=== PATIENT | male | born 1930 | race Hispanic/Latino ===

== ENCOUNTER 2016-06-15 12:45 | Inpatient (IN) | payer MEDICARE ==
[~2016-06-15 12:45] MED LIST: DILAUDID IV PRN; MILK OF MAGNESIA PO PRN; SODIUM CHLORIDE FLUSH SYRINGE 10 ML IV PRN; ZOFRAN IV PRN
[2016-06-15] MEDS ORDERED: DULCOLAX PR PRN (13:00)
[2016-06-15 14:35] LABS: Hematocrit 29.9 % (35.5-45.6); Mean Corpuscular HGB Conc 34 % (32-34); Mean Corpuscular Hemoglobin 31 pg (28-32); Mean Corpuscular Volume 92 fl (84-94); Platelet Count 311 K/mm3 (140-440); Red Blood Count 3.26 M/mm3 (3.65-5.03); Red Cell Distribution Width 13.4 % (13.2-15.2); White Blood Count 15.6 K/mm3 (4.5-11.0)
[2016-06-15 14:45] LABS: INR 1.18 (0.87-1.13)
[2016-06-15 14:54] LABS: BUN/Creatinine Ratio 17.69; Chloride 97.2 mmol/L (98-107); Potassium 4.5 mmol/L (3.6-5.0)
[2016-06-15 15:45] LABS: Basophils % (Manual) 0 % (0.0-1.8); Blastocytes % (Manual) 0 %; RBC Morphology Normal
[2016-06-15 15:52] LABS: Diff Status Complete
[2016-06-15] MEDS: NORCO 5/325 PO PRN (18:13)
[2016-06-15] MEDS: NACL 0.9% 1000 ML 1,000 ML IV SCH (23:11)
[2016-06-16] MEDS: NORCO 5/325 PO PRN ×3 (07:46→19:58)
--- NOTE | 2016-06-16 13:23 | History and Physical Report ---
History of Present Illness Date of examination: 06/16/16 Date of admission: 06/15/16 12:45 Chief complaint: Carotid pseudoaneurysm- right History of present illness: Pleasant 86 y/o male with history of HTN and carotid stenosis presents with post op swelling. Pulsatile mass on right. CTA shows pseudoaneurysm change. No c/o neurolgical deficits. c/o headache. Scheduled for surgery Saturday. Past History Past Medical History: CAD, hypertension, hyperlipidemia Past Surgical History: Other (carotid endarterectomy right and left) Medications and Allergies Allergies Allergy/AdvReac Type Severity Reaction Status Date / Time No Known Allergies Allergy Verified 12/30/14 10:26 Home Medications Medication Instructions Recorded Confirmed Last Taken Type Metoprolol Tartrate 50 mg PO BID 12/22/14 06/14/16 08/22/15 05:30 History Nitroglycerin [Nitrostat] 0.4 mg SL PRN PRN 12/22/14 06/14/16 2 Weeks Ago History Aspirin EC [Aspirin Enteric Coated 81 mg PO QDAY 12/30/14 06/14/16 08/22/15 05: 30 History TAB] Clopidogrel Bisulfate [Clopidogrel] 75 mg PO BID 12/30/14 06/14/16 08/22/15 05: 30 History AtorvaSTATin [Lipitor] 40 mg PO QHS 06/06/16 06/14/16 Unknown History amLODIPine [Norvasc] 10 mg PO DAILY 06/06/16 06/14/16 Unknown History ISOSORBIDE MONOnitrate [Imdur ER] 120 mg PO QDAY 06/14/16 06/14/16 Unknown History Active Meds: Active Medications Acetaminophen (Tylenol) 650 mg PO Q4H PRN PRN Reason: Pain MILD(1-3)/Fever >100.5/LIN Acetaminophen/Hydrocodone Bitart ([place] 5/325) 2 each PO Q6H PRN PRN Reason: Pain, Moderate (4-6) Last Admin: 06/16/16 07:46 Dose: 2 each Bisacodyl (Dulcolax) 10 mg [place] QDAY PRN PRN Reason: Constipation unrelieved by MOM Hydromorphone HCl (Dilaudid) 0.25 mg IV Q3H PRN PRN Reason: Pain, Moderate (4-6) Hydromorphone HCl (Dilaudid) 0.5 mg IV Q3H PRN PRN Reason: Pain , Severe (7-10) Cefazolin Sodium (Ancef/Sterile Water 2 Gm/20 Ml) 20 mls @ 80 mls/hr IV PREOP NR PRN Reason: Protocol Stop: 06/18/16 23:59 Sodium Chloride (Nacl 0.9% 1000 Ml) 1,000 mls @ 42 mls/hr IV DIRECT DOMINGUEZ Last Admin: 06/15/16 23:11 Dose: 42 mls/hr Magnesium Hydroxide (Milk Of Magnesia) 30 ml PO Q4H PRN PRN Reason: Constipation Ondansetron HCl (Zofran) 4 mg IV Q8H PRN PRN Reason: N/V unrelieved by Reglan Sodium Chloride (Sodium Chloride Flush Syringe 10 Ml) 10 ml IV PRN PRN PRN Reason: LINE FLUSH Review of Systems Constitutional: anorexia, no weight loss, no weight gain Eyes: right: photophobia Cardiovascular: no chest pain, no palpitations, no syncope, no leg edema Respiratory: no cough Gastrointestinal: no abdominal pain, no vomiting Musculoskeletal: no muscle weakness, no frequent falls Integumentary: no wounds Neurological: headaches, migraines, no change in mentation Exam - Constitutional Vitals: Temp Pulse Resp BP Pulse Ox 98.5 F 68 16 84/53 98 06/16/16 08:00 06/16/16 08:00 06/16/16 08:00 06/16/16 08:00 06/15/16 16:30 General appearance: Present: no acute distress - EENT Eyes: Present: PERRL, EOM intact ENT: hearing intact, clear oral mucosa - Neck Neck: Present: supple, normal ROM - Respiratory Respiratory: bilateral: CTA - Cardiovascular Rhythm: regular Heart Sounds: Present: S1 & S2 - Extremities Extremities: no ischemia, pulses intact Peripheral Pulses: within normal limits - Abdominal General gastrointestinal: Present: soft, non-tender, non-distended - Integumentary Integumentary: Present: clear, warm, dry - Musculoskeletal Musculoskeletal: strength equal bilaterally - Psychiatric Psychiatric: appropriate mood/affect, intact judgment & insight, cooperative Results - Labs CBC & Chem 7: 06/15/16 14:05 06/15/16 14:05 Labs: Abnormal lab results 06/15/16 06/15/16 06/15/16 Range/Units 14:05 14:05 14:05 WBC 15.6 H (4.5-11.0) K/mm3 RBC 3.26 L (3.65-5.03) M/mm3 Hgb 10.0 L (11.8-15.2) gm/dl Hct 29.9 L (35.5-45.6) % Seg Neutrophils # Man 10.6 H (1.8-7.7) K/mm3 INR 1.18 H (0.87-1.13) Chloride 97.2 L (98-107) mmol/L BUN 23 H (9-20) mg/dL Glucose 120 H (75-100) mg/dL Assessment and Plan - Patient Problems (1) Carotid stenosis Current Visit: No Status: Chronic Qualifiers: Laterality: right Qualified Code(s): I65.21 - Occlusion and stenosis of right carotid artery Plan to address problem: Re-do endarterectomy - Right. Scheduled for Saturday. (2) Headache Current Visit: Yes Status: Acute Qualifiers: Headache chronicity pattern: episodic headache Intractability: intractable Plan to address problem: Medical therapy.
[2016-06-16] MEDS ORDERED: NACL 0.9% 500 ML 500 ML IV ONE (15:15)
[2016-06-16] MEDS ORDERED: NACL 0.9% 1000 ML 1,000 ML ONE (15:29)
--- NOTE | 2016-06-16 17:25 | Cat Scan Report ---
FINAL REPORT EXAM: CT HEAD/BRAIN WO CON HISTORY: HEADACHE ? CVA/MASS COMPARISON: None available. TECHNIQUE: Axial images obtained skull base through vertex. FINDINGS: Faint linear focus of high attenuation along the sulcal margin of the right superior frontal lobe posteriorly (series 2, image 50). This may be artifactual, but tiny focus of subarachnoid hemorrhage cannot be excluded. No definite acute intraparenchymal hemorrhage. Benign calcification basal ganglia.. Age related volume loss with compensatory dilatation of the ventricular system and chronic small vessel ischemic disease. Otherwise, qureshi-white differentiation preserved. Calvarium grossly intact. Mild mucosal thickening the paranasal sinuses. Mastoid air cells are clear. Prior cataract surgery. IMPRESSION: Possible subtle subarachnoid hemorrhage along the posterior superior margin right frontal lobe. Short-term followup exam suggested to ensure stability. No mass effect. No evidence of underlying vascular malformation or other area of hemorrhage. Mild age related volume loss and chronic small vessel ischemic disease.
--- NOTE | 2016-06-16 23:52 | Admit Criteria Form ---
[id number] HEADACHES Clinical Indications for Admission to Inpatient Care (Place 'X' for any and all applicable criteria): Admission is indicated for ANY ONE of the following(1)(2)(3)(4): [ X]I. Inpatient admission required rather than observational care (Also use Headaches: Observation Care as appropriate) because of ANY ONE of the following: [X ]a) Severe pain requiring acute inpatient management [ ]b) Altered mental status that is severe or persistent [ ]c) Vomiting or dehydration that is severe or persistent [ ]d) New-onset focal neurologic deficit that is severe or persistent [ ]e) Hypertension requiring inpatient treatment [ ]f) Severe (new) neurologic findings requiring inpatient care as indicated by ANY ONE of following(9)(10): [ ]1) Papilledema [ ]2) Cerebral edema [ ]3) Mass effect on CT scan [ ]4) Cerebral bleeding, ischemia, or vasospasm(16) [ ]5) Hydrocephalus(17) [ ]6) Uncontrolled seizures [ ]g) IV infusion of anticoagulation, platelet inhibitors vasoactive, or antiarrhythmic medication. [ ]h) Cerebral bleeding, hydrocephalus, or vasospasm monitoring (16) [ ]i) Increased intracranial pressure or cerebral edema monitoring (17) [ ]j) Other condition, treatment or monitoring requiring inpatient admission [ ]II. Unruptured but threatening aneurysm or vascular malformation [ ]III. Venous sinus thrombosis [ ]IV. Increased intracranial pressure [ ]V. Cerebral spinal fluid leak with decreased intracranial pressure [ ]. Medication-overuse headache that has failed all outpatient management options [ ]VII. Vasculitis (eg, giant cell (temporal) arteritis, central nervous system vasculitis) requiring IV corticosteroids, IV antithrombotic therapy, or inpatient monitoring (eg, visual symptoms or findings, other ischemic manifestations)[A](10)(11) Extended stay beyond goal length of stay may be needed for (27): [ ]a) Intractable migraine [ ]b) Subarachnoid or intracranial hemorrhage [ ]c) Malignant hypertension [ ]d) Detoxification from drug withdrawal in medication-overuse headache (29) The original [facility] content created by [facility] has been revised. The portions of the content which have been revised are identified through the use of italic text or in bold, and [employer] has neither reviewed nor approved the modified material.All other unmodified content is copyright [facility]. Please see references footnoted in the original [facility] edition 2016 Admission Criteria Met: Yes <LAMINE LESTER - Last Filed: 06/17/16 11:28> Admission Criteria Documentation: J is the reason for admission. 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 Patient set up for surgery on saturday. Admission Criteria Met: Yes
[2016-06-17] MEDS: NACL 0.9% 1000 ML 1,000 ML IV SCH (03:05)
[2016-06-17] MEDS: NORCO 5/325 PO PRN ×3 (03:22→17:15)
--- NOTE | 2016-06-17 11:15 | Progress Note ---
Assessment and Plan - Patient Problems (1) Carotid stenosis Current Visit: No Status: Chronic Qualifiers: Laterality: right Qualified Code(s): I65.21 - Occlusion and stenosis of right carotid artery Plan to address problem: Re-do endarterectomy - Right. Scheduled for Saturday. (2) Headache Current Visit: Yes Status: Acute Qualifiers: Headache chronicity pattern: episodic headache Intractability: intractable Plan to address problem: Medical therapy. CT reviewed, follow up MRI ordered. Subjective Date of service: 06/17/16 Interval history: Headaches slow to resolve. CT scan findings reviewed with patient and family. Scheduling MRI to further evaluate significance of findings. Objective - Constitutional Vitals: Vital Signs - 12hr 06/17/16 06/17/16 06/17/16 00:00 03:22 04:00 Temperature 98.4 F 98.2 F Pulse Rate [ 72 63 From Monitor] Respiratory 18 20 18 Rate Blood Pressure 97/63 97/56 [Right Arm] O2 Sat by Pulse 97 97 Oximetry 06/17/16 06/17/16 04:22 07:00 Temperature 98.3 F Pulse Rate [ 63 From Monitor] Respiratory 18 20 Rate Blood Pressure 95/60 [Right Arm] O2 Sat by Pulse 96 Oximetry General appearance: Present: no acute distress - EENT ENT: hearing intact, clear oral mucosa - Neck Neck: supple, normal ROM - Respiratory Respiratory effort: normal Respiratory: bilateral: CTA - Cardiovascular Rhythm: regular Heart Sounds: Present: S1 & S2 Extremities: no ischemia, pulses intact, pulses symmetrical - Gastrointestinal General gastrointestinal: Present: soft, non-tender, non-distended - Integumentary Integumentary: clear, warm, dry - Musculoskeletal Musculoskeletal: strength equal bilaterally - Psychiatric Psychiatric: appropriate mood/affect, cooperative - Labs CBC & Chem 7: 06/15/16 14:05 06/15/16 14:05 - Imaging and cardiology CT Scan - head: report reviewed, image reviewed (SAH versus artifact, significance unclear)
--- NOTE | 2016-06-17 14:46 | Magnetic Resonance Report ---
FINAL REPORT EXAM: MR BRAIN WO/W CON HISTORY: Eval SAH TECHNIQUE: Multiplanar, multisequence MRI of the brain was performed with and without intravenous contrast. PRIORS: CT of the head 06/16/2016. FINDINGS: Motion artifact degrades image quality on several sequences. There is a small amount of subarachnoid hemorrhage within the right superior frontal lobe as seen on the prior head CT. There also a small amount of sulcal subarachnoid hemorrhage in the superior right parietal lobe. No mass effect or midline shift. These foci of hemorrhage demonstrate restricted diffusion, likely indicating they are acute hemorrhages. There is a small amount of postcontrast enhancement of the right superior frontal subarachnoid hemorrhage which can be seen in the subacute phase. There is a focal, rounded area of restricted diffusion measuring 6 millimeters within the right superior frontal lobe subcortical white matter consistent with an acute ischemic infarct. There is heterogeneous signal within the right intracranial internal carotid artery. The ventricles are normal in size, shape and position. The basilar cisterns are patent. Scattered areas of T2 hyperintensity are seen in the periventricular and subcortical white matter. Mild mucosal thickening of the ethmoid sinuses is likely congestive or inflammatory. The orbits are intact. The extracranial soft tissues are normal. IMPRESSION: 1. Small focal recent ischemic infarct in the right superior frontal subcortical white matter. 2. Several foci of sulcal subarachnoid hemorrhage in the right superior frontal and parietal lobes. 3. Heterogeneous signal within the right intracranial internal carotid artery flow void may indicate thrombosis. Recommend further evaluation with MRA or CTA of the brain. 4. Mild findings of chronic microvascular ischemic disease. Findings were discussed with the nurse taking care of patient Josefina Winston at 11:35 a.m. [facility] [[email or web address]] on 06/17/2016.
[2016-06-17] MEDS: DILAUDID IV PRN (15:15)
[2016-06-17] MEDS: LOPRESSOR PO SCH (17:00)
[2016-06-17] MEDS ORDERED: NACL ONE (17:06)
[2016-06-17] MEDS: NORVASC PO SCH (17:40)
[2016-06-17] MEDS ORDERED: NITROSTAT SL PRN (18:50)
--- NOTE | 2016-06-17 18:58 | Cat Scan Report ---
FINAL REPORT EXAM: CT ANGIO HEAD HISTORY: Eval for carotid arterty thrombosis COMPARISON: MRI the brain from today. CT of the head from yesterday. TECHNIQUE: Contiguous axial images were obtained. Additional sagittal and coronal reformatted images were obtained. Administration of IV contrast given per institution protocol. Images submitted for interpretation. Max intensity projection images. FINDINGS: Focal thrombus of the distal right carotid terminus (series 3, image 109 and 100 and 10). Area of thrombus measures approximately 5 millimeters in length. There is cross-filling into the right middle cerebral artery via the left anterior circulation through the anterior communicating artery. There is subsequent contrast opacification of the right middle cerebral artery. Branching and opacification of the right middle cerebral arteries fairly symmetric compared to the left but would explain areas of watershed distribution infarcts seen on earlier MRI due to probable hyperperfusion right middle cerebral artery due to the thrombus. Moderate severe calcified plaque along the cavernous is supraclinoid portions of the internal carotid arteries bilaterally. No high-grade stenosis or occlusion on the left. Symmetric branching of the anterior and posterior cerebral arteries. Bilateral posterior communicating arteries are present. Due to dominance of the anterior circulation there is subsequent decrease caliber the vertebral basilar system. Basilar artery is patent. Mild calcified plaque along the right vertebral artery. Area faint subarachnoid hemorrhage or thrombus within a superficial vein or artery along the right posterior frontal lobes unchanged. Major dural venous sinuses are well opacified. IMPRESSION: Thrombus and occlusion of the right carotid terminus. There is cross-filling of the right middle cerebral artery from the left anterior circulation via the anterior communicating artery. There is subsequent flow within the right middle cerebral artery with gross symmetric branching and opacification compared to the left. This would explain watershed distribution infarcts of the right cerebral hemisphere seen on earlier MRI related to probable transient hyper fusion to the right middle cerebral artery. Moderate severe calcified plaque along the cavernous is supraclinoid portions of the internal carotid arteries. No high-grade stenosis or occlusion on the left or supraclinoid portion of the right internal carotid artery. Dominance of the anterior circulation with origins of the bilateral posterior cerebral arteries. Tiny focus of subarachnoid hemorrhage along the posterior right frontal lobe remains. Thrombus within at small venous arterial branch could have a similar appearance. Findings are similar to earlier MRI.
[2016-06-17] MEDS ORDERED: NACL 0.9% 1000 ML 1,000 ML IV SCH (19:00)
[2016-06-17] MEDS ORDERED: PEPCID PO NR (19:00)
--- NOTE | 2016-06-17 19:05 | Cat Scan Report ---
FINAL REPORT EXAM: CT ANGIO NECK HISTORY: Eval for carotid arterty thrombosis COMPARISON: None available. TECHNIQUE: Contiguous axial images were obtained. Additional sagittal and coronal reformatted images were obtained. Administration of IV contrast given per institution protocol. Images submitted for interpretation. FINDINGS: Severe calcification of the aortic arch. Moderate severe calcified plaque along the innominate artery. High-grade stenosis at the origin the subclavian artery (series 2, image 23). Prominent focal calcified noncalcified plaque at its origin measuring 10 millimeters in length. (Series 3, image 23 moderate calcified plaque along the extracranial portion of the right common carotid artery. Greatest degree of stenosis approximately 40 percent (series 3, image 46) due to noncalcified plaque. Probable prior endarterectomy on the right. Bulbous appearance of the right carotid bifurcation and dilatation of the right carotid bifurcation measuring 3.7 centimeters in diameter. Prominent mural thrombus in that region. No high-grade stenosis of the right internal carotid artery along its extracranial aspect. There is a focal mild to moderate calcified plaque just proximal to the petrous segment of the right internal carotid artery causing less than 30 percent stenosis. Mild focal calcified plaque along the left internal carotid artery without associated stenosis. Otherwise, extracranial portion left internal carotid artery is widely patent. Mild to moderate calcified plaque along the left common carotid artery without high-grade stenosis. Mild to moderate calcified plaque at the origin and proximal aspect of the subclavian artery on the left without significant associated stenosis. Partial visualization of spiculated nodule medial margin right upper lobe measuring 1.8 x 1.3 centimeters. More posteriorly along the right upper lobe there is a rounded mass measuring 3.3 x 3.1 centimeters. Findings are concerning for neoplasm. Scarring at the lung apices. Visualized esophagus is partially fluid-filled which may relate to reflux. IMPRESSION: Probable carotid endarterectomy on the right. Prominent mural thrombus and dilatation of the carotid bifurcation without significant associated stenosis by NASCET criteria. Mild to moderate calcified plaque along the extracranial portion right internal carotid artery with estimated stenosis approximately 30 percent mild calcified plaque along the left internal carotid artery without associated stenosis. 40 percent stenosis in the mid right common carotid artery due to noncalcified plaque. High-grade focal stenosis of the right subclavian artery. Estimated stenosis at least 80 percent at its origin. Partial visualization of spiculated nodule right upper lobe measuring 1.8 centimeters and rounded consolidation the posterior margin right upper lobe measuring 3 centimeters. These findings are concerning for neoplasm.
[2016-06-17] MEDS ORDERED: APRESOLINE IV PRN (21:06)
[2016-06-17] MEDS: PLAVIX PO SCH (21:29)
[2016-06-17] MEDS: HALFPRIN EC PO SCH (21:29)
[2016-06-17] MEDS: IMDUR PO SCH (21:30)
--- NOTE | 2016-06-17 22:05 | Anesthesia Consultation ---
Anesthesia Consult and Med Hx Date of service: 06/18/16 - Airway Anesthetic Teeth Evaluation: Edentulous ROM Head & Neck: Inadequate Mental/Hyoid Distance: Adequate Mallampati Class: Class II Intubation Access Assessment: Probably Good - Pulmonary Exam CTA: Yes - Cardiac Exam Cardiac Exam: RRR - Pre-Operative Health Status ASA Pre-Surgery Classification: ASA4 Proposed Anesthetic Plan: General - Pre-Anesthesia Comment Pre-Anesthesia Comments: Right carotid pseudoaneurysm - Pulmonary Hx Smoking: Yes (Former heavy smoker) SOB: Yes COPD: Yes (No inhaler use; FEV1/FVC 76% Pred value 01/17/15) - Cardiovascular System Hx Hypertension: Yes Hx Coronary Artery Disease: Yes Hx Heart Attack/AMI: Yes Hx Angina: Yes Hx Percutaneous Transluminal Coronary Angioplasty (PTCA): Yes (12/2014, stents x 2) Hx Cardia Arrhythmia: No Hx Pacemaker: No Hx Peripheral Vascular Disease: Yes (s/p left CEA 01/2015) - Central Nervous System Hx Neuromuscular Disorder: No - Gastrointestinal Hx Gastroesophageal Reflux Disease: No - Endocrine Hx Renal Disease: Yes (CKD Stage III) Hx Non-Insulin Dependent Diabetes: No Hx Thyroid Disease: No - Hematic Hx Anemia: Yes (s/p transfusion 12/2014) - Other Systems Hx Alcohol Use: Yes (1 12 OZ BEER DAILY) Hx Substance Use: No
[2016-06-18 05:48] LABS: Hematocrit 25.6 % (35.5-45.6); Hemoglobin 8.7 gm/dl (11.8-15.2); Mean Corpuscular HGB Conc 34 % (32-34); Mean Corpuscular Hemoglobin 31 pg (28-32); Mean Corpuscular Volume 91 fl (84-94); Platelet Count 253 K/mm3 (140-440); Red Blood Count 2.81 M/mm3 (3.65-5.03); Red Cell Distribution Width 13.3 % (13.2-15.2); White Blood Count 12.3 K/mm3 (4.5-11.0)
[2016-06-18 05:57] LABS: INR 1.16 (0.87-1.13)
[2016-06-18] MEDS ORDERED: ANCEF/STERILE WATER 2 GM/20 ML 20 ML IV NR (06:00)
[2016-06-18 06:07] LABS: Anion Gap 17 mmol/L; Blood Urea Nitrogen 13 mg/dL (9-20); Calcium 8.1 mg/dL (8.4-10.2); Carbon Dioxide 22 mmol/L (22-30); Glucose 110 mg/dL (75-100); Potassium 4.2 mmol/L (3.6-5.0); Sodium 135 mmol/L (137-145)
[2016-06-18] MEDS ORDERED: DILAUDID ONE (06:57)
[2016-06-18] MEDS ORDERED: DECADRON ONE (06:58)
[2016-06-18] MEDS ORDERED: XYLOCAINE MPF 2% ONE (06:58)
[2016-06-18] MEDS ORDERED: ZEMURON IV ONE ×2 (06:58→10:05)
[2016-06-18] MEDS ORDERED: DIPRIVAN 10 MG/ML IV ONE (06:58)
[2016-06-18] MEDS ORDERED: ZOFRAN ONE (06:58)
[2016-06-18] MEDS: NACL 0.9% 1000 ML 1,000 ML IV SCH (07:00)
[2016-06-18] MEDS ORDERED: NACL 0.9% 500 ML 500 ML IV ONE (07:06)
[2016-06-18] MEDS: LOPRESSOR PO SCH ×3 (07:10→22:13)
[2016-06-18] MEDS: VERSED IV PRN ×2 (07:24→07:48)
[2016-06-18] MEDS ORDERED: NACL 0.9% 500 ML ONE (08:00)
--- NOTE | 2016-06-18 08:08 | Event Note ---
Date: 06/18/16 The patient was admitted with headaches and underwent an extensive workup that included a CT scan of his head as well as MRI and a CTA of his head. 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 I discussed these findings with the family and that typically anticoagulation is held for a minimum of 6 weeks with this finding however the risk of waiting would likely lead to additional embolic phenomenon and possibly a symptomatic stroke and further bleeding. Plan is to harvest the saphenous vein to replace the patch and to use a minimal amount of heparin to minimize further bleeding. I discussed this plan with the family as well as the patient and expressed understanding and agreement with the plan to proceed.
[2016-06-18] MEDS ORDERED: ePHEDrine SULFATE ONE (08:13)
[2016-06-18 08:23] LABS: Basophils % (Manual) 0 % (0.0-1.8); Blastocytes % (Manual) 0 %
[2016-06-18 08:24] LABS: Ovalocytes Few
[2016-06-18 08:25] LABS: Anisocytosis Few; Diff Status Complete; Platelet Estimate Consistent w Auto
[2016-06-18] MEDS ORDERED: HEPARIN 10,000 UNITS/10 ML ONE (08:34)
[2016-06-18] MEDS ORDERED: HEPARIN 10,000 UNITS/10 ML 2,000 UNIT in NACL 0.9% 500 ML 500 ML IR ONE (08:43)
[2016-06-18] MEDS ORDERED: THROMBIN (BOVINE) TP ONE (08:43)
[2016-06-18] MEDS ORDERED: NACL 0.9% 1000 ML IR ONE (08:43)
[2016-06-18] MEDS ORDERED: GELFOAM TP ONE (08:43)
[2016-06-18] MEDS ORDERED: NACL 0.9% 1000 ML 1,000 ML ONE ×2 (09:12→11:13)
[2016-06-18] MEDS ORDERED: DILAUDID IV PRN (09:14)
--- NOTE | 2016-06-18 09:14 | Anesthesia Day of Surgery ---
Anesthesia Day of Surgery - Day of Surgery Patient Examined: Yes Patient H&P Reviewed: Yes Patient is NPO: Yes
[2016-06-18] MEDS ORDERED: NEO SYNEPHRINE ONE (09:45)
--- NOTE | 2016-06-18 10:29 | Query-Anemia ---
Dear Date:06/18/16 Egg Tester/CDS:Andrews Wick Phone#: Exercise your independent professional judgment when responding to this query. Questions asked do not imply a particular answer is desired or expected. We greatly appreciate your clarification on this issue. Clinical Documentation States: 86 y/o m admitted on 06/15/16 for carotid stenosis. Patient underwent carotid endarectomy. Patient admitted with HGB of 10.0 and dropped to 8.7/ Clinical Findings Show: [x] Hb10-8.7 Etiology: [ ] Anemia due to acute blood loss [ ] Anemia due to chronic blood loss [ ] Anemia secondary to ESRD [ ] Anemia secondary to neoplastic disease [ ] Iron deficiency anemia due to malabsorption [ ] GI Bleed from: [ ] Anemia of chronic disease ,Other: [ ] Precipitous Drop in Hemoglobin [ ] Precipitous Drop in Hematocrit [ ] Other: [ ] Unable to determine [ ] Comment/Explanation: Present on Admission: [ ] Yes (Y) [ ] Clinically undeterminable (W) [ ] No (N) Please also document response in your Progress Notes and/or Discharge Summary and indicate if the condition was present on admission. VERNA
[2016-06-18] MEDS ORDERED: MARCAINE 0.5% INFILTRATI ONE ×2 (10:47)
[2016-06-18] MEDS ORDERED: MORPHINE IV PRN ×2 (11:15)
[2016-06-18] MEDS ORDERED: NARCAN 0.4 MG/1 ML IV PRN (11:15)
--- NOTE | 2016-06-18 11:47 | Operative Report ---
Operative Report Operative Report: Date of Procedure: 06/18/2016 Pre-operative Diagnosis: Right Carotid Artery Pseudoaneurysm Post-operative Diagnosis: Same Procedure(s): 1. Repair of Right Carotid Artery Pseudoaneurysm with Left Greater Saphenous Vein Patch Surgeon: Dayron Norris M.D. Surveillance Sensor Operator: Laz Cooper M.D. Anesthesia: Gen. endotracheal anesthesia EBL: 100 mL Counts: Correct Complications: None Condition: Stable Findings: Large carotid artery pseudoaneurysm with complete disruption of the medial aspect of the patch anastomosis. No obvious evidence of infection. Specimen: Right carotid artery pseudoaneurysm and Dacron patch and for culture. Indication: The patient is an 86-year-old male with a history of carotid artery endarterectomy with patch angioplasty of the right. He presented to the office with complaints of an enlarging mass in his neck and his CTA revealed a large pseudoaneurysm with a patent distal carotid artery. He was subsequently scheduled for carotid pseudoaneurysm repair however presented to the office with vague complaints of headache as well as general body pain and was admitted to the hospital. His workup within the hospital demonstrated that he had been having microemboli from the pseudoaneurysm to the brain with small areas of ischemia and surrounding areas of hemorrhage. Despite having these areas of hemorrhage was felt that it was more beneficial to proceed with repair of the pseudoaneurysm to prevent further embolic episodes. I discussed this with the share his family. They expressed understanding and agreed to proceed with the operation. Description of Procedure: The patient was brought to the operating room and laid in supine position. After general endotracheal anesthesia was achieved his left leg and right neck and chest were prepped and draped in normal sterile fashion. Ultrasound was used to identify the left greater saphenous vein and a longitudinal incision was created in the mid thigh; the vein. Sharp dissection was used to dissect out the vein and all branches were suture-ligated and divided. Once an adequate length of the vein had been exposed both ends were suture ligated and the vein was divided. The vein was then spliced open to use as a vein patch for repair. I then made a longitudinal incision in the patient's neck to his previous incision and carried this down to the proximal common carotid artery using sharp dissection. I dissected circumferentially been controlled as possible. I dissected along the medial aspect of the pseudoaneurysm until I was able to identify the superior thyroid artery which was controlled with a 2- 0 silk. I then dissected further distally was able to identify the external carotid artery was dissected circumferentially been controlled the vessel. Of note on the lateral aspect of the pseudoaneurysm the internal jugular vein was fairly adherent to the wall. I was able to free the vein from the wall dissect distally until I was able to identify the internal carotid artery and dissected circumferentially and a portion that was free from the pseudoaneurysm. Then controlled this with a vessel loop. At this point I systemically heparinized the patient with 3000 units of heparin IV which is less than the normal dose for this was used to decrease the chances of bleeding from his areas of subarachnoid hemorrhage. After this a circular for 3 minutes I then clamped the vessels using an 11 blade to create an arteriotomy in the proximal common carotid artery and extended this to the pseudoaneurysm distally until I was in normal portion of internal carotid artery. I used curved males to resect the pseudoaneurysm including the patch and used to remove laminar thrombus within the artery. I then used a 6-0 Prolene in running fashion to close the arteriotomy using the left greater saphenous vein patch on the distal portion of the patch. On the proximal portion is a 5-0 Prolene in a running fashion. Prior to complete the patch closure I back bled all arteries were reclamped them and flushed the artery with heparinized saline. I then completed the closure and flashed the internal carotid artery to remove any debris. There were multiple class and the external carotid and the common carotid artery and it was able to remove the clamp from the internal carotid artery. Hemostasis on the patch was achieved with 6-0 Prolene in interrupted fashion. I then used a quick clot to achieve further hemostasis within normal. Hemostasis was achieved we did perform an intraoperative completion duplex because of the tortuosity of the distal portion of the artery it was difficult to obtain adequate velocities however the artery did appear to be free of debris. I then anesthetized both holes with Marcaine and then closed both in 2 layers using a 3 -0 Vicryl running fashion and the deep dermal layer and a 4-0 Monocryl running fashion subcuticularly and then dressed with Dermabond. The patient tolerated the procedure well. All sponge, needle, and instrument counts were correct. The patient was taken to the recovery area in stable condition.
[2016-06-18] MEDS ORDERED: NACL 0.9% 1000 ML 1,000 ML IV SCH (12:00)
[2016-06-18] MEDS ORDERED: INTROPIN DRIP 800 MG/D5W 250 ML 250 ML IV SCH (12:00)
[2016-06-18] MEDS ORDERED: LEVAQUIN PO SCH (12:00)
[2016-06-18] MEDS ORDERED: NIPRIDE 50 MG in D5W 248 ML IV SCH (12:00)
--- NOTE | 2016-06-18 12:11 | Post Anesthesia Evaluation ---
- Post Anesthesia Evaluation Patient Participated: Yes Airway Patent: Yes Stable Respiratory Function: Yes Nausea/Vomiting: No Temp > 96.8F: Yes Pain Manageable: Yes Adequeate Hydration: Yes Anesthesia Complications: No
[2016-06-18] MEDS ORDERED: ZOFRAN IV ONE (12:37)
[2016-06-18] MEDS: DILAUDID IV PRN (19:09)
[2016-06-18] MEDS: ANCEF/NS 1 GM/50 ML 50 ML IV SCH ×2 (20:00→20:26)
[2016-06-18] MEDS: PLAVIX PO SCH (20:26)
[2016-06-18] MEDS: IMDUR PO SCH (20:27)
[2016-06-18] MEDS: NORVASC PO SCH (20:27)
[2016-06-18] MEDS: HALFPRIN EC PO SCH (20:27)
[2016-06-18] MEDS: COLACE PO SCH (22:12)
[2016-06-19] MEDS: NORCO 5/325 PO PRN (05:22)
[2016-06-19] MEDS: NACL 0.9% 1000 ML 1,000 ML IV SCH (05:22)
--- NOTE | 2016-06-19 08:30 | Event Note ---
Date: 06/19/16 A some point overnight the patient became confused and pulled on his A-line. Per the nursing notes the patient has not been oriented to place, person. Upon evaluation this morning the patient is not oriented to person, time, or place. The patient is a hallucinating stating that he sees "tigers on the ceiling". Given his recent operation in the history of subarachnoid hemorrhage will order stat CT scan of his head to rule out an acute process. The patient does deny having a headache. If there is no acute CVA or enlargement of his subarachnoid hemorrhage the patient may require CIWA protocol as he states that he does drink a 16 oz beer daily.
[2016-06-19] MEDS ORDERED: NACL ONE (09:33)
--- NOTE | 2016-06-19 09:42 | Vascular Lab Report ---
INTRAOPERATIVE CAROTID ARTERY DUPLEX Reason for exam: Completion of carotid endarterectomy Comments on the right: The common and internal carotid arteries are patent without evidence of intraluminal irregularities. Flow velocities appear to be appropriate. No obvious technical defects at the endarterectomy site appreciated. Impression: No obvious technical imperfections at the endarterectomy site.
--- NOTE | 2016-06-19 10:13 | Consultation ---
History of Present Illness - Reason for Consult Consult date: 06/19/16 pseudoaneurysm infection - History of Present Illness This is a 86 year old man with CAD s/p CABG, bilateral endarterectomy in 2014 1nd 2016. Patient present to vascular surgery complaining of a right neck mass. It was found to be a pulsatile mass, CTA revealed pseudoaneurysm. On admission MRI of the neck revealed small focal ischemic infarct in the right superior frontal subcortical white matter, several foci of sulcal subarachnoid hemorrhage on the right superior frontal and parietal lobes. CTA on 06/17/16 with thrombus and occlusion of the right carotid terminus. Patient was taken to the OR on 06/18/16 and underwent right carotid artery pseudoaneurysm repair with left greater sphenous vein patch. Patient became confused and hallucinating over night. Infectious disease was called to rule out infection of the pseudoaneurysm Past History Past Medical History: CAD, hypertension, hyperlipidemia Past Surgical History: Other (carotid endarterectomy right and left) Medications and Allergies Allergies Allergy/AdvReac Type Severity Reaction Status Date / Time No Known Allergies Allergy Verified 12/30/14 10:26 Home Medications Medication Instructions Recorded Confirmed Last Taken Type Metoprolol Tartrate 50 mg PO BID 12/22/14 06/14/16 08/22/15 05:30 History Nitroglycerin [Nitrostat] 0.4 mg SL PRN PRN 12/22/14 06/14/16 2 Weeks Ago History Aspirin EC [Aspirin Enteric Coated 81 mg PO QDAY 12/30/14 06/14/16 08/22/15 05: 30 History TAB] Clopidogrel Bisulfate [Clopidogrel] 75 mg PO BID 12/30/14 06/14/16 08/22/15 05: 30 History AtorvaSTATin [Lipitor] 40 mg PO QHS 06/06/16 06/14/16 Unknown History amLODIPine [Norvasc] 10 mg PO DAILY 06/06/16 06/14/16 Unknown History ISOSORBIDE MONOnitrate [Imdur ER] 120 mg PO QDAY 06/14/16 06/14/16 Unknown History Active Meds: Active Medications Acetaminophen (Tylenol) 650 mg PO Q4H PRN PRN Reason: Pain MILD(1-3)/Fever >100.5/LIN Acetaminophen/Hydrocodone Bitart ([place] 5/325) 2 each PO Q6H PRN PRN Reason: Pain, Moderate (4-6) Last Admin: 06/19/16 05:22 Dose: 2 each Amlodipine Besylate (Norvasc) 10 mg PO QDAY [facility] Last Admin: 06/18/16 20:27 Dose: Not Given Aspirin (Halfprin Ec) 81 mg PO QDAY [facility] Last Admin: 06/18/16 20:27 Dose: Not Given Atorvastatin Calcium (Lipitor) 40 mg PO QHS [facility] Last Admin: 06/18/16 22:12 Dose: 40 mg Bisacodyl (Dulcolax) 10 mg SD QDAY PRN PRN Reason: Constipation unrelieved by MOM Clopidogrel Bisulfate (Plavix) 75 mg PO QDAY [facility] Last Admin: 06/18/16 20:26 Dose: Not Given Docusate Sodium (Colace) 100 mg PO BID [facility] Last Admin: 06/18/16 22:12 Dose: 100 mg Hydralazine HCl (Apresoline) 10 mg IV Q6H PRN PRN Reason: Hypertension SYS >160 Hydromorphone HCl (Dilaudid) 0.25 mg IV Q3H PRN PRN Reason: Pain, Moderate (4-6) Hydromorphone HCl (Dilaudid) 0.5 mg IV Q3H PRN PRN Reason: Pain , Severe (7-10) Last Admin: 06/18/16 19:09 Dose: 0.5 mg Hydromorphone HCl (Dilaudid) 0.5 mg IV Q10MIN PRN PRN Reason: Pain , Severe (7-10) Stop: 06/21/16 09:15 Sodium Chloride (Nacl 0.9% 1000 Ml) 1,000 mls @ 75 mls/hr IV DIRECT [facility] Last Admin: 06/19/16 05:22 Dose: 75 mls/hr Sodium Chloride (Nacl 0.9% 1000 Ml) 1,000 mls @ 75 mls/hr IV DIRECT [facility] Dopamine HCl/Dextrose (Intropin Drip 800 Mg/D5w 250 Ml) 250 mls @ 7.014 mls/hr IV TITR [facility]; 5 MCG/KG/MIN PRN Reason: Protocol Sodium Nitroprusside 50 mg/ (Dextrose) 250 mls @ 5.61 mls/hr IV TITR [facility]; 0.25 MCG/KG/MIN PRN Reason: Protocol Isosorbide Mononitrate (Imdur) 120 mg PO QDAY [facility] Last Admin: 06/18/16 20:27 Dose: Not Given Levofloxacin (Levaquin) 500 mg PO Q24H [facility] Last Admin: 06/18/16 20:26 Dose: Not Given Magnesium Hydroxide (Milk Of Magnesia) 30 ml PO Q4H PRN PRN Reason: Constipation Metoprolol Tartrate (Lopressor) 50 mg PO BID [facility] Last Admin: 06/18/16 22:13 Dose: 50 mg Morphine Sulfate (Morphine) 2 mg IV Q4H PRN PRN Reason: Pain, Moderate (4-6) Morphine Sulfate (Morphine) 4 mg IV Q4H PRN PRN Reason: Pain , Severe (7-10) Naloxone HCl (Narcan 0.4 Mg/1 Ml) 0.1 mg IV Q2MIN PRN PRN Reason: Res Rate </= 8 or 02 SAT < 92% Nitroglycerin (Nitrostat) 0.4 mg SL .Q5MIN PRN PRN Reason: Chest Pain Ondansetron HCl (Zofran) 4 mg IV Q8H PRN PRN Reason: N/V unrelieved by Reglan Sodium Chloride (Sodium Chloride Flush Syringe 10 Ml) 10 ml IV PRN PRN PRN Reason: LINE FLUSH Review of Systems Constitutional: no weight loss, no weight gain, no fever, no chills, no sweats, no fatigue, no weakness Ears, nose, mouth and throat: no ear pain, no ear discharge, no tinnitis, no decreased hearing, no nose pain, no dental pain, no mouth pain, no hoarseness Cardiovascular: no orthopnea, no palpitations, no shortness of breath, no dyspnea on exertion Respiratory: no cough with sputum, no hemoptysis, no wheezing, no pleurisy, no pain Gastrointestinal: no vomiting, no diarrhea, no hematochezia, no loss of appetite Genitourinary Male: no hematuria, no flank pain, no genital pain Musculoskeletal: neck pain, no shooting arm pain, no arm numbness/tingling, no low back pain, no shooting leg pain, no leg numbness/tingling Integumentary: no rash, no pruritis, no sores, no wounds, no jaundice Neurological: no paralysis, no weakness, no parathesias, no tingling, no convulsions Psychiatric: no memory loss, no sleep disturbances, no insomnia, no hallucinations, no paranoia, no depression Endocrine: no heat intolerance, no polyphagia, no weight change Physical Examination - Constitutional Vitals: Selected Entries 06/18/16 06/19/16 06/19/16 17:00 04:40 06:00 Temperature 97.6 F Pulse Rate [ 90 From Monitor] Respiratory 20 Rate O2 Sat by Pulse Oximetry Blood Pressure 131/55 [Right Arm] 06/19/16 08:00 Temperature 97.7 F Pulse Rate [ From Monitor] Respiratory Rate O2 Sat by Pulse 97 Oximetry Blood Pressure [Right Arm] General appearance: Present: no acute distress, well-nourished - EENT Eyes: Present: PERRL, EOM intact. Absent: scleral icterus, conjunctival injection ENT: hearing intact, clear oral mucosa, no oropharyngeal erythema, no thrush - Neck Neck: Present: supple, normal ROM, other (right side neck with swelling and erythema at the surgical site). Absent: enlarged thyroid, masses or JVD - Respiratory Respiratory effort: normal Respiratory: bilateral: CTA - Cardiovascular Rhythm: regular Heart Sounds: Present: S1 & S2 - Extremities Extremities: no ischemia, pulses intact, No edema - Abdominal General gastrointestinal: Present: deferred, soft, normal bowel sounds Male genitourinary: Present: deferred - Rectal Rectal Exam: deferred - Integumentary Integumentary: Present: clear, warm, dry. Absent: jaundice, rash - Musculoskeletal Musculoskeletal: strength equal bilaterally - Psychiatric Psychiatric: cooperative, agitated, other (confused) Results - Labs CBC & Chem 7: 06/18/16 05:27 06/18/16 05:27 Labs: Microbiology 06/18/16 Unknown Other (Please Specify:) - Other Surgical Biopsy Culture - Preliminary Laboratory Tests 06/15/16 06/15/16 06/18/16 14:05 14:05 05:27 WBC 15.6 H 12.3 H Plt Count 253 INR 1.18 H BUN Creatinine 06/18/16 06/18/16 05:27 05:27 WBC Plt Count INR 1.16 H BUN 13 Creatinine 1.0 Assessment and Plan Antibiotics: 1) Levaquin 500mg po Q24H (06/17 This is an 86 year old man with CAD, CABG, s/p blilateral endarterectomy in 2015 and 2016 now presented with right neck pulsatile neck mass that was found to be pseudoaneurysm complicated by micro-emboli to the brain. Patient became confused overnight. Infectious disease consult was called to assess due to intraoperative suspicion of infection. 1) Suspected infected pseudoaneurysm in a patient who had a patch angioplasty of the right. Will need to discuss with the vascular regarding findings. Patient was clinically stable prior to admission without fevers or chills. If this is related to an infectious process, a fastidious organism is possible or slow growing organism. Howeve the pathology and culture guide whether this is a true infection. 2) Right pseudoaneurysm complicated by micro emboli to the brain leading to confusion. 3) leukocytosis, might be related to recent surgery. 4) confusion, possible beginning of alcohol withdrawal versus worsening brain lesions from emboli Plan: 1) obtain blood cultures x 2 2) discussed with lab regarding adding on further studies on the tissue received from the OR 3) follow up tissue pathology and culture 4) add on AFB smear and culture 5) add on fungal culture 6) obtain RPR 7) discontinue levaquin 8) start unasyn 1.5gm iv Q6H
[2016-06-19] MEDS: COLACE PO SCH ×2 (11:29→22:13)
[2016-06-19] MEDS: IMDUR PO SCH ×2 (11:30→11:33)
[2016-06-19] MEDS: HALFPRIN EC PO SCH (11:30)
[2016-06-19] MEDS: LOPRESSOR PO SCH ×2 (11:33→22:00)
[2016-06-19] MEDS: NORVASC PO SCH (11:34)
[2016-06-19] MEDS: PLAVIX PO SCH (11:35)
[2016-06-19] MEDS ORDERED: HALDOL IM PRN (11:44)
--- NOTE | 2016-06-19 11:45 | Cat Scan Report ---
CT ANGIO HEAD: HISTORY: Change in mental status after carotid endarterectomy. TECHNIQUE: Helical CTA following IV contrast. Sagittal and coronal reformatted images. Three-dimensional volume rendering technique. FINDINGS: Compared to the CTA head dated 06/17/16. On the most inferior images, a small fluid collection is partially imaged adjacent to the right common carotid artery which probably represents normal postsurgical changes. There are moderate atherosclerotic plaques throughout both carotid systems. Occlusion of the supraclinoid portion of the distal right ICA is again noted and unchanged since 06/17/16. There appears to be filling of the right MCA through a posterior communicating artery. The anterior cerebral arteries and left middle cerebral artery are patent with less than 20% stenosis. The vertebrobasilar system remains patent although it is small in caliber secondary to bilateral posterior communicating arteries. The ill-defined area of hyperdensity high in the right posterior frontal lobe is no longer appreciated when comparing to the CT head on 06/16/16. IMPRESSION: No significant change since 06/17/16 exam. 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 There is collateral flow around the [place], as outlined above. No new areas of stenosis or occlusion.
--- NOTE | 2016-06-19 12:41 | Consultation ---
History of Present Illness - Reason for Consult Consult date: 06/19/16 ICU monitoring Requesting physician: JONAH CARDONA - History of Present Illness 86 y/o male with pseudoaneurysm of the carotid status post repair admitted to the ICU for further monitoring. Last night , per report, patient became agitated and confused. Also having hallucinations which he continues to have. He was given dilaudid once last night and vicodin this am. Also he drinks 1 beer per day, per the daughter and his last drink was about 10-11 days ago. Remainder is negative. Past History Past Medical History: CAD, hypertension, hyperlipidemia Past Surgical History: Other (carotid endarterectomy right and left) Medications and Allergies Allergies Allergy/AdvReac Type Severity Reaction Status Date / Time No Known Allergies Allergy Verified 12/30/14 10:26 Home Medications Medication Instructions Recorded Confirmed Last Taken Type Metoprolol Tartrate 50 mg PO BID 12/22/14 06/14/16 08/22/15 05:30 History Nitroglycerin [Nitrostat] 0.4 mg SL PRN PRN 12/22/14 06/14/16 2 Weeks Ago History Aspirin EC [Aspirin Enteric Coated 81 mg PO QDAY 12/30/14 06/14/16 08/22/15 05: 30 History TAB] Clopidogrel Bisulfate [Clopidogrel] 75 mg PO BID 12/30/14 06/14/16 08/22/15 05: 30 History AtorvaSTATin [Lipitor] 40 mg PO QHS 06/06/16 06/14/16 Unknown History amLODIPine [Norvasc] 10 mg PO DAILY 06/06/16 06/14/16 Unknown History ISOSORBIDE MONOnitrate [Imdur ER] 120 mg PO QDAY 06/14/16 06/14/16 Unknown History Active Meds: Active Medications Acetaminophen (Tylenol) 650 mg PO Q4H PRN PRN Reason: Pain MILD(1-3)/Fever >100.5/LIN Acetaminophen/Hydrocodone Bitart ([place] 5/325) 2 each PO Q6H PRN PRN Reason: Pain, Moderate (4-6) Last Admin: 06/19/16 05:22 Dose: 2 each Amlodipine Besylate (Norvasc) 10 mg PO QDAY [facility] Last Admin: 06/19/16 11:34 Dose: 10 mg Aspirin (Halfprin Ec) 81 mg PO QDAY [facility] Last Admin: 06/19/16 11:30 Dose: 81 mg Atorvastatin Calcium (Lipitor) 40 mg PO QHS [facility] Last Admin: 06/18/16 22:12 Dose: 40 mg Bisacodyl (Dulcolax) 10 mg ND QDAY PRN PRN Reason: Constipation unrelieved by MOM Clopidogrel Bisulfate (Plavix) 75 mg PO QDAY [facility] Last Admin: 06/19/16 11:35 Dose: 75 mg Docusate Sodium (Colace) 100 mg PO BID [facility] Last Admin: 06/19/16 11:29 Dose: 100 mg Haloperidol Lactate (Haldol) 5 mg IM Q6H PRN PRN Reason: Agitation Hydralazine HCl (Apresoline) 10 mg IV Q6H PRN PRN Reason: Hypertension SYS >160 Hydromorphone HCl (Dilaudid) 0.25 mg IV Q3H PRN PRN Reason: Pain, Moderate (4-6) Hydromorphone HCl (Dilaudid) 0.5 mg IV Q3H PRN PRN Reason: Pain , Severe (7-10) Last Admin: 06/18/16 19:09 Dose: 0.5 mg Hydromorphone HCl (Dilaudid) 0.5 mg IV Q10MIN PRN PRN Reason: Pain , Severe (7-10) Stop: 06/21/16 09:15 Sodium Chloride (Nacl 0.9% 1000 Ml) 1,000 mls @ 75 mls/hr IV DIRECT [facility] Last Admin: 06/19/16 05:22 Dose: 75 mls/hr Sodium Chloride (Nacl 0.9% 1000 Ml) 1,000 mls @ 75 mls/hr IV DIRECT [facility] Dopamine HCl/Dextrose (Intropin Drip 800 Mg/D5w 250 Ml) 250 mls @ 7.014 mls/hr IV TITR [facility]; 5 MCG/KG/MIN PRN Reason: Protocol Sodium Nitroprusside 50 mg/ (Dextrose) 250 mls @ 5.61 mls/hr IV TITR [facility]; 0.25 MCG/KG/MIN PRN Reason: Protocol Ampicillin Sodium/Sulbactam Sodium (Unasyn/Ns 1.5 Gm/50 Ml) 50 mls @ 100 mls/ hr IV Q6HR [facility] PRN Reason: Protocol Isosorbide Mononitrate (Imdur) 120 mg PO QDAY [facility] Last Admin: 06/19/16 11:33 Dose: 60 mg Magnesium Hydroxide (Milk Of Magnesia) 30 ml PO Q4H PRN PRN Reason: Constipation Metoprolol Tartrate (Lopressor) 50 mg PO BID [facility] Last Admin: 06/19/16 11:33 Dose: 50 mg Morphine Sulfate (Morphine) 2 mg IV Q4H PRN PRN Reason: Pain, Moderate (4-6) Morphine Sulfate (Morphine) 4 mg IV Q4H PRN PRN Reason: Pain , Severe (7-10) Naloxone HCl (Narcan 0.4 Mg/1 Ml) 0.1 mg IV Q2MIN PRN PRN Reason: Res Rate </= 8 or 02 SAT < 92% Nitroglycerin (Nitrostat) 0.4 mg SL .Q5MIN PRN PRN Reason: Chest Pain Ondansetron HCl (Zofran) 4 mg IV Q8H PRN PRN Reason: N/V unrelieved by Reglan Sodium Chloride (Sodium Chloride Flush Syringe 10 Ml) 10 ml IV PRN PRN PRN Reason: LINE FLUSH Review of Systems All systems: negative Exam - Constitutional Vitals: Temp Pulse Resp BP Pulse Ox 97.7 F 87 20 173/84 97 06/19/16 08:00 06/19/16 11:34 06/19/16 06:00 06/19/16 11:34 06/19/16 08:00 General appearance: Present: no acute distress - EENT Eyes: Present: PERRL, EOM intact ENT: hearing intact, clear oral mucosa, dentition normal - Neck Neck: Present: other (post surgical changes on right neck) - Respiratory Respiratory effort: normal Respiratory: bilateral: CTA - Cardiovascular Rhythm: regular Heart Sounds: Present: S1 & S2 - Extremities Extremities: no ischemia, pulses intact - Abdominal General gastrointestinal: Present: soft, non-tender, normal bowel sounds Male genitourinary: Present: deferred - Rectal Rectal Exam: deferred - Musculoskeletal Musculoskeletal: strength equal bilaterally - Psychiatric Psychiatric: appropriate mood/affect, other (did have a hallucination while in the room) Results - Labs CBC & Chem 7: 06/18/16 05:27 06/18/16 05:27 Assessment and Plan 86 y/o male status post right neck pseudoaneurysm now with hallucinations and concern for infected pseudoaneurysm. 1. QTc is 489, will order PRN haldol for now. Hold on scheduled seroquel 2. Will discontinue all narcotic pain medications. Did get dilaudid last night and vicodin this am. 3. Follow up any additional ID recs 4. Will continue to monitor with you.
[2016-06-19] MEDS: NS IV SCH ×2 (13:10→18:11)
[2016-06-19] MEDS: UNASYN IV SCH ×2 (13:10→18:11)
--- NOTE | 2016-06-19 18:11 | Progress Note ---
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 Postoperatively the patient apparently developed altered mental status with hallucinations. He was pulling out IVs and removing SCDs. He required restraints. Given his recent subarachnoid hemorrhage and redo surgery, we repeated his CT angiogram of the head. This was reviewed with the radiologist. There is no significant postoperative changes. Altered mental status could be a postoperative delirium, or alcohol withdrawal, versus alternate etiology. I discussed this with the patient's daughter who stated he briefly had previous episodes of confusion following his initial surgery. We will keep the patient in the intensive care unit for now. I discussed the situation with the unit leader. We'll stop all medications which could exacerbate altered mental status. PRN antipsychotic medications were ordered. - Patient Problems (1) Pseudoaneurysm of carotid artery Current Visit: Yes Status: Acute (2) Carotid stenosis Current Visit: No Status: Chronic Qualifiers: Laterality: right Qualified Code(s): I65.21 - Occlusion and stenosis of right carotid artery (3) Altered mental status Current Visit: Yes Status: Acute (4) Subarachnoid hemorrhage Current Visit: Yes Status: Acute Subjective Date of service: 06/19/16 Interval history: Patient was evaluated/reevaluated multiple times throughout the day. Patient denies complaints of discomfort. His headache is much improved. Objective - Constitutional Vitals: Vital Signs - 12hr 06/19/16 06/19/16 06/19/16 08:00 11:30 11:33 Temperature 97.7 F Pulse Rate 87 87 Blood Pressure 173/84 173/84 O2 Sat by Pulse 97 Oximetry 06/19/16 06/19/16 06/19/16 11:34 12:00 16:30 Temperature 97.6 F 97.4 F L Pulse Rate 87 Blood Pressure 173/84 O2 Sat by Pulse Oximetry General appearance: Present: no acute distress - EENT Eyes: EOM intact ENT: hearing intact - Neck Neck: supple (minimal swelling of his right neck) - Respiratory Respiratory effort: normal Extremities: no ischemia - Neurologic Neurologic: no focal deficits - Psychiatric Psychiatric: no appropriate mood/affect (agitated and confused), no intact judgment & insight, cooperative - Labs CBC & Chem 7: 06/18/16 05:27 06/18/16 05:27
--- NOTE | 2016-06-20 08:18 | Progress Note ---
Assessment and Plan Antibiotics: 1) Levaquin 500mg po Q24H (06/17 This is an 86 year old man with CAD, CABG, s/p blilateral endarterectomy in 2014 and 2015 now presented with right neck pulsatile neck mass that was found to be pseudoaneurysm complicated by micro-emboli to the brain. Patient became confused overnight. Infectious disease consult was called to assess due to intraoperative suspicion of infection. Pathology report with moderate mixed inflammation and organized thrombus. Problems: 1) Suspected infected pseudoaneurysm in a patient who had a patch angioplasty of the right carotid artery. Will need to discuss with the vascular regarding findings. Patient was clinically stable prior to admission without fevers or chills. If this is related to an infectious process, a fastidious organism is possible or slow growing organism. Pathology reports reads mixed inflammation and organized thrombus. -spoke with the microbiology lab to add on AFB, fungal --will discuss with pathology to see if any organism was seen 2) Right pseudoaneurysm complicated by micro emboli to the brain leading to confusion. 3) leukocytosis, might be related to recent surgery. 4) confusion, possible beginning of alcohol withdrawal Plan: 1) follow up blood cultures 2) discussed with lab regarding adding on further studies on the tissue received from the OR 3) will discuss tissue pathology report with pathology 4) follow up AFB smear and culture 5) follow up fungal culture 6) follow up RPR 7) continue unasyn 1.5gm iv Q6H Subjective Date of service: 06/20/16 Interval history: Patient remains confused, he thinks he is at home in his bed. Objective - Constitutional Vitals: Selected Entries 06/20/16 06/20/16 04:00 06:00 Temperature 98.7 F Pulse Rate 108 H Respiratory 14 Rate O2 Sat by Pulse 96 Oximetry Blood Pressure 153/62 Blood Pressure 92 Mean General appearance: Present: no acute distress, well-nourished - EENT Eyes: EOM intact, no scleral icterus, no conjunctival injection ENT: hearing intact, clear oral mucosa - Neck Neck: supple, normal ROM, other (right neck surgical scar clean, swelling, mild erythema) - Respiratory Respiratory: bilateral: CTA - Breasts Breasts: deferred - Cardiovascular Rhythm: regular Heart Sounds: Present: S1 & S2 Extremities: no ischemia, pulses intact, No edema, normal temperature - Gastrointestinal General gastrointestinal: Present: non-tender, normal bowel sounds Rectal Exam: deferred - Genitourinary Male genitourinary: deferred - Integumentary Integumentary: clear, warm, dry, no jaundice, no rash - Neurologic Neurologic: moves all extremities - Psychiatric Psychiatric: cooperative, other (confused) - Labs CBC & Chem 7: 06/18/16 05:27 06/18/16 05:27 Labs: Laboratory Tests 06/18/16 06/18/16 06/18/16 05:27 05:27 05:27 WBC 12.3 H Plt Count 253 Seg Neuts % (Manual) 74.0 H PT 14.7 INR 1.16 H BUN 13 Creatinine 1.0
[2016-06-20] MEDS: IMDUR PO SCH (10:05)
[2016-06-20] MEDS: NORVASC PO SCH (10:05)
[2016-06-20] MEDS: HALFPRIN EC PO SCH (10:41)
[2016-06-20] MEDS: PLAVIX PO SCH (10:41)
[2016-06-20] MEDS: COLACE PO SCH ×2 (10:42→22:06)
[2016-06-20] MEDS: LOPRESSOR PO SCH ×2 (10:46→22:06)
[2016-06-20] MEDS: UNASYN IV SCH ×3 (11:15→18:57)
[2016-06-20] MEDS: NS IV SCH ×3 (11:15→18:57)
[2016-06-20] MEDS ORDERED: HALDOL IV PRN (12:09)
--- NOTE | 2016-06-20 12:10 | Progress Note ---
Assessment and Plan 86 y/o male status post right neck pseudoaneurysm now with hallucinations and concern for infected pseudoaneurysm. 1. Repeat EKG is stable. Will schedule Seroquel and continue PRN haldol 2. Per son, still complains of headache so vascular repeating CT scan 3. Follow up any additional ID recs 4. Await vascular evaluation post CT. Clinically, the patient is a floor candidate. Subjective Date of service: 06/20/16 Interval history: Last night still agitated. Only received one dose of Haldol on yesterday. Objective - Constitutional Vitals: Vital Signs - 12hr 06/20/16 06/20/16 06/20/16 01:00 02:00 02:46 Temperature Pulse Rate 93 H 97 H Pulse Rate [ Apical] Pulse Rate [ From Monitor] Respiratory 13 11 L Rate Blood Pressure 143/59 135/53 O2 Sat by Pulse 98 Oximetry 06/20/16 06/20/16 06/20/16 03:00 04:00 04:36 Temperature 98.7 F Pulse Rate 97 H 103 H 99 H Pulse Rate [ Apical] Pulse Rate [ From Monitor] Respiratory 23 12 21 Rate Blood Pressure 163/61 137/57 138/88 O2 Sat by Pulse 96 Oximetry 06/20/16 06/20/16 06/20/16 05:00 06:00 06:02 Temperature Pulse Rate 106 H 108 H 96 H Pulse Rate [ Apical] Pulse Rate [ From Monitor] Respiratory 15 14 16 Rate Blood Pressure 138/88 153/62 155/58 O2 Sat by Pulse 94 96 94 Oximetry 06/20/16 06/20/16 06/20/16 07:00 07:15 08:00 Temperature 98 F Pulse Rate 119 H 119 H Pulse Rate [ 114 H Apical] Pulse Rate [ 114 H From Monitor] Respiratory 23 24 22 Rate Blood Pressure 155/58 121/59 O2 Sat by Pulse 91 96 93 Oximetry 06/20/16 06/20/16 08:21 10:46 Temperature Pulse Rate 100 H Pulse Rate [ Apical] Pulse Rate [ From Monitor] Respiratory Rate Blood Pressure 118/64 O2 Sat by Pulse 94 Oximetry General appearance: Present: no acute distress, other (asleep after seroquel) - EENT ENT: other (post surgical changes on right neck, stable) - Labs CBC & Chem 7: 06/18/16 05:27 06/18/16 05:27
--- NOTE | 2016-06-20 13:30 | Cat Scan Report ---
CT HEAD WITHOUT CONTRAST INDICATION: Worsening headache, altered mental status. COMPARISON: Multiple recent neuroimaging dating back to 06/17/2016. FINDINGS: Noncontrast head CT again demonstrates symmetric, age-appropriate ventricles and sulci. Approximately 2 mm left coronary radiata hyperdensity, axial series 2, image 45 again noted. Approximately 3-4 mm right frontal hypodense probable old ischemia, axial image 51 with subtle hyperdensity further distal along right frontal lobe cortex as on axial image 55, series 2 amongst others also again seen. Mild, benign bilateral basal ganglia calcifications as well. Mild periventricular hypodense small vessel end artery ischemic disease. No definite acute infarct, hemorrhage, mass effect or midline shift. No abnormal extra axial fluid collections. Normal posterior fossa with preserved basilar cisterns. Prior cataract surgery. Slight leftward nasal septal deviation. Mild bilateral sphenoid sinusitis and slight right maxillary sinus mucosal thickening inferiorly. Clear remainder imaged paranasal sinuses and mastoid air cells. Extensive atherosclerotic internal carotid artery calcifications bilaterally. Bilateral vertebral artery calcifications as well. Normal calvarium and scalp. Edentulous jaw. CONCLUSION: 1. Subtle hyperdensity along the high right frontal lobe cortex again noted. Though may again represent subarachnoid hemorrhage in an appropriate clinical setting, other possibilities as chronic changes/mineralization may also be considered in the differential. Direct comparison with more remote head CT's would be very helpful, if available. 2. Various other incidental findings, including age-appropriate atrophy, mild microvascular changes, mild sinusitis and extensive atherosclerotic vascular calcifications in this patient with known right distal/supraclinoid ICA occlusion. Thank you for the opportunity to participate in this patient's care.
--- NOTE | 2016-06-20 16:02 | Progress Note ---
Assessment and Plan 86-year-old male with right carotid pseudoaneurysm status post repair with preoperative right CVA with trace subarachnoid blood and significant headaches. Since surgery, headaches have slightly worsened and patient has altered mental status. CT scan was repeated today demonstrating no cerebral edema. CT scan overall is unchanged. Will transfer to telemetry. Blood pressure and heart rate stable except for mild elevation this a.m. which may be related to agitation at the time. Further discuss with family about alcohol consumption which it has been minimal this last week. Usually drinks 1-2 beers a day. We'll transfer patient out of ICU to the floor on telemetry near nurse station. Continue to monitor patient. Appreciate consultants assistance in managing the patient. Subjective Date of service: 06/20/16 Principal diagnosis: pseudoaneurysm Interval history: Still altered. No focal neurologic deficits. Cranial nerves grossly intact. Tongue midline. Sleepy, but can be aroused. Oriented to person alone. Headache worse than yesterday. Objective - Constitutional Vitals: Vital Signs - 12hr 06/20/16 06/20/16 06/20/16 04:00 04:36 05:00 Temperature 98.7 F Pulse Rate 103 H 99 H 106 H Pulse Rate [ Apical] Pulse Rate [ From Monitor] Respiratory 12 21 15 Rate Blood Pressure 137/57 138/88 138/88 O2 Sat by Pulse 96 94 Oximetry 06/20/16 06/20/16 06/20/16 06:00 06:02 07:00 Temperature Pulse Rate 108 H 96 H 119 H Pulse Rate [ Apical] Pulse Rate [ From Monitor] Respiratory 14 16 23 Rate Blood Pressure 153/62 155/58 155/58 O2 Sat by Pulse 96 94 91 Oximetry 06/20/16 06/20/16 06/20/16 07:15 08:00 08:21 Temperature 98 F Pulse Rate 119 H Pulse Rate [ 114 H Apical] Pulse Rate [ 114 H From Monitor] Respiratory 24 22 Rate Blood Pressure 121/59 O2 Sat by Pulse 96 93 94 Oximetry 06/20/16 06/20/16 06/20/16 08:30 09:00 10:00 Temperature Pulse Rate 111 H 103 H 104 H Pulse Rate [ Apical] Pulse Rate [ From Monitor] Respiratory 24 19 20 Rate Blood Pressure 118/60 118/60 129/71 O2 Sat by Pulse 93 95 94 Oximetry 06/20/16 06/20/16 06/20/16 10:05 10:46 11:00 Temperature Pulse Rate 83 100 H 94 H Pulse Rate [ Apical] Pulse Rate [ From Monitor] Respiratory 20 Rate Blood Pressure 118/64 118/64 118/64 O2 Sat by Pulse Oximetry 06/20/16 06/20/16 06/20/16 12:00 13:00 14:00 Temperature 98.8 F Pulse Rate 76 78 75 Pulse Rate [ Apical] Pulse Rate [ From Monitor] Respiratory 24 23 20 Rate Blood Pressure 126/56 117/57 122/54 O2 Sat by Pulse Oximetry 06/20/16 15:00 Temperature Pulse Rate 74 Pulse Rate [ Apical] Pulse Rate [ From Monitor] Respiratory 23 Rate Blood Pressure 143/55 O2 Sat by Pulse Oximetry General appearance: Present: no acute distress - EENT Eyes: EOM intact ENT: hearing intact - Respiratory Respiratory effort: normal Extremities: normal temperature, normal color - Musculoskeletal Musculoskeletal: strength equal bilaterally - Neurologic Neurologic: CNII-XII intact, no focal deficits, moves all extremities - Psychiatric Psychiatric: no intact judgment & insight, no memory intact, cooperative - Labs CBC & Chem 7: 06/18/16 05:27 06/18/16 05:27
[2016-06-20] MEDS ORDERED: UNASYN IV SCH (18:00)
[2016-06-20] MEDS ORDERED: NS IV SCH (18:00)
[2016-06-21] MEDS: UNASYN IV SCH ×4 (05:25→18:23)
[2016-06-21] MEDS: NS IV SCH ×4 (05:25→18:23)
--- NOTE | 2016-06-21 08:26 | Progress Note ---
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 Patient became confused overnight. Infectious disease consult was called to assess due to intraoperative suspicion of infection. repair of right carotid artery pseudoaneurysm wit left greater saphenous vein patch Pathology report with moderate mixed inflammation and organized thrombus. Problems: 1) Suspected infected pseudoaneurysm in a patient who had a patch angioplasty of the right carotid artery. Will need to discuss with the vascular regarding findings. Patient was clinically stable prior to admission without fevers or chills. If this is related to an infectious process, a fastidious organism is possible or slow growing organism. Pathology reports reads mixed inflammation and organized thrombus. -spoke with the microbiology lab to add on AFB, fungal --AFB smear negative of pseudoaneurysm tissue --Will continue unasyn, if no microbiology guidance will treat empirically for infected pseudoaneurysm --RPR negative 2) Right pseudoaneurysm complicated by micro emboli to the brain leading to confusion. 3) leukocytosis, might be related to recent surgery. Plan: 1) follow up blood cultures, remains negativd 2) discussed with lab regarding adding on further studies on the tissue received from the OR 3) will discuss tissue pathology report with pathology 4) follow up fungal culture 5) continue unasyn 1.5gm iv Q6H 6) if all cultures negative which I expect will be the case, will give empiric antibiotic coverage for presumed pseudoaneurysm infection. The antibiotic coverage will target Staph and strep Subjective Date of service: 06/21/16 Principal diagnosis: pseudoaneurysm Interval history: Patient is alert but confused, he does not complain of pain Objective - Constitutional Vitals: Microbiology 06/18/16 Unknown Other (Please Specify:) - Other Surgical Biopsy Culture - Preliminary Selected Entries 06/21/16 06/21/16 06/21/16 05:01 06:01 07:48 Temperature 98.2 F Pulse Rate 108 H O2 Sat by Pulse Oximetry Blood Pressure 158/60 Blood Pressure 92 Mean 06/21/16 08:01 Temperature Pulse Rate O2 Sat by Pulse 96 Oximetry Blood Pressure Blood Pressure Mean General appearance: Present: no acute distress, well-nourished - EENT Eyes: PERRL, EOM intact, no scleral icterus, no conjunctival injection ENT: hearing intact Ears: bilateral: normal - Neck Neck: supple, other (right side of neck surgical site with mild swelling and erythema), no enlarged thyroid, no masses or JVD - Respiratory Respiratory: bilateral: CTA - Breasts Breasts: deferred - Cardiovascular Rhythm: regular Heart Sounds: Present: S1 & S2 Extremities: no ischemia, abnormal (medial left thigh surgical vein harvest site clean, bruised, mild swelling) - Gastrointestinal General gastrointestinal: Present: soft, non-tender, normal bowel sounds - Genitourinary Male genitourinary: deferred - Integumentary Integumentary: clear, warm, dry - Musculoskeletal Musculoskeletal: strength equal bilaterally - Neurologic Neurologic: moves all extremities - Psychiatric Psychiatric: cooperative, other (confused) - Labs CBC & Chem 7: 06/18/16 05:27 06/18/16 05:27 Labs: Microbiology 06/19/16 Unknown Neck AFB Smear Concentration - Final 06/19/16 14:01 Peripheral/Venous Blood Culture - Preliminary NO GROWTH AFTER 24 HOURS 06/19/16 13:43 Peripheral/Venous Blood Culture - Preliminary NO GROWTH AFTER 24 HOURS Laboratory Tests 06/18/16 06/18/16 06/18/16 05:27 05:27 05:27 WBC 12.3 H Plt Count 253 INR 1.16 H BUN 13 Creatinine 1.0 Glucose 110 H RPR 06/19/16 13:43 WBC Plt Count INR BUN Creatinine Glucose RPR Nonreactive
[2016-06-21] MEDS: PLAVIX PO SCH (10:35)
[2016-06-21] MEDS: HALFPRIN EC PO SCH (10:35)
[2016-06-21] MEDS: LOPRESSOR PO SCH ×2 (10:35→22:30)
[2016-06-21] MEDS: COLACE PO SCH ×2 (10:36→22:30)
[2016-06-21] MEDS: IMDUR PO SCH (10:36)
[2016-06-21] MEDS: NORVASC PO SCH (10:37)
--- NOTE | 2016-06-21 17:45 | Progress Note ---
Subjective Date of service: 06/21/16 Principal diagnosis: pseudoaneurysm Interval history: Patient seen at the bedside. He is comfortable, oriented 2. No agitation. Right incision site clean dry and intact. Patient is neurologically intact colon 5/5 motor all extremities. He ambulates daily. Assessment and plan: Patient is status post right carotid to the aneurysm repair. Follow-up infectious disease for antibiotic management plan. Follow-up social science manager for placement. Objective - Constitutional Vitals: Vital Signs - 12hr 06/21/16 06/21/16 06/21/16 06:01 07:00 07:01 Temperature Pulse Rate 83 Respiratory 25 H Rate Blood Pressure 158/60 165/66 O2 Sat by Pulse 99 Oximetry 06/21/16 06/21/16 06/21/16 07:48 08:01 09:01 Temperature 98.2 F Pulse Rate 86 83 Respiratory 22 24 Rate Blood Pressure 168/66 157/68 O2 Sat by Pulse 96 Oximetry 06/21/16 06/21/16 06/21/16 09:27 10:01 10:25 Temperature Pulse Rate 81 84 80 Respiratory 21 17 20 Rate Blood Pressure 168/66 168/66 174/66 O2 Sat by Pulse Oximetry 06/21/16 06/21/16 06/21/16 10:35 10:36 10:37 Temperature Pulse Rate 79 80 80 Respiratory Rate Blood Pressure 174/66 174/66 174/66 O2 Sat by Pulse Oximetry 06/21/16 06/21/16 06/21/16 11:01 12:00 13:01 Temperature 97.8 F Pulse Rate 82 81 71 Respiratory 24 24 21 Rate Blood Pressure 174/66 174/66 134/55 O2 Sat by Pulse Oximetry 06/21/16 06/21/16 06/21/16 14:01 14:49 15:01 Temperature Pulse Rate 76 75 75 Respiratory 13 22 19 Rate Blood Pressure 132/55 132/55 129/86 O2 Sat by Pulse Oximetry 06/21/16 06/21/16 06/21/16 15:02 15:34 15:49 Temperature 98.9 F Pulse Rate 77 77 Respiratory 21 25 H Rate Blood Pressure 132/55 129/86 O2 Sat by Pulse Oximetry 06/21/16 06/21/16 16:01 16:05 Temperature Pulse Rate 77 79 Respiratory 25 H 25 H Rate Blood Pressure 131/59 131/59 O2 Sat by Pulse Oximetry - Labs CBC & Chem 7: 06/18/16 05:27 06/18/16 05:27
[2016-06-22] MEDS: UNASYN IV SCH ×5 (00:15→23:23)
[2016-06-22] MEDS: NS IV SCH ×5 (00:15→23:23)
[2016-06-22] MEDS: NORVASC PO SCH (09:39)
[2016-06-22] MEDS: IMDUR PO SCH (09:39)
[2016-06-22] MEDS: COLACE PO SCH ×2 (09:40→21:54)
[2016-06-22] MEDS: LOPRESSOR PO SCH ×2 (09:40→21:54)
[2016-06-22] MEDS: PLAVIX PO SCH (09:40)
[2016-06-22] MEDS: HALFPRIN EC PO SCH (09:40)
--- NOTE | 2016-06-22 12:39 | Progress Note ---
Assessment and Plan Patient's altered mental status appears to have improved. He's been out of bed ambulating without assistance. It was appears to be doing well from a postoperative standpoint. Likely will discharge later today if no objections from the infectious disease service. Outpatient antibiotics further recommendation. Patient will follow up in office in 2 weeks. He will follow up with ID as directed. He will need to follow up with neurology as an outpatient given his recent stroke/subarachnoid hemorrhage. - Patient Problems (1) Pseudoaneurysm of carotid artery Current Visit: Yes Status: Acute (2) Carotid stenosis Current Visit: No Status: Chronic Qualifiers: Laterality: right Qualified Code(s): I65.21 - Occlusion and stenosis of right carotid artery (3) Altered mental status Current Visit: Yes Status: Acute (4) Subarachnoid hemorrhage Current Visit: Yes Status: Acute Subjective Date of service: 06/22/16 Principal diagnosis: pseudoaneurysm Interval history: Patient is awake and appears alert. Confusion appears to have resolved. He denies headache or any other complaints at present. Objective - Constitutional Vitals: Vital Signs - 12hr 06/22/16 06/22/16 06/22/16 01:31 05:20 08:49 Temperature 98.7 F 99 F 97.9 F Pulse Rate Pulse Rate [ 71 From Monitor] Pulse Rate [ 81 Left] Respiratory 20 24 Rate Blood Pressure Blood Pressure 139/64 133/63 [Left Radial Artery] O2 Sat by Pulse 97 95 Oximetry 06/22/16 06/22/16 06/22/16 09:39 09:40 09:43 Temperature Pulse Rate 81 81 Pulse Rate [ From Monitor] Pulse Rate [ Left] Respiratory 24 Rate Blood Pressure 133/63 133/63 Blood Pressure [Left Radial Artery] O2 Sat by Pulse 95 Oximetry General appearance: Present: no acute distress - EENT Eyes: EOM intact ENT: hearing intact - Neck Neck: other (right neck is soft incision is intact there is no appreciable erythema or drainage noted) Extremities: abnormal (left medial thigh incision is intact without erythema or drainage) - Neurologic Neurologic: no focal deficits - Psychiatric Psychiatric: appropriate mood/affect, intact judgment & insight, cooperative - Labs CBC & Chem 7: 06/18/16 05:27 06/18/16 05:27 Labs: Abnormal lab results 06/18/16 06/22/16 Range/Units 07:15 00:05 POC Glucose 118 H (70-105) Crossmatch See Detail
--- NOTE | 2016-06-22 12:58 | Progress Note ---
Assessment and Plan Current antibiotics: Unasyn 1.5 grams IV q6h 06/19 --> Previous Antibiotics: Levaquin 500mg po q24h 06/17-06/19 ASSESSMENT: Shyam Stephen is an 86 year old man with CAD, CABG, s/p blilateral endarterectomy in 2014 and 2015 who was admitted to [facility] on 06/16/16 with a right neck pulsatile mass that was found to be pseudoaneurysm complicated by micro-emboli to the brain. Patient became confused overnight. Infectious disease consult was called to assess due to intraoperative suspicion of infection. Problems list: 1. 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 -AFB smear negative of pseudoaneurysm tissue 2. 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 -Status post repair of right carotid artery pseudoaneurysm with left greater saphenous vein patch 06/18/16 -Pathology showed moderate mixed inflammation and organized thrombus. 3. Leukocytosis -Likley multifactorial -Improving 4. CAD -Status post CABG 5. 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 Discussed with vascular and will give course of therapy (4 weeks) for possible endovascular infection with vancomycin 2. PICC line to be placed 3. Will ask case management to set up home therapy with vancomycin 1 gram IV q24h X 4 weeks 4. CBC, CMP, CRP and Vanco trough every Saturday with results faxed to our office when available ([phone]) 5. To see us in follow-up in ~ 10 days Discussed with patient's family Dav Herrera MD [facility] Office: [phone] Subjective Date of service: 06/22/16 Principal diagnosis: pseudoaneurysm Interval history: Feels "fine" and wants to go home. No complaints except doesn't like the food. ROS: No subjective fever or chills. No nausea, vomiting or diarrhea. No shortness of breath, cough or pleuritic chest pain Objective - Exam Narrative Exam: GENERAL: Well-developed, well-nourished appearing male who is alert and in no acute distress. HEAD: Normocephalic. No lesions seen. EYES: Pupils are equal reactive to light and accommodation. There is no scleral icterus. Optic fundi are not examined. EARS: Normal external male. THROAT: Oropharynx is normal with no evidence of oral candidiasis or pharyngitis. NECK: Supple. No enlargement of the thyroid gland. No significant cervical lymphadenopathy. No jugular venous distention at 30. Right neck surgical wound healing with no signs of infection LUNGS: Clear with no adventitious sounds. HEART: Regular rate. S1 and S2 are normal. There are no murmurs, gallops, clicks or rubs heard. ABDOMEN: Soft and nontender. Liver and spleen are not palpably enlarged or tender. No palpable masses. Bowel sounds are normoactive. EXTREMITIES: No rash, peripheral lymphadenopathy, clubbing or edema. Groin wound healing with no signs of infection : Not examined NEUROLOGIC: No focal findings. - Constitutional Vitals: Vital Signs Temp Pulse Resp BP Pulse Ox 97.9 F 81 24 133/63 95 06/22/16 08:49 06/22/16 09:40 06/22/16 09:43 06/22/16 09:40 06/22/16 09:43 Temperature -Last 24 Hours Temperature 97.9 F Temperature 99 F Temperature 98.7 F Temperature 98.4 F Temperature 98.9 F - Labs CBC & Chem 7: 06/18/16 05:27 06/18/16 05:27 Labs: Abnormal lab results Microbiology 06/18/16 Unknown Other (Please Specify:) - Other Surgical Biopsy Culture - Preliminary Rare growth Coag Negative Staphylococcus. Gram stain with no PMNs and NOS 06/19/16 13:43 Peripheral/Venous Blood Culture - Preliminary NO GROWTH AFTER 48 HOURS 06/19/16 14:01 Peripheral/Venous Blood Culture - Preliminary NO GROWTH AFTER 48 HOURS 06/19/16 Unknown Neck AFB Smear Concentration - no AFB seen
[2016-06-22] MEDS ORDERED: VANCOMYCIN VIAL IV SCH (14:00)
--- NOTE | 2016-06-22 14:08 | Discharge Summary ---
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 Repair of Right Carotid Artery Pseudoaneurysm with Left Greater Saphenous Vein Patch Surgeon: Dayron Cardona M.D. Games Manager: Laz Cooper M.D. Anesthesia: Gen. endotracheal anesthesia EBL: 100 mL Counts: Correct Complications: None Condition: Stable Findings: Large carotid artery pseudoaneurysm with complete disruption of the medial aspect of the patch anastomosis. No obvious evidence of infection. Specimen: Right carotid artery pseudoaneurysm and Dacron patch and for culture. Indication: The patient is an 86-year-old male with a history of carotid artery endarterectomy with patch angioplasty of the right. He presented to the office with complaints of an enlarging mass in his neck and his CTA revealed a large pseudoaneurysm with a patent distal carotid artery. He was subsequently scheduled for carotid pseudoaneurysm repair however presented to the office with vague complaints of headache as well as general body pain and was admitted to the hospital. His workup within the hospital demonstrated that he had been having microemboli from the pseudoaneurysm to the brain with small areas of ischemia and surrounding areas of hemorrhage. Despite having these areas of hemorrhage was felt that it was more beneficial to proceed with repair of the pseudoaneurysm to prevent further embolic episodes. I discussed this with the share his family. They expressed understanding and agreed to proceed with the operation. Hospital course: Patient presented to our office for a preoperative surgical evaluation. He complained of unrelenting headache with nausea. The patient was directly admitted a CT scan of the head was ordered. This revealed an infarction with a subarachnoid hemorrhage. The patient was taken to the operating room with the above stated procedure was performed without complication. Postoperatively the patient was transferred from the recovery room to the intensive care unit. An infectious disease consult was placed with concerns of a possible infected pseudoaneurysm. The patient developed altered mental status. He was followed for the next several days. Discussing the situation with his family, revealed the patient had had previous postoperative delirious state. This too improved. By 06/22/2016 the patient's confusion had resolved and he otherwise appeared stable for discharge. Postoperative antibiotics will be managed by the infectious disease service. A PICC line will be placed, and home health will be ordered for antibiotics. He'll follow-up in our office in 2 weeks. He'll follow with the infectious disease service as directed. We recommend the patient follow-up with neurology upon discharge. Disposition: DC/[place] HOME UNDER HOME HEALTH - Discharge Diagnoses (1) Pseudoaneurysm of carotid artery Status: Acute (2) Carotid stenosis Status: Chronic Qualifiers: Laterality: right Qualified Code(s): I65.21 - Occlusion and stenosis of right carotid artery (3) Altered mental status Status: Acute (4) Subarachnoid hemorrhage Status: Acute Core Measure Documentation - Palliative Care Palliative Care/ Comfort Measures: Not Applicable - Core Measures Any of the following diagnoses?: stroke - Stroke Discharge Requirements Statin for LDL = or >70 mg/dl on DC: Yes Anticoag for atrial fib/atrial flutter: Not Applicable Antithrombotic for ischemic stroke: Yes Exam - Constitutional Vitals: Temp Pulse Resp BP Pulse Ox 98.0 F 65 22 89/55 97 06/22/16 13:41 06/22/16 13:41 06/22/16 13:41 06/22/16 13:41 06/22/16 13:41 General appearance: Present: no acute distress - EENT Eyes: Present: EOM intact ENT: hearing intact - Neck Neck: Present: supple (neck soft, incision intact without erythema or drainage appreciated) - Respiratory Respiratory effort: normal (unlabored at rest on room air) - Extremities Extremities: no ischemia - Psychiatric Psychiatric: appropriate mood/affect, intact judgment & insight, cooperative - Neurologic Neurologic: no focal deficits Plan Activity: advance as tolerated Weight Bearing Status: Weight Bear as Tolerated Diet: regular Wound: keep clean and dry Additional Instructions: Patient will need follow-up with neurology as an outpatient. He can call our office to help with scheduling this appointment. Follow up with: MARK AG MD [Staff Physician] - 7 Days DAYRON CARDONA MD [Staff Physician] - 14 Days
[2016-06-22] MEDS: VANCOMYCIN VIAL 1,250 MG in NACL 0.9% 250ML 250 ML IV SCH (16:45)
--- NOTE | 2016-06-22 17:17 | XRay Report ---
FINAL REPORT PROCEDURE: XR CHEST 1V AP TECHNIQUE: Chest radiograph anteroposterior view. CPT 43421 HISTORY: Left arm PICC placement. COMPARISON: No prior studies are available for comparison. FINDINGS: Heart: Mild cardiomegaly Mediastinum/Vessels: Moderate aortic calcification and tortuosity. Lungs/Pleural space: Moderate hyperinflation. Bibasilar opacities. Left costophrenic angle not included on this examination. 3 millimeter left upper lobe opacity. Vague ovoid 5.7 x 4.0 opacity in the right apex. Bony thorax: Post sternotomy changes. Degenerative changes of the spine. Life support devices: PICC line tip in the SVC. Clips in the soft tissues of the right neck. IMPRESSION: Mild cardiomegaly. Aortic calcification and tortuosity. Vague opacity in the right apex, could represent overlying soft tissues. However, cannot exclude mass lesion this region, including possible pleural base mass. 3 millimeter left upper lobe opacity, may represent a vessel or bronchus on and but cannot completely exclude small pulmonary nodule. Bibasilar opacities, consider atelectasis or pneumonitis. Consider beginning further evaluation with comparison with prior radiographs if available, PA and lateral chest radiograph, or even chest CT depending on clinical concern. Left arm PICC line tip in the SVC.
[2016-06-23] MEDS: NS IV SCH ×3 (06:07→17:30)
[2016-06-23] MEDS: UNASYN IV SCH ×3 (06:07→17:30)
[2016-06-23] MEDS: IMDUR PO SCH (10:19)
[2016-06-23] MEDS: NORVASC PO SCH (10:19)
[2016-06-23] MEDS: HALFPRIN EC PO SCH (10:19)
[2016-06-23] MEDS: PLAVIX PO SCH (10:19)
[2016-06-23] MEDS: COLACE PO SCH ×2 (10:19→22:34)
[2016-06-23] MEDS: LOPRESSOR PO SCH ×2 (10:20→22:35)
--- NOTE | 2016-06-23 13:13 | Progress Note ---
Assessment and Plan Current antibiotics: Vancomycin IV 06/22 - > Previous Antibiotics: Unasyn 1.5 g IV every 6 hour 06/19 - 06/22 Levaquin 500mg po q24h 06/17-06/19 ASSESSMENT: Shyam Stephen is an 86 year old man with CAD, CABG, s/p blilateral endarterectomy in 2014 and 2015 who was admitted to [facility] on 06/16/16 with a right neck pulsatile mass that was found to be pseudoaneurysm complicated by micro-emboli to the brain. Patient became confused overnight. Infectious disease consult was called to assess due to intraoperative suspicion of infection. Problems list: 1. 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 -AFB smear negative of pseudoaneurysm tissue 2. 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 -Status post repair of right carotid artery pseudoaneurysm with left greater saphenous vein patch 06/18/16 -Pathology showed moderate mixed inflammation and organized thrombus. 3. Leukocytosis -Likley multifactorial -Improving 4. CAD -Status post CABG 5. 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 Continue vancomycin for 4 week course. 2. Awaits discharge planning. 3. CBC, CMP, CRP and Vanco trough every Saturday with results faxed to our office when available ([phone]) 4. To see us in follow-up in ~ 10 days Subjective Date of service: 06/23/16 Principal diagnosis: pseudoaneurysm Interval history: Patient feels well and wants to go home. Await arrangements to allow for outpatient IV antibiotics. Objective - Exam Narrative Exam: Well-developed well-nourished appearing. No distress. HEENT: Pupils are equal reactive to light and accommodation. Conjunctiva clear. Oropharynx is normal with no evidence of oral candidiasis or pharyngitis. NECK: Supple. No enlargement of the thyroid gland. No significant cervical lymphadenopathy. No jugular venous distention at 30. LUNGS: Clear with no adventitious sounds. HEART: Regular rate. S1 and S2 are normal. There are no murmurs, gallops, clicks or rubs heard. ABDOMEN: Soft and nontender. Liver and spleen are not palpably enlarged or tender. No palpable masses. Bowel sounds are normoactive. EXTREMITIES: No rash, peripheral lymphadenopathy, clubbing or edema. SKIN: No other rash, ulcers or wounds. NEUROLOGIC: No focal findings. - Constitutional Vitals: Vital Signs Temp Pulse Resp BP Pulse Ox 100.1 F H 70 24 91/50 96 06/23/16 07:56 06/23/16 07:56 06/23/16 07:56 06/23/16 07:56 06/23/16 10:00 Temperature -Last 24 Hours Temperature 100.1 F Temperature 98.2 F Temperature 98.9 F Temperature 98.9 F Temperature 98.1 F Temperature 98.0 F - Labs CBC & Chem 7: 06/18/16 05:27 06/18/16 05:27
--- NOTE | 2016-06-23 14:55 | Progress Note ---
Assessment and Plan Patient's altered mental status appears to have resolved. He is doing well from a postoperative standpoint. Discharge was held due to lack of insurance preauthorization for home antibiotics. Still awaiting authorization. arts manager suspect this will not be authorized until Saturday. Patient will follow up in office in 2 weeks. He will follow up with ID as directed. He will need to follow up with neurology as an outpatient given his recent stroke/subarachnoid hemorrhage. Discussed with the patient the importance of his right upper lobe lung mass and the need to follow-up with pulmonology. 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 He will do this upon discharge. Subjective Date of service: 06/23/16 Principal diagnosis: pseudoaneurysm Interval history: Alert and oriented 3. No focal neurologic deficits. Cranial nerves grossly intact. Tongue midline. Awaiting approval with insurance for home antibiotics. Objective - Constitutional Vitals: Vital Signs - 12hr 06/23/16 06/23/16 06/23/16 04:10 05:37 07:56 Temperature 98.2 F 100.1 F H Pulse Rate 74 Pulse Rate [ 69 Left] Pulse Rate [ 70 Right] Respiratory 20 24 Rate Blood Pressure 117/59 [Left Radial Artery] Blood Pressure 91/50 [Right Arm] O2 Sat by Pulse 95 96 Oximetry 06/23/16 06/23/16 10:00 14:06 Temperature 99.1 F Pulse Rate Pulse Rate [ Left] Pulse Rate [ 102 H Right] Respiratory 22 Rate Blood Pressure [Left Radial Artery] Blood Pressure 116/55 [Right Arm] O2 Sat by Pulse 96 96 Oximetry General appearance: Present: no acute distress - EENT Eyes: EOM intact ENT: hearing intact - Neck Neck: other (incision c/d/i) - Respiratory Respiratory effort: normal Extremities: normal temperature, normal color Extremity abnormal: other (incision left thigh c/d/i) - Gastrointestinal General gastrointestinal: Present: soft - Psychiatric Psychiatric: appropriate mood/affect, cooperative - Labs CBC & Chem 7: 06/18/16 05:27 06/18/16 05:27
[2016-06-23] MEDS: VANCOMYCIN VIAL 1,250 MG in NACL 0.9% 250ML 250 ML IV SCH (14:59)
[2016-06-24] MEDS: NS IV SCH ×3 (00:30→12:04)
[2016-06-24] MEDS: UNASYN IV SCH ×3 (00:30→12:04)
[2016-06-24] MEDS: TYLENOL PO PRN ×2 (05:29→16:15)
[2016-06-24] MEDS ORDERED: NACL 0.9% 1000 ML 1,000 ML IV ONE (08:23)
--- NOTE | 2016-06-24 09:08 | XRay Report ---
Single view chest: Compared to 06/22/16. History: Cough. Findings: Borderline cardiomegaly. Trachea is midline. Mild pulmonary venous congestion. Circumscribed density right apex without interval change. Stable left PIC line. Impression: No significant interval change.
[2016-06-24] MEDS: NACL 0.9% 1000 ML 1,000 ML IV SCH (09:45)
[2016-06-24] MEDS: IMDUR PO SCH (10:36)
[2016-06-24] MEDS: NORVASC PO SCH (10:36)
[2016-06-24] MEDS: LOPRESSOR PO SCH ×2 (10:36→21:05)
[2016-06-24] MEDS: PLAVIX PO SCH (10:37)
[2016-06-24] MEDS: HALFPRIN EC PO SCH (10:37)
[2016-06-24] MEDS: COLACE PO SCH ×2 (10:37→21:05)
--- NOTE | 2016-06-24 10:53 | Consultation ---
History of Present Illness - Reason for Consult Consult date: 06/24/16 Medical management Requesting physician: LAMINE LESTER - History of Present Illness Fever and hypotension 86-year-old male patient with significant past medical history of coronary artery disease status post CABG status post bilateral endarterectomies 2014 and 2015 admitted with right neck pulsatile mass found to be pseudoaneurysm with microemboli to the brain. Patient underwent patch angioplasty of the right carotid artery surgical biopsy cultures were positive for staph epidermidis, being followed by ID on appropriate antibiotics Patient was scheduled to be discharged pending insurance approval for IV antibiotics, he developed fever with MAXIMUM TEMPERATURE of 101.3 last night Patient also is hypotensive with blood pressures ranging between 81-99 systolic and 50-52 diastolic significantly improved after fluid bolus When I evaluated the patient daughter is at the bedside Patient complains of mild headache and thinks it is his migraines, complains of generalized weakness, no dizziness or blurring of vision Denies chest pain shortness of breath temperature this morning is 99 On IV antibiotics Vanco and Unasyn Past History Past Medical History: CAD, hypertension, hyperlipidemia, other Past Surgical History: CABG, Other (carotid endarterectomy right and left) Social history: lives with family. denies: smoking, alcohol abuse, prescription drug abuse Family history: hypertension Medications and Allergies Allergies Allergy/AdvReac Type Severity Reaction Status Date / Time No Known Allergies Allergy Verified 12/30/14 10:26 Home Medications Medication Instructions Recorded Confirmed Last Taken Type Metoprolol Tartrate 50 mg PO BID 12/22/14 06/14/16 08/22/15 05:30 History Nitroglycerin [Nitrostat] 0.4 mg SL PRN PRN 12/22/14 06/14/16 2 Weeks Ago History Aspirin EC [Aspirin Enteric Coated 81 mg PO QDAY 12/30/14 06/14/16 08/22/15 05: 30 History TAB] Clopidogrel Bisulfate [Clopidogrel] 75 mg PO BID 12/30/14 06/14/16 08/22/15 05: 30 History AtorvaSTATin [Lipitor] 40 mg PO QHS 06/06/16 06/14/16 Unknown History amLODIPine [Norvasc] 10 mg PO DAILY 06/06/16 06/14/16 Unknown History ISOSORBIDE MONOnitrate [Imdur ER] 120 mg PO QDAY 01/12/17 01/12/17 Unknown History Active Meds: Active Medications Acetaminophen (Tylenol) 650 mg PO Q4H PRN PRN Reason: Pain MILD(1-3)/Fever >100.5/LIN Last Admin: 06/24/16 05:29 Dose: 650 mg Amlodipine Besylate (Norvasc) 10 mg PO QDAY [facility] Last Admin: 06/24/16 10:36 Dose: Not Given Aspirin (Halfprin Ec) 81 mg PO QDAY [facility] Last Admin: 06/24/16 10:37 Dose: 81 mg Atorvastatin Calcium (Lipitor) 40 mg PO QHS [facility] Last Admin: 06/23/16 22:35 Dose: 40 mg Bisacodyl (Dulcolax) 10 mg HI QDAY PRN PRN Reason: Constipation unrelieved by MOM Clopidogrel Bisulfate (Plavix) 75 mg PO QDAY [facility] Last Admin: 06/24/16 10:37 Dose: 75 mg Docusate Sodium (Colace) 100 mg PO BID [facility] Last Admin: 06/24/16 10:37 Dose: 100 mg Haloperidol Lactate (Haldol) 5 mg IV Q6H PRN PRN Reason: Agitation Hydralazine HCl (Apresoline) 10 mg IV Q6H PRN PRN Reason: Hypertension SYS >160 Dopamine HCl/Dextrose (Intropin Drip 800 Mg/D5w 250 Ml) 250 mls @ 7.014 mls/hr IV TITR DOMINGUEZ; 5 MCG/KG/MIN PRN Reason: Protocol Sodium Nitroprusside 50 mg/ (Dextrose) 250 mls @ 5.61 mls/hr IV TITR DOMINGUEZ; 0.25 MCG/KG/MIN PRN Reason: Protocol Ampicillin Sodium/Sulbactam Sodium (Unasyn/Ns 1.5 Gm/50 Ml) 50 mls @ 100 mls/ hr IV Q6HR [facility] Last Admin: 06/24/16 05:32 Dose: 100 mls/hr Vancomycin HCl 1,250 mg/ (Sodium Chloride) 250 mls @ 166.667 mls/hr IV 1550 [facility] Last Admin: 06/23/16 14:59 Dose: 166.667 mls/hr Sodium Chloride (Nacl 0.9% 1000 Ml) 1,000 mls @ 100 mls/hr IV DIRECT [facility] Isosorbide Mononitrate (Imdur) 120 mg PO QDAY [facility] Last Admin: 06/24/16 10:36 Dose: Not Given Magnesium Hydroxide (Milk Of Magnesia) 30 ml PO Q4H PRN PRN Reason: Constipation Metoprolol Tartrate (Lopressor) 50 mg PO BID [facility] Last Admin: 06/24/16 10:36 Dose: Not Given Naloxone HCl (Narcan 0.4 Mg/1 Ml) 0.1 mg IV Q2MIN PRN PRN Reason: Res Rate </= 8 or 02 SAT < 92% Nitroglycerin (Nitrostat) 0.4 mg SL .Q5MIN PRN PRN Reason: Chest Pain Ondansetron HCl (Zofran) 4 mg IV Q8H PRN PRN Reason: N/V unrelieved by Reglan Quetiapine Fumarate (Seroquel) 25 mg PO BID [facility] Last Admin: 06/24/16 10:37 Dose: 25 mg Sodium Chloride (Sodium Chloride Flush Syringe 10 Ml) 10 ml IV PRN PRN PRN Reason: LINE FLUSH Review of Systems Constitutional: weakness, no weight loss, no weight gain, no fever, no chills Ears, nose, mouth and throat: no nasal congestion, no nasal discharge Cardiovascular: no chest pain, no orthopnea, no palpitations Respiratory: no cough with sputum, no shortness of breath Gastrointestinal: no abdominal pain, no nausea, no vomiting Genitourinary Male: no dysuria, no hematuria Integumentary: no rash, no lesions Neurological: headaches, migraines Psychiatric: no anxiety, no depression Endocrine: no cold intolerance, no heat intolerance Hematologic/Lymphatic: no easy bruising, no easy bleeding Allergic/Immunologic: no urticaria, no allergic rhinitis Exam - Constitutional Vitals: Temp Pulse Resp BP Pulse Ox 98.5 F 61 22 105/55 94 06/24/16 09:14 06/24/16 09:30 06/24/16 09:14 06/24/16 09:30 06/24/16 09:14 General appearance: Present: no acute distress, well-nourished - EENT Eyes: Present: PERRL, EOM intact ENT: other (surgical scar clean) - Neck Neck: Present: supple, normal ROM - Respiratory Respiratory effort: normal Respiratory: bilateral: diminished, negative: rales, rhonchi, wheezing - Cardiovascular Rhythm: regular Heart Sounds: Present: S1 & S2 - Abdominal General gastrointestinal: Present: soft, non-tender, non-distended, normal bowel sounds - Integumentary Integumentary: Present: clear, warm - Musculoskeletal Musculoskeletal: strength equal bilaterally, generalized weakness - Psychiatric Psychiatric: appropriate mood/affect, cooperative - Neurologic Neurologic: moves all extremities Results - Labs CBC & Chem 7: 06/24/16 13:00 06/18/16 05:27 Labs: Abnormal lab results 06/24/16 Range/Units 08:21 POC Glucose 115 H (70-105) Assessment and Plan --Hypotension: Probably hypovolemic, received fluid bolus with significant improvement Closely monitor blood pressures, hold antihypertensives --Fever, multifactorial Patient is already on IV antibiotics, obtain blood urine and wound cultures Chest x-ray to rule out pneumonia Antipyretics --Carotid artery pseudoaneurysm status post repair. Management per vascular --Sepsis/positive wound cultures Continue current antibiotics IV vancomycin and Unasyn ID following --History of coronary artery disease status post CABG Continue current management DVT prophylaxis; primary team Thank you for this consultation we will follow the patient along with you
--- NOTE | 2016-06-24 12:01 | Progress Note ---
Assessment and Plan Current antibiotics: Vancomycin IV 06/22 - > Previous Antibiotics: Unasyn 1.5 g IV every 6 hour 06/19 - 06/24 Levaquin 500mg po q24h 06/17-06/19 ASSESSMENT: Shyam Stephen is an 86 year old man with CAD, CABG, s/p blilateral endarterectomy in 2014 and 2015 who was admitted to [facility] on 06/16/16 with a right neck pulsatile mass that was found to be pseudoaneurysm complicated by micro-emboli to the brain. Patient became confused overnight. Infectious disease consult was called to assess due to intraoperative suspicion of infection. Problems list: 1. 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 -AFB smear negative of pseudoaneurysm tissue 2. 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 -Status post repair of right carotid artery pseudoaneurysm with left greater saphenous vein patch 06/18/16 -Pathology showed moderate mixed inflammation and organized thrombus. 3. LGF - unclear etiology -R/O nosocomial infection 4. Leukocytosis -Likley multifactorial -Improving 5. CAD -Status post CABG 6. 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 Continue vancomycin for 4 week course. 2. Repeat cultures now. CBC/WBC ordered. CxR without acute change. 3. Awaits discharge planning. 4. CBC, CMP, CRP and Vanco trough every Saturday with results faxed to our office when available ([phone]) 5. We can see in the office following discharge. Subjective Date of service: 06/24/16 Principal diagnosis: pseudoaneurysm Interval history: Patient with fever to 101.3. Slight cough but no other focal symptoms of infection. Objective - Exam Narrative Exam: Well-developed well-nourished appearing. No distress. HEENT: Pupils are equal reactive to light and accommodation. Conjunctiva clear. Oropharynx is normal with no evidence of oral candidiasis or pharyngitis. NECK: Supple. No enlargement of the thyroid gland. No significant cervical lymphadenopathy. No jugular venous distention at 30. Right neck wound site clean. LUNGS: Clear with no adventitious sounds. HEART: Regular rate. S1 and S2 are normal. There are no murmurs, gallops, clicks or rubs heard. ABDOMEN: Soft and nontender. Liver and spleen are not palpably enlarged or tender. No palpable masses. Bowel sounds are normoactive. EXTREMITIES: No rash, peripheral lymphadenopathy, clubbing or edema. SKIN: No other rash, ulcers or wounds. NEUROLOGIC: No focal findings. - Constitutional Vitals: Vital Signs Temp Pulse Resp BP Pulse Ox 98.5 F 61 22 105/55 94 06/24/16 09:14 06/24/16 09:30 06/24/16 09:14 06/24/16 09:30 06/24/16 09:14 Temperature -Last 24 Hours Temperature 98.5 F Temperature 99 F Temperature 100.1 F Temperature 101.3 F Temperature 98.6 F Temperature 99.1 F - Labs CBC & Chem 7: 06/18/16 05:27 06/18/16 05:27 Labs: Abnormal lab results 06/24/16 Range/Units 08:21 POC Glucose 115 H (70-105)
[2016-06-24 13:34] LABS: Hematocrit 21.4 % (35.5-45.6); Hemoglobin 7.1 gm/dl (11.8-15.2); Mean Corpuscular HGB Conc 33 % (32-34); Mean Corpuscular Hemoglobin 31 pg (28-32); Mean Corpuscular Volume 93 fl (84-94); Platelet Count 261 K/mm3 (140-440); Red Blood Count 2.29 M/mm3 (3.65-5.03); Red Cell Distribution Width 14.2 % (13.2-15.2); White Blood Count 14.2 K/mm3 (4.5-11.0)
[2016-06-24] MEDS ORDERED: NACL 0.9% 500 ML 500 ML IV ONE (14:09)
[2016-06-24 14:53] LABS: Anisocytosis 1+; Basophils % (Manual) 0 % (0.0-1.8); Blastocytes % (Manual) 0 %; Diff Status Complete; Platelet Estimate Consistent w Auto
--- NOTE | 2016-06-24 15:23 | Progress Note ---
Assessment and Plan Discharge was held due to lack of insurance preauthorization for home antibiotics. Still awaiting authorization. manager r d suspect this will not be authorized until Saturday. Since then, patient had overnight episode of fever. I was not notified. This morning had hypotension and bradycardia which responded to IV bolus. Chest x- ray was obtained which demonstrates no change. Patient is complaining of cough. Incentive spirometry provided. Hospitalist consulted. Blood cultures and urine cultures were obtained. EKG obtained. Consulted cardiology because the patient was bradycardic and hypotensive. 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 Cesar. Patient will follow up in office in 2 weeks. He will follow up with ID as directed. He will need to follow up with neurology as an outpatient given his recent stroke/subarachnoid hemorrhage. Discussed with the patient the importance of his right upper lobe lung mass and the need to follow-up with pulmonology. He saw prior lung physician, but I explained to him that things have increased in size since then and he needs to follow-up with a new instructional materials director. He will do this upon discharge. Subjective Date of service: 06/24/16 Principal diagnosis: pseudoaneurysm Interval history: Feels tired and "run down". Reports having a cough. Had a fever this morning, was not notified. Was hypotensive and bradycardic this morning. 1 L bolus provided. Hospitalist consulted. Chest x-ray, blood culture, urine analysis and urine culture obtained. Alert and oriented 3. No focal neurologic deficits. Cranial nerves grossly intact. Tongue midline. Objective - Constitutional Vitals: Vital Signs - 12hr 06/24/16 06/24/16 06/24/16 05:27 08:00 08:32 Temperature 99 F Pulse Rate [ 57 L 57 L Apical] Pulse Rate [ 64 Right] Respiratory 18 Rate Blood Pressure 89/52 [Left Radial Artery] Blood Pressure 64/40 [Right Arm] O2 Sat by Pulse 92 Oximetry 06/24/16 06/24/16 06/24/16 09:14 09:30 13:29 Temperature 98.5 F 98.4 F Pulse Rate [ 61 Apical] Pulse Rate [ 103 H 70 Right] Respiratory 22 22 Rate Blood Pressure [Left Radial Artery] Blood Pressure 63/33 105/55 105/58 [Right Arm] O2 Sat by Pulse 94 95 Oximetry General appearance: Present: no acute distress, other (feels overall fatigued) - EENT Eyes: EOM intact ENT: hearing intact - Neck Neck: other (no purulence, erythema, or dehiscence from the right carotid incision) - Respiratory Respiratory effort: normal Extremities: normal temperature, normal color - Labs CBC & Chem 7: 06/24/16 13:00 06/18/16 05:27 Labs: Abnormal lab results 06/24/16 06/24/16 Range/Units 08:21 13:00 WBC 14.2 H (4.5-11.0) K/mm3 RBC 2.29 L (3.65-5.03) M/mm3 Hgb 7.1 L (11.8-15.2) gm/dl Hct 21.4 L (35.5-45.6) % Lymphocytes % (Manual) 42.0 H (13.4-35.0) % Lymphocytes # (Manual) 6.0 H (1.2-5.4) K/mm3 POC Glucose 115 H (70-105)
[2016-06-24] MEDS: VANCOMYCIN VIAL 1,250 MG in NACL 0.9% 250ML 250 ML IV SCH (16:19)
[2016-06-24 20:50] LABS: Bilirubin,Urine NEG (Negative); Blood,Urine SM (Negative); Ketones,Urine NEG (Negative); Leukocyte Esterase,Urine NEG (Negative); Mucus,Urine FEW /HPF; Nitrite,Urine NEG (Negative); Protein,Urine <15 mg/dL mg/dL (Negative); Uric Acid Crystals,Urine 1+; Urobilinogen,Urine < 2.0 mg/dL (<2.0)
--- NOTE | 2016-06-24 20:55 | Event Note ---
Date: 06/24/16 Patient has right sided severe subclavian artery stenosis. All BP measurements must be taken from LUE. Discussed with nurse.
[2016-06-25] MEDS: NACL 0.9% 1000 ML 1,000 ML IV SCH (00:19)
[2016-06-25] MEDS: TYLENOL PO PRN ×3 (04:41→22:17)
--- NOTE | 2016-06-25 11:16 | Consultation ---
History of Present Illness Consult date: 06/25/16 Requesting physician: LAMINE LESTER Consult reason: hypotension History of present illness: The patient is an 86 year old male with a history of with CAD s/p CABG, bilateral carotid endarterectomy who underwent right carotid artery pseudoaneurysm repair with left greater saphenous vein patch. His hospitalization was complicated by micro emboli to the brain leading to confusion. Infectious disease is following. Cardiology has been consulted for blood pressure management. Currently, the patient complains of fatigue but denies any chest pain, palpitations or shortness of breath. Past History Past Medical History: CAD, hypertension, hyperlipidemia, other Past Surgical History: CABG, Other (carotid endarterectomy right and left) Social history: lives with family. denies: smoking, alcohol abuse, prescription drug abuse Family history: hypertension Medications and Allergies Allergies Allergy/AdvReac Type Severity Reaction Status Date / Time No Known Allergies Allergy Verified 12/30/14 10:26 Home Medications Medication Instructions Recorded Confirmed Last Taken Type Metoprolol Tartrate 50 mg PO BID 12/22/14 06/14/16 08/22/15 05:30 History Nitroglycerin [Nitrostat] 0.4 mg SL PRN PRN 12/22/14 06/14/16 2 Weeks Ago History Aspirin EC [Aspirin Enteric Coated 81 mg PO QDAY 12/30/14 06/14/16 08/22/15 05: 30 History TAB] Clopidogrel Bisulfate [Clopidogrel] 75 mg PO BID 12/30/14 06/14/16 08/22/15 05: 30 History AtorvaSTATin [Lipitor] 40 mg PO QHS 06/06/16 06/14/16 Unknown History amLODIPine [Norvasc] 10 mg PO DAILY 06/06/16 06/14/16 Unknown History ISOSORBIDE MONOnitrate [Imdur ER] 120 mg PO QDAY 06/14/16 06/14/16 Unknown History Active Meds: Active Medications Acetaminophen (Tylenol) 650 mg PO Q4H PRN PRN Reason: Pain MILD(1-3)/Fever >100.5/LIN Last Admin: 06/25/16 04:41 Dose: 650 mg Amlodipine Besylate (Norvasc) 5 mg PO QDAY [facility]ING[facility]Z Aspirin (Halfprin Ec) 81 mg PO QDAY [facility] Last Admin: 06/24/16 10:37 Dose: 81 mg Atorvastatin Calcium (Lipitor) 40 mg PO QHS [facility] Last Admin: 06/24/16 21:05 Dose: 40 mg Bisacodyl (Dulcolax) 10 mg MD QDAY PRN PRN Reason: Constipation unrelieved by MOM Clopidogrel Bisulfate (Plavix) 75 mg PO QDAY [facility] Last Admin: 06/24/16 10:37 Dose: 75 mg Docusate Sodium (Colace) 100 mg PO BID [facility] Last Admin: 06/24/16 21:05 Dose: 100 mg Haloperidol Lactate (Haldol) 5 mg IV Q6H PRN PRN Reason: Agitation Hydralazine HCl (Apresoline) 10 mg IV Q6H PRN PRN Reason: Hypertension SYS >160 Last Admin: 06/25/16 02:40 Dose: 10 mg Dopamine HCl/Dextrose (Intropin Drip 800 Mg/D5w 250 Ml) 250 mls @ 7.014 mls/hr IV TITR DOMINGUEZ; 5 MCG/KG/MIN PRN Reason: Protocol Sodium Nitroprusside 50 mg/ (Dextrose) 250 mls @ 5.61 mls/hr IV TITR DOMINGUEZ; 0.25 MCG/KG/MIN PRN Reason: Protocol Vancomycin HCl 1,250 mg/ (Sodium Chloride) 250 mls @ 166.667 mls/hr IV 1550 [facility] Last Admin: 06/24/16 16:19 Dose: 166.667 mls/hr Sodium Chloride (Nacl 0.9% 1000 Ml) 1,000 mls @ 100 mls/hr IV DIRECT [facility] Last Admin: 06/25/16 00:19 Dose: 100 mls/hr Isosorbide Mononitrate (Imdur) 120 mg PO QDAY [facility] Last Admin: 06/24/16 10:36 Dose: Not Given Magnesium Hydroxide (Milk Of Magnesia) 30 ml PO Q4H PRN PRN Reason: Constipation Metoprolol Tartrate (Lopressor) 50 mg PO BID [facility] Last Admin: 06/24/16 21:05 Dose: 50 mg Naloxone HCl (Narcan 0.4 Mg/1 Ml) 0.1 mg IV Q2MIN PRN PRN Reason: Res Rate </= 8 or 02 SAT < 92% Nitroglycerin (Nitrostat) 0.4 mg SL .Q5MIN PRN PRN Reason: Chest Pain Ondansetron HCl (Zofran) 4 mg IV Q8H PRN PRN Reason: N/V unrelieved by Reglan Quetiapine Fumarate (Seroquel) 25 mg PO BID [facility] Last Admin: 06/24/16 21:05 Dose: 25 mg Sodium Chloride (Sodium Chloride Flush Syringe 10 Ml) 10 ml IV PRN PRN PRN Reason: LINE FLUSH Review of Systems Constitutional: fatigue, weakness, no fever, no chills Ears, nose, mouth and throat: no nasal congestion, no nasal discharge, no sinus pressure Cardiovascular: no chest pain Respiratory: no cough, no congestion, no wheezing Gastrointestinal: no abdominal pain, no nausea, no vomiting, no diarrhea Genitourinary Male: no dysuria, no hematuria Musculoskeletal: no neck stiffness, no neck pain Integumentary: no rash, no pruritis Neurological: no parathesias, no numbness, no tingling, no headaches Endocrine: no cold intolerance, no heat intolerance Hematologic/Lymphatic: no easy bruising, no easy bleeding Allergic/Immunologic: no urticaria, no wheezing Physical Examination Vital Signs Temp Pulse Resp BP Pulse Ox 97.7 F 74 16 95/65 100 06/15/16 13:48 06/15/16 13:48 06/15/16 13:48 06/15/16 13:48 06/15/16 13:48 General appearance: no acute distress HEENT: Positive: Normocephaly, Mucus Membranes Moist Neck: Positive: neck supple, trachea midline Cardiac: Positive: Reg Rate and Rhythm, S1/S2, Systolic Murmur Lungs: Positive: clear to auscultation Neuro: Positive: Grossly Intact Abdomen: Positive: Soft, Active Bowel Sounds. Negative: Tender Skin: Negative: Rash Extremities: Present: normal. Absent: edema Results 06/25/16 Unknown 06/18/16 05:27 CBC 06/24/16 Range/Units 13:00 WBC 14.2 H (4.5-11.0) K/mm3 RBC 2.29 L (3.65-5.03) M/mm3 Hgb 7.1 L (11.8-15.2) gm/dl Hct 21.4 L (35.5-45.6) % Plt Count 261 (140-440) K/mm3 Lymph # Him Clerk - Imaging and Cardiology Echo: report reviewed EKG: image reviewed EKG interpretations - Telemetry EKG Rhythm: Sinus Rhythm - EKG Sinus rhythms and dysrhythmias: sinus rhythm Repolarization changes or abnormalities: nonspecific abnormality, ST segment, and/or T wave Assessment and Plan Hx. of hypertension-->BP labile reduce norvasc to 5mg daily continue imdur 120, metoprolol 50 BID Suspected infected pseudoaneurysm s/p patch angioplasty of the right carotid artery per vascular, infectious disease Coronary artery disease, stable s/p CABG/PCI continue ASA, Plavix, statin CKD COPD Hyperlipidemia Will reduce norvasc to 5mg daily and continue close monitoring of blood pressure . The patient has been seen in conjunction with Dr. Christy who agrees with the assessment and plan of care. Thank you Dr. Lester for allowing us to participate in the care of this patient.
[2016-06-25] MEDS: HALFPRIN EC PO SCH (11:44)
[2016-06-25] MEDS: NORVASC PO SCH (11:44)
[2016-06-25] MEDS: COLACE PO SCH ×2 (11:44→22:17)
[2016-06-25] MEDS: IMDUR PO SCH (11:44)
[2016-06-25] MEDS: PLAVIX PO SCH (11:44)
[2016-06-25] MEDS: LOPRESSOR PO SCH ×2 (11:44→22:17)
[2016-06-25 12:23] LABS: Hematocrit 23.1 % (35.5-45.6); Hemoglobin 7.5 gm/dl (11.8-15.2); Mean Corpuscular HGB Conc 33 % (32-34); Mean Corpuscular Hemoglobin 31 pg (28-32); Mean Corpuscular Volume 95 fl (84-94); Platelet Count 213 K/mm3 (140-440); Red Blood Count 2.44 M/mm3 (3.65-5.03); Red Cell Distribution Width 14.3 % (13.2-15.2); White Blood Count 16.9 K/mm3 (4.5-11.0)
--- NOTE | 2016-06-25 12:53 | Progress Note ---
Assessment and Plan The patient was discharged last week, but this had to be held due to difficulty arranging for home health nursing care. Apparently his insurance has a preference to use a specific home health service , that does not cover the surface area of the patient's residence. I encouraged case management to notify his insurance company of the difficulties in attempting to arrange home health for this patient, seeking alternatives. To continue to delay the patient's discharge certainly poses an increased risk of nosocomial infection, and further deconditioning. All bureaucratic delays should be addressed as soon as possible. Cardiology has adjusted BP meds. Discussed with Nursing about removing patterson this am, and encourage early micturition. Will transfuse additional units of PRBC, and recheck CBC in am. If pt is doing well , and all d/c arrangements complete the will d/c pt in am. - Patient Problems (1) Pseudoaneurysm of carotid artery Current Visit: Yes Status: Acute (2) Carotid stenosis Current Visit: No Status: Chronic Qualifiers: Laterality: right Qualified Code(s): I65.21 - Occlusion and stenosis of right carotid artery (3) Altered mental status Current Visit: Yes Status: Acute (4) Subarachnoid hemorrhage Current Visit: Yes Status: Acute Subjective Date of service: 06/25/16 Principal diagnosis: pseudoaneurysm Interval history: Patient is awake and alert. He complains of decreased endurance, and dizziness when he ambulates. Objective - Constitutional Vitals: Vital Signs - 12hr 06/25/16 06/25/16 06/25/16 01:04 06:08 09:22 Temperature 100.1 F H 98.9 F 97.8 F Pulse Rate [ 65 Left] Respiratory 20 18 Rate Blood Pressure 181/77 154/69 [Left Radial Artery] O2 Sat by Pulse 95 94 Oximetry 06/25/16 09:41 Temperature Pulse Rate [ Left] Respiratory Rate Blood Pressure [Left Radial Artery] O2 Sat by Pulse 93 Oximetry General appearance: Present: no acute distress - EENT Eyes: EOM intact ENT: hearing intact - Neck Neck: supple (soft , incision intact, no erythema or drainage appreciated.) - Respiratory Respiratory effort: normal Extremities: no ischemia - Neurologic Neurologic: no focal deficits - Psychiatric Psychiatric: appropriate mood/affect, intact judgment & insight, cooperative - Labs CBC & Chem 7: 06/25/16 Unknown 06/18/16 05:27 Labs: Abnormal lab results 06/24/16 06/24/16 06/25/16 Range/Units 13:00 14:29 Unknown WBC 14.2 H 16.9 H (4.5-11.0) K/mm3 RBC 2.29 L 2.44 L (3.65-5.03) M/mm3 Hgb 7.1 L 7.5 L (11.8-15.2) gm/dl Hct 21.4 L 23.1 L (35.5-45.6) % MCV 95 H (84-94) fl Lymphocytes % (Manual) 42.0 H (13.4-35.0) % Lymphocytes # (Manual) 6.0 H (1.2-5.4) K/mm3 Crossmatch See Detail
[2016-06-25 13:09] LABS: Basophils % (Manual) 0 % (0.0-1.8); Blastocytes % (Manual) 0 %
[2016-06-25 13:10] LABS: Anisocytosis 1+; Diff Status Complete; Smudge Cells 1+
--- NOTE | 2016-06-25 13:20 | Progress Note ---
Assessment and Plan Current antibiotics: Vancomycin (pulse dosed) IV 06/22 --> Previous Antibiotics: Unasyn 1.5 grams IV q6h 06/19-06/22 Levaquin 500mg po q24h 06/17-06/19 ASSESSMENT: Shyam Stephen is an 86 year old man with CAD, CABG, s/p blilateral endarterectomy in 2014 and 2015 who was admitted to [facility] on 06/16/16 with a right neck pulsatile mass that was found to be pseudoaneurysm complicated by micro-emboli to the brain. Patient became confused overnight. Infectious disease consult was called to assess due to intraoperative suspicion of infection. Problems list: 1. 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 -AFB smear negative of pseudoaneurysm tissue 2. 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 -Status post repair of right carotid artery pseudoaneurysm with left greater saphenous vein patch 06/18/16 -Pathology showed moderate mixed inflammation and organized thrombus. 3. Leukocytosis -Likley multifactorial -Back up today -Patient clinically is continuing to improve however 4. CAD -Status post CABG 5. 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 Course of IV vancomycin X 4 weeks as per previous notes 2. To be discharged once home therapy is arranged 3. CBC, CMP, CRP and Vanco trough every Saturday with results faxed to our office when available ([phone]) 4. To see us in follow-up in ~ 10 days 5. Will follow up WBC as an ouit patient Discussed with patient's family Dav Herrera MD [facility] Office: [phone] Subjective Date of service: 06/25/16 Principal diagnosis: pseudoaneurysm Interval history: No complaints except "anxious." Awaiting discharge. ROS: No subjective fever or chills. No nausea, vomiting or diarrhea. No shortness of breath, cough or pleuritic chest pain Objective - Exam Narrative Exam: GENERAL: Well-developed, well-nourished appearing male who is alert and in no acute distress. HEAD: Normocephalic. No lesions seen. EYES: Pupils are equal reactive to light and accommodation. There is no scleral icterus. Optic fundi are not examined. EARS: Normal external male. THROAT: Oropharynx is normal with no evidence of oral candidiasis or pharyngitis. NECK: Supple. No enlargement of the thyroid gland. No significant cervical lymphadenopathy. No jugular venous distention at 30. Right neck surgical wound healing with no signs of infection LUNGS: Clear with no adventitious sounds. HEART: Regular rate. S1 and S2 are normal. There are no murmurs, gallops, clicks or rubs heard. ABDOMEN: Soft and nontender. Liver and spleen are not palpably enlarged or tender. No palpable masses. Bowel sounds are normoactive. EXTREMITIES: No rash, peripheral lymphadenopathy, clubbing or edema. Groin wound healing with no signs of infection : Not examined NEUROLOGIC: No focal findings. - Constitutional Vitals: Vital Signs Temp Pulse Resp BP Pulse Ox 97.8 F 65 18 154/69 93 06/25/16 09:22 06/25/16 09:22 06/25/16 09:22 06/25/16 09:22 06/25/16 09:41 Temperature -Last 24 Hours Temperature 97.8 F Temperature 98.9 F Temperature 100.1 F Temperature 97.8 F Temperature 99.1 F Temperature 99.2 F Temperature 99.8 F Temperature 98.2 F Temperature 100.6 F Temperature 98.4 F - Labs CBC & Chem 7: 06/25/16 Unknown 06/18/16 05:27 Labs: Abnormal lab results Microbiology 06/24/16 Unknown Peripheral/Venous Blood Culture - Preliminary NO GROWTH AFTER 24 HOURS 06/24/16 14:29 Peripheral/Venous Blood Culture - Preliminary Culture in Progress 06/19/16 13:43 Peripheral/Venous Blood Culture - Final NO GROWTH AFTER 5 DAYS 06/19/16 14:01 Peripheral/Venous Blood Culture - Final NO GROWTH AFTER 5 DAYS 06/18/16 Unknown Other (Please Specify:) - Other Surgical Biopsy Culture - Final Staphylococcus Epidermidis 06/19/16 Unknown Neck AFB Smear Concentration - Negative
[2016-06-25] MEDS: VANCOMYCIN VIAL 1,250 MG in NACL 0.9% 250ML 250 ML IV SCH (14:59)
[2016-06-25] MEDS ORDERED: NACL 0.9% 500 ML 500 ML IV NR (15:00)
--- NOTE | 2016-06-25 15:38 | Progress Note ---
Assessment and Plan Assessment and plan: --Accelerated hypertension Continue current antihypertensives at hydralazine 25 mg 3 times a day When necessary IV hydralazine for blood pressure is more than 160/90 --Fever, low-grade Patient is already on IV antibiotics, repeat cultures negative to date Chest x-ray no evidence of pneumonia, [place] following --Anemia; status post transfusion, closely monitor H&H additional PRBC transfusion if needed --Carotid artery pseudoaneurysm status post repair. Management per vascular --Metabolic encephalopathy secondary to microemboli to the brain Continue supportive care, [place] neurology evaluation if needed --Sepsis/positive wound cultures Continue current antibiotics IV vancomycin and Unasyn ID following --History of coronary artery disease status post CABG Continue current management --Dyslipidemia continue lipid-lowering medications DVT prophylaxis; SCDs Plan of care discussed with the patient and the family members at the bedside Consults and recommendations noted History Interval history: Patient seen and evaluated medical records reviewed Complains of generalized weakness, denies chest pain shortness of breath Received 1 unit PRBC transfusion, I'll improvement Hospitalist Physical - Constitutional Vitals: Temp Pulse Resp BP Pulse Ox 97.2 F L 93 H 18 173/74 93 06/25/16 13:23 06/25/16 13:23 06/25/16 13:23 06/25/16 13:23 06/25/16 13:23 General appearance: Present: no acute distress, well-nourished - EENT Eyes: Present: PERRL, EOM intact - Neck Neck: Present: supple, normal ROM - Respiratory Respiratory effort: normal Respiratory: bilateral: diminished, negative: rales, rhonchi, wheezing - Cardiovascular Rhythm: regular Heart Sounds: Present: S1 & S2 - Extremities Extremities: no ischemia, pulses intact, pulses symmetrical Peripheral Pulses: within normal limits - Abdominal General gastrointestinal: soft, non-tender, non-distended, normal bowel sounds - Integumentary Integumentary: Present: clear, warm - Psychiatric Psychiatric: appropriate mood/affect, cooperative - Neurologic Neurologic: CNII-XII intact, moves all extremities Results - Labs CBC & Chem 7: 06/25/16 Unknown 06/18/16 05:27 Labs: Laboratory Last Values WBC 16.9 K/mm3 (4.5-11.0) H 06/25/16 Unknown RBC 2.44 M/mm3 (3.65-5.03) L 06/25/16 Unknown Hgb 7.5 gm/dl (11.8-15.2) L 06/25/16 Unknown Hct 23.1 % (35.5-45.6) L 06/25/16 Unknown MCV 95 fl (84-94) H 06/25/16 Unknown MCH 31 pg (28-32) 06/25/16 Unknown MCHC 33 % (32-34) 06/25/16 Unknown RDW 14.3 % (13.2-15.2) 06/25/16 Unknown Plt Count 213 K/mm3 (140-440) 06/25/16 Unknown Lymph # Trade Show Specialist 06/25/16 Unknown Add Manual Diff Complete 06/25/16 Unknown Total Counted 100 06/25/16 Unknown Seg Neuts % (Manual) 50 % (40.0-70.0) 06/25/16 Unknown Band Neutrophils % 1.0 % 06/25/16 Unknown Lymphocytes % (Manual) 41 % (13.4-35.0) H 06/25/16 Unknown Reactive Lymphs % (Man) 0 % 06/25/16 Unknown Monocytes % (Manual) 7.0 % (0.0-7.3) 06/25/16 Unknown Eosinophils % (Manual) 1.0 % (0.0-4.3) 06/25/16 Unknown Basophils % (Manual) 0 % (0.0-1.8) 06/25/16 Unknown Metamyelocytes % 0 % 06/25/16 Unknown Myelocytes % 0 % 06/25/16 Unknown Promyelocytes % 0 % 06/25/16 Unknown Blast Cells % 0 % 06/25/16 Unknown Nucleated RBC % Not Reportable 06/25/16 Unknown Seg Neutrophils # Man 10.1 K/mm3 (1.8-7.7) H 06/25/16 Unknown Band Neutrophils # 0.2 K/mm3 06/25/16 Unknown Lymphocytes # (Manual) 5.2 K/mm3 (1.2-5.4) 06/25/16 Unknown Abs React Lymphs (Man) 0.0 K/mm3 06/25/16 Unknown Monocytes # (Manual) 1.2 K/mm3 (0.0-0.8) H 06/25/16 Unknown Eosinophils # (Manual) 0.2 K/mm3 (0.0-0.4) 06/25/16 Unknown Basophils # (Manual) 0.0 K/mm3 (0.0-0.1) 06/25/16 Unknown Metamyelocytes # 0.0 K/mm3 06/25/16 Unknown Myelocytes # 0.0 K/mm3 06/25/16 Unknown Promyelocytes # 0.0 K/mm3 06/25/16 Unknown Blast Cells # 0.0 K/mm3 06/25/16 Unknown WBC Morphology Not Reportable 06/25/16 Unknown Hypersegmented Neuts Not Reportable 06/25/16 Unknown Hyposegmented Neuts Not Reportable 06/25/16 Unknown Hypogranular Neuts Not Reportable 06/25/16 Unknown Smudge Cells 1+ 06/25/16 Unknown Toxic Granulation Not Reportable 06/25/16 Unknown Toxic Vacuolation Not Reportable 06/25/16 Unknown Dohle Bodies Not Reportable 06/25/16 Unknown Pelger-Huet Anomaly Not Reportable 06/25/16 Unknown Zaki Rods Not Reportable 06/25/16 Unknown Platelet Estimate Not Reportable 06/25/16 Unknown Clumped Platelets Not Reportable 06/25/16 Unknown Plt Clumps, EDTA Not Reportable 06/25/16 Unknown Large Platelets Not Reportable 06/25/16 Unknown Giant Platelets Not Reportable 06/25/16 Unknown Platelet Satelliting Not Reportable 06/25/16 Unknown Plt Morphology Comment Not Reportable 06/25/16 Unknown RBC Morphology Not Reportable 06/25/16 Unknown Dimorphic RBCs Not Reportable 06/25/16 Unknown Polychromasia Not Reportable 06/25/16 Unknown Hypochromasia Not Reportable 06/25/16 Unknown Poikilocytosis Not Reportable 06/25/16 Unknown Anisocytosis 1+ 06/25/16 Unknown Microcytosis Not Reportable 06/25/16 Unknown Macrocytosis Not Reportable 06/25/16 Unknown Spherocytes Not Reportable 06/25/16 Unknown Pappenheimer Bodies Not Reportable 06/25/16 Unknown Sickle Cells Not Reportable 06/25/16 Unknown Target Cells Not Reportable 06/25/16 Unknown Tear Drop Cells Not Reportable 06/25/16 Unknown Ovalocytes Not Reportable 06/25/16 Unknown Helmet Cells Not Reportable 06/25/16 Unknown [place] Bodies Not Reportable 06/25/16 Unknown Keavy Rings Not Reportable 06/25/16 Unknown Tamika Cells Not Reportable 06/25/16 Unknown Bite Cells Not Reportable 06/25/16 Unknown Crenated Cell Not Reportable 06/25/16 Unknown Elliptocytes Not Reportable 06/25/16 Unknown Acanthocytes (Spur) Not Reportable 06/25/16 Unknown Rouleaux Not Reportable 06/25/16 Unknown Hemoglobin C Crystals Not Reportable 06/25/16 Unknown Schistocytes Not Reportable 06/25/16 Unknown Malaria parasites Not Reportable 06/25/16 Unknown Sharif Bodies Not Reportable 06/25/16 Unknown Hem Pathologist Commnt No 06/25/16 Unknown PT 14.7 Sec. (12.2-14.9) 06/18/16 05:27 INR 1.16 (0.87-1.13) H 06/18/16 05:27 APTT 29.0 Sec. (24.2-36.6) 06/15/16 14:05 Sodium 135 mmol/L (137-145) L 06/18/16 05:27 Potassium 4.2 mmol/L (3.6-5.0) 06/18/16 05:27 Chloride 100.0 mmol/L (98-107) 06/18/16 05:27 Carbon Dioxide 22 mmol/L (22-30) 06/18/16 05:27 Anion Gap 17 mmol/L 06/18/16 05:27 BUN 13 mg/dL (9-20) 06/18/16 05:27 Creatinine 1.0 mg/dL (0.8-1.5) 06/18/16 05:27 Estimated GFR > 60 ml/min 06/18/16 05:27 BUN/Creatinine Ratio 13.00 % 06/18/16 05:27 Glucose 110 mg/dL (75-100) H 06/18/16 05:27 POC Glucose 115 (70-105) H 06/24/16 08:21 Calcium 8.1 mg/dL (8.4-10.2) L 06/18/16 05:27 Urine Color Yellow (Yellow) 06/24/16 17:14 Urine Turbidity Clear (Clear) 06/24/16 17:14 Urine pH 5.0 (5.0-7.0) 01/22/17 17:14 Ur Specific [place] 1.021 (1.003-1.030) 06/24/16 17:14 Urine Protein <15 mg/dl mg/dL (Negative) 06/24/16 17:14 Urine Glucose (UA) Neg mg/dL (Negative) 06/24/16 17:14 Urine Ketones Neg mg/dL (Negative) 06/24/16 17:14 Urine Blood Sm (Negative) 06/24/16 17:14 Urine Nitrite Neg (Negative) 06/24/16 17:14 Urine Bilirubin Neg (Negative) 06/24/16 17:14 Urine Urobilinogen < 2.0 mg/dL (<2.0) 06/24/16 17:14 Ur Leukocyte Esterase Neg (Negative) 06/24/16 17:14 Urine WBC (Auto) 0.0 /HPF (0.0-6.0) 06/24/16 17:14 Urine RBC (Auto) 1.0 /HPF (0.0-6.0) 06/24/16 17:14 U Epithel Cells (Auto) < 1.0 /HPF (0-13.0) 06/24/16 17:14 Uric Acid Crystals 1+ 06/24/16 17:14 Urine Mucus Few /HPF 06/24/16 17:14 RPR Nonreactive (Nonreactive) 06/19/16 13:43 Blood Type O POSITIVE 06/24/16 14:29 Antibody Screen Negative 06/24/16 14:29 Crossmatch See Detail 06/24/16 14:29
--- NOTE | 2016-06-25 17:28 | Event Note ---
Date: 06/25/16 Patient was unresponsive while receiving blood transfusion. Rapid response was called , vital signs stable,no rash or allergic reaction Patient slowly became responsive to very simple questions. new left sided weakness noted. Blood transfusion held, Requested CT head without contrast. primary team [Vascular] informed of this event. CT head without contrast; no acute intracranial abnormality noted CT angiogram of the head; negative I discussed these findings with the vascular covering physician [ phone ]
--- NOTE | 2016-06-25 17:58 | Cat Scan Report ---
FINAL REPORT EXAM: CT HEAD/BRAIN WO CON HISTORY: suspected left sided weakness TECHNIQUE: CT head without contrast PRIORS: None. FINDINGS: No acute intra-axial or extra-axial hemorrhage is identified. There is no evidence of midline shift or mass effect. The ventricles and sulci are within normal limits. Mulligan-white matter differentiation is intact. No acute parenchymal abnormalities seen. There are patchy and confluent hypodensities within the supratentorial white matter. Bony calvarium is grossly intact. Visualized portions of the mastoids and paranasal sinuses are unremarkable. IMPRESSION: Chronic small vessel white matter ischemic change No acute abnormality is identified
[2016-06-25] MEDS ORDERED: TYLENOL PO ONE (18:34)
--- NOTE | 2016-06-25 18:37 | Cat Scan Report ---
FINAL REPORT EXAM: CT ANGIO HEAD HISTORY: left hemiparesis, new, s/p right carotid pseudo re TECHNIQUE: CT Head CT angiogram with intravenous contrast PRIORS: Correlated with today's earlier noncontrast CT head FINDINGS: There is mild plaque formation within the cavernous ICAs bilaterally significant stenosis identified. The MCA and ELMA distributions are unremarkable. No evidence for major vascular occlusion Distal vertebral arteries and basilar artery appear within normal limits. INTERLOCKING PAVEMENT INSTALLER distribution is unremarkable No large aneurysms are identified. IMPRESSION: Normal CTA head.
--- NOTE | 2016-06-25 19:00 | Cat Scan Report ---
FINAL REPORT EXAM: CT ANGIO NECK HISTORY: left hemiparesis, new, s/p right carotid pseudo re TECHNIQUE: CT angiogram with intravenous contrast and multiplanar reconstructions neck PRIORS: Comparison made with prior exam of June 17, 2016 FINDINGS: Again noted is marked atherosclerotic plaque the right innominate artery and proximal right ICA and subclavian artery with significant stenosis which appears similar to the prior exam. Postoperative changes are seen the course of the right distal common carotid and carotid bifurcation new since the prior exam likely reflecting interval repair for pseudoaneurysm. Internal lumen no longer appears bulbous. There is adjacent soft tissue density likely reflecting postoperative change and small residual postoperative hematoma. There narrowing at the origin of the right ECA There is tortuosity with narrowing the mid proximal right ICA estimated at approximately 50 percent. Distal right ICA is patent There is some plaque at the origin of the left common carotid estimated degree stenosis approximately 40 percent. Left common carotid is patent no evidence for significant stenosis. Left ICA demonstrates no evidence for hemodynamically significant stenosis Again noted are bilateral pulmonary masses as previously described highly concerning for malignancy IMPRESSION: Postoperative changes right carotid bifurcation for repair of pseudo aneurysm. Internal lumen is patent . Adjacent soft tissue density likely reflects postoperative change and probable small residual hematoma. 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
[2016-06-25 21:41] LABS: Hematocrit 26.7 % (35.5-45.6); Hemoglobin 8.9 gm/dl (11.8-15.2)
--- NOTE | 2016-06-25 21:45 | Progress Note ---
Subjective Date of service: 06/25/16 Principal diagnosis: pseudoaneurysm Interval history: Patient seen at the bedside. Currently no neurological defficits, motor 5/5 al 4 extremities. He is AAOx 3. Speech intact He had an episode of lethargy, was unresponsive around 5pm. EXPORT ADMINISTRATOR was called. At that time patient had blood transfusion going. CT head was unchanged. CTA of head and neck showed a new finding of small clot in the right CEA site. No new stroke. Now VSS. His SBP has been around 150s Plan to start heparin drip without bolus at the low titration rate. Although patient had anemia that required blood transfusion, it is posing less risk than not anticoagulating in the presence of carotid thrombus. It will decrease cerebral perfusion with increase clot burden in the right carotid wall. We will check for GI source. Titrate down BP meds to maintain BP > 150 Neurology consult. Objective - Constitutional Vitals: Vital Signs - 12hr 06/25/16 06/25/16 06/25/16 09:41 13:23 16:10 Temperature 97.2 F L 100.5 F H Pulse Rate 72 Pulse Rate [ 93 H From Monitor] Pulse Rate [ Right] Respiratory 18 Rate Blood Pressure 157/67 Blood Pressure 173/74 [Left Radial Artery] O2 Sat by Pulse 93 93 Oximetry 06/25/16 06/25/16 06/25/16 16:25 19:34 21:19 Temperature 99.9 F H 98.1 F Pulse Rate 70 Pulse Rate [ From Monitor] Pulse Rate [ 70 Right] Respiratory 20 20 Rate Blood Pressure 148/65 Blood Pressure 179/76 [Left Radial Artery] O2 Sat by Pulse 93 95 Oximetry - Labs CBC & Chem 7: 06/25/16 Unknown 06/18/16 05:27 Labs: Abnormal lab results 06/24/16 06/25/16 06/25/16 Range/Units 14:29 17:12 Unknown WBC 16.9 H (4.5-11.0) K/mm3 RBC 2.44 L (3.65-5.03) M/mm3 Hgb 7.5 L (11.8-15.2) gm/dl Hct 23.1 L (35.5-45.6) % MCV 95 H (84-94) fl Lymphocytes % (Manual) 41 H (13.4-35.0) % Seg Neutrophils # Man 10.1 H (1.8-7.7) K/mm3 Monocytes # (Manual) 1.2 H (0.0-0.8) K/mm3 POC Glucose 145 H (70-105) Crossmatch See Detail
[2016-06-25 21:53] LABS: INR 1.28 (0.87-1.13)
[2016-06-25 21:54] LABS: Partial Thromboplastin Time 33.5 Sec. (24.2-36.6)
[2016-06-25] MEDS: HEPARIN/ 0.45% NACL-25,000 UNIT/500 ML 500 ML IV SCH (21:55)
[2016-06-25] MEDS: APRESOLINE PO SCH (22:17)
[2016-06-26] MEDS: NACL 0.9% 1000 ML 1,000 ML IV SCH ×2 (04:44→15:53)
[2016-06-26] MEDS: APRESOLINE PO SCH ×3 (05:07→22:08)
[2016-06-26 05:40] LABS: Hematocrit 26.9 % (35.5-45.6); Mean Corpuscular HGB Conc 34 % (32-34); Mean Corpuscular Hemoglobin 32 pg (28-32); Mean Corpuscular Volume 95 fl (84-94); Platelet Count 203 K/mm3 (140-440); Red Blood Count 2.85 M/mm3 (3.65-5.03); Red Cell Distribution Width 14.8 % (13.2-15.2); White Blood Count 16.1 K/mm3 (4.5-11.0)
[2016-06-26 05:57] LABS: Blood Urea Nitrogen 14 mg/dL (9-20); Calcium 7.4 mg/dL (8.4-10.2); Carbon Dioxide 23 mmol/L (22-30); Chloride 99.2 mmol/L (98-107); Glucose 110 mg/dL (75-100); Magnesium 1.7 mg/dL (1.7-2.3); Sodium 134 mmol/L (137-145)
[2016-06-26 06:10] LABS: Anion Gap 15 mmol/L
[2016-06-26 06:14] LABS: Potassium 2.9 mmol/L (3.6-5.0)
[2016-06-26 07:05] LABS: Anisocytosis 1+; Basophils % (Manual) 0 % (0.0-1.8); Blastocytes % (Manual) 0 %
[2016-06-26 07:06] LABS: Diff Status Complete; Hypochromasia 1+; Smudge Cells 1+
[2016-06-26] MEDS ORDERED: LOPRESSOR PO SCH (08:36)
[2016-06-26] MEDS: PLAVIX PO SCH (11:11)
[2016-06-26] MEDS: HALFPRIN EC PO SCH (11:12)
[2016-06-26] MEDS: NORVASC PO SCH (11:12)
[2016-06-26] MEDS: IMDUR PO SCH (11:12)
[2016-06-26] MEDS: LOPRESSOR PO SCH ×2 (11:12→22:09)
[2016-06-26] MEDS: COLACE PO SCH ×2 (11:12→22:58)
[2016-06-26] MEDS: K-DUR PO SCH ×2 (11:13→15:52)
--- NOTE | 2016-06-26 12:18 | Progress Note ---
Assessment and Plan Hx. of hypertension-->BP labile reduce antihypertensives to keep SBP ~150 Suspected infected pseudoaneurysm s/p patch angioplasty of the right carotid artery per vascular, infectious disease Coronary artery disease, stable s/p CABG/PCI continue ASA, Plavix, statin CKD COPD Hyperlipidemia Anemia Will reduce antihypertensives and continue close monitoring of blood pressure. The patient has been seen in conjunction with Dr. Christy who agrees with the assessment and plan of care. Subjective Date of service: 06/26/16 Principal diagnosis: pseudoaneurysm Interval history: The patient is resting in bed. No complaints. Pt.'s son at bedside reports that the patient is intermittently confused. Sinus rhythm on the monitor. Objective Last Vital Signs Temp 98.1 F 06/26/16 11:59 Pulse 79 06/26/16 11:59 Resp 20 06/26/16 11:59 BP 144/75 06/26/16 11:59 Pulse Ox 94 06/26/16 11:59 - Physical Examination General: No Apparent Distress HEENT: Positive: Normocephaly, Mucus Membranes Moist Neck: Positive: neck supple, trachea midline Cardiac: Positive: Reg Rate and Rhythm, S1/S2 Lungs: Positive: clear to auscultation Neuro: Positive: Grossly Intact Abdomen: Positive: Soft, Active Bowel Sounds. Negative: Tender Skin: Negative: Rash Extremities: Present: normal. Absent: edema - Labs and Meds Coagulation 06/25/16 Range/Units 21:19 PT 15.9 H (12.2-14.9) Sec. INR 1.28 H (0.87-1.13) APTT 33.5 (24.2-36.6) Sec. CBC 06/25/16 06/25/16 06/26/16 Range/Units 21:19 Unknown 05:27 WBC 16.9 H 16.1 H (4.5-11.0) K/mm3 RBC 2.44 L 2.85 L (3.65-5.03) M/mm3 Hgb 8.9 L 7.5 L 9.0 L (11.8-15.2) gm/dl Hct 26.7 L 23.1 L 26.9 L (35.5-45.6) % Plt Count 277 213 203 (140-440) K/mm3 Lymph # Mfg Assoc M[employer] Assoc Comprehensive Metabolic Panel 01/24/17 Range/Units 05:27 Sodium 134 L (137-145) mmol/L Potassium 2.9 L* (3.6-5.0) mmol/L Chloride 99.2 (98-107) mmol/L Carbon Dioxide 23 (22-30) mmol/L BUN 14 (9-20) mg/dL Creatinine 1.0 (0.8-1.5) mg/dL Glucose 110 H (75-100) mg/dL Calcium 7.4 L (8.4-10.2) mg/dL - Imaging and Cardiology EKG: image reviewed Echo: report reviewed - Telemetry EKG Rhythm: Sinus Rhythm - EKG Sinus rhythms and dysrhythmias: sinus rhythm Repolarization changes or abnormalities: nonspecific abnormality, ST segment, and/or T wave
--- NOTE | 2016-06-26 12:50 | Progress Note ---
Assessment and Plan The patient is doing well today. A neurology consult is pending. He has tolerated anticoagulation and if he continues to tolerate this over the next 24 hours we will convert him to oral anticoagulation for 3-6 months. His antihypertensive medications have been held to maintain a systolic blood pressure greater than 150. This is being managed by cardiology. Once all of his medications have been appropriately sorted out, he remains neurologically intact, and he tolerates oral anticoagulation, he will be discharged to home. This plan was discussed with the patient as well as his son and they have expressed understanding and agreement with the plan. Subjective Date of service: 06/26/16 Principal diagnosis: pseudoaneurysm Interval history: The patient had an episode overnight with reports of unresponsiveness and left- sided weakness. He had an extensive workup that included a CT of his head as well as a CT of his head and neck. The CT of his head demonstrated no acute process. CT of his neck did show some thrombus within the area of repair however the remainder of the anatomy was unchanged. His reported weakness quickly resolved and may have been secondary to hypotension and not an embolic event. This morning the patient has no evidence of neurologic deficit and is alert and oriented. He was started on a heparin drip overnight, for the thrombus within the carotid artery, and has had no obvious complications. Additionally the patient was transfused 2 units of packed red blood cells overnight and his hemoglobin has responded appropriately. He has had no evidence of bleeding. Objective - Constitutional Vitals: Vital Signs - 12hr 06/26/16 06/26/16 06/26/16 00:57 01:31 01:50 Temperature 98.6 F 99.3 F Pulse Rate 67 69 Pulse Rate [ Left] Pulse Rate [ 101 H Right] Respiratory 20 20 Rate Blood Pressure 167/72 Blood Pressure [Left Arm] Blood Pressure 157/76 [Left Radial Artery] O2 Sat by Pulse Oximetry 06/26/16 06/26/16 06/26/16 05:44 07:54 09:17 Temperature 98.2 F 98.9 F Pulse Rate Pulse Rate [ 77 Left] Pulse Rate [ 61 Right] Respiratory 20 20 Rate Blood Pressure Blood Pressure [Left Arm] Blood Pressure 194/74 176/75 [Left Radial Artery] O2 Sat by Pulse 94 93 93 Oximetry 06/26/16 11:59 Temperature 98.1 F Pulse Rate Pulse Rate [ 79 Left] Pulse Rate [ Right] Respiratory 20 Rate Blood Pressure Blood Pressure 144/75 [Left Arm] Blood Pressure [Left Radial Artery] O2 Sat by Pulse 94 Oximetry General appearance: Present: no acute distress - Neck Neck: supple, other (incision is clean dry and intact without evidence of hematoma) - Respiratory Respiratory effort: normal - Cardiovascular Rhythm: regular Extremities: no ischemia, No edema, normal temperature - Gastrointestinal General gastrointestinal: Present: soft, non-tender, non-distended - Musculoskeletal Musculoskeletal: strength equal bilaterally - Neurologic Neurologic: no focal deficits - Labs CBC & Chem 7: 06/26/16 05:27 06/26/16 05:27 Labs: Abnormal lab results 06/24/16 06/25/16 06/25/16 Range/Units 14:29 17:12 21:19 WBC (4.5-11.0) K/mm3 RBC (3.65-5.03) M/mm3 Hgb 8.9 L (11.8-15.2) gm/dl Hct 26.7 L (35.5-45.6) % MCV (84-94) fl Lymphocytes % (Manual) (13.4-35.0) % Seg Neutrophils # Man (1.8-7.7) K/mm3 Monocytes # (Manual) (0.0-0.8) K/mm3 Eosinophils # (Manual) (0.0-0.4) K/mm3 PT (12.2-14.9) Sec. INR (0.87-1.13) Heparin Anti-Xa Level (0.3-0.7) U.I./ml Sodium (137-145) mmol/L Potassium (3.6-5.0) mmol/L Glucose (75-100) mg/dL POC Glucose 145 H (70-105) Calcium (8.4-10.2) mg/dL Crossmatch See Detail 06/25/16 06/25/16 06/26/16 Range/Units 21:19 Unknown 05:27 WBC 16.1 H (4.5-11.0) K/mm3 RBC 2.85 L (3.65-5.03) M/mm3 Hgb 9.0 L (11.8-15.2) gm/dl Hct 26.9 L (35.5-45.6) % MCV 95 H (84-94) fl Lymphocytes % (Manual) 41 H (13.4-35.0) % Seg Neutrophils # Man 10.1 H 11.3 H (1.8-7.7) K/mm3 Monocytes # (Manual) 1.2 H (0.0-0.8) K/mm3 Eosinophils # (Manual) 0.5 H (0.0-0.4) K/mm3 PT 15.9 H (12.2-14.9) Sec. INR 1.28 H (0.87-1.13) Heparin Anti-Xa Level (0.3-0.7) U.I./ml Sodium (137-145) mmol/L Potassium (3.6-5.0) mmol/L Glucose (75-100) mg/dL POC Glucose (70-105) Calcium (8.4-10.2) mg/dL Crossmatch 06/26/16 06/26/16 Range/Units 05:27 05:27 WBC (4.5-11.0) K/mm3 RBC (3.65-5.03) M/mm3 Hgb (11.8-15.2) gm/dl Hct (35.5-45.6) % MCV (84-94) fl Lymphocytes % (Manual) (13.4-35.0) % Seg Neutrophils # Man (1.8-7.7) K/mm3 Monocytes # (Manual) (0.0-0.8) K/mm3 Eosinophils # (Manual) (0.0-0.4) K/mm3 PT (12.2-14.9) Sec. INR (0.87-1.13) Heparin Anti-Xa Level 0.18 L (0.3-0.7) U.I./ml Sodium 134 L (137-145) mmol/L Potassium 2.9 L* (3.6-5.0) mmol/L Glucose 110 H (75-100) mg/dL POC Glucose (70-105) Calcium 7.4 L (8.4-10.2) mg/dL Crossmatch
--- NOTE | 2016-06-26 13:14 | Progress Note ---
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 Patient became confused overnight. Infectious disease consult was called to assess due to intraoperative suspicion of infection. Problems list: 1. 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 -AFB smear negative of pseudoaneurysm tissue 2. 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 -Status post repair of right carotid artery pseudoaneurysm with left greater saphenous vein patch 06/18/16 -Pathology showed moderate mixed inflammation and organized thrombus. 3. Leukocytosis -Likley multifactorial -Back up today -Patient clinically is continuing to improve however 4. CAD -Status post CABG 5. 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 Transient loss of consciousness and left sided weakness -Rule out seizure -Rule out another embolic event although CT negative 7. Pulmonary masses -Suggested on both neck CTA -Rule out neoplastic process PLAN: 1. Course of IV vancomycin X 4 weeks as per previous notes 2. With all that is going on would consider LTAC palcement to complete IV antibiotics 3. Consider reconsulting pulmonary (Dr. Lewis has seen) re the lung masses Dav Herrera MD [facility] Office: [phone] Subjective Date of service: 06/26/16 Principal diagnosis: pseudoaneurysm Interval history: Overnight events noted. He had an episode overnight of unresponsiveness and left -sided weakness. According to his family he has had intermittent confusion & hallucinations. ROS: No subjective fever or chills. No nausea, vomiting or diarrhea. No shortness of breath, cough or pleuritic chest pain Objective - Exam Narrative Exam: GENERAL: Well-developed, well-nourished appearing male who is alert and in no acute distress. Somewhat confused HEAD: Normocephalic. No lesions seen. EYES: Pupils are equal reactive to light and accommodation. There is no scleral icterus. Optic fundi are not examined. EARS: Normal external male. THROAT: Oropharynx is normal with no evidence of oral candidiasis or pharyngitis. NECK: Supple. No enlargement of the thyroid gland. No significant cervical lymphadenopathy. No jugular venous distention at 30. Right neck surgical wound healing with no signs of infection LUNGS: Clear with no adventitious sounds. HEART: Regular rate. S1 and S2 are normal. There are no murmurs, gallops, clicks or rubs heard. ABDOMEN: Soft and nontender. Liver and spleen are not palpably enlarged or tender. No palpable masses. Bowel sounds are normoactive. EXTREMITIES: No rash, peripheral lymphadenopathy, clubbing or edema. Groin wound healing with no signs of infection : Not examined NEUROLOGIC: No focal findings at present. - Constitutional Vitals: Vital Signs Temp Pulse Resp BP Pulse Ox 98.1 F 79 20 144/75 94 06/26/16 11:59 06/26/16 11:59 06/26/16 11:59 06/26/16 11:59 06/26/16 11:59 Temperature -Last 24 Hours Temperature 98.1 F Temperature 98.9 F Temperature 98.2 F Temperature 99.3 F Temperature 98.6 F Temperature 96.6 F Temperature 99.8 F Temperature 98.6 F Temperature 98.6 F Temperature 98.1 F Temperature 99.9 F Temperature 100.5 F Temperature 97.2 F - Labs CBC & Chem 7: 06/26/16 05:27 06/26/16 05:27 Labs: Abnormal lab results Microbiology 06/24/16 Unknown Peripheral/Venous Blood Culture - Preliminary NO GROWTH AFTER 24 HOURS 06/24/16 14:29 Peripheral/Venous Blood Culture - Preliminary Culture in Progress 06/19/16 13:43 Peripheral/Venous Blood Culture - Final NO GROWTH AFTER 5 DAYS 06/19/16 14:01 Peripheral/Venous Blood Culture - Final NO GROWTH AFTER 5 DAYS 06/18/16 Unknown Other (Please Specify:) - Other Surgical Biopsy Culture - Final Staphylococcus Epidermidis 06/19/16 Unknown Neck AFB Smear Concentration - Negative Imaging: Head CT and CTA with no acute findings. Neck CTA with no acute findings. Bilateral pulmonary masses suspicious for neoplasm are noted
--- NOTE | 2016-06-26 14:15 | Consultation ---
History of Present Illness - Reason for Consult Consult date: 06/26/16 neuro evaluation - History of Present Illness Thanks for consult doing well at present plan to follow in the office post discharge for neuro spoke to family at length is doing excellent at present and not showing any right parietal lobe syndrome findings will review all imaging studies Past History Past Medical History: CAD, hypertension, hyperlipidemia, other Past Surgical History: CABG, Other (carotid endarterectomy right and left) Social history: lives with family. denies: smoking, alcohol abuse, prescription drug abuse Family history: hypertension Medications and Allergies Allergies Allergy/AdvReac Type Severity Reaction Status Date / Time No Known Allergies Allergy Verified 12/30/14 10:26 Home Medications Medication Instructions Recorded Confirmed Last Taken Type Metoprolol Tartrate 50 mg PO BID 12/22/14 06/14/16 08/22/15 05:30 History Nitroglycerin [Nitrostat] 0.4 mg SL PRN PRN 12/22/14 06/14/16 2 Weeks Ago History Aspirin EC [Aspirin Enteric Coated 81 mg PO QDAY 12/30/14 06/14/16 08/22/15 05: 30 History TAB] Clopidogrel Bisulfate [Clopidogrel] 75 mg PO BID 12/30/14 06/14/16 08/22/15 05: 30 History AtorvaSTATin [Lipitor] 40 mg PO QHS 06/06/16 06/14/16 Unknown History amLODIPine [Norvasc] 10 mg PO DAILY 06/06/16 06/14/16 Unknown History ISOSORBIDE MONOnitrate [Imdur ER] 120 mg PO QDAY 06/14/16 06/14/16 Unknown History Active Meds: Active Medications Acetaminophen (Tylenol) 650 mg PO Q4H PRN PRN Reason: Pain MILD(1-3)/Fever >100.5/LIN Last Admin: 06/25/16 22:17 Dose: 650 mg Amlodipine Besylate (Norvasc) 5 mg PO QDAY [facility] Last Admin: 06/26/16 11:12 Dose: 5 mg Aspirin (Halfprin Ec) 81 mg PO QDAY [facility] Last Admin: 06/26/16 11:12 Dose: 81 mg Atorvastatin Calcium (Lipitor) 40 mg PO QHS [facility] Last Admin: 06/25/16 22:18 Dose: 40 mg Bisacodyl (Dulcolax) 10 mg AR QDAY PRN PRN Reason: Constipation unrelieved by MOM Clopidogrel Bisulfate (Plavix) 75 mg PO QDAY [facility] Last Admin: 06/26/16 11:11 Dose: 75 mg Docusate Sodium (Colace) 100 mg PO BID [facility] Last Admin: 06/26/16 11:12 Dose: 100 mg Haloperidol Lactate (Haldol) 5 mg IV Q6H PRN PRN Reason: Agitation Hydralazine HCl (Apresoline) 25 mg PO Q8HR [facility] Last Admin: 06/26/16 05:07 Dose: 25 mg Dopamine HCl/Dextrose (Intropin Drip 800 Mg/D5w 250 Ml) 250 mls @ 7.014 mls/hr IV TITR [facility]; 5 MCG/KG/MIN PRN Reason: Protocol Sodium Nitroprusside 50 mg/ (Dextrose) 250 mls @ 5.61 mls/hr IV TITR [place]; 0.25 MCG/KG/MIN PRN Reason: Protocol Vancomycin HCl 1,250 mg/ (Sodium Chloride) 250 mls @ 166.667 mls/hr IV 1550 [facility] Last Admin: 06/25/16 14:59 Dose: 166.667 mls/hr Sodium Chloride (Nacl 0.9% 1000 Ml) 1,000 mls @ 100 mls/hr IV DIRECT [facility] Last Admin: 06/26/16 04:44 Dose: 100 mls/hr Heparin Sodium/Sodium Chloride (Heparin/ 0.45% Nacl-25,000 Unit/500 Ml) 500 mls @ 23 mls/hr IV TITR DOMINGUEZ; 1,150 UNITS/HR PRN Reason: Protocol Last Titration: 06/26/16 13:13 Dose: 1,150 units/hr Isosorbide Mononitrate (Imdur) 60 mg PO QDAY [facility] Last Admin: 06/26/16 11:12 Dose: 60 mg Magnesium Hydroxide (Milk Of Magnesia) 30 ml PO Q4H PRN PRN Reason: Constipation Metoprolol Tartrate (Lopressor) 25 mg PO BID [facility] Last Admin: 06/26/16 11:12 Dose: 25 mg Naloxone HCl (Narcan 0.4 Mg/1 Ml) 0.1 mg IV Q2MIN PRN PRN Reason: Res Rate </= 8 or 02 SAT < 92% Nitroglycerin (Nitrostat) 0.4 mg SL .Q5MIN PRN PRN Reason: Chest Pain Ondansetron HCl (Zofran) 4 mg IV Q8H PRN PRN Reason: N/V unrelieved by Regharvey Quetiapine Fumarate (Seroquel) 25 mg PO BID [facility] Last Admin: 06/26/16 11:12 Dose: 25 mg Sodium Chloride (Sodium Chloride Flush Syringe 10 Ml) 10 ml IV PRN PRN PRN Reason: LINE FLUSH Exam - Constitutional Vitals: Temp Pulse Resp BP Pulse Ox 98.1 F 79 20 144/75 94 06/26/16 11:59 06/26/16 11:59 06/26/16 11:59 06/26/16 11:59 06/26/16 11:59 Results - Labs CBC & Chem 7: 06/26/16 05:27 06/26/16 05:27 Labs: Abnormal lab results 06/24/16 06/25/16 06/25/16 Range/Units 14:29 17:12 21:19 WBC (4.5-11.0) K/mm3 RBC (3.65-5.03) M/mm3 Hgb 8.9 L (11.8-15.2) gm/dl Hct 26.7 L (35.5-45.6) % MCV (84-94) fl Seg Neutrophils # Man (1.8-7.7) K/mm3 Eosinophils # (Manual) (0.0-0.4) K/mm3 PT (12.2-14.9) Sec. INR (0.87-1.13) Heparin Anti-Xa Level (0.3-0.7) U.I./ml Sodium (137-145) mmol/L Potassium (3.6-5.0) mmol/L Glucose (75-100) mg/dL POC Glucose 145 H (70-105) Calcium (8.4-10.2) mg/dL Crossmatch See Detail 06/25/16 06/26/16 06/26/16 Range/Units 21:19 05:27 05:27 WBC 16.1 H (4.5-11.0) K/mm3 RBC 2.85 L (3.65-5.03) M/mm3 Hgb 9.0 L (11.8-15.2) gm/dl Hct 26.9 L (35.5-45.6) % MCV 95 H (84-94) fl Seg Neutrophils # Man 11.3 H (1.8-7.7) K/mm3 Eosinophils # (Manual) 0.5 H (0.0-0.4) K/mm3 PT 15.9 H (12.2-14.9) Sec. INR 1.28 H (0.87-1.13) Heparin Anti-Xa Level (0.3-0.7) U.I./ml Sodium 134 L (137-145) mmol/L Potassium 2.9 L* (3.6-5.0) mmol/L Glucose 110 H (75-100) mg/dL POC Glucose (70-105) Calcium 7.4 L (8.4-10.2) mg/dL Crossmatch 06/26/16 Range/Units 05:27 WBC (4.5-11.0) K/mm3 RBC (3.65-5.03) M/mm3 Hgb (11.8-15.2) gm/dl Hct (35.5-45.6) % MCV (84-94) fl Seg Neutrophils # Man (1.8-7.7) K/mm3 Eosinophils # (Manual) (0.0-0.4) K/mm3 PT (12.2-14.9) Sec. INR (0.87-1.13) Heparin Anti-Xa Level 0.18 L (0.3-0.7) U.I./ml Sodium (137-145) mmol/L Potassium (3.6-5.0) mmol/L Glucose (75-100) mg/dL POC Glucose (70-105) Calcium (8.4-10.2) mg/dL Crossmatch
--- NOTE | 2016-06-26 15:37 | Progress Note ---
Assessment and Plan Assessment and plan: --Metabolic encephalopathy secondary to microemboli to the brain Continue supportive care, neurology evaluation noted --Accelerated hypertension Continue current antihypertensives at hydralazine 25 mg 3 times a day When necessary IV hydralazine for blood pressure is more than 160/90 --Fever, low-grade Patient is already on IV antibiotics, repeat cultures negative to date Chest x-ray no evidence of pneumonia, Roxana following --Anemia; status post transfusion, closely monitor H&H additional PRBC transfusion if needed --Carotid artery pseudoaneurysm status post repair. Management per vascular --Sepsis/positive wound cultures Continue current antibiotics IV vancomycin and Unasyn ID following --History of coronary artery disease status post CABG Continue current management --Dyslipidemia continue lipid-lowering medications DVT prophylaxis; SCDs Possible family members at the bedside plan of care discussed with them History Interval history: Patient seen and evaluated medical records reviewed Multiple family members at the bedside Patient had episodes of confusion last night Now he is alert and awake responding to simple questions confused at times Hospitalist Physical - Constitutional Vitals: Temp Pulse Resp BP Pulse Ox 98.1 F 79 20 144/75 94 06/26/16 11:59 06/26/16 11:59 06/26/16 11:59 06/26/16 11:59 06/26/16 11:59 General appearance: Present: no acute distress, well-nourished, other (confused at times) - EENT Eyes: Present: PERRL, EOM intact - Neck Neck: Present: supple, normal ROM - Respiratory Respiratory effort: normal Respiratory: bilateral: diminished, negative: rales, rhonchi, wheezing - Cardiovascular Rhythm: regular Heart Sounds: Present: S1 & S2 - Extremities Extremities: no ischemia, pulses intact, pulses symmetrical Peripheral Pulses: within normal limits - Abdominal General gastrointestinal: soft, non-tender, non-distended, normal bowel sounds - Integumentary Integumentary: Present: clear, warm - Psychiatric Psychiatric: appropriate mood/affect, other (confused) - Neurologic Neurologic: moves all extremities Results - Labs CBC & Chem 7: 06/26/16 05:27 06/26/16 14:41 Labs: Laboratory Last Values WBC 16.1 K/mm3 (4.5-11.0) H 06/26/16 05:27 RBC 2.85 M/mm3 (3.65-5.03) L 06/26/16 05:27 Hgb 9.0 gm/dl (11.8-15.2) L 06/26/16 05:27 Hct 26.9 % (35.5-45.6) L 06/26/16 05:27 MCV 95 fl (84-94) H 06/26/16 05:27 MCH 32 pg (28-32) 06/26/16 05:27 MCHC 34 % (32-34) 06/26/16 05:27 RDW 14.8 % (13.2-15.2) 06/26/16 05:27 Plt Count 203 K/mm3 (140-440) 06/26/16 05:27 Lymph # Instructor Private 06/26/16 05:27 Add Manual Diff Complete 06/26/16 05:27 Total Counted 100 06/26/16 05:27 Seg Neuts % (Manual) 70.0 % (40.0-70.0) 06/26/16 05:27 Band Neutrophils % 1.0 % 06/26/16 05:27 Lymphocytes % (Manual) 21.0 % (13.4-35.0) 06/26/16 05:27 Reactive Lymphs % (Man) 0 % 06/26/16 05:27 Monocytes % (Manual) 5.0 % (0.0-7.3) 06/26/16 05:27 Eosinophils % (Manual) 3.0 % (0.0-4.3) 06/26/16 05:27 Basophils % (Manual) 0 % (0.0-1.8) 06/26/16 05:27 Metamyelocytes % 0 % 06/26/16 05:27 Myelocytes % 0 % 06/26/16 05:27 Promyelocytes % 0 % 06/26/16 05:27 Blast Cells % 0 % 06/26/16 05:27 Nucleated RBC % Not Reportable 06/26/16 05:27 Seg Neutrophils # Man 11.3 K/mm3 (1.8-7.7) H 06/26/16 05:27 Band Neutrophils # 0.2 K/mm3 06/26/16 05:27 Lymphocytes # (Manual) 3.4 K/mm3 (1.2-5.4) 06/26/16 05:27 Abs React Lymphs (Man) 0.0 K/mm3 06/26/16 05:27 Monocytes # (Manual) 0.8 K/mm3 (0.0-0.8) 06/26/16 05:27 Eosinophils # (Manual) 0.5 K/mm3 (0.0-0.4) H 06/26/16 05:27 Basophils # (Manual) 0.0 K/mm3 (0.0-0.1) 06/26/16 05:27 Metamyelocytes # 0.0 K/mm3 06/26/16 05:27 Myelocytes # 0.0 K/mm3 06/26/16 05:27 Promyelocytes # 0.0 K/mm3 06/26/16 05:27 Blast Cells # 0.0 K/mm3 06/26/16 05:27 WBC Morphology Not Reportable 06/26/16 05:27 Hypersegmented Neuts Not Reportable 06/26/16 05:27 Hyposegmented Neuts Not Reportable 06/26/16 05:27 Hypogranular Neuts Not Reportable 06/26/16 05:27 Smudge Cells 1+ 06/26/16 05:27 Toxic Granulation Not Reportable 06/26/16 05:27 Toxic Vacuolation Not Reportable 06/26/16 05:27 Dohle Bodies Not Reportable 06/26/16 05:27 Pelger-Huet Anomaly Not Reportable 06/26/16 05:27 Zaki Rods Not Reportable 06/26/16 05:27 Platelet Estimate Appears normal 06/26/16 05:27 Clumped Platelets Not Reportable 06/26/16 05:27 Plt Clumps, EDTA Not Reportable 06/26/16 05:27 Large Platelets Not Reportable 06/26/16 05:27 Giant Platelets Not Reportable 06/26/16 05:27 Platelet Satelliting Not Reportable 06/26/16 05:27 Plt Morphology Comment Not Reportable 06/26/16 05:27 RBC Morphology Not Reportable 06/26/16 05:27 Dimorphic RBCs Not Reportable 06/26/16 05:27 Polychromasia Not Reportable 06/26/16 05:27 Hypochromasia 1+ 06/26/16 05:27 Poikilocytosis Not Reportable 06/26/16 05:27 Anisocytosis 1+ 06/26/16 05:27 Microcytosis Not Reportable 06/26/16 05:27 Macrocytosis Not Reportable 06/26/16 05:27 Spherocytes Not Reportable 06/26/16 05:27 Pappenheimer Bodies Not Reportable 06/26/16 05:27 Sickle Cells Not Reportable 06/26/16 05:27 Target Cells Not Reportable 06/26/16 05:27 Tear Drop Cells Not Reportable 06/26/16 05:27 Ovalocytes Not Reportable 06/26/16 05:27 Helmet Cells Not Reportable 06/26/16 05:27 [place] Bodies Not Reportable 06/26/16 05:27 [place] Rings Not Reportable 06/26/16 05:27 [place] Cells Not Reportable 06/26/16 05:27 Bite Cells Not Reportable 06/26/16 05:27 Crenated Cell Not Reportable 06/26/16 05:27 Elliptocytes Not Reportable 06/26/16 05:27 Acanthocytes (Spur) Not Reportable 06/26/16 05:27 Rouleaux Not Reportable 06/26/16 05:27 Hemoglobin C Crystals Not Reportable 06/26/16 05:27 Schistocytes Not Reportable 06/26/16 05:27 Malaria parasites Not Reportable 06/26/16 05:27 Sharif Bodies Not Reportable 06/26/16 05:27 Hem Pathologist Commnt No 06/26/16 05:27 PT 15.9 Sec. (12.2-14.9) H 06/25/16 21:19 INR 1.28 (0.87-1.13) H 06/25/16 21:19 APTT 33.5 Sec. (24.2-36.6) 06/25/16 21:19 Heparin Anti-Xa Level 0.32 U.I./ml (0.3-0.7) 06/26/16 12:02 Sodium 134 mmol/L (137-145) L 06/26/16 05:27 Potassium 3.1 mmol/L (3.6-5.0) L 06/26/16 14:41 Chloride 99.2 mmol/L (98-107) 06/26/16 05:27 Carbon Dioxide 23 mmol/L (22-30) 06/26/16 05:27 Anion Gap 15 mmol/L 06/26/16 05:27 BUN 14 mg/dL (9-20) 06/26/16 05:27 Creatinine 1.0 mg/dL (0.8-1.5) 06/26/16 05:27 Estimated GFR > 60 ml/min 06/26/16 05:27 BUN/Creatinine Ratio 14.00 % 06/26/16 05:27 Glucose 110 mg/dL (75-100) H 06/26/16 05:27 POC Glucose 145 (70-105) H 06/25/16 17:12 Calcium 7.4 mg/dL (8.4-10.2) L 06/26/16 05:27 Magnesium 1.7 mg/dL (1.7-2.3) 06/26/16 05:27 Urine Color Yellow (Yellow) 06/24/16 17:14 Urine Turbidity Clear (Clear) 06/24/16 17:14 Urine pH 5.0 (5.0-7.0) 06/24/16 17:14 Ur Specific [place] 1.021 (1.003-1.030) 06/24/16 17:14 Urine Protein <15 mg/dl mg/dL (Negative) 06/24/16 17:14 Urine Glucose (UA) Neg mg/dL (Negative) 06/24/16 17:14 Urine Ketones Neg mg/dL (Negative) 06/24/16 17:14 Urine Blood Sm (Negative) 06/24/16 17:14 Urine Nitrite Neg (Negative) 06/24/16 17:14 Urine Bilirubin Neg (Negative) 06/24/16 17:14 Urine Urobilinogen < 2.0 mg/dL (<2.0) 06/24/16 17:14 Ur Leukocyte Esterase Neg (Negative) 06/24/16 17:14 Urine WBC (Auto) 0.0 /HPF (0.0-6.0) 06/24/16 17:14 Urine RBC (Auto) 1.0 /HPF (0.0-6.0) 06/24/16 17:14 U Epithel Cells (Auto) < 1.0 /HPF (0-13.0) 06/24/16 17:14 Uric Acid Crystals 1+ 06/24/16 17:14 Urine Mucus Few /HPF 06/24/16 17:14 RPR Nonreactive (Nonreactive) 06/19/16 13:43 Blood Type O POSITIVE 06/24/16 14:29 Antibody Screen Negative 06/24/16 14:29 Crossmatch See Detail 06/24/16 14:29
[2016-06-26] MEDS: VANCOMYCIN VIAL 1,250 MG in NACL 0.9% 250ML 250 ML IV SCH (15:52)
[2016-06-26] MEDS ORDERED: K-DUR PO ONE (16:00)
[2016-06-26] MEDS: HEPARIN/ 0.45% NACL-25,000 UNIT/500 ML 500 ML IV SCH (20:00)
[2016-06-26] MEDS ORDERED: ALUM-MAG HYDROX-SIMETH 200-200-20MG/5ML PO PRN (20:46)
[2016-06-26 22:17] LABS: Creatine Kinase MB 1.6 ng/mL (0.0-4.0)
[2016-06-27] MEDS: NACL 0.9% 1000 ML 1,000 ML IV SCH (04:27)
[2016-06-27 05:51] LABS: Hematocrit 25.5 % (35.5-45.6); Hemoglobin 8.6 gm/dl (11.8-15.2)
[2016-06-27 05:57] LABS: Anion Gap 16 mmol/L; Blood Urea Nitrogen 16 mg/dL (9-20); Calcium 7.2 mg/dL (8.4-10.2); Carbon Dioxide 24 mmol/L (22-30); Chloride 100.3 mmol/L (98-107); Glucose 118 mg/dL (75-100); Potassium 3.1 mmol/L (3.6-5.0); Sodium 137 mmol/L (137-145)
[2016-06-27 05:58] LABS: Creatine Kinase MB 1.2 ng/mL (0.0-4.0)
[2016-06-27] MEDS: APRESOLINE PO SCH (06:04)
--- NOTE | 2016-06-27 09:46 | Progress Note ---
Assessment and Plan Assessment and plan: --Hypokalemia: Replenish per protocol and monitor levels --Metabolic encephalopathy secondary to microemboli to the brain Continue supportive care, neurology evaluation noted --Accelerated hypertension Continue current antihypertensives at hydralazine 25 mg 3 times a day When necessary IV hydralazine for blood pressure is more than 160/90 --Fever, low-grade Patient is already on IV antibiotics, repeat cultures negative to date Chest x-ray no evidence of pneumonia, Roxana following --Anemia; status post transfusion, closely monitor H&H additional PRBC transfusion if needed --Carotid artery pseudoaneurysm status post repair. Management per vascular --Sepsis/positive wound cultures Continue current antibiotics IV vancomycin and Unasyn ID following --History of coronary artery disease status post CABG Continue current management --Dyslipidemia continue lipid-lowering medications DVT prophylaxis; SCDs Possible family members at the bedside plan of care discussed with them History Interval history: Patient seen and evaluated in his room medical records reviewed Patient's family members at the bedside Had mild chest pain last night with the very minimal elevation of troponin Chest pain now resolved, cardiology following Patient is sleeping wakes up easily not in acute distress Vital signs reviewed Hospitalist Physical - Constitutional Vitals: Temp Pulse Resp BP Pulse Ox 98.1 F 70 20 139/65 97 06/27/16 08:26 06/27/16 08:26 06/27/16 08:26 06/27/16 08:26 06/27/16 08:26 General appearance: Present: no acute distress, well-nourished, other (confused at times) - EENT Eyes: Present: PERRL, EOM intact - Neck Neck: Present: supple, normal ROM - Respiratory Respiratory effort: normal Respiratory: bilateral: diminished, rales, negative: rhonchi, wheezing - Cardiovascular Rhythm: regular Heart Sounds: Present: S1 & S2 - Extremities Extremities: no ischemia, pulses intact, pulses symmetrical Peripheral Pulses: within normal limits - Abdominal General gastrointestinal: soft, non-tender, non-distended, normal bowel sounds - Integumentary Integumentary: Present: clear, warm - Psychiatric Psychiatric: appropriate mood/affect, cooperative - Neurologic Neurologic: CNII-XII intact, moves all extremities Results - Labs CBC & Chem 7: 06/27/16 05:13 06/27/16 05:13 Labs: Laboratory Last Values WBC 16.1 K/mm3 (4.5-11.0) H 06/26/16 05:27 RBC 2.85 M/mm3 (3.65-5.03) L 06/26/16 05:27 Hgb 8.6 gm/dl (11.8-15.2) L 06/27/16 05:13 Hct 25.5 % (35.5-45.6) L 06/27/16 05:13 MCV 95 fl (84-94) H 06/26/16 05:27 MCH 32 pg (28-32) 06/26/16 05:27 MCHC 34 % (32-34) 06/26/16 05:27 RDW 14.8 % (13.2-15.2) 06/26/16 05:27 Plt Count 227 K/mm3 (140-440) 06/27/16 05:13 Lymph # Marshmallow Maker 06/26/16 05:27 Add Manual Diff Complete 06/26/16 05:27 Total Counted 100 06/26/16 05:27 Seg Neuts % (Manual) 70.0 % (40.0-70.0) 06/26/16 05:27 Band Neutrophils % 1.0 % 06/26/16 05:27 Lymphocytes % (Manual) 21.0 % (13.4-35.0) 06/26/16 05:27 Reactive Lymphs % (Man) 0 % 06/26/16 05:27 Monocytes % (Manual) 5.0 % (0.0-7.3) 06/26/16 05:27 Eosinophils % (Manual) 3.0 % (0.0-4.3) 06/26/16 05:27 Basophils % (Manual) 0 % (0.0-1.8) 06/26/16 05:27 Metamyelocytes % 0 % 06/26/16 05:27 Myelocytes % 0 % 06/26/16 05:27 Promyelocytes % 0 % 06/26/16 05:27 Blast Cells % 0 % 06/26/16 05:27 Nucleated RBC % Not Reportable 06/26/16 05:27 Seg Neutrophils # Man 11.3 K/mm3 (1.8-7.7) H 06/26/16 05:27 Band Neutrophils # 0.2 K/mm3 06/26/16 05:27 Lymphocytes # (Manual) 3.4 K/mm3 (1.2-5.4) 06/26/16 05:27 Abs React Lymphs (Man) 0.0 K/mm3 06/26/16 05:27 Monocytes # (Manual) 0.8 K/mm3 (0.0-0.8) 06/26/16 05:27 Eosinophils # (Manual) 0.5 K/mm3 (0.0-0.4) H 06/26/16 05:27 Basophils # (Manual) 0.0 K/mm3 (0.0-0.1) 06/26/16 05:27 Metamyelocytes # 0.0 K/mm3 06/26/16 05:27 Myelocytes # 0.0 K/mm3 06/26/16 05:27 Promyelocytes # 0.0 K/mm3 06/26/16 05:27 Blast Cells # 0.0 K/mm3 06/26/16 05:27 WBC Morphology Not Reportable 06/26/16 05:27 Hypersegmented Neuts Not Reportable 06/26/16 05:27 Hyposegmented Neuts Not Reportable 06/26/16 05:27 Hypogranular Neuts Not Reportable 06/26/16 05:27 Smudge Cells 1+ 06/26/16 05:27 Toxic Granulation Not Reportable 06/26/16 05:27 Toxic Vacuolation Not Reportable 06/26/16 05:27 Dohle Bodies Not Reportable 06/26/16 05:27 Pelger-Huet Anomaly Not Reportable 06/26/16 05:27 Zaki Rods Not Reportable 06/26/16 05:27 Platelet Estimate Appears normal 06/26/16 05:27 Clumped Platelets Not Reportable 06/26/16 05:27 Plt Clumps, EDTA Not Reportable 06/26/16 05:27 Large Platelets Not Reportable 06/26/16 05:27 Giant Platelets Not Reportable 06/26/16 05:27 Platelet Satelliting Not Reportable 06/26/16 05:27 Plt Morphology Comment Not Reportable 06/26/16 05:27 RBC Morphology Not Reportable 06/26/16 05:27 Dimorphic RBCs Not Reportable 06/26/16 05:27 Polychromasia Not Reportable 06/26/16 05:27 Hypochromasia 1+ 06/26/16 05:27 Poikilocytosis Not Reportable 06/26/16 05:27 Anisocytosis 1+ 06/26/16 05:27 Microcytosis Not Reportable 06/26/16 05:27 Macrocytosis Not Reportable 06/26/16 05:27 Spherocytes Not Reportable 06/26/16 05:27 Pappenheimer Bodies Not Reportable 06/26/16 05:27 Sickle Cells Not Reportable 06/26/16 05:27 Target Cells Not Reportable 06/26/16 05:27 Tear Drop Cells Not Reportable 06/26/16 05:27 Ovalocytes Not Reportable 06/26/16 05:27 Helmet Cells Not Reportable 06/26/16 05:27 [place] Bodies Not Reportable 06/26/16 05:27 [place] Rings Not Reportable 06/26/16 05:27 Tamika Cells Not Reportable 06/26/16 05:27 Bite Cells Not Reportable 06/26/16 05:27 Crenated Cell Not Reportable 06/26/16 05:27 Elliptocytes Not Reportable 06/26/16 05:27 Acanthocytes (Spur) Not Reportable 06/26/16 05:27 Rouleaux Not Reportable 06/26/16 05:27 Hemoglobin C Crystals Not Reportable 06/26/16 05:27 Schistocytes Not Reportable 06/26/16 05:27 Malaria parasites Not Reportable 06/26/16 05:27 Sharif Bodies Not Reportable 06/26/16 05:27 Hem Pathologist Commnt No 06/26/16 05:27 PT 15.9 Sec. (12.2-14.9) H 06/25/16 21:19 INR 1.28 (0.87-1.13) H 06/25/16 21:19 APTT 33.5 Sec. (24.2-36.6) 06/25/16 21:19 Heparin Anti-Xa Level 0.32 U.I./ml (0.3-0.7) 06/26/16 12:02 Sodium 137 mmol/L (137-145) 06/27/16 05:13 Potassium 3.1 mmol/L (3.6-5.0) L 06/27/16 05:13 Chloride 100.3 mmol/L (98-107) 06/27/16 05:13 Carbon Dioxide 24 mmol/L (22-30) 06/27/16 05:13 Anion Gap 16 mmol/L 06/27/16 05:13 BUN 16 mg/dL (9-20) 06/27/16 05:13 Creatinine 0.8 mg/dL (0.8-1.5) 06/27/16 05:13 Estimated GFR > 60 ml/min 06/27/16 05:13 BUN/Creatinine Ratio 20.00 % 06/27/16 05:13 Glucose 118 mg/dL (75-100) H 06/27/16 05:13 POC Glucose 145 (70-105) H 06/25/16 17:12 Calcium 7.2 mg/dL (8.4-10.2) L 06/27/16 05:13 Magnesium 1.7 mg/dL (1.7-2.3) 06/26/16 05:27 Total Creatine Kinase 54 units/L (55-170) L 06/27/16 05:13 CK-MB (CK-2) 1.2 ng/mL (0.0-4.0) 06/27/16 05:13 CK-MB (CK-2) Rel Index 2.2 (0-4) 06/27/16 05:13 Troponin T 0.174 ng/mL (0.00-0.029) H* 06/26/16 21:19 Triglycerides 94 mg/dL (2-149) 06/26/16 21:19 Cholesterol 112 mg/dL (50-199) 06/26/16 21:19 LDL Cholesterol Direct 61 mg/dL (50-130) 06/26/16 21:19 HDL Cholesterol 33 mg/dL (40-59) L 06/26/16 21:19 Cholesterol/HDL Ratio 3.39 % 06/26/16 21:19 Urine Color Yellow (Yellow) 06/24/16 17:14 Urine Turbidity Clear (Clear) 06/24/16 17:14 Urine pH 5.0 (5.0-7.0) 06/24/16 17:14 Ur Specific [place] 1.021 (1.003-1.030) 06/24/16 17:14 Urine Protein <15 mg/dl mg/dL (Negative) 06/24/16 17:14 Urine Glucose (UA) Neg mg/dL (Negative) 06/24/16 17:14 Urine Ketones Neg mg/dL (Negative) 06/24/16 17:14 Urine Blood Sm (Negative) 06/24/16 17:14 Urine Nitrite Neg (Negative) 06/24/16 17:14 Urine Bilirubin Neg (Negative) 06/24/16 17:14 Urine Urobilinogen < 2.0 mg/dL (<2.0) 06/24/16 17:14 Ur Leukocyte Esterase Neg (Negative) 06/24/16 17:14 Urine WBC (Auto) 0.0 /HPF (0.0-6.0) 06/24/16 17:14 Urine RBC (Auto) 1.0 /HPF (0.0-6.0) 06/24/16 17:14 U Epithel Cells (Auto) < 1.0 /HPF (0-13.0) 06/24/16 17:14 Uric Acid Crystals 1+ 06/24/16 17:14 Urine Mucus Few /HPF 06/24/16 17:14 RPR Nonreactive (Nonreactive) 06/19/16 13:43 Blood Type O POSITIVE 06/24/16 14:29 Antibody Screen Negative 06/24/16 14:29 Crossmatch See Detail 06/24/16 14:29
[2016-06-27] MEDS ORDERED: K-DUR PO ONE (11:00)
--- NOTE | 2016-06-27 11:12 | Progress Note ---
Assessment and Plan Hx. of hypertension-->BP labile reduce antihypertensives to keep SBP ~150 Suspected infected pseudoaneurysm s/p patch angioplasty of the right carotid artery per vascular, infectious disease Coronary artery disease, stable s/p CABG/PCI continue ASA, Plavix, statin CKD COPD Hyperlipidemia Anemia Will current management and close monitoring of blood pressure. The patient has been seen in conjunction with Dr. Christy who agrees with the assessment and plan of care. Subjective Date of service: 06/27/16 Principal diagnosis: pseudoaneurysm Interval history: The patient is resting in bed. No new complaints. Sinus rhythm with PACs on the monitor. Objective Last Vital Signs Temp 98.1 F 06/27/16 08:26 Pulse 70 06/27/16 08:26 Resp 20 06/27/16 08:26 BP 139/65 06/27/16 08:26 Pulse Ox 97 06/27/16 08:26 - Physical Examination General: No Apparent Distress HEENT: Positive: Normocephaly, Mucus Membranes Moist Neck: Positive: neck supple, trachea midline Cardiac: Positive: Reg Rate and Rhythm, S1/S2 Lungs: Positive: clear to auscultation Neuro: Positive: Grossly Intact Abdomen: Positive: Soft, Active Bowel Sounds. Negative: Tender Skin: Negative: Rash Extremities: Present: normal. Absent: edema - Labs and Meds Cardiac Enzymes 06/26/16 06/27/16 Range/Units 21:19 05:13 CK-MB (CK-2) 1.6 1.2 (0.0-4.0) ng/mL Lipids 06/26/16 Range/Units 21:19 Triglycerides 94 (2-149) mg/dL Cholesterol 112 (50-199) mg/dL HDL Cholesterol 33 L (40-59) mg/dL Cholesterol/HDL Ratio 3.39 % CBC 06/27/16 Range/Units 05:13 Hgb 8.6 L (11.8-15.2) gm/dl Hct 25.5 L (35.5-45.6) % Plt Count 227 (140-440) K/mm3 Comprehensive Metabolic Panel 06/26/16 06/27/16 Range/Units 14:41 05:13 Sodium 137 (137-145) mmol/L Potassium 3.1 L 3.1 L (3.6-5.0) mmol/L Chloride 100.3 (98-107) mmol/L Carbon Dioxide 24 (22-30) mmol/L BUN 16 (9-20) mg/dL Creatinine 0.8 (0.8-1.5) mg/dL Glucose 118 H (75-100) mg/dL Calcium 7.2 L (8.4-10.2) mg/dL - Imaging and Cardiology EKG: image reviewed Echo: report reviewed - Telemetry EKG Rhythm: Sinus Rhythm - EKG Sinus rhythms and dysrhythmias: sinus rhythm Repolarization changes or abnormalities: nonspecific abnormality, ST segment, and/or T wave
[2016-06-27] MEDS: K-DUR PO SCH (11:36)
[2016-06-27] MEDS: PLAVIX PO SCH (11:36)
[2016-06-27] MEDS: COLACE PO SCH ×3 (11:37→21:55)
[2016-06-27] MEDS: NORVASC PO SCH (11:37)
[2016-06-27] MEDS: HALFPRIN EC PO SCH (11:37)
[2016-06-27] MEDS: LOPRESSOR PO SCH ×2 (11:38→21:55)
[2016-06-27] MEDS: IMDUR PO SCH (11:38)
--- NOTE | 2016-06-27 11:41 | Progress Note ---
Assessment and Plan Current antibiotics: Vancomycin (pulse dosed) IV 06/22 --> Previous Antibiotics: Unasyn 1.5 grams IV q6h 06/19-06/22 Levaquin 500mg po q24h 06/17-06/19 ASSESSMENT: Shyam Stephen is an 86 year old man with CAD, CABG, s/p blilateral endarterectomy in 2014 and 2015 who [facility] with a right neck pulsatile mass that was found to be pseudoaneurysm complicated by micro-emboli to the brain. Patient became confused overnight. Infectious disease consult was called to assess due to intraoperative suspicion of infection. Problems list: 1. 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 -Surgical cultures growing scant [employer] (significance unclear although it certainly could be a pathogen. -AFB smear negative of pseudoaneurysm tissue 2. 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 -Status post repair of right carotid artery pseudoaneurysm with left greater saphenous vein patch 06/18/16 -Pathology showed moderate mixed inflammation and organized thrombus. 3. Leukocytosis -Likley multifactorial -Back up today -Patient clinically is continuing to improve however 4. CAD -Status post CABG 5. 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 Transient loss of consciousness and left sided weakness -Rule out seizure -Rule out another embolic event although CT negative 7. Pulmonary masses -Suggested on both neck CTA -Rule out neoplastic process PLAN: 1. Course of IV vancomycin X 4 weeks as per previous notes 2. With all that is going on would consider LTAC palcement to complete IV antibiotics 3. Consider reconsulting pulmonary (Dr. Lewis has seen) re the lung masses Dav Herrera MD [facility] Office: [phone] Subjective Date of service: 06/27/16 Principal diagnosis: Infected pseudoaneurysm Interval history: No discernible complaints at present. Still somewhat confused. No family in the room at present. ROS: No subjective fever or chills. No nausea, vomiting or diarrhea. No shortness of breath, cough or pleuritic chest pain Objective - Exam Narrative Exam: GENERAL: Well-developed, well-nourished appearing male who is alert and in no acute distress. Somewhat confused HEAD: Normocephalic. No lesions seen. EYES: Pupils are equal reactive to light and accommodation. There is no scleral icterus. Optic fundi are not examined. EARS: Normal external male. THROAT: Oropharynx is normal with no evidence of oral candidiasis or pharyngitis. NECK: Supple. No enlargement of the thyroid gland. No significant cervical lymphadenopathy. No jugular venous distention at 30. Right neck surgical wound healing with no signs of infection LUNGS: Clear with no adventitious sounds. HEART: Regular rate. S1 and S2 are normal. There are no murmurs, gallops, clicks or rubs heard. ABDOMEN: Soft and nontender. Liver and spleen are not palpably enlarged or tender. No palpable masses. Bowel sounds are normoactive. EXTREMITIES: No rash, peripheral lymphadenopathy, clubbing or edema. Groin wound healing with no signs of infection : Not examined NEUROLOGIC: No focal findings at present. - Constitutional Vitals: Vital Signs Temp Pulse Resp BP Pulse Ox 98.1 F 70 20 139/65 97 06/27/16 08:26 06/27/16 08:26 06/27/16 08:26 06/27/16 08:26 06/27/16 08:26 Temperature -Last 24 Hours Temperature 98.1 F Temperature 98.3 F Temperature 99.5 F Temperature 97.9 F Temperature 98.7 F Temperature 98.1 F - Labs CBC & Chem 7: 06/27/16 05:13 06/27/16 05:13 Labs: Abnormal lab results Microbiology 06/24/16 Unknown Peripheral/Venous Blood Culture - Preliminary NO GROWTH AFTER 24 HOURS 06/24/16 14:29 Peripheral/Venous Blood Culture - Preliminary Culture in Progress 06/19/16 13:43 Peripheral/Venous Blood Culture - Final NO GROWTH AFTER 5 DAYS 06/19/16 14:01 Peripheral/Venous Blood Culture - Final NO GROWTH AFTER 5 DAYS 06/18/16 Unknown Other (Please Specify:) - Other Surgical Biopsy Culture - Final Staphylococcus Epidermidis 06/19/16 Unknown Neck AFB Smear Concentration - Negative
--- NOTE | 2016-06-27 13:12 | Progress Note ---
Assessment and Plan Patient reported chest pain last night. He had mildly elevated troponins. He was apparently unable to void, and Bowles catheter placed. Chest pain subsequently resolved. Patient's family wanted to take the patient home as quickly as possible. The patient's while hospitalized, they "do not want that for their father". He is supportive care for now. Continue to observe for now. - Patient Problems (1) Pseudoaneurysm of carotid artery Current Visit: Yes Status: Acute (2) Carotid stenosis Current Visit: No Status: Chronic Qualifiers: Laterality: right Qualified Code(s): I65.21 - Occlusion and stenosis of right carotid artery (3) Altered mental status Current Visit: Yes Status: Acute (4) Subarachnoid hemorrhage Current Visit: Yes Status: Acute Subjective Date of service: 06/27/16 Principal diagnosis: Infected pseudoaneurysm Interval history: Patient was sleeping, but awoke easily to verbal stimulus. He denies pain. He was fatigued but otherwise without complaint. Objective - Constitutional Vitals: Vital Signs - 12hr 06/27/16 06/27/16 06/27/16 01:20 05:18 06:04 Temperature 99.5 F 98.3 F Pulse Rate 67 Pulse Rate [ Left Radial] Pulse Rate [ 73 67 Right Dorsalis Pedis] Respiratory 20 20 Rate Blood Pressure 131/61 Blood Pressure [Left Arm] Blood Pressure 143/66 131/61 [Left Radial Artery] O2 Sat by Pulse 98 98 Oximetry 06/27/16 06/27/16 06/27/16 08:26 11:37 11:38 Temperature 98.1 F Pulse Rate 70 70 Pulse Rate [ 70 Left Radial] Pulse Rate [ Right Dorsalis Pedis] Respiratory 20 Rate Blood Pressure 139/65 139/65 Blood Pressure 139/65 [Left Arm] Blood Pressure [Left Radial Artery] O2 Sat by Pulse 97 Oximetry 06/27/16 12:21 Temperature 98.2 F Pulse Rate Pulse Rate [ 72 Left Radial] Pulse Rate [ Right Dorsalis Pedis] Respiratory 20 Rate Blood Pressure Blood Pressure [Left Arm] Blood Pressure 143/71 [Left Radial Artery] O2 Sat by Pulse 98 Oximetry General appearance: Present: no acute distress - EENT Eyes: EOM intact ENT: hearing intact - Neck Neck: supple (incision is intact without erythema or drainage) - Respiratory Respiratory effort: normal Extremities: no ischemia - Neurologic Neurologic: no focal deficits - Psychiatric Psychiatric: appropriate mood/affect, intact judgment & insight (he is aware of person place time and situation. He is not presently hallucinating) - Labs CBC & Chem 7: 06/27/16 05:13 06/27/16 05:13 Labs: Abnormal lab results 06/26/16 06/26/16 06/27/16 Range/Units 14:41 21:19 05:13 Hgb (11.8-15.2) gm/dl Hct (35.5-45.6) % Potassium 3.1 L (3.6-5.0) mmol/L Glucose (75-100) mg/dL Calcium (8.4-10.2) mg/dL Total Creatine Kinase 54 L (55-170) units/L Troponin T 0.174 H* (0.00-0.029) ng/mL HDL Cholesterol 33 L (40-59) mg/dL 06/27/16 06/27/16 Range/Units 05:13 05:13 Hgb 8.6 L (11.8-15.2) gm/dl Hct 25.5 L (35.5-45.6) % Potassium 3.1 L (3.6-5.0) mmol/L Glucose 118 H (75-100) mg/dL Calcium 7.2 L (8.4-10.2) mg/dL Total Creatine Kinase (55-170) units/L Troponin T (0.00-0.029) ng/mL HDL Cholesterol (40-59) mg/dL
[2016-06-27] MEDS ORDERED: VANCOMYCIN VIAL 1,250 MG in NACL 0.9% 250ML 250 ML IV SCH (15:00)
[2016-06-27] MEDS: HEPARIN/ 0.45% NACL-25,000 UNIT/500 ML 500 ML IV SCH (16:02)
[2016-06-27] MEDS: VANCOMYCIN VIAL 1,250 MG in NACL 0.9% 250ML 250 ML IV SCH (16:03)
[2016-06-27] MEDS: TYLENOL PO PRN (21:53)
[2016-06-28 07:01] LABS: Hematocrit 22.8 % (35.5-45.6); Hemoglobin 7.4 gm/dl (11.8-15.2); Mean Corpuscular HGB Conc 32 % (32-34); Mean Corpuscular Hemoglobin 31 pg (28-32); Mean Corpuscular Volume 95 fl (84-94); Platelet Count 205 K/mm3 (140-440); Red Cell Distribution Width 15.6 % (13.2-15.2); White Blood Count 14.7 K/mm3 (4.5-11.0)
[2016-06-28 07:16] LABS: BUN/Creatinine Ratio 26.25; Blood Urea Nitrogen 21 mg/dL (9-20); Calcium 7.1 mg/dL (8.4-10.2); Carbon Dioxide 22 mmol/L (22-30); Chloride 102.1 mmol/L (98-107); Glucose 114 mg/dL (75-100); Magnesium 2.2 mg/dL (1.7-2.3); Potassium 4.1 mmol/L (3.6-5.0); Sodium 135 mmol/L (137-145)
[2016-06-28 07:19] LABS: Anion Gap 15 mmol/L
[2016-06-28] MEDS: HALFPRIN EC PO SCH (10:20)
[2016-06-28] MEDS: PLAVIX PO SCH (10:20)
[2016-06-28] MEDS: COLACE PO SCH ×2 (10:20→22:17)
[2016-06-28] MEDS: IMDUR PO SCH (10:20)
[2016-06-28] MEDS: NORVASC PO SCH (10:20)
[2016-06-28] MEDS: LOPRESSOR PO SCH ×2 (10:20→22:17)
[2016-06-28 10:25] LABS: Anisocytosis 1+; Basophils % (Manual) 0 % (0.0-1.8); Blastocytes % (Manual) 0 %; Diff Status Complete; Eosinophils % (Manual) 0 % (0.0-4.3); Hypochromasia 1+
[2016-06-28] MEDS: K-DUR PO SCH (10:25)
[2016-06-28] MEDS ORDERED: TYLENOL PO SCH (11:00)
[2016-06-28] MEDS ORDERED: NACL 0.9% 500 ML 500 ML IV NR (11:00)
--- NOTE | 2016-06-28 11:04 | Progress Note ---
Assessment and Plan Assessment and plan: --Anemia; Significant drop in H&H , transfuse 2 units of PRBC as recommended patient is on chronic anticoagulation, as the monitor for any evidence of bleeding GI evaluation to rule out GI causes of anemia --Hypokalemia: Corrected --Metabolic encephalopathy secondary to microemboli to the brain Continue supportive care, neurology evaluation noted --Accelerated hypertension Controlled, continue current antihypertensives and when necessary medications --Fever, low-grade Patient is already on IV antibiotics, repeat cultures negative to date Chest x-ray no evidence of pneumonia, Roxana following --Carotid artery pseudoaneurysm status post repair. Management per vascular --Sepsis/positive wound cultures Continue current antibiotics IV vancomycin and Unasyn ID following --History of coronary artery disease status post CABG Continue current management --Dyslipidemia continue lipid-lowering medications DVT prophylaxis; SCDs Possible family members at the bedside plan of care discussed with them History Interval history: Patient seen and evaluated medical records reviewed Patient is sleeping easily awakens, confused at times Mild drop in H&H, patient is on anticoagulation Family member at the bedside No history suggestive of chest pain or shortness of breath Vital signs reviewed Hospitalist Physical - Constitutional Vitals: Temp Pulse Resp BP Pulse Ox 98.6 F 69 28 H 147/68 99 06/28/16 08:39 06/28/16 08:39 06/28/16 08:39 06/28/16 08:39 06/28/16 08:39 General appearance: Present: no acute distress, well-nourished, other (confused at times) - EENT Eyes: Present: PERRL, EOM intact - Neck Neck: Present: supple, normal ROM - Respiratory Respiratory effort: normal Respiratory: bilateral: diminished, rales, negative: rhonchi, wheezing - Cardiovascular Rhythm: regular Heart Sounds: Present: S1 & S2 - Extremities Extremities: no ischemia, pulses intact, pulses symmetrical Extremity abnormal: edema, cyanosis Peripheral Pulses: within normal limits - Abdominal General gastrointestinal: soft, non-tender, non-distended, normal bowel sounds - Integumentary Integumentary: Present: clear, warm - Psychiatric Psychiatric: appropriate mood/affect, cooperative - Neurologic Neurologic: moves all extremities, other (confused) Results - Labs CBC & Chem 7: 06/28/16 06:46 06/28/16 06:46 Labs: Laboratory Last Values WBC 14.7 K/mm3 (4.5-11.0) H 06/28/16 06:46 RBC 2.40 M/mm3 (3.65-5.03) L 06/28/16 06:46 Hgb 7.4 gm/dl (11.8-15.2) L 06/28/16 06:46 Hct 22.8 % (35.5-45.6) L 06/28/16 06:46 MCV 95 fl (84-94) H 06/28/16 06:46 MCH 31 pg (28-32) 06/28/16 06:46 MCHC 32 % (32-34) 06/28/16 06:46 RDW 15.6 % (13.2-15.2) H 06/28/16 06:46 Plt Count 205 K/mm3 (140-440) 06/28/16 06:46 Lymph # Wharf Operator 06/28/16 06:46 Add Manual Diff Complete 06/28/16 06:46 Total Counted 100 06/28/16 06:46 Seg Neuts % (Manual) 42.0 % (40.0-70.0) 06/28/16 06:46 Band Neutrophils % 0 % 06/28/16 06:46 Lymphocytes % (Manual) 54.0 % (13.4-35.0) H 06/28/16 06:46 Reactive Lymphs % (Man) 0 % 06/28/16 06:46 Monocytes % (Manual) 4.0 % (0.0-7.3) 06/28/16 06:46 Eosinophils % (Manual) 0 % (0.0-4.3) 06/28/16 06:46 Basophils % (Manual) 0 % (0.0-1.8) 06/28/16 06:46 Metamyelocytes % 0 % 06/28/16 06:46 Myelocytes % 0 % 06/28/16 06:46 Promyelocytes % 0 % 06/28/16 06:46 Blast Cells % 0 % 06/28/16 06:46 Nucleated RBC % 1.0 % (0.0-0.9) H 06/28/16 06:46 Seg Neutrophils # Man 6.2 K/mm3 (1.8-7.7) 06/28/16 06:46 Band Neutrophils # 0.0 K/mm3 06/28/16 06:46 Lymphocytes # (Manual) 7.9 K/mm3 (1.2-5.4) H 06/28/16 06:46 Abs React Lymphs (Man) 0.0 K/mm3 06/28/16 06:46 Monocytes # (Manual) 0.6 K/mm3 (0.0-0.8) 06/28/16 06:46 Eosinophils # (Manual) 0.0 K/mm3 (0.0-0.4) 06/28/16 06:46 Basophils # (Manual) 0.0 K/mm3 (0.0-0.1) 06/28/16 06:46 Metamyelocytes # 0.0 K/mm3 06/28/16 06:46 Myelocytes # 0.0 K/mm3 06/28/16 06:46 Promyelocytes # 0.0 K/mm3 06/28/16 06:46 Blast Cells # 0.0 K/mm3 06/28/16 06:46 WBC Morphology Not Reportable 06/28/16 06:46 Hypersegmented Neuts Not Reportable 06/28/16 06:46 Hyposegmented Neuts Not Reportable 06/28/16 06:46 Hypogranular Neuts Not Reportable 06/28/16 06:46 Smudge Cells Not Reportable 06/28/16 06:46 Toxic Granulation Not Reportable 06/28/16 06:46 Toxic Vacuolation Not Reportable 06/28/16 06:46 Dohle Bodies Not Reportable 06/28/16 06:46 Pelger-Huet Anomaly Not Reportable 06/28/16 06:46 Zaki Rods Not Reportable 06/28/16 06:46 Platelet Estimate Not Reportable 06/28/16 06:46 Clumped Platelets Not Reportable 06/28/16 06:46 Plt Clumps, EDTA Not Reportable 06/28/16 06:46 Large Platelets Not Reportable 06/28/16 06:46 Giant Platelets Not Reportable 06/28/16 06:46 Platelet Satelliting Not Reportable 06/28/16 06:46 Plt Morphology Comment Not Reportable 06/28/16 06:46 RBC Morphology Not Reportable 06/28/16 06:46 Dimorphic RBCs Not Reportable 06/28/16 06:46 Polychromasia Not Reportable 06/28/16 06:46 Hypochromasia 1+ 01/26/17 06:46 Poikilocytosis Not Reportable 06/28/16 06:46 Anisocytosis 1+ 06/28/16 06:46 Microcytosis Not Reportable 06/28/16 06:46 Macrocytosis Not Reportable 06/28/16 06:46 Spherocytes Not Reportable 06/28/16 06:46 Pappenheimer Bodies Not Reportable 06/28/16 06:46 Sickle Cells Not Reportable 06/28/16 06:46 Target Cells Not Reportable 06/28/16 06:46 Tear Drop Cells Not Reportable 06/28/16 06:46 Ovalocytes Not Reportable 06/28/16 06:46 Helmet Cells Not Reportable 06/28/16 06:46 [place] Bodies Not Reportable 06/28/16 06:46 [place] Rings Not Reportable 06/28/16 06:46 Tamika Cells Not Reportable 06/28/16 06:46 Bite Cells Not Reportable 06/28/16 06:46 Crenated Cell Not Reportable 06/28/16 06:46 Elliptocytes Not Reportable 06/28/16 06:46 Acanthocytes (Spur) Not Reportable 06/28/16 06:46 Rouleaux Not Reportable 06/28/16 06:46 Hemoglobin C Crystals Not Reportable 06/28/16 06:46 Schistocytes Not Reportable 06/28/16 06:46 Malaria parasites Not Reportable 06/28/16 06:46 Sharif Bodies Not Reportable 06/28/16 06:46 Hem Pathologist Commnt No 06/28/16 06:46 PT 15.9 Sec. (12.2-14.9) H 06/25/16 21:19 INR 1.28 (0.87-1.13) H 06/25/16 21:19 APTT 33.5 Sec. (24.2-36.6) 06/25/16 21:19 Heparin Anti-Xa Level 0.15 U.I./ml (0.3-0.7) L 06/27/16 23:00 Sodium 135 mmol/L (137-145) L 06/28/16 06:46 Potassium 4.1 mmol/L (3.6-5.0) D 06/28/16 06:46 Chloride 102.1 mmol/L (98-107) 06/28/16 06:46 Carbon Dioxide 22 mmol/L (22-30) 06/28/16 06:46 Anion Gap 15 mmol/L 06/28/16 06:46 BUN 21 mg/dL (9-20) H 06/28/16 06:46 Creatinine 0.8 mg/dL (0.8-1.5) 06/28/16 06:46 Estimated GFR > 60 ml/min 06/28/16 06:46 BUN/Creatinine Ratio 26.25 % 06/28/16 06:46 Glucose 114 mg/dL (75-100) H 06/28/16 06:46 POC Glucose 145 (70-105) H 06/25/16 17:12 Calcium 7.1 mg/dL (8.4-10.2) L 06/28/16 06:46 Magnesium 2.2 mg/dL (1.7-2.3) 06/28/16 06:46 Total Creatine Kinase 54 units/L (55-170) L 06/27/16 05:13 CK-MB (CK-2) 1.2 ng/mL (0.0-4.0) 06/27/16 05:13 CK-MB (CK-2) Rel Index 2.2 (0-4) 06/27/16 05:13 Troponin T 0.174 ng/mL (0.00-0.029) H* 06/26/16 21:19 Triglycerides 94 mg/dL (2-149) 06/26/16 21:19 Cholesterol 112 mg/dL (50-199) 06/26/16 21:19 LDL Cholesterol Direct 61 mg/dL (50-130) 06/26/16 21:19 HDL Cholesterol 33 mg/dL (40-59) L 06/26/16 21:19 Cholesterol/HDL Ratio 3.39 % 06/26/16 21:19 Urine Color Yellow (Yellow) 06/24/16 17:14 Urine Turbidity Clear (Clear) 06/24/16 17:14 Urine pH 5.0 (5.0-7.0) 06/24/16 17:14 Ur Specific [place] 1.021 (1.003-1.030) 06/24/16 17:14 Urine Protein <15 mg/dl mg/dL (Negative) 01/22/17 17:14 Urine Glucose (UA) Neg mg/dL (Negative) 06/24/16 17:14 Urine Ketones Neg mg/dL (Negative) 06/24/16 17:14 Urine Blood Sm (Negative) 06/24/16 17:14 Urine Nitrite Neg (Negative) 06/24/16 17:14 Urine Bilirubin Neg (Negative) 06/24/16 17:14 Urine Urobilinogen < 2.0 mg/dL (<2.0) 06/24/16 17:14 Ur Leukocyte Esterase Neg (Negative) 06/24/16 17:14 Urine WBC (Auto) 0.0 /HPF (0.0-6.0) 06/24/16 17:14 Urine RBC (Auto) 1.0 /HPF (0.0-6.0) 06/24/16 17:14 U Epithel Cells (Auto) < 1.0 /HPF (0-13.0) 06/24/16 17:14 Uric Acid Crystals 1+ 06/24/16 17:14 Urine Mucus Few /HPF 06/24/16 17:14 Vancomycin Trough 7.5 ug/mL (5.0-20.0) 06/27/16 14:00 RPR Nonreactive (Nonreactive) 06/19/16 13:43 Blood Type O POSITIVE 06/24/16 14:29 Antibody Screen Negative 06/24/16 14:29 Crossmatch See Detail 06/24/16 14:29
--- NOTE | 2016-06-28 11:26 | Progress Note ---
Assessment and Plan Current antibiotics: Vancomycin (pulse dosed) IV 06/22 --> Previous Antibiotics: Unasyn 1.5 grams IV q6h 06/19-06/22 Levaquin 500mg po q24h 06/17-06/19 ASSESSMENT: Shyam Stephen is an 86 year old man with CAD, CABG, s/p blilateral endarterectomy in 2014 and 2015 who was admitted to [facility] on 06/16/16 with a right neck pulsatile mass that was found to be pseudoaneurysm complicated by micro-emboli to the brain. Patient became confused overnight. Infectious disease consult was called to assess due to intraoperative suspicion of infection. Problems list: 1. 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 -Surgical cultures growing scant CUTTING TABLE OPERATOR (significance unclear although it certainly could be a pathogen. -AFB smear negative of pseudoaneurysm tissue 2. Low grade fever -Tmax 100.9 -Significance unclear 3. 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 -Status post repair of right carotid artery pseudoaneurysm with left greater saphenous vein patch 06/18/16 -Pathology showed moderate mixed inflammation and organized thrombus. 4. Leukocytosis -Likley multifactorial -? Trending downward again 4. CAD -Status post CABG 5. 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 Transient loss of consciousness and left sided weakness -Rule out seizure -Rule out another embolic event although CT negative 7. Pulmonary masses -Suggested on both neck CTA -Rule out neoplastic process PLAN: 1. Course of IV vancomycin X 4 weeks as per previous notes 2. With all that is going on would consider LTAC placement to complete IV antibiotics. Do not feel that he is a good candidate for home IV antibiotics 3. Consider reconsulting pulmonary (Dr. Lewis has seen) re the lung masses Dav Herrera MD [facility] Office: [phone] Subjective Date of service: 06/28/16 Principal diagnosis: Infected pseudoaneurysm Interval history: No discernible complaints at present. Still somewhat confused. No family in the room at present. ROS: No subjective fever or chills. No nausea, vomiting or diarrhea. No shortness of breath, cough or pleuritic chest pain Objective - Exam Narrative Exam: GENERAL: Well-developed, well-nourished appearing male who is alert and in no acute distress. Somewhat confused HEAD: Normocephalic. No lesions seen. EYES: Pupils are equal reactive to light and accommodation. There is no scleral icterus. Optic fundi are not examined. EARS: Normal external male. THROAT: Oropharynx is normal with no evidence of oral candidiasis or pharyngitis. NECK: Supple. No enlargement of the thyroid gland. No significant cervical lymphadenopathy. No jugular venous distention at 30. Right neck surgical wound healing with no signs of infection LUNGS: Clear with no adventitious sounds. HEART: Regular rate. S1 and S2 are normal. There are no murmurs, gallops, clicks or rubs heard. ABDOMEN: Soft and nontender. Liver and spleen are not palpably enlarged or tender. No palpable masses. Bowel sounds are normoactive. EXTREMITIES: No rash, peripheral lymphadenopathy, clubbing or edema. Groin wound healing with no signs of infection : Not examined NEUROLOGIC: No focal findings at present. - Constitutional Vitals: Vital Signs Temp Pulse Resp BP Pulse Ox 98.6 F 69 28 H 147/68 99 06/28/16 08:39 06/28/16 08:39 06/28/16 08:39 06/28/16 08:39 06/28/16 08:39 Temperature -Last 24 Hours Temperature 98.6 F Temperature 98.2 F Temperature 98.2 F Temperature 100.9 F Temperature 98.5 F Temperature 98.2 F - Labs CBC & Chem 7: 06/28/16 06:46 06/28/16 06:46 Labs: Abnormal lab results Microbiology 06/24/16 Unknown Peripheral/Venous Blood Culture - Preliminary NO GROWTH AFTER 24 HOURS 06/24/16 14:29 Peripheral/Venous Blood Culture - Preliminary Culture in Progress 06/19/16 13:43 Peripheral/Venous Blood Culture - Final NO GROWTH AFTER 5 DAYS 06/19/16 14:01 Peripheral/Venous Blood Culture - Final NO GROWTH AFTER 5 DAYS 06/18/16 Unknown Other (Please Specify:) - Other Surgical Biopsy Culture - Final Staphylococcus Epidermidis 06/19/16 Unknown Neck AFB Smear Concentration - Negative
[2016-06-28] MEDS: PROTONIX IV SCH ×2 (12:21→22:16)
--- NOTE | 2016-06-28 12:33 | Progress Note ---
Assessment and Plan Hypertension-->stable continue norvasc 5mg daily, metoprolol 25mg BID Suspected infected pseudoaneurysm s/p patch angioplasty of the right carotid artery per vascular, infectious disease Coronary artery disease, stable s/p CABG/PCI continue ASA, Plavix, statin CKD COPD Hyperlipidemia Anemia Continue current management and close monitoring of blood pressure. The patient has been seen in conjunction with Dr. Christy who agrees with the assessment and plan of care. Subjective Date of service: 06/28/16 Principal diagnosis: Infected pseudoaneurysm Interval history: The patient is resting in bed. No new complaints. Sinus rhythm on the monitor. Objective Last Vital Signs Temp 98.6 F 06/28/16 08:39 Pulse 69 06/28/16 10:20 Resp 28 H 06/28/16 08:39 BP 147/66 06/28/16 10:20 Pulse Ox 99 06/28/16 08:39 - Physical Examination General: No Apparent Distress HEENT: Positive: Normocephaly, Mucus Membranes Moist Neck: Positive: neck supple, trachea midline Cardiac: Positive: Reg Rate and Rhythm, S1/S2 Lungs: Positive: clear to auscultation Neuro: Positive: Grossly Intact Abdomen: Positive: Soft, Active Bowel Sounds. Negative: Tender Skin: Negative: Rash Extremities: Present: normal. Absent: edema - Labs and Meds CBC 06/28/16 Range/Units 06:46 WBC 14.7 H (4.5-11.0) K/mm3 RBC 2.40 L (3.65-5.03) M/mm3 Hgb 7.4 L (11.8-15.2) gm/dl Hct 22.8 L (35.5-45.6) % Plt Count 205 (140-440) K/mm3 Lymph # Director Of Instrumental Music Comprehensive Metabolic Panel 06/28/16 Range/Units 06:46 Sodium 135 L (137-145) mmol/L Potassium 4.1 D (3.6-5.0) mmol/L Chloride 102.1 (98-107) mmol/L Carbon Dioxide 22 (22-30) mmol/L BUN 21 H (9-20) mg/dL Creatinine 0.8 (0.8-1.5) mg/dL Glucose 114 H (75-100) mg/dL Calcium 7.1 L (8.4-10.2) mg/dL - Imaging and Cardiology EKG: image reviewed Echo: report reviewed - Telemetry EKG Rhythm: Sinus Rhythm - EKG Sinus rhythms and dysrhythmias: sinus rhythm Repolarization changes or abnormalities: nonspecific abnormality, ST segment, and/or T wave
--- NOTE | 2016-06-28 15:09 | Progress Note ---
Assessment and Plan Patient's hemoglobin has dropped from 8.6-7.4. Concerns for GI bleed given anticoagulation. Await results from guaiac testing. GI consult placed. Patient is presently on anticoagulation due to concerns of possible carotid artery thrombosis and another stroke. Await GI evaluation and attempts to ascertain etiology of anemia. Transfuse as needed until source can be identified and treated. He was evaluated by physical therapy earlier today. Left upper ext weakness was noticed. There was also concerns with the patient's balance. I had a long discussion with the patient as well as his son earlier this morning. The patient has multiple significant issues presently. He's status post multiple recent surgeries, and noted to have a stroke with a subarachnoid hemorrhage upon admission. He has had a metabolic encephalopathy during this admission, which has resulted in episodic altered mental status and hallucinations. The family also expresses concerns with symptoms suggestive of possible early dementia as an outpatient. 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 The patient is aware. He was evaluated by transfusion nurse as an outpatient, but has elected not to follow up. Tissue dx has not been obtained. He's had an approximately 30 pound weight loss over the last few months. The patient has stated (to his family), he has no interest in treatment if this is in fact cancer. The patient is presently anemic with concerns of a possible GI bleed. A GI consultation has been placed. The pt's son stated he was anemic with a previous coronary artery bypass surgery. He followed up with the order entry administrator as an outpt. Endoscopy was recommended. He apparently refused at that time. I discussed the treatment plan with the patient and his family. We will transfuse him today, and reevaluate tomorrow. Given the patient's hesitancy to consent to invasive testing and workup of active issues, I discussed palliative care as a potential option. The Patient as well as his family have previously expressed a desire for the patient to be discharged as soon as feasible. His while hospitalized; It is their hope that he does not. - Patient Problems (1) Pseudoaneurysm of carotid artery Current Visit: Yes Status: Acute (2) Carotid stenosis Current Visit: No Status: Chronic Qualifiers: Laterality: right Qualified Code(s): I65.21 - Occlusion and stenosis of right carotid artery (3) Altered mental status Current Visit: Yes Status: Acute (4) Subarachnoid hemorrhage Current Visit: Yes Status: Acute Subjective Date of service: 06/28/16 Principal diagnosis: Infected pseudoaneurysm Interval history: Patient is sleeping but awoke easily to verbal stimulus. He complains of fatigue that denies complaints of pain at present. He denies any new problems. Objective - Constitutional Vitals: Vital Signs - 12hr 06/28/16 06/28/16 06/28/16 05:11 08:39 10:20 Temperature 98.2 F 98.6 F Pulse Rate 69 Pulse Rate [ 69 From Monitor] Pulse Rate [ 60 Right Dorsalis Pedis] Respiratory 18 28 H Rate Blood Pressure 147/66 Blood Pressure 145/66 147/68 [Left Calf] O2 Sat by Pulse 94 99 Oximetry 06/28/16 13:53 Temperature 99.1 F Pulse Rate Pulse Rate [ 84 From Monitor] Pulse Rate [ Right Dorsalis Pedis] Respiratory 28 H Rate Blood Pressure Blood Pressure 152/84 [Left Calf] O2 Sat by Pulse 90 Oximetry General appearance: Present: no acute distress - EENT Eyes: EOM intact ENT: hearing intact - Respiratory Respiratory effort: normal (unlabored at rest) Extremities: normal temperature - Musculoskeletal Musculoskeletal: other (difficulty keeping his left arm elevated, noticeable difference compared to the right. Strength of lower extremities appears to be equal) - Psychiatric Psychiatric: no appropriate mood/affect (somnolent, but arousable and answers questions appropriately), intact judgment & insight, cooperative - Labs CBC & Chem 7: 06/28/16 06:46 06/28/16 06:46 Labs: Abnormal lab results 06/27/16 06/28/16 06/28/16 Range/Units 23:00 06:46 06:46 WBC 14.7 H (4.5-11.0) K/mm3 RBC 2.40 L (3.65-5.03) M/mm3 Hgb 7.4 L (11.8-15.2) gm/dl Hct 22.8 L (35.5-45.6) % MCV 95 H (84-94) fl RDW 15.6 H (13.2-15.2) % Lymphocytes % (Manual) 54.0 H (13.4-35.0) % Nucleated RBC % 1.0 H (0.0-0.9) % Lymphocytes # (Manual) 7.9 H (1.2-5.4) K/mm3 Heparin Anti-Xa Level 0.15 L (0.3-0.7) U.I./ml Sodium 135 L (137-145) mmol/L BUN 21 H (9-20) mg/dL Glucose 114 H (75-100) mg/dL Calcium 7.1 L (8.4-10.2) mg/dL Crossmatch 06/28/16 Range/Units 11:50 WBC (4.5-11.0) K/mm3 RBC (3.65-5.03) M/mm3 Hgb (11.8-15.2) gm/dl Hct (35.5-45.6) % MCV (84-94) fl RDW (13.2-15.2) % Lymphocytes % (Manual) (13.4-35.0) % Nucleated RBC % (0.0-0.9) % Lymphocytes # (Manual) (1.2-5.4) K/mm3 Heparin Anti-Xa Level (0.3-0.7) U.I./ml Sodium (137-145) mmol/L BUN (9-20) mg/dL Glucose (75-100) mg/dL Calcium (8.4-10.2) mg/dL Crossmatch See Detail
[2016-06-28] MEDS: TYLENOL PO PRN ×2 (17:16→23:45)
[2016-06-28] MEDS: VANCOMYCIN VIAL 1,250 MG in NACL 0.9% 250ML 250 ML IV SCH (19:15)
[2016-06-28] MEDS: DUONEB 0.5 MG-3 MG/3 ML SOLN IH SCH (21:34)
--- NOTE | 2016-06-28 22:38 | Gastroenterology Consultation ---
History of Present Illness - Reason for Consult Consult date: 06/28/16 anemia - History of Present Illness Mr Stephen is a 86 yo male with h/o CAD s/p CABG, bilateral cea, presenting with right sided pseudoaneurysm s/p repair and microeombili to nereida. Pt currently receiving anticoagulation as part of management per vascular surgery. Pt has had chronic anemia which has fluctuated in levels during hospitalizations, including administration of multiple blood transfusions. Pt denies any significant GI complaints at this including abd pain, change in bowel habits, dysphagia or any other significant GI sx's. He denies any signs of overt GI bleeding, unclear if he has had recent colonoscopy. Past History Past Medical History: CAD, hypertension, hyperlipidemia, other Past Surgical History: CABG, Other (carotid endarterectomy right and left) Social history: lives with family. denies: smoking, alcohol abuse, prescription drug abuse Family history: hypertension Medications and Allergies Allergies Allergy/AdvReac Type Severity Reaction Status Date / Time No Known Allergies Allergy Verified 12/30/14 10:26 Home Medications Medication Instructions Recorded Confirmed Last Taken Type Metoprolol Tartrate 50 mg PO BID 12/22/14 06/14/16 08/22/15 05:30 History Nitroglycerin [Nitrostat] 0.4 mg SL PRN PRN 12/22/14 06/14/16 2 Weeks Ago History Aspirin EC [Aspirin Enteric Coated 81 mg PO QDAY 12/30/14 06/14/16 08/22/15 05: 30 History TAB] Clopidogrel Bisulfate [Clopidogrel] 75 mg PO BID 12/30/14 06/14/16 08/22/15 05: 30 History AtorvaSTATin [Lipitor] 40 mg PO QHS 06/06/16 06/14/16 Unknown History amLODIPine [Norvasc] 10 mg PO DAILY 06/06/16 06/14/16 Unknown History ISOSORBIDE MONOnitrate [Imdur ER] 120 mg PO QDAY 06/14/16 06/14/16 Unknown History Active Meds: Active Medications Acetaminophen (Tylenol) 650 mg PO Q4H PRN PRN Reason: Pain MILD(1-3)/Fever >100.5/LIN Last Admin: 06/28/16 17:16 Dose: 650 mg Al Hydrox/Mg Hydrox/Simethicone (Alum-Mag Hydrox-Simeth [phone]/5ml) 30 ml PO Q4H PRN PRN Reason: Indigestion Last Admin: 06/26/16 20:56 Dose: 30 ml Albuterol/Ipratropium (Duoneb 0.5 Mg-3 Mg/3 Ml Soln) 1 ampul IH Q6HRT [facility] Last Admin: 06/28/16 21:34 Dose: 1 ampul Amlodipine Besylate (Norvasc) 5 mg PO QDAY [facility] Last Admin: 06/28/16 10:20 Dose: 5 mg Aspirin (Halfprin Ec) 81 mg PO QDAY [facility] Last Admin: 06/28/16 10:20 Dose: 81 mg Atorvastatin Calcium (Lipitor) 40 mg PO QHS [facility] Last Admin: 06/28/16 22:17 Dose: 40 mg Bisacodyl (Dulcolax) 10 mg RI QDAY PRN PRN Reason: Constipation unrelieved by MOM Clopidogrel Bisulfate (Plavix) 75 mg PO QDAY [facility] Last Admin: 06/28/16 10:20 Dose: 75 mg Docusate Sodium (Colace) 100 mg PO BID [facility] Last Admin: 06/28/16 22:17 Dose: 100 mg Haloperidol Lactate (Haldol) 5 mg IV Q6H PRN PRN Reason: Agitation Sodium Chloride (Nacl 0.9% 1000 Ml) 1,000 mls @ 100 mls/hr IV DIRECT [facility] Last Admin: 06/27/16 04:27 Dose: 100 mls/hr Heparin Sodium/Sodium Chloride (Heparin/ 0.45% Nacl-25,000 Unit/500 Ml) 500 mls @ 23 mls/hr IV TITR DOMINGUEZ; 1,150 UNITS/HR PRN Reason: Protocol Last Titration: 06/28/16 00:36 Dose: 1,050 units/hr Vancomycin HCl 1,250 mg/ (Sodium Chloride) 250 mls @ 166.667 mls/hr IV Q24H [facility] Last Admin: 06/28/16 19:15 Dose: 166.667 mls/hr Isosorbide Mononitrate (Imdur) 60 mg PO QDAY [facility] Last Admin: 06/28/16 10:20 Dose: 60 mg Magnesium Hydroxide (Milk Of Magnesia) 30 ml PO Q4H PRN PRN Reason: Constipation Last Admin: 06/26/16 22:58 Dose: 30 ml Metoprolol Tartrate (Lopressor) 25 mg PO BID [facility] Last Admin: 06/28/16 22:17 Dose: 25 mg Naloxone HCl (Narcan 0.4 Mg/1 Ml) 0.1 mg IV Q2MIN PRN PRN Reason: Res Rate </= 8 or 02 SAT < 92% Nitroglycerin (Nitrostat) 0.4 mg SL .Q5MIN PRN PRN Reason: Chest Pain Last Admin: 06/26/16 20:18 Dose: 0.4 mg Ondansetron HCl (Zofran) 4 mg IV Q8H PRN PRN Reason: N/V unrelieved by Reglan Pantoprazole Sodium (Protonix) 40 mg IV BID [facility] Last Admin: 06/28/16 22:16 Dose: 40 mg Potassium Chloride (K-Dur) 20 meq PO QDAY [facility] Last Admin: 06/28/16 10:25 Dose: 20 meq Quetiapine Fumarate (Seroquel) 25 mg PO BID [facility] Last Admin: 06/28/16 22:23 Dose: Not Given Sodium Chloride (Sodium Chloride Flush Syringe 10 Ml) 10 ml IV PRN PRN PRN Reason: LINE FLUSH Review of Systems - Review of Systems All systems: negative Constitutional: fatigue, weakness, poor appetite Cardiovascular: shortness of breath Exam - Constitutional Vital Signs: Temp Pulse Resp BP Pulse Ox 99.2 F 90 20 114/67 90 06/28/16 20:40 06/28/16 22:17 06/28/16 21:34 06/28/16 22:17 06/28/16 20:40 General appearance: no acute distress - EENT Eyes: PERRL, EOM intact ENT: hearing intact, edentulous - Neck Neck: supple - Respiratory Respiratory: bilateral: CTA - Cardiovascular Rhythm: regular Heart Sounds: Present: S1 & S2 Extremities: no ischemia, No edema - Gastrointestinal General gastrointestinal: Present: soft, non-tender, non-distended - Integumentary Integumentary: Present: clear, warm - Neurologic Neurological: alert and oriented x3 - Psychiatric Psychiatric: appropriate mood/affect - Labs CBC & Chem 7: 06/28/16 06:46 06/28/16 06:46 Lab Results: Laboratory Results - last 24 hr 06/27/16 06/28/16 06/28/16 23:00 06:46 06:46 WBC 14.7 H RBC 2.40 L Hgb 7.4 L Hct 22.8 L MCV 95 H MCH 31 MCHC 32 RDW 15.6 H Plt Count 205 Lymph # Gastroenterologist Add Manual Diff Complete Total Counted 100 Seg Neuts % (Manual) 42.0 Band Neutrophils % 0 Lymphocytes % (Manual) 54.0 H Reactive Lymphs % (Man) 0 Monocytes % (Manual) 4.0 Eosinophils % (Manual) 0 Basophils % (Manual) 0 Metamyelocytes % 0 Myelocytes % 0 Promyelocytes % 0 Blast Cells % 0 Nucleated RBC % 1.0 H Seg Neutrophils # Man 6.2 Band Neutrophils # 0.0 Lymphocytes # (Manual) 7.9 H Abs React Lymphs (Man) 0.0 Monocytes # (Manual) 0.6 Eosinophils # (Manual) 0.0 Basophils # (Manual) 0.0 Metamyelocytes # 0.0 Myelocytes # 0.0 Promyelocytes # 0.0 Blast Cells # 0.0 WBC Morphology Not Reportable Hypersegmented Neuts Not Reportable Hyposegmented Neuts Not Reportable Hypogranular Neuts Not Reportable Smudge Cells Not Reportable Toxic Granulation Not Reportable Toxic Vacuolation Not Reportable Dohle Bodies Not Reportable Pelger-Huet Anomaly Not Reportable Zaki Rods Not Reportable Platelet Estimate Not Reportable Clumped Platelets Not Reportable Plt Clumps, EDTA Not Reportable Large Platelets Not Reportable Giant Platelets Not Reportable Platelet Satelliting Not Reportable Plt Morphology Comment Not Reportable RBC Morphology Not Reportable Dimorphic RBCs Not Reportable Polychromasia Not Reportable Hypochromasia 1+ Poikilocytosis Not Reportable Anisocytosis 1+ Microcytosis Not Reportable Macrocytosis Not Reportable Spherocytes Not Reportable Pappenheimer Bodies Not Reportable Sickle Cells Not Reportable Target Cells Not Reportable Tear Drop Cells Not Reportable Ovalocytes Not Reportable Helmet Cells Not Reportable Seymour-Warrington Bodies Not Reportable Sumner Rings Not Reportable Burnside Cells Not Reportable Bite Cells Not Reportable Crenated Cell Not Reportable Elliptocytes Not Reportable Acanthocytes (Spur) Not Reportable Rouleaux Not Reportable Hemoglobin C Crystals Not Reportable Schistocytes Not Reportable Malaria parasites Not Reportable Shairf Bodies Not Reportable Hem Pathologist Commnt No Heparin Anti-Xa Level 0.15 L Sodium 135 L Potassium 4.1 D Chloride 102.1 Carbon Dioxide 22 Anion Gap 15 BUN 21 H Creatinine 0.8 Estimated GFR > 60 BUN/Creatinine Ratio 26.25 Glucose 114 H Calcium 7.1 L Magnesium 2.2 Blood Type Antibody Screen Crossmatch 06/28/16 11:50 WBC RBC Hgb Hct MCV MCH MCHC RDW Plt Count Lymph # Add Manual Diff Total Counted Seg Neuts % (Manual) Band Neutrophils % Lymphocytes % (Manual) Reactive Lymphs % (Man) Monocytes % (Manual) Eosinophils % (Manual) Basophils % (Manual) Metamyelocytes % Myelocytes % Promyelocytes % Blast Cells % Nucleated RBC % Seg Neutrophils # Man Band Neutrophils # Lymphocytes # (Manual) Abs React Lymphs (Man) Monocytes # (Manual) Eosinophils # (Manual) Basophils # (Manual) Metamyelocytes # Myelocytes # Promyelocytes # Blast Cells # WBC Morphology Hypersegmented Neuts Hyposegmented Neuts Hypogranular Neuts Smudge Cells Toxic Granulation Toxic Vacuolation Dohle Bodies Pelger-Huet Anomaly Zaki Rods Platelet Estimate Clumped Platelets Plt Clumps, EDTA Large Platelets Giant Platelets Platelet Satelliting Plt Morphology Comment RBC Morphology Dimorphic RBCs Polychromasia Hypochromasia Poikilocytosis Anisocytosis Microcytosis Macrocytosis Spherocytes Pappenheimer Bodies Sickle Cells Target Cells Tear Drop Cells Ovalocytes Helmet Cells Seymour-Warrington Bodies Sumner Rings Burnside Cells Bite Cells Crenated Cell Elliptocytes Acanthocytes (Spur) Rouleaux Hemoglobin C Crystals Schistocytes Malaria parasites Sharif Bodies Hem Pathologist Commnt Heparin Anti-Xa Level Sodium Potassium Chloride Carbon Dioxide Anion Gap BUN Creatinine Estimated GFR BUN/Creatinine Ratio Glucose Calcium Magnesium Blood Type O POSITIVE Antibody Screen Negative Crossmatch See Detail - Imaging CT Scan: report reviewed Assessment and Plan Pt being seen by GI for persiset anemia in setting of anticoagulation to evaluate for possible GI source of blood loss, Pt denies any recent overt GI bleeding episodes. Denies GI symptoms at this time. Will obtain iron studies. PPI BID dosing for ppx. Will f/u labs, hold off on endoscopic work-up unless pt develops overt signs of bleeding and if family/patient desires.
[2016-06-28] MEDS ORDERED: NACL 0.9% 250ML 250 ML ONE (23:29)
[2016-06-29 02:12] LABS: Iron 13 ug/dL (49-181); Total Iron Binding Capacity 152 mcg/dL (250-450)
[2016-06-29] MEDS: DUONEB 0.5 MG-3 MG/3 ML SOLN IH SCH ×4 (02:15→20:54)
[2016-06-29] MEDS: NACL 0.9% 1000 ML 1,000 ML IV SCH (04:59)
[2016-06-29 06:10] LABS: Hematocrit 26.1 % (35.5-45.6); Hemoglobin 8.8 gm/dl (11.8-15.2)
[2016-06-29] MEDS ORDERED: PROVENTIL IH PRN (09:06)
[2016-06-29] MEDS: HALFPRIN EC PO SCH (10:28)
[2016-06-29] MEDS: PROTONIX IV SCH (10:28)
[2016-06-29] MEDS: PLAVIX PO SCH (10:28)
[2016-06-29] MEDS: K-DUR PO SCH (10:28)
[2016-06-29] MEDS: COLACE PO SCH ×2 (10:28→21:53)
[2016-06-29] MEDS: IMDUR PO SCH ×2 (10:29→21:52)
[2016-06-29] MEDS: LOPRESSOR PO SCH ×2 (10:29→21:53)
[2016-06-29] MEDS: NORVASC PO SCH ×2 (10:29→21:52)
--- NOTE | 2016-06-29 11:23 | Progress Note ---
Assessment and Plan Hypertension-->stable continue norvasc 5mg daily, metoprolol 25mg BID Suspected infected pseudoaneurysm s/p patch angioplasty of the right carotid artery per vascular, infectious disease Coronary artery disease, stable s/p CABG/PCI continue ASA, Plavix, statin Anemia requiring transfusions GI following CKD COPD Hyperlipidemia Stable cardiac status. Continue current management and close monitoring of blood pressure. The patient has been seen in conjunction with Dr. Christy who agrees with the assessment and plan of care. Subjective Date of service: 06/29/16 Principal diagnosis: Infected pseudoaneurysm Interval history: The patient is resting in bed. No chest pain or shortness of breath. Sinus rhythm on the monitor. Pt.'s son and daughter at bedside. Objective Last Vital Signs Temp 98.4 F 06/29/16 08:56 Pulse 72 06/29/16 09:07 Resp 18 06/29/16 09:07 BP 149/76 06/29/16 08:56 Pulse Ox 96 06/29/16 09:02 - Physical Examination General: No Apparent Distress HEENT: Positive: Normocephaly, Mucus Membranes Moist Neck: Positive: neck supple, trachea midline Cardiac: Positive: Reg Rate and Rhythm, S1/S2 Lungs: Positive: clear to auscultation Neuro: Positive: Grossly Intact Abdomen: Positive: Soft, Active Bowel Sounds. Negative: Tender Skin: Negative: Rash Extremities: Present: normal. Absent: edema - Labs and Meds CBC 06/29/16 Range/Units 05:06 Hgb 8.8 L (11.8-15.2) gm/dl Hct 26.1 L (35.5-45.6) % Plt Count 186 (140-440) K/mm3 - Imaging and Cardiology EKG: image reviewed Echo: report reviewed - Telemetry EKG Rhythm: Sinus Rhythm - EKG Sinus rhythms and dysrhythmias: sinus rhythm Repolarization changes or abnormalities: nonspecific abnormality, ST segment, and/or T wave
--- NOTE | 2016-06-29 13:14 | Consultation ---
History of Present Illness Consult date: 06/29/16 Reason for consult: other (mass) History of present illness: Called to reevaluate the case of an 86-year-old male admitted previously 2 weeks ago for evaluation and surgery of a right carotid pseudoaneurysm. The patient was seen by my colleague Dr. Lewis of the ICU and has been on follow- up at the medical surgical [facility]. He has history of COPD and has been coughing with some chest congestion in recent days. He underwent further evaluation with CT scan which showed "pulmonary masses". Where asked to evaluate. Family at the bedside. Current to the patient and family, this is not a new finding. He was told to have some "spots on his lungs", about a year and a half ago during surgical evaluation. He underwent his surgery and then schedule for outpatient follow- up with none done. The patient is a chronic smoker but quit in 1998. No prior history of additional chest x-ray problems. Got chronic cough with some expectoration but the past year or 2, consistent with chronic bronchitis and no hemoptysis reported. Past History Past Medical History: CAD, hypertension, hyperlipidemia, other Past Surgical History: CABG, Other (carotid endarterectomy right and left) Social history: lives with family. denies: smoking, alcohol abuse, prescription drug abuse Family history: hypertension Medications and Allergies Allergies Allergy/AdvReac Type Severity Reaction Status Date / Time No Known Allergies Allergy Verified 12/30/14 10:26 Home Medications Medication Instructions Recorded Confirmed Last Taken Type Metoprolol Tartrate 50 mg PO BID 12/22/14 06/14/16 08/22/15 05:30 History Nitroglycerin [Nitrostat] 0.4 mg SL PRN PRN 12/22/14 06/14/16 2 Weeks Ago History Aspirin EC [Aspirin Enteric Coated 81 mg PO QDAY 12/30/14 06/14/16 08/22/15 05: 30 History TAB] Clopidogrel Bisulfate [Clopidogrel] 75 mg PO BID 12/30/14 06/14/16 08/22/15 05: 30 History AtorvaSTATin [Lipitor] 40 mg PO QHS 06/06/16 06/14/16 Unknown History amLODIPine [Norvasc] 10 mg PO DAILY 06/06/16 06/14/16 Unknown History ISOSORBIDE MONOnitrate [Imdur ER] 120 mg PO QDAY 06/14/16 06/14/16 Unknown History Active Meds: Active Medications Acetaminophen (Tylenol) 650 mg PO Q4H PRN PRN Reason: Pain MILD(1-3)/Fever >100.5/LIN Last Admin: 06/28/16 23:45 Dose: 650 mg Al Hydrox/Mg Hydrox/Simethicone (Alum-Mag Hydrox-Simeth [phone]/5ml) 30 ml PO Q4H PRN PRN Reason: Indigestion Last Admin: 06/26/16 20:56 Dose: 30 ml Albuterol (Proventil) 2.5 mg IH Q4HRT PRN PRN Reason: Shortness Of Breath Albuterol/Ipratropium (Duoneb 0.5 Mg-3 Mg/3 Ml Soln) 1 ampul IH TIDRT [facility] Amlodipine Besylate (Norvasc) 5 mg PO QDAY [facility] Last Admin: 06/29/16 10:29 Dose: Not Given Aspirin (Halfprin Ec) 81 mg PO QDAY [facility] Last Admin: 06/29/16 10:28 Dose: 81 mg Atorvastatin Calcium (Lipitor) 40 mg PO QHS [facility] Last Admin: 06/28/16 22:17 Dose: 40 mg Bisacodyl (Dulcolax) 10 mg ID QDAY PRN PRN Reason: Constipation unrelieved by MOM Clopidogrel Bisulfate (Plavix) 75 mg PO QDAY [facility] Last Admin: 06/29/16 10:28 Dose: 75 mg Docusate Sodium (Colace) 100 mg PO BID [facility] Last Admin: 06/29/16 10:28 Dose: 100 mg Haloperidol Lactate (Haldol) 5 mg IV Q6H PRN PRN Reason: Agitation Sodium Chloride (Nacl 0.9% 1000 Ml) 1,000 mls @ 100 mls/hr IV DIRECT [facility] Last Admin: 06/29/16 04:59 Dose: 100 mls/hr Heparin Sodium/Sodium Chloride (Heparin/ 0.45% Nacl-25,000 Unit/500 Ml) 500 mls @ 23 mls/hr IV TITR DOMINGUEZ; 1,150 UNITS/HR PRN Reason: Protocol Last Titration: 06/28/16 00:36 Dose: 1,050 units/hr Vancomycin HCl 1,250 mg/ (Sodium Chloride) 250 mls @ 166.667 mls/hr IV Q24H [facility] Last Admin: 06/28/16 19:15 Dose: 166.667 mls/hr Isosorbide Mononitrate (Imdur) 60 mg PO QDAY [facility] Last Admin: 06/29/16 10:29 Dose: Not Given Magnesium Hydroxide (Milk Of Magnesia) 30 ml PO Q4H PRN PRN Reason: Constipation Last Admin: 06/26/16 22:58 Dose: 30 ml Metoprolol Tartrate (Lopressor) 25 mg PO BID [facility] Last Admin: 06/29/16 10:29 Dose: Not Given Naloxone HCl (Narcan 0.4 Mg/1 Ml) 0.1 mg IV Q2MIN PRN PRN Reason: Res Rate </= 8 or 02 SAT < 92% Nitroglycerin (Nitrostat) 0.4 mg SL .Q5MIN PRN PRN Reason: Chest Pain Last Admin: 06/26/16 20:18 Dose: 0.4 mg Ondansetron HCl (Zofran) 4 mg IV Q8H PRN PRN Reason: N/V unrelieved by Reglan Pantoprazole Sodium (Protonix) 40 mg PO BID [facility] Potassium Chloride (K-Dur) 20 meq PO QDAY [facility] Last Admin: 06/29/16 10:28 Dose: 20 meq Quetiapine Fumarate (Seroquel) 25 mg PO BID [facility] Last Admin: 06/29/16 10:29 Dose: Not Given Sodium Chloride (Sodium Chloride Flush Syringe 10 Ml) 10 ml IV PRN PRN PRN Reason: LINE FLUSH Sodium Chloride (Nacl 0.9% 250ml) 250 ml IV ONCE ONE Stop: 06/29/16 23:56 Review of Systems Constitutional: weight gain Ears, nose, mouth and throat: no nasal congestion, no nasal discharge Cardiovascular: edema, shortness of breath, dyspnea on exertion, no chest pain, no orthopnea, no palpitations, no rapid/irregular heart beat, no syncope Respiratory: cough, shortness of breath, dyspnea on exertion, congestion Gastrointestinal: no abdominal pain, no nausea, no vomiting, no diarrhea Neurological: no paralysis, no weakness, no parathesias, no numbness Physical Examination Vital signs: Vital Signs Temp Pulse Resp BP Pulse Ox 97.7 F 74 16 95/65 100 06/15/16 13:48 06/15/16 13:48 06/15/16 13:48 06/15/16 13:48 06/15/16 13:48 General appearance: no acute distress, alert, other (morbidly obese) ENT: oropharynx moist, other (Mallampati 4) Neck: supple, other (right endarterectomy scar) Effort: normal Ascultation: Bilateral: wheezes, rhonchi Extremities: no cyanosis, no edema Gait: normal gait normal mental status, non-focal exam, CN II-XII normal Results - Laboratory Findings CBC and BMP: 06/29/16 05:06 06/28/16 06:46 PT/INR, D-dimer PT 15.9 Sec. (12.2-14.9) H 06/25/16 21:19 INR 1.28 (0.87-1.13) H 06/25/16 21:19 Abnormal lab findings: Abnormal Labs 06/15/16 06/15/16 06/15/16 14:05 14:05 14:05 WBC 15.6 H RBC 3.26 L Hgb 10.0 L Hct 29.9 L MCV RDW Seg Neuts % (Manual) Lymphocytes % (Manual) Nucleated RBC % Seg Neutrophils # Man 10.6 H Lymphocytes # (Manual) Monocytes # (Manual) Eosinophils # (Manual) PT INR 1.18 H Heparin Anti-Xa Level Sodium Potassium Chloride 97.2 L BUN 23 H Glucose 120 H POC Glucose Calcium Iron TIBC Total Creatine Kinase Troponin T HDL Cholesterol Crossmatch 06/18/16 06/18/16 06/18/16 05:27 05:27 05:27 WBC 12.3 H RBC 2.81 L Hgb 8.7 L Hct 25.6 L MCV RDW Seg Neuts % (Manual) 74.0 H Lymphocytes % (Manual) Nucleated RBC % Seg Neutrophils # Man 9.1 H Lymphocytes # (Manual) Monocytes # (Manual) Eosinophils # (Manual) PT INR 1.16 H Heparin Anti-Xa Level Sodium 135 L Potassium Chloride BUN Glucose 110 H POC Glucose Calcium 8.1 L Iron TIBC Total Creatine Kinase Troponin T HDL Cholesterol Crossmatch 06/18/16 06/22/16 06/24/16 07:15 00:05 08:21 WBC RBC Hgb Hct MCV RDW Seg Neuts % (Manual) Lymphocytes % (Manual) Nucleated RBC % Seg Neutrophils # Man Lymphocytes # (Manual) Monocytes # (Manual) Eosinophils # (Manual) PT INR Heparin Anti-Xa Level Sodium Potassium Chloride BUN Glucose POC Glucose 118 H 115 H Calcium Iron TIBC Total Creatine Kinase Troponin T HDL Cholesterol Crossmatch See Detail 06/24/16 06/24/16 06/25/16 13:00 14:29 17:12 WBC 14.2 H RBC 2.29 L Hgb 7.1 L Hct 21.4 L MCV RDW Seg Neuts % (Manual) Lymphocytes % (Manual) 42.0 H Nucleated RBC % Seg Neutrophils # Man Lymphocytes # (Manual) 6.0 H Monocytes # (Manual) Eosinophils # (Manual) PT INR Heparin Anti-Xa Level Sodium Potassium Chloride BUN Glucose POC Glucose 145 H Calcium Iron TIBC Total Creatine Kinase Troponin T HDL Cholesterol Crossmatch See Detail 06/25/16 06/25/16 06/25/16 21:19 21:19 Unknown WBC 16.9 H RBC 2.44 L Hgb 8.9 L 7.5 L Hct 26.7 L 23.1 L MCV 95 H RDW Seg Neuts % (Manual) Lymphocytes % (Manual) 41 H Nucleated RBC % Seg Neutrophils # Man 10.1 H Lymphocytes # (Manual) Monocytes # (Manual) 1.2 H Eosinophils # (Manual) PT 15.9 H INR 1.28 H Heparin Anti-Xa Level Sodium Potassium Chloride BUN Glucose POC Glucose Calcium Iron TIBC Total Creatine Kinase Troponin T HDL Cholesterol Crossmatch 06/26/16 06/26/16 06/26/16 05:27 05:27 05:27 WBC 16.1 H RBC 2.85 L Hgb 9.0 L Hct 26.9 L MCV 95 H RDW Seg Neuts % (Manual) Lymphocytes % (Manual) Nucleated RBC % Seg Neutrophils # Man 11.3 H Lymphocytes # (Manual) Monocytes # (Manual) Eosinophils # (Manual) 0.5 H PT INR Heparin Anti-Xa Level 0.18 L Sodium 134 L Potassium 2.9 L* Chloride BUN Glucose 110 H POC Glucose Calcium 7.4 L Iron TIBC Total Creatine Kinase Troponin T HDL Cholesterol Crossmatch 06/26/16 06/26/16 06/27/16 14:41 21:19 05:13 WBC RBC Hgb Hct MCV RDW Seg Neuts % (Manual) Lymphocytes % (Manual) Nucleated RBC % Seg Neutrophils # Man Lymphocytes # (Manual) Monocytes # (Manual) Eosinophils # (Manual) PT INR Heparin Anti-Xa Level Sodium Potassium 3.1 L Chloride BUN Glucose POC Glucose Calcium Iron TIBC Total Creatine Kinase 54 L Troponin T 0.174 H* HDL Cholesterol 33 L Crossmatch 06/27/16 06/27/16 06/27/16 05:13 05:13 23:00 WBC RBC Hgb 8.6 L Hct 25.5 L MCV RDW Seg Neuts % (Manual) Lymphocytes % (Manual) Nucleated RBC % Seg Neutrophils # Man Lymphocytes # (Manual) Monocytes # (Manual) Eosinophils # (Manual) PT INR Heparin Anti-Xa Level 0.15 L Sodium Potassium 3.1 L Chloride BUN Glucose 118 H POC Glucose Calcium 7.2 L Iron TIBC Total Creatine Kinase Troponin T HDL Cholesterol Crossmatch 06/28/16 06/28/16 06/28/16 06:46 06:46 11:50 WBC 14.7 H RBC 2.40 L Hgb 7.4 L Hct 22.8 L MCV 95 H RDW 15.6 H Seg Neuts % (Manual) Lymphocytes % (Manual) 54.0 H Nucleated RBC % 1.0 H Seg Neutrophils # Man Lymphocytes # (Manual) 7.9 H Monocytes # (Manual) Eosinophils # (Manual) PT INR Heparin Anti-Xa Level Sodium 135 L Potassium Chloride BUN 21 H Glucose 114 H POC Glucose Calcium 7.1 L Iron TIBC Total Creatine Kinase Troponin T HDL Cholesterol Crossmatch See Detail 06/28/16 06/28/16 06/29/16 Unknown Unknown 05:06 WBC RBC Hgb 8.8 L Hct 26.1 L MCV RDW Seg Neuts % (Manual) Lymphocytes % (Manual) Nucleated RBC % Seg Neutrophils # Man Lymphocytes # (Manual) Monocytes # (Manual) Eosinophils # (Manual) PT INR Heparin Anti-Xa Level < 0.10 L Sodium Potassium Chloride BUN Glucose POC Glucose Calcium Iron 13 L TIBC 152 L Total Creatine Kinase Troponin T HDL Cholesterol Crossmatch Assessment and Plan Pulmonary masses. I was unable to see the chest x-ray for this patient on the viewer. He will need a CT scan for further evaluation Status post carotid pseudoaneurysm repair Anemia Morbid obesity COPD. Active Rec Albuterol 2.5 mg nebulizations every 4-[address] scan without contrast
[2016-06-29] MEDS ORDERED: NACL ONE (15:54)
--- NOTE | 2016-06-29 16:10 | Progress Note ---
Assessment and Plan Patient appeared to be more obtunded today. Questionable new left sided facial droop. Left upper extremity is swollen (suspicious for DVT) given upper arm PICC line. PICC line is functional. Do not recommend PICC line removal at this point. Unfortunately the Heparin drip was stopped yesterday due to concerns of GI bleeding. Patient's respiratory status appears to have progressively deteriorated. Pulmonology was re-consulted. In light of the patient's mental status deterioration while off of heparin, we' ll repeat the CT scan of the head with a subsequent CT angiogram of the head and neck. - Patient Problems (1) Pseudoaneurysm of carotid artery Current Visit: Yes Status: Acute (2) Carotid stenosis Current Visit: No Status: Chronic Qualifiers: Laterality: right Qualified Code(s): I65.21 - Occlusion and stenosis of right carotid artery (3) Altered mental status Current Visit: Yes Status: Acute (4) Subarachnoid hemorrhage Current Visit: Yes Status: Acute Subjective Date of service: 06/29/16 Principal diagnosis: Infected pseudoaneurysm Interval history: The patient was evaluated early this morning. He required constant mechanical stimulus the patient's chest for several minutes to wake the patient. He remained drowsy, but denied complaint at that point. Objective - Constitutional Vitals: Vital Signs - 12hr 06/29/16 06/29/16 06/29/16 04:53 08:55 08:56 Temperature 98.4 F 98.4 F Pulse Rate Pulse Rate [ 74 Anterior Bilateral Throughout] Pulse Rate [ From Monitor] Pulse Rate [ 75 Left Radial] Pulse Rate [ 74 Left] Respiratory 20 28 H Rate Respiratory 20 Rate [Anterior Bilateral Throughout] Blood Pressure 138/65 149/76 [Left Calf] O2 Sat by Pulse 95 92 92 Oximetry 06/29/16 06/29/16 06/29/16 09:02 09:07 10:00 Temperature Pulse Rate Pulse Rate [ 72 Anterior Bilateral Throughout] Pulse Rate [ 75 From Monitor] Pulse Rate [ Left Radial] Pulse Rate [ Left] Respiratory 28 H Rate Respiratory 18 Rate [Anterior Bilateral Throughout] Blood Pressure [Left Calf] O2 Sat by Pulse 96 92 Oximetry 06/29/16 15:15 Temperature Pulse Rate 79 Pulse Rate [ Anterior Bilateral Throughout] Pulse Rate [ From Monitor] Pulse Rate [ Left Radial] Pulse Rate [ Left] Respiratory Rate Respiratory Rate [Anterior Bilateral Throughout] Blood Pressure [Left Calf] O2 Sat by Pulse Oximetry General appearance: Present: no acute distress - EENT ENT: hearing intact - Neck Neck: supple - Respiratory Respiratory effort: normal Extremities: normal temperature Extremity abnormal: edema (left upper extremity swelling with PICC line in place ) - Neurologic Neurologic: other (appears to have a left-sided facial droop, continued left upper extremity weakness) - Psychiatric Psychiatric: no appropriate mood/affect (drowsy), no intact judgment & insight, no cooperative - Labs CBC & Chem 7: 06/29/16 05:06 06/28/16 06:46 Labs: Abnormal lab results 06/28/16 06/28/16 06/28/16 Range/Units 11:50 Unknown Unknown Hgb (11.8-15.2) gm/dl Hct (35.5-45.6) % Heparin Anti-Xa Level < 0.10 L (0.3-0.7) U.I./ml Iron 13 L (49-181) ug/dL TIBC 152 L (250-450) mcg/dL Crossmatch See Detail 06/29/16 Range/Units 05:06 Hgb 8.8 L (11.8-15.2) gm/dl Hct 26.1 L (35.5-45.6) % Heparin Anti-Xa Level (0.3-0.7) U.I./ml Iron (49-181) ug/dL TIBC (250-450) mcg/dL Crossmatch
--- NOTE | 2016-06-29 16:13 | Cat Scan Report ---
CT scan of chest without contrast: History: Pulmonary mass. Findings: Atherosclerotic calcification of thoracic aorta. No evidence of aneurysm. No endobronchial lesion. No mediastinal mass. Bilateral pleural effusion. No pericardial effusion. Compressive atelectasis of the lung parenchyma adjacent to the pleural effusion bilaterally. There is 2.2 cm pleural based mass noted in the right apex. Impression: Pleural based well-defined circumscribed mass right apex. Bilateral pleural effusion being more pronounced on the right side with compressive atelectasis of the adjacent lung parenchyma. Additional findings as detailed above.
--- NOTE | 2016-06-29 16:33 | Cat Scan Report ---
CT scan of head without contrast: Compare to 06/25/16. History: Change in mental status. Findings: Ventricles and midline in location and normal in size. Ill-defined focal area of low attenuation right basal ganglia measuring 1 cm in diameter. Normal brainstem and cerebellum. Volume loss. No extra-axial fluid collection. Impression: Suspicion of acute ischemia right basal ganglia. No evidence of hemorrhage.
[2016-06-29] MEDS: VANCOMYCIN VIAL 1,250 MG in NACL 0.9% 250ML 250 ML IV SCH (16:47)
--- NOTE | 2016-06-29 17:27 | Cat Scan Report ---
FINAL REPORT EXAM: CT ANGIO HEAD HISTORY: Change in mental status, post-op TECHNIQUE: CT angiogram head with intravenous contrast. Multiplanar and maximum intensity projection reconstructions identified PRIORS: Comparison made to prior CT and June 25, [address] angiogram June 25, 2016 FINDINGS: Again identified is [id number] plaque formation within the cavernous ICAs bilaterally. No major vascular occlusion identified. ELMA and MCA distributions appear within normal limits. basilar and distal vertebral arteries are unremarkable. Posterior circulation demonstrates no acute change. IMPRESSION: Calcified plaque again noted within the cavernous portion of the ICAs estimated degree of stenosis less 40 percent Stable appearance from prior exam. No acute change identified
--- NOTE | 2016-06-29 18:03 | Cat Scan Report ---
FINAL REPORT EXAM: CT ANGIO NECK HISTORY: Change in mental status, post-op TECHNIQUE: CT angiogram neck with multiplanar maximum intensity projection reconstructions. PRIORS: Comparison is dated June 25, 2016 and June 17 2016 FINDINGS: At the lung apices there is a left pleural effusion which appears increasing from prior exam. Right upper lobe rounded mass as well as spiculated mass again identified there is increase of right effusion since the prior exam Extensive atherosclerotic plaque noted at the aortic arch There is extensive plaque with probable mural thrombus within innominate artery along with calcified plaque which appears stable since prior exams. Again identified is high-grade stenosis at the origin right common carotid artery. Likely reflecting repair pseudoaneurysm right common carotid again noted with some increased soft tissue density along the course of the common carotid areas of fluid density surrounding the common carotid appeared decreasing since the most recent prior study. Or origin of the right internal carotid artery is tortuous no high-grade stenosis observed. Again noted is some plaque within cavernous right ICA stenosis estimated at approximately 40 percent the left ICA demonstrates mild luminal narrowing at the origin without evidence for significant stenosis. Origin of the left ICA is tortuous. No evidence for significant stenosis within the mid to proximal left ICA. Mild plaque is noted within the cavernous left ICA. Both vertebral arteries are patent. 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 Stenosis at the origin of the right No evidence for high-grade stenosis within the ICAs. There is some calcified plaque formation of the cavernous ICAs bilaterally with approximately 40 percent narrowing on the right Increasing bilateral pleural effusions Again noted are pulmonary nodules on the right concerning for neoplasm.
--- NOTE | 2016-06-29 18:47 | Progress Note ---
Assessment and Plan Assessment and plan: --Metabolic encephalopathy secondary to microemboli to the brain Continue supportive care, neurology evaluation noted --Anemia; Significant drop in H&H , transfuse 2 units of PRBC as recommended patient is on chronic anticoagulation, as the monitor for any evidence of bleeding GI evaluation to rule out GI causes of anemia --Hypokalemia: Corrected --Accelerated hypertension Controlled, continue current antihypertensives and when necessary medications --Fever, low-grade Patient is already on IV antibiotics, repeat cultures negative to date Chest x-ray no evidence of pneumonia, [place] following --Carotid artery pseudoaneurysm status post repair. Management per vascular --Sepsis/positive wound cultures Continue current antibiotics IV vancomycin and Unasyn ID following --History of coronary artery disease status post CABG Continue current management --Dyslipidemia continue lipid-lowering medications DVT prophylaxis; SCDs Possible family members at the bedside plan of care discussed with them History Interval history: Patient seen and evaluated medical records reviewed Sleeping easily awakens upon calling his name confused at times Family member at the bedside, no new complaints Hospitalist Physical - Constitutional Vitals: Temp Pulse Resp BP Pulse Ox 98.2 F 67 28 H 134/75 97 06/29/16 18:02 06/29/16 18:02 06/29/16 18:02 06/29/16 18:02 06/29/16 18:02 General appearance: Present: no acute distress, well-nourished - EENT Eyes: Present: PERRL, EOM intact - Neck Neck: Present: supple, normal ROM - Respiratory Respiratory effort: normal Respiratory: negative: rales, rhonchi, wheezing - Cardiovascular Rhythm: regular Heart Sounds: Present: S1 & S2 - Extremities Extremities: no ischemia, pulses intact, pulses symmetrical - Abdominal General gastrointestinal: soft, non-tender, non-distended, normal bowel sounds - Integumentary Integumentary: Present: clear, warm - Neurologic Neurologic: moves all extremities, other Results - Labs CBC & Chem 7: 06/29/16 05:06 06/28/16 06:46 Labs: Laboratory Last Values WBC 14.7 K/mm3 (4.5-11.0) H 06/28/16 06:46 RBC 2.40 M/mm3 (3.65-5.03) L 06/28/16 06:46 Hgb 8.8 gm/dl (11.8-15.2) L 06/29/16 05:06 Hct 26.1 % (35.5-45.6) L 06/29/16 05:06 MCV 95 fl (84-94) H 06/28/16 06:46 MCH 31 pg (28-32) 06/28/16 06:46 MCHC 32 % (32-34) 06/28/16 06:46 RDW 15.6 % (13.2-15.2) H 06/28/16 06:46 Plt Count 186 K/mm3 (140-440) 06/29/16 05:06 Lymph # Geothermal Electrical Engineer 06/28/16 06:46 Add Manual Diff Complete 06/28/16 06:46 Total Counted 100 06/28/16 06:46 Seg Neuts % (Manual) 42.0 % (40.0-70.0) 06/28/16 06:46 Band Neutrophils % 0 % 06/28/16 06:46 Lymphocytes % (Manual) 54.0 % (13.4-35.0) H 06/28/16 06:46 Reactive Lymphs % (Man) 0 % 06/28/16 06:46 Monocytes % (Manual) 4.0 % (0.0-7.3) 06/28/16 06:46 Eosinophils % (Manual) 0 % (0.0-4.3) 06/28/16 06:46 Basophils % (Manual) 0 % (0.0-1.8) 06/28/16 06:46 Metamyelocytes % 0 % 06/28/16 06:46 Myelocytes % 0 % 06/28/16 06:46 Promyelocytes % 0 % 06/28/16 06:46 Blast Cells % 0 % 06/28/16 06:46 Nucleated RBC % 1.0 % (0.0-0.9) H 06/28/16 06:46 Seg Neutrophils # Man 6.2 K/mm3 (1.8-7.7) 06/28/16 06:46 Band Neutrophils # 0.0 K/mm3 06/28/16 06:46 Lymphocytes # (Manual) 7.9 K/mm3 (1.2-5.4) H 06/28/16 06:46 Abs React Lymphs (Man) 0.0 K/mm3 06/28/16 06:46 Monocytes # (Manual) 0.6 K/mm3 (0.0-0.8) 06/28/16 06:46 Eosinophils # (Manual) 0.0 K/mm3 (0.0-0.4) 06/28/16 06:46 Basophils # (Manual) 0.0 K/mm3 (0.0-0.1) 06/28/16 06:46 Metamyelocytes # 0.0 K/mm3 06/28/16 06:46 Myelocytes # 0.0 K/mm3 06/28/16 06:46 Promyelocytes # 0.0 K/mm3 06/28/16 06:46 Blast Cells # 0.0 K/mm3 06/28/16 06:46 WBC Morphology Not Reportable 06/28/16 06:46 Hypersegmented Neuts Not Reportable 06/28/16 06:46 Hyposegmented Neuts Not Reportable 06/28/16 06:46 Hypogranular Neuts Not Reportable 06/28/16 06:46 Smudge Cells Not Reportable 06/28/16 06:46 Toxic Granulation Not Reportable 06/28/16 06:46 Toxic Vacuolation Not Reportable 06/28/16 06:46 Dohle Bodies Not Reportable 06/28/16 06:46 Pelger-Huet Anomaly Not Reportable 06/28/16 06:46 Zaki Rods Not Reportable 06/28/16 06:46 Platelet Estimate Not Reportable 06/28/16 06:46 Clumped Platelets Not Reportable 06/28/16 06:46 Plt Clumps, EDTA Not Reportable 06/28/16 06:46 Large Platelets Not Reportable 06/28/16 06:46 Giant Platelets Not Reportable 06/28/16 06:46 Platelet Satelliting Not Reportable 06/28/16 06:46 Plt Morphology Comment Not Reportable 06/28/16 06:46 RBC Morphology Not Reportable 06/28/16 06:46 Dimorphic RBCs Not Reportable 06/28/16 06:46 Polychromasia Not Reportable 06/28/16 06:46 Hypochromasia 1+ 06/28/16 06:46 Poikilocytosis Not Reportable 06/28/16 06:46 Anisocytosis 1+ 06/28/16 06:46 Microcytosis Not Reportable 06/28/16 06:46 Macrocytosis Not Reportable 06/28/16 06:46 Spherocytes Not Reportable 06/28/16 06:46 Pappenheimer Bodies Not Reportable 06/28/16 06:46 Sickle Cells Not Reportable 06/28/16 06:46 Target Cells Not Reportable 06/28/16 06:46 Tear Drop Cells Not Reportable 06/28/16 06:46 Ovalocytes Not Reportable 06/28/16 06:46 Helmet Cells Not Reportable 06/28/16 06:46 [place] Bodies Not Reportable 06/28/16 06:46 [place] Rings Not Reportable 06/28/16 06:46 Tamika Cells Not Reportable 06/28/16 06:46 Bite Cells Not Reportable 06/28/16 06:46 Crenated Cell Not Reportable 06/28/16 06:46 Elliptocytes Not Reportable 06/28/16 06:46 Acanthocytes (Spur) Not Reportable 06/28/16 06:46 Rouleaux Not Reportable 06/28/16 06:46 Hemoglobin C Crystals Not Reportable 06/28/16 06:46 Schistocytes Not Reportable 06/28/16 06:46 Malaria parasites Not Reportable 06/28/16 06:46 Sharif Bodies Not Reportable 06/28/16 06:46 Hem Pathologist Commnt No 06/28/16 06:46 PT 15.9 Sec. (12.2-14.9) H 06/25/16 21:19 INR 1.28 (0.87-1.13) H 06/25/16 21:19 APTT 33.5 Sec. (24.2-36.6) 06/25/16 21:19 Heparin Anti-Xa Level < 0.10 U.I./ml (0.3-0.7) L 06/28/16 Unknown Sodium 135 mmol/L (137-145) L 06/28/16 06:46 Potassium 4.1 mmol/L (3.6-5.0) D 06/28/16 06:46 Chloride 102.1 mmol/L (98-107) 06/28/16 06:46 Carbon Dioxide 22 mmol/L (22-30) 06/28/16 06:46 Anion Gap 15 mmol/L 06/28/16 06:46 BUN 21 mg/dL (9-20) H 06/28/16 06:46 Creatinine 0.8 mg/dL (0.8-1.5) 06/28/16 06:46 Estimated GFR > 60 ml/min 06/28/16 06:46 BUN/Creatinine Ratio 26.25 % 06/28/16 06:46 Glucose 114 mg/dL (75-100) H 06/28/16 06:46 POC Glucose 145 (70-105) H 06/25/16 17:12 Calcium 7.1 mg/dL (8.4-10.2) L 06/28/16 06:46 Magnesium 2.2 mg/dL (1.7-2.3) 06/28/16 06:46 Iron 13 ug/dL (49-181) L 06/28/16 Unknown TIBC 152 mcg/dL (250-450) L 06/28/16 Unknown Ferritin 223.9 ng/mL (13.0-400.0) 06/28/16 Unknown Total Creatine Kinase 54 units/L (55-170) L 06/27/16 05:13 CK-MB (CK-2) 1.2 ng/mL (0.0-4.0) 06/27/16 05:13 CK-MB (CK-2) Rel Index 2.2 (0-4) 06/27/16 05:13 Troponin T 0.174 ng/mL (0.00-0.029) H* 06/26/16 21:19 Triglycerides 94 mg/dL (2-149) 06/26/16 21:19 Cholesterol 112 mg/dL (50-199) 06/26/16 21:19 LDL Cholesterol Direct 61 mg/dL (50-130) 06/26/16 21:19 HDL Cholesterol 33 mg/dL (40-59) L 06/26/16 21:19 Cholesterol/HDL Ratio 3.39 % 06/26/16 21:19 Urine Color Yellow (Yellow) 06/24/16 17:14 Urine Turbidity Clear (Clear) 06/24/16 17:14 Urine pH 5.0 (5.0-7.0) 06/24/16 17:14 Ur Specific [place] 1.021 (1.003-1.030) 06/24/16 17:14 Urine Protein <15 mg/dl mg/dL (Negative) 06/24/16 17:14 Urine Glucose (UA) Neg mg/dL (Negative) 06/24/16 17:14 Urine Ketones Neg mg/dL (Negative) 06/24/16 17:14 Urine Blood Sm (Negative) 06/24/16 17:14 Urine Nitrite Neg (Negative) 06/24/16 17:14 Urine Bilirubin Neg (Negative) 06/24/16 17:14 Urine Urobilinogen < 2.0 mg/dL (<2.0) 06/24/16 17:14 Ur Leukocyte Esterase Neg (Negative) 06/24/16 17:14 Urine WBC (Auto) 0.0 /HPF (0.0-6.0) 06/24/16 17:14 Urine RBC (Auto) 1.0 /HPF (0.0-6.0) 06/24/16 17:14 U Epithel Cells (Auto) < 1.0 /HPF (0-13.0) 06/24/16 17:14 Uric Acid Crystals 1+ 06/24/16 17:14 Urine Mucus Few /HPF 06/24/16 17:14 Vancomycin Trough 7.5 ug/mL (5.0-20.0) 06/27/16 14:00 RPR Nonreactive (Nonreactive) 06/19/16 13:43 Blood Type O POSITIVE 06/28/16 11:50 Antibody Screen Negative 06/28/16 11:50 Crossmatch See Detail 06/28/16 11:50
[2016-06-29] MEDS: PROTONIX PO SCH (21:53)
[2016-06-29] MEDS ORDERED: NACL 0.9% 250ML IV ONE (23:55)
[2016-06-30] MEDS: DUONEB 0.5 MG-3 MG/3 ML SOLN IH SCH ×3 (08:15→20:55)
--- NOTE | 2016-06-30 09:02 | Gastroenterology Progress Note ---
Assessment and Plan anemia - pt with chronic anemia, no signs of overt GI bleeding. IV PPI BID. Would hold off on any endoscopic procedures unless pt develops overt signs of bleeding given overall medical condition. will s/o, please call as needed or change in condition. Subjective Date of service: 06/29/16 Principal diagnosis: Infected pseudoaneurysm, anemia Interval history: pt somnolent/not answering questions at time of exam. No reported overt GI bleeding. responded to blood transfusions appropriately Objective - Exam Narrative Exam: Gen: somnolent, arousable but not answering questions CV: tachycardic Lungs: cta, mild labored breathing Abd: soft, nd, +bs - Constitutional Vitals: Temp Pulse Resp BP Pulse Ox 98.6 F 80 20 170/79 97 06/30/16 06:28 06/30/16 08:31 06/30/16 08:31 06/30/16 06:28 06/30/16 08:18 - Labs CBC & Chem 7: 06/29/16 05:06 06/28/16 06:46
--- NOTE | 2016-06-30 09:53 | Progress Note ---
Assessment and Plan Assessment and plan: --Metabolic encephalopathy secondary to microemboli to the brain Patient is confused at times, closely monitor --Hemorrhagic CVA/sub arachnoid hemorrhage Continue supportive care --Upper extremity DVT, management per vascular on heparin --Anemia; status post total 5 units PRBC transfusion GI is following, closely monitor H&H and transfuse additional PRBC as needed --History of coronary artery disease status post CABG/PCI Continue current cardiac medications, cardiology following --Accelerated hypertension unControlled, add hydralazine , increase Norvasc continue beta blockers and when necessary hydralazine --Fever, low-grade Afebrile last 24 hours, ID following --Carotid artery pseudoaneurysm status post repair. Management per vascular --Sepsis/positive wound cultures Continue current antibiotics IV vancomycin and Unasyn ID following --History of coronary artery disease status post CABG Continue aspirin and Plavix --Dyslipidemia continue lipid-lowering medications DVT prophylaxis; SCDs --Full CODE STATUS Consults and recommendations noted and appreciated Plan of care discussed with the patient as well as the family member at the bedside History Interval history: Patient seen and evaluated medical records reviewed Family members at the bedside, reported confusion and intermittent agitation Patient is sleeping easily awakens Not in acute distress Hospitalist Physical - Constitutional Vitals: Temp Pulse Resp BP Pulse Ox 98.7 F 80 20 181/99 97 06/30/16 08:00 06/30/16 08:31 06/30/16 08:31 06/30/16 08:00 06/30/16 08:18 General appearance: Present: no acute distress, well-nourished - EENT Eyes: Present: PERRL, EOM intact - Neck Neck: Present: supple, normal ROM - Respiratory Respiratory effort: normal, labored - Cardiovascular Rhythm: regular Heart Sounds: Present: S1 & S2 - Extremities Extremities: no ischemia, pulses intact, pulses symmetrical Extremity abnormal: edema, cyanosis, clubbing, ulceration Peripheral Pulses: within normal limits - Abdominal General gastrointestinal: soft, non-tender, non-distended, normal bowel sounds - Integumentary Integumentary: Present: clear, warm - Psychiatric Psychiatric: appropriate mood/affect, cooperative - Neurologic Neurologic: CNII-XII intact, moves all extremities Results - Labs CBC & Chem 7: 06/29/16 05:06 06/28/16 06:46 Labs: Laboratory Last Values WBC 14.7 K/mm3 (4.5-11.0) H 06/28/16 06:46 RBC 2.40 M/mm3 (3.65-5.03) L 06/28/16 06:46 Hgb 8.8 gm/dl (11.8-15.2) L 06/29/16 05:06 Hct 26.1 % (35.5-45.6) L 06/29/16 05:06 MCV 95 fl (84-94) H 06/28/16 06:46 MCH 31 pg (28-32) 06/28/16 06:46 MCHC 32 % (32-34) 06/28/16 06:46 RDW 15.6 % (13.2-15.2) H 06/28/16 06:46 Plt Count 186 K/mm3 (140-440) 06/29/16 05:06 Lymph # Glue Specialty Supervisor 06/28/16 06:46 Add Manual Diff Complete 06/28/16 06:46 Total Counted 100 06/28/16 06:46 Seg Neuts % (Manual) 42.0 % (40.0-70.0) 06/28/16 06:46 Band Neutrophils % 0 % 06/28/16 06:46 Lymphocytes % (Manual) 54.0 % (13.4-35.0) H 06/28/16 06:46 Reactive Lymphs % (Man) 0 % 06/28/16 06:46 Monocytes % (Manual) 4.0 % (0.0-7.3) 06/28/16 06:46 Eosinophils % (Manual) 0 % (0.0-4.3) 06/28/16 06:46 Basophils % (Manual) 0 % (0.0-1.8) 06/28/16 06:46 Metamyelocytes % 0 % 06/28/16 06:46 Myelocytes % 0 % 06/28/16 06:46 Promyelocytes % 0 % 06/28/16 06:46 Blast Cells % 0 % 06/28/16 06:46 Nucleated RBC % 1.0 % (0.0-0.9) H 06/28/16 06:46 Seg Neutrophils # Man 6.2 K/mm3 (1.8-7.7) 06/28/16 06:46 Band Neutrophils # 0.0 K/mm3 06/28/16 06:46 Lymphocytes # (Manual) 7.9 K/mm3 (1.2-5.4) H 06/28/16 06:46 Abs React Lymphs (Man) 0.0 K/mm3 06/28/16 06:46 Monocytes # (Manual) 0.6 K/mm3 (0.0-0.8) 06/28/16 06:46 Eosinophils # (Manual) 0.0 K/mm3 (0.0-0.4) 06/28/16 06:46 Basophils # (Manual) 0.0 K/mm3 (0.0-0.1) 06/28/16 06:46 Metamyelocytes # 0.0 K/mm3 06/28/16 06:46 Myelocytes # 0.0 K/mm3 06/28/16 06:46 Promyelocytes # 0.0 K/mm3 06/28/16 06:46 Blast Cells # 0.0 K/mm3 06/28/16 06:46 WBC Morphology Not Reportable 06/28/16 06:46 Hypersegmented Neuts Not Reportable 06/28/16 06:46 Hyposegmented Neuts Not Reportable 06/28/16 06:46 Hypogranular Neuts Not Reportable 06/28/16 06:46 Smudge Cells Not Reportable 06/28/16 06:46 Toxic Granulation Not Reportable 06/28/16 06:46 Toxic Vacuolation Not Reportable 06/28/16 06:46 Dohle Bodies Not Reportable 06/28/16 06:46 Pelger-Huet Anomaly Not Reportable 06/28/16 06:46 Zaki Rods Not Reportable 06/28/16 06:46 Platelet Estimate Not Reportable 06/28/16 06:46 Clumped Platelets Not Reportable 06/28/16 06:46 Plt Clumps, EDTA Not Reportable 06/28/16 06:46 Large Platelets Not Reportable 06/28/16 06:46 Giant Platelets Not Reportable 06/28/16 06:46 Platelet Satelliting Not Reportable 06/28/16 06:46 Plt Morphology Comment Not Reportable 06/28/16 06:46 RBC Morphology Not Reportable 06/28/16 06:46 Dimorphic RBCs Not Reportable 06/28/16 06:46 Polychromasia Not Reportable 06/28/16 06:46 Hypochromasia 1+ 06/28/16 06:46 Poikilocytosis Not Reportable 06/28/16 06:46 Anisocytosis 1+ 06/28/16 06:46 Microcytosis Not Reportable 06/28/16 06:46 Macrocytosis Not Reportable 06/28/16 06:46 Spherocytes Not Reportable 06/28/16 06:46 Pappenheimer Bodies Not Reportable 06/28/16 06:46 Sickle Cells Not Reportable 06/28/16 06:46 Target Cells Not Reportable 06/28/16 06:46 Tear Drop Cells Not Reportable 06/28/16 06:46 Ovalocytes Not Reportable 06/28/16 06:46 Helmet Cells Not Reportable 06/28/16 06:46 [place] Bodies Not Reportable 06/28/16 06:46 [place] Rings Not Reportable 06/28/16 06:46 [place]ika Cells Not Reportable 06/28/16 06:46 Bite Cells Not Reportable 06/28/16 06:46 Crenated Cell Not Reportable 06/28/16 06:46 Elliptocytes Not Reportable 06/28/16 06:46 Acanthocytes (Spur) Not Reportable 06/28/16 06:46 Rouleaux Not Reportable 06/28/16 06:46 Hemoglobin C Crystals Not Reportable 06/28/16 06:46 Schistocytes Not Reportable 06/28/16 06:46 Malaria parasites Not Reportable 06/28/16 06:46 Sharif Bodies Not Reportable 06/28/16 06:46 Hem Pathologist Commnt No 06/28/16 06:46 PT 15.9 Sec. (12.2-14.9) H 06/25/16 21:19 INR 1.28 (0.87-1.13) H 06/25/16 21:19 APTT 33.5 Sec. (24.2-36.6) 06/25/16 21:19 Heparin Anti-Xa Level < 0.10 U.I./ml (0.3-0.7) L 06/28/16 Unknown Sodium 135 mmol/L (137-145) L 06/28/16 06:46 Potassium 4.1 mmol/L (3.6-5.0) D 06/28/16 06:46 Chloride 102.1 mmol/L (98-107) 06/28/16 06:46 Carbon Dioxide 22 mmol/L (22-30) 06/28/16 06:46 Anion Gap 15 mmol/L 06/28/16 06:46 BUN 21 mg/dL (9-20) H 06/28/16 06:46 Creatinine 0.8 mg/dL (0.8-1.5) 06/28/16 06:46 Estimated GFR > 60 ml/min 06/28/16 06:46 BUN/Creatinine Ratio 26.25 % 06/28/16 06:46 Glucose 114 mg/dL (75-100) H 06/28/16 06:46 POC Glucose 145 (70-105) H 06/25/16 17:12 Calcium 7.1 mg/dL (8.4-10.2) L 06/28/16 06:46 Magnesium 2.2 mg/dL (1.7-2.3) 06/28/16 06:46 Iron 13 ug/dL (49-181) L 06/28/16 Unknown TIBC 152 mcg/dL (250-450) L 06/28/16 Unknown Ferritin 223.9 ng/mL (13.0-400.0) 06/28/16 Unknown Total Creatine Kinase 54 units/L (55-170) L 06/27/16 05:13 CK-MB (CK-2) 1.2 ng/mL (0.0-4.0) 06/27/16 05:13 CK-MB (CK-2) Rel Index 2.2 (0-4) 06/27/16 05:13 Troponin T 0.174 ng/mL (0.00-0.029) H* 06/26/16 21:19 Triglycerides 94 mg/dL (2-149) 06/26/16 21:19 Cholesterol 112 mg/dL (50-199) 06/26/16 21:19 LDL Cholesterol Direct 61 mg/dL (50-130) 06/26/16 21:19 HDL Cholesterol 33 mg/dL (40-59) L 06/26/16 21:19 Cholesterol/HDL Ratio 3.39 % 06/26/16 21:19 Urine Color Yellow (Yellow) 06/24/16 17:14 Urine Turbidity Clear (Clear) 06/24/16 17:14 Urine pH 5.0 (5.0-7.0) 06/24/16 17:14 Ur Specific [place] 1.021 (1.003-1.030) 06/24/16 17:14 Urine Protein <15 mg/dl mg/dL (Negative) 06/24/16 17:14 Urine Glucose (UA) Neg mg/dL (Negative) 06/24/16 17:14 Urine Ketones Neg mg/dL (Negative) 06/24/16 17:14 Urine Blood Sm (Negative) 06/24/16 17:14 Urine Nitrite Neg (Negative) 06/24/16 17:14 Urine Bilirubin Neg (Negative) 06/24/16 17:14 Urine Urobilinogen < 2.0 mg/dL (<2.0) 06/24/16 17:14 Ur Leukocyte Esterase Neg (Negative) 06/24/16 17:14 Urine WBC (Auto) 0.0 /HPF (0.0-6.0) 06/24/16 17:14 Urine RBC (Auto) 1.0 /HPF (0.0-6.0) 06/24/16 17:14 U Epithel Cells (Auto) < 1.0 /HPF (0-13.0) 06/24/16 17:14 Uric Acid Crystals 1+ 06/24/16 17:14 Urine Mucus Few /HPF 06/24/16 17:14 Vancomycin Trough 7.5 ug/mL (5.0-20.0) 06/27/16 14:00 RPR Nonreactive (Nonreactive) 06/19/16 13:43 Blood Type O POSITIVE 06/28/16 11:50 Antibody Screen Negative 06/28/16 11:50 Crossmatch See Detail 06/28/16 11:50
[2016-06-30] MEDS: HALFPRIN EC PO SCH (11:15)
[2016-06-30] MEDS: LOPRESSOR PO SCH (11:16)
[2016-06-30] MEDS: NORVASC PO SCH (11:16)
[2016-06-30] MEDS: IMDUR PO SCH (11:20)
[2016-06-30] MEDS: PLAVIX PO SCH (11:20)
[2016-06-30] MEDS: PROTONIX PO SCH (11:23)
[2016-06-30] MEDS: K-DUR PO SCH (11:25)
[2016-06-30] MEDS: COLACE PO SCH (11:26)
--- NOTE | 2016-06-30 11:37 | Progress Note ---
Assessment and Plan Hypertension--> elevated Add hydralazine 25 mg twice a day maintain systolic pressure 140 continue norvasc 5mg daily, metoprolol 25mg BID Suspected infected pseudoaneurysm s/p patch angioplasty of the right carotid artery per vascular, infectious disease CVA sub arachnoid hemorrhage Acute left upper extremity DVT Coronary artery disease, stable s/p CABG/PCI continue ASA, Plavix, statin Anemia requiring transfusions GI following CKD COPD Hyperlipidemia Of the extensive conversation with son and daughter with vascular concerning condition and which patient anemia and with new acute DVT will as per vascular prior low-dose heparin patient is able tolerate the patient on aspirin and elquis twice a day patient, his hypercoagulable states most likely is suspected left lung mass Subjective Date of service: 06/30/16 Principal diagnosis: Infected pseudoaneurysm, anemia Interval history: pt lying in bed coughing and no complaints Objective Vital Signs Temp Pulse Pulse Pulse Pulse Resp Resp 06/30/16 08:31 80 20 06/30/16 08:18 06/30/16 08:16 78 20 06/30/16 08:00 98.7 F 87 22 06/30/16 06:28 98.6 F 75 22 06/30/16 01:34 98.8 F 72 20 06/29/16 22:00 76 06/29/16 21:06 81 16 06/29/16 21:00 06/29/16 20:35 99.5 F 83 20 06/29/16 18:02 98.2 F 67 28 H 06/29/16 15:15 79 BP Pulse Ox 06/30/16 08:31 06/30/16 08:18 97 06/30/16 08:16 06/30/16 08:00 181/99 94 06/30/16 06:28 170/79 97 06/30/16 01:34 168/79 93 06/29/16 22:00 97 06/29/16 21:06 06/29/16 21:00 93 06/29/16 20:35 220/91 93 06/29/16 18:02 134/75 97 06/29/16 15:15 - Physical Examination General: No Apparent Distress HEENT: Positive: Normocephaly, Mucus Membranes Moist Neck: Positive: neck supple, trachea midline Cardiac: Positive: Reg Rate and Rhythm Lungs: Positive: Decreased Breath Sounds Neuro: Positive: Other (left arm weakness) Abdomen: Positive: Soft, Active Bowel Sounds. Negative: Tender Skin: Negative: Rash Extremities: Present: normal, edema, +1 Edema (left arm) - Imaging and Cardiology EKG: image reviewed Echo: report reviewed - Telemetry EKG Rhythm: Sinus Rhythm - EKG Sinus rhythms and dysrhythmias: sinus rhythm Repolarization changes or abnormalities: nonspecific abnormality, ST segment, and/or T wave
[2016-06-30] MEDS: HEPARIN/ 0.45% NACL-25,000 UNIT/500 ML 500 ML IV SCH (11:38)
--- NOTE | 2016-06-30 11:44 | Progress Note ---
Subjective Date of service: 06/30/16 Principal diagnosis: Infected pseudoaneurysm, anemia Interval history: Patient seen the blood site. Currently no lateral focal deficits. He is weak and sleepy but easily arousable. Answers questions appropriately. He has left-sided upper extremity edema. New finding of DVT on venous duplex around PICC line proximally and axillary vein. His vital signs: Afebrile, blood pressure maintained around 160 most of the time. We'll have extensive family discussion with indications and contraindications of anticoagulation. Patient was guaiac-positive. However he has some thrombus at the previous surgery site and new finding of DVT. He's probably hypercoagulable due to his questionable lung mass with undiagnosed cancer. Family was explained indications and contraindications of anticoagulation and they agreed to try to resume low-dose heparin protocol monitor his H&H closely. Objective - Constitutional Vitals: Vital Signs - 12hr 06/30/16 06/30/16 06/30/16 01:34 06:28 08:00 Temperature 98.8 F 98.6 F 98.7 F Pulse Rate [ Anterior Bilateral Throughout] Pulse Rate [ 72 75 87 Right Dorsalis Pedis] Respiratory 20 22 22 Rate Respiratory Rate [Anterior Bilateral Throughout] Blood Pressure 168/79 170/79 181/99 [Left Calf] O2 Sat by Pulse 93 97 94 Oximetry 06/30/16 06/30/16 06/30/16 08:16 08:18 08:31 Temperature Pulse Rate [ 78 80 Anterior Bilateral Throughout] Pulse Rate [ Right Dorsalis Pedis] Respiratory Rate Respiratory 20 20 Rate [Anterior Bilateral Throughout] Blood Pressure [Left Calf] O2 Sat by Pulse 97 Oximetry - Labs CBC & Chem 7: 06/29/16 05:06 06/28/16 06:46
[2016-06-30] MEDS: APRESOLINE PO SCH (14:22)
[2016-06-30] MEDS ORDERED: NORVASC PO ONE (14:40)
[2016-06-30] MEDS: VANCOMYCIN VIAL 1,250 MG in NACL 0.9% 250ML 250 ML IV SCH (15:30)
--- NOTE | 2016-06-30 16:51 | Progress Note ---
Assessment and Plan Current antibiotics: Vancomycin (pulse dosed) IV 06/22 --> Previous Antibiotics: Unasyn 1.5 grams IV q6h 06/19-06/22 Levaquin 500mg po q24h 06/17-06/19 ASSESSMENT: Shyam Stephen is an 86 year old man with CAD, CABG, s/p blilateral endarterectomy in 2014 and 2015 who was admitted to [facility] on 06/16/16 with a right neck pulsatile mass that was found to be pseudoaneurysm complicated by micro-emboli to the brain. Patient became confused overnight. Infectious disease consult was called to assess due to intraoperative suspicion of infection. Problems list: 1. 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 -AFB smear negative of pseudoaneurysm tissue 2. Low grade fever -Resolved 3. 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 -Status post repair of right carotid artery pseudoaneurysm with left greater saphenous vein patch 06/18/16 -Pathology showed moderate mixed inflammation and organized thrombus. 4. Leukocytosis -Likley multifactorial -? Trending downward again 4. CAD -Status post CABG 5. 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 Transient loss of consciousness and left sided weakness -Rule out seizure -06/29 repeat head CTA shows right basal ganglion ischemia 7. Pulmonary masses -Suggested on both neck CTA -Rule out neoplastic process 8. LUE DVT PLAN: 1. Course of IV vancomycin X 4 weeks as per previous notes 2. With all that is going on would consider LTAC placement to complete IV antibiotics. Do not feel that he is a good candidate for home IV antibiotics 3. Pulmonary consult reviewed and appreciated 4. ? if PICC needs to be removed Dav Herrera MD [facility] Office: [phone] Subjective Date of service: 06/30/16 Principal diagnosis: Infected pseudoaneurysm, anemia Interval history: More lethargic and confused when aroused. Events from 06/28 reviewed. Objective - Exam Narrative Exam: GENERAL: Well-developed, well-nourished appearing male who is very lethargic but in no acute distress. Somewhat confused when aroused. HEAD: Normocephalic. No lesions seen. EYES: Pupils are equal reactive to light and accommodation. There is no scleral icterus. Optic fundi are not examined. EARS: Normal external male. THROAT: Oropharynx is normal with no evidence of oral candidiasis or pharyngitis. NECK: Supple. No enlargement of the thyroid gland. No significant cervical lymphadenopathy. No jugular venous distention at 30. Right neck surgical wound healing with no signs of infection LUNGS: Clear with no adventitious sounds. HEART: Regular rate. S1 and S2 are normal. There are no murmurs, gallops, clicks or rubs heard. ABDOMEN: Soft and nontender. Liver and spleen are not palpably enlarged or tender. No palpable masses. Bowel sounds are normoactive. EXTREMITIES: No rash, peripheral lymphadenopathy or clubbing. LUE edema. Groin wound healing with no signs of infection : Not examined NEUROLOGIC: No focal findings at present. - Constitutional Vitals: Vital Signs Temp Pulse Resp BP Pulse Ox 98.8 F 78 22 179/86 96 06/30/16 12:00 06/30/16 15:19 06/30/16 15:19 06/30/16 12:00 06/30/16 12:00 Temperature -Last 24 Hours Temperature 98.8 F Temperature 98.7 F Temperature 98.6 F Temperature 98.8 F Temperature 99.5 F Temperature 98.2 F - Labs CBC & Chem 7: 06/29/16 05:06 06/28/16 06:46 Labs: Microbiology 06/24/16 Unknown Peripheral/Venous Blood Culture - Preliminary NO GROWTH AFTER 24 HOURS 06/24/16 14:29 Peripheral/Venous Blood Culture - Preliminary Culture in Progress 06/19/16 13:43 Peripheral/Venous Blood Culture - Final NO GROWTH AFTER 5 DAYS 06/19/16 14:01 Peripheral/Venous Blood Culture - Final NO GROWTH AFTER 5 DAYS 06/18/16 Unknown Other (Please Specify:) - Other Surgical Biopsy Culture - Final Staphylococcus Epidermidis 06/19/16 Unknown Neck AFB Smear Concentration - Negative 06/29: CTA head: Right basal ganglion ischemis 06/29 LUE doppler: + DVT around ther PICC
[2016-06-30 19:47] LABS: Hematocrit 25.9 % (35.5-45.6); Hemoglobin 8.9 gm/dl (11.8-15.2); Mean Corpuscular HGB Conc 34 % (32-34); Mean Corpuscular Hemoglobin 32 pg (28-32); Mean Corpuscular Volume 94 fl (84-94); Platelet Count 198 K/mm3 (140-440); Red Blood Count 2.77 M/mm3 (3.65-5.03); Red Cell Distribution Width 15.7 % (13.2-15.2); White Blood Count 13.5 K/mm3 (4.5-11.0)
[2016-06-30] MEDS: NACL 0.9% 1000 ML 1,000 ML IV SCH (19:57)
[2016-06-30] MEDS ORDERED: LASIX IV ONE (20:00)
--- NOTE | 2016-06-30 20:03 | Progress Note ---
Assessment and Plan Imp: 1. RUL lung mass 2. Bilateral pleural effusions, suspect volume overload 3. s/p Infected carotid pseudoaneurysm repair 4. COPD 5. CAD 6. Acute CVA 06/2016 Rec: 1. RUL mass is amenable to CT guided biopsy; however, would need permission to come off of Plavix per vascular surgery; also, he has said he would not want chemotherapy in past so need to discuss wishes further with patient and family 2. Lasix IV once; check labs in AM including BNP 3. ST f/u Plan of care reviewed w/ patient/daughter, they understand/agree Subjective Date of service: 06/30/16 Principal diagnosis: Infected pseudoaneurysm, anemia Interval history: No events. SOB unchanged. Awake. No obvious complaints currently. Active Medications Acetaminophen (Tylenol) 650 mg PO Q4H PRN PRN Reason: Pain MILD(1-3)/Fever >100.5/LIN Last Admin: 06/28/16 23:45 Dose: 650 mg Al Hydrox/Mg Hydrox/Simethicone (Alum-Mag Hydrox-Simeth [phone]/5ml) 30 ml PO Q4H PRN PRN Reason: Indigestion Last Admin: 06/26/16 20:56 Dose: 30 ml Albuterol (Proventil) 2.5 mg IH Q4HRT PRN PRN Reason: Shortness Of Breath Albuterol/Ipratropium (Duoneb 0.5 Mg-3 Mg/3 Ml Soln) 1 ampul IH TIDRT [facility] Last Admin: 06/30/16 15:05 Dose: 1 ampul Amlodipine Besylate (Norvasc) 10 mg PO DAILY [facility] Aspirin (Halfprin Ec) 81 mg PO QDAY [facility] Last Admin: 06/30/16 11:15 Dose: 81 mg Atorvastatin Calcium (Lipitor) 40 mg PO QHS [facility] Last Admin: 06/29/16 21:53 Dose: 40 mg Bisacodyl (Dulcolax) 10 mg IN QDAY PRN PRN Reason: Constipation unrelieved by MOM Clopidogrel Bisulfate (Plavix) 75 mg PO QDAY [facility] Last Admin: 06/30/16 11:20 Dose: 75 mg Docusate Sodium (Colace) 100 mg PO BID [facility] Last Admin: 06/30/16 11:26 Dose: 100 mg Haloperidol Lactate (Haldol) 5 mg IV Q6H PRN PRN Reason: Agitation Hydralazine HCl (Apresoline) 25 mg PO Q8HR [facility] Last Admin: 06/30/16 14:22 Dose: 25 mg Sodium Chloride (Nacl 0.9% 1000 Ml) 1,000 mls @ 100 mls/hr IV DIRECT [facility] Last Admin: 06/29/16 04:59 Dose: 100 mls/hr Heparin Sodium/Sodium Chloride (Heparin/ 0.45% Nacl-25,000 Unit/500 Ml) 500 mls @ 23 mls/hr IV TITR [facility]; 1,150 UNITS/HR PRN Reason: Protocol Last Admin: 06/30/16 11:38 Dose: 21 mls/hr Vancomycin HCl 1,250 mg/ (Sodium Chloride) 250 mls @ 166.667 mls/hr IV Q24H [facility] Last Admin: 06/30/16 15:30 Dose: 166.667 mls/hr Isosorbide Mononitrate (Imdur) 60 mg PO QDAY [facility] Last Admin: 06/30/16 11:20 Dose: 60 mg Magnesium Hydroxide (Milk Of Magnesia) 30 ml PO Q4H PRN PRN Reason: Constipation Last Admin: 06/26/16 22:58 Dose: 30 ml Metoprolol Tartrate (Lopressor) 25 mg PO BID [facility] Last Admin: 06/30/16 11:16 Dose: 25 mg Naloxone HCl (Narcan 0.4 Mg/1 Ml) 0.1 mg IV Q2MIN PRN PRN Reason: Res Rate </= 8 or 02 SAT < 92% Nitroglycerin (Nitrostat) 0.4 mg SL .Q5MIN PRN PRN Reason: Chest Pain Last Admin: 06/26/16 20:18 Dose: 0.4 mg Ondansetron HCl (Zofran) 4 mg IV Q8H PRN PRN Reason: N/V unrelieved by Reglan Pantoprazole Sodium (Protonix) 40 mg PO BID [facility] Last Admin: 06/30/16 11:23 Dose: 40 mg Potassium Chloride (K-Dur) 20 meq PO QDAY [facility] Last Admin: 06/30/16 11:25 Dose: 20 meq Quetiapine Fumarate (Seroquel) 25 mg PO BID [facility] Last Admin: 06/30/16 11:23 Dose: 25 mg Sodium Chloride (Sodium Chloride Flush Syringe 10 Ml) 10 ml IV PRN PRN PRN Reason: LINE FLUSH Objective Vital Signs - 12hr 06/30/16 06/30/16 06/30/16 08:00 08:16 08:18 Temperature 98.7 F Pulse Rate [ 78 Anterior Bilateral Throughout] Pulse Rate [ 87 Right Dorsalis Pedis] Respiratory 22 Rate Respiratory 20 Rate [Anterior Bilateral Throughout] Blood Pressure 181/99 [Left Calf] O2 Sat by Pulse 94 97 Oximetry 06/30/16 06/30/16 06/30/16 08:31 12:00 15:05 Temperature 98.8 F Pulse Rate [ 80 80 Anterior Bilateral Throughout] Pulse Rate [ 79 Right Dorsalis Pedis] Respiratory 16 Rate Respiratory 20 22 Rate [Anterior Bilateral Throughout] Blood Pressure 179/86 [Left Calf] O2 Sat by Pulse 96 Oximetry 06/30/16 06/30/16 15:19 19:51 Temperature 100 F H Pulse Rate [ 78 Anterior Bilateral Throughout] Pulse Rate [ 80 Right Dorsalis Pedis] Respiratory 18 Rate Respiratory 22 Rate [Anterior Bilateral Throughout] Blood Pressure 173/82 [Left Calf] O2 Sat by Pulse 95 Oximetry Constitutional: no acute distress, alert ENT: oropharynx moist, other (Mallampati 4) Neck: supple, other (right endarterectomy scar) Effort: normal Ascultation: Bilateral: rhonchi (upper airway) Cardiovascular: regular rate and rhythm (no mrg) Gastrointestinal: normoactive bowel sounds, soft, non-tender, non-distended Integumentary: normal Extremities: no cyanosis, no edema Neurologic: normal mental status, CN II-XII normal Psychiatric: mood appropriate, affect normal CBC and BMP: 06/30/16 18:46 06/28/16 06:46 ABG, PT/INR, D-dimer: PT/INR, D-dimer PT 15.9 Sec. (12.2-14.9) H 06/25/16 21:19 INR 1.28 (0.87-1.13) H 06/25/16 21:19 Abnormal lab findings: Abnormal Labs 06/15/16 06/15/16 06/15/16 14:05 14:05 14:05 WBC 15.6 H RBC 3.26 L Hgb 10.0 L Hct 29.9 L MCV RDW Seg Neuts % (Manual) Lymphocytes % (Manual) Nucleated RBC % Seg Neutrophils # Man 10.6 H Lymphocytes # (Manual) Monocytes # (Manual) Eosinophils # (Manual) PT INR 1.18 H Heparin Anti-Xa Level Sodium Potassium Chloride 97.2 L BUN 23 H Glucose 120 H POC Glucose Calcium Iron TIBC Total Creatine Kinase Troponin T HDL Cholesterol Crossmatch 06/18/16 06/18/16 06/18/16 05:27 05:27 05:27 WBC 12.3 H RBC 2.81 L Hgb 8.7 L Hct 25.6 L MCV RDW Seg Neuts % (Manual) 74.0 H Lymphocytes % (Manual) Nucleated RBC % Seg Neutrophils # Man 9.1 H Lymphocytes # (Manual) Monocytes # (Manual) Eosinophils # (Manual) PT INR 1.16 H Heparin Anti-Xa Level Sodium 135 L Potassium Chloride BUN Glucose 110 H POC Glucose Calcium 8.1 L Iron TIBC Total Creatine Kinase Troponin T HDL Cholesterol Crossmatch 06/18/16 06/22/16 06/24/16 07:15 00:05 08:21 WBC RBC Hgb Hct MCV RDW Seg Neuts % (Manual) Lymphocytes % (Manual) Nucleated RBC % Seg Neutrophils # Man Lymphocytes # (Manual) Monocytes # (Manual) Eosinophils # (Manual) PT INR Heparin Anti-Xa Level Sodium Potassium Chloride BUN Glucose POC Glucose 118 H 115 H Calcium Iron TIBC Total Creatine Kinase Troponin T HDL Cholesterol Crossmatch See Detail 06/24/16 06/24/16 06/25/16 13:00 14:29 17:12 WBC 14.2 H RBC 2.29 L Hgb 7.1 L Hct 21.4 L MCV RDW Seg Neuts % (Manual) Lymphocytes % (Manual) 42.0 H Nucleated RBC % Seg Neutrophils # Man Lymphocytes # (Manual) 6.0 H Monocytes # (Manual) Eosinophils # (Manual) PT INR Heparin Anti-Xa Level Sodium Potassium Chloride BUN Glucose POC Glucose 145 H Calcium Iron TIBC Total Creatine Kinase Troponin T HDL Cholesterol Crossmatch See Detail 06/25/16 06/25/16 06/25/16 21:19 21:19 Unknown WBC 16.9 H RBC 2.44 L Hgb 8.9 L 7.5 L Hct 26.7 L 23.1 L MCV 95 H RDW Seg Neuts % (Manual) Lymphocytes % (Manual) 41 H Nucleated RBC % Seg Neutrophils # Man 10.1 H Lymphocytes # (Manual) Monocytes # (Manual) 1.2 H Eosinophils # (Manual) PT 15.9 H INR 1.28 H Heparin Anti-Xa Level Sodium Potassium Chloride BUN Glucose POC Glucose Calcium Iron TIBC Total Creatine Kinase Troponin T HDL Cholesterol Crossmatch 06/26/16 06/26/16 06/26/16 05:27 05:27 05:27 WBC 16.1 H RBC 2.85 L Hgb 9.0 L Hct 26.9 L MCV 95 H RDW Seg Neuts % (Manual) Lymphocytes % (Manual) Nucleated RBC % Seg Neutrophils # Man 11.3 H Lymphocytes # (Manual) Monocytes # (Manual) Eosinophils # (Manual) 0.5 H PT INR Heparin Anti-Xa Level 0.18 L Sodium 134 L Potassium 2.9 L* Chloride BUN Glucose 110 H POC Glucose Calcium 7.4 L Iron TIBC Total Creatine Kinase Troponin T HDL Cholesterol Crossmatch 06/26/16 06/26/16 06/27/16 14:41 21:19 05:13 WBC RBC Hgb Hct MCV RDW Seg Neuts % (Manual) Lymphocytes % (Manual) Nucleated RBC % Seg Neutrophils # Man Lymphocytes # (Manual) Monocytes # (Manual) Eosinophils # (Manual) PT INR Heparin Anti-Xa Level Sodium Potassium 3.1 L Chloride BUN Glucose POC Glucose Calcium Iron TIBC Total Creatine Kinase 54 L Troponin T 0.174 H* HDL Cholesterol 33 L Crossmatch 06/27/16 06/27/16 06/27/16 05:13 05:13 23:00 WBC RBC Hgb 8.6 L Hct 25.5 L MCV RDW Seg Neuts % (Manual) Lymphocytes % (Manual) Nucleated RBC % Seg Neutrophils # Man Lymphocytes # (Manual) Monocytes # (Manual) Eosinophils # (Manual) PT INR Heparin Anti-Xa Level 0.15 L Sodium Potassium 3.1 L Chloride BUN Glucose 118 H POC Glucose Calcium 7.2 L Iron TIBC Total Creatine Kinase Troponin T HDL Cholesterol Crossmatch 06/28/16 06/28/16 06/28/16 06:46 06:46 11:50 WBC 14.7 H RBC 2.40 L Hgb 7.4 L Hct 22.8 L MCV 95 H RDW 15.6 H Seg Neuts % (Manual) Lymphocytes % (Manual) 54.0 H Nucleated RBC % 1.0 H Seg Neutrophils # Man Lymphocytes # (Manual) 7.9 H Monocytes # (Manual) Eosinophils # (Manual) PT INR Heparin Anti-Xa Level Sodium 135 L Potassium Chloride BUN 21 H Glucose 114 H POC Glucose Calcium 7.1 L Iron TIBC Total Creatine Kinase Troponin T HDL Cholesterol Crossmatch See Detail 06/28/16 06/28/16 06/29/16 Unknown Unknown 05:06 WBC RBC Hgb 8.8 L Hct 26.1 L MCV RDW Seg Neuts % (Manual) Lymphocytes % (Manual) Nucleated RBC % Seg Neutrophils # Man Lymphocytes # (Manual) Monocytes # (Manual) Eosinophils # (Manual) PT INR Heparin Anti-Xa Level < 0.10 L Sodium Potassium Chloride BUN Glucose POC Glucose Calcium Iron 13 L TIBC 152 L Total Creatine Kinase Troponin T HDL Cholesterol Crossmatch 06/30/16 06/30/16 18:00 18:46 WBC 13.5 H RBC 2.77 L Hgb 8.9 L Hct 25.9 L MCV RDW 15.7 H Seg Neuts % (Manual) Lymphocytes % (Manual) Nucleated RBC % Seg Neutrophils # Man Lymphocytes # (Manual) Monocytes # (Manual) Eosinophils # (Manual) PT INR Heparin Anti-Xa Level < 0.10 L Sodium Potassium Chloride BUN Glucose POC Glucose Calcium Iron TIBC Total Creatine Kinase Troponin T HDL Cholesterol Crossmatch Chest x-ray: report reviewed, image reviewed CT scan - chest: report reviewed, image reviewed
[2016-07-01] MEDS: LOPRESSOR PO SCH ×3 (00:23→23:33)
[2016-07-01] MEDS: COLACE PO SCH ×3 (00:23→23:32)
[2016-07-01] MEDS: APRESOLINE PO SCH ×4 (00:23→23:32)
[2016-07-01] MEDS: PROTONIX PO SCH ×3 (00:24→23:33)
[2016-07-01 05:07] LABS: Hematocrit 25.9 % (35.5-45.6); Hemoglobin 8.9 gm/dl (11.8-15.2); Mean Corpuscular HGB Conc 34 % (32-34); Mean Corpuscular Hemoglobin 32 pg (28-32); Mean Corpuscular Volume 93 fl (84-94); Platelet Count 206 K/mm3 (140-440); Red Cell Distribution Width 15.2 % (13.2-15.2); White Blood Count 13.1 K/mm3 (4.5-11.0)
[2016-07-01 05:31] LABS: Blood Urea Nitrogen 14 mg/dL (9-20); Calcium 7.7 mg/dL (8.4-10.2); Carbon Dioxide 24 mmol/L (22-30); Chloride 92.9 mmol/L (98-107); Glucose 98 mg/dL (75-100); Potassium 3.9 mmol/L (3.6-5.0); Sodium 131 mmol/L (137-145)
[2016-07-01 05:45] LABS: Anion Gap 18 mmol/L
[2016-07-01 05:55] LABS: Basophils % (Manual) 0 % (0.0-1.8); Blastocytes % (Manual) 0 %; Polychromasia Few
[2016-07-01 05:56] LABS: Diff Status Complete
[2016-07-01] MEDS: DUONEB 0.5 MG-3 MG/3 ML SOLN IH SCH ×3 (08:03→19:51)
--- NOTE | 2016-07-01 10:07 | Progress Note ---
Assessment and Plan - Patient Problems (1) Pseudoaneurysm of carotid artery Current Visit: Yes Status: Acute Plan to address problem: Patient has possible right pseudoaneurysm complicated by microemboli to the brain. Patient had a patch angioplasty of the right carotid artery. AFB smear negative of pseudoaneurysm tissue. Continue IV antibiotics 4 weeks per infectious disease. We'll consider LTAC placement to complete IV antibiotics. . (2) Mass of upper lobe of right lung Current Visit: Yes Status: Acute Plan to address problem: Patient has a right upper lobe mass for which biopsy has been suggested. We will wait for patient to be more clinically stable prior to doing any intervention. Family was informed and agrees with the treatment plan. Pulmonary consult reviewed and appreciated . (3) Guaiac positive stools Current Visit: Yes Status: Acute Plan to address problem: Patient had guaiac positive stools. GI feels that this is a chronic process. GI was consulted and suggested that no endoscopic procedures will be scheduled unless patient had signs of overt GI bleeding continue to follow CBC . (4) Atrial fibrillation Current Visit: Yes Status: Acute Plan to address problem: Atrial fibrillation was diagnosed cardiology recommended continuing beta blockers and IV heparin (5) DVT (deep venous thrombosis) Current Visit: Yes Status: Acute Qualifiers: DVT location: upper extremity Plan to address problem: DVT was found and upper extremity and patient was started on low-dose heparin. Vascular surgery on the case and made recommendations History Interval history: Patient lying in bed sleepy but arousable. Son is at bedside Hospitalist Physical - Constitutional Vitals: Temp Pulse Resp BP Pulse Ox 98.2 F 84 22 146/67 92 07/01/16 07:30 07/01/16 08:15 07/01/16 08:15 07/01/16 07:30 07/01/16 08:04 General appearance: Present: no acute distress, well-nourished - Neck Neck: Present: supple, normal ROM - Respiratory Respiratory effort: normal Respiratory: bilateral: rhonchi - Cardiovascular Rhythm: irregularly irregular - Abdominal General gastrointestinal: soft, non-tender, non-distended, normal bowel sounds Results - Labs CBC & Chem 7: 07/01/16 04:30 07/01/16 04:30 Labs: Laboratory Last Values WBC 13.1 K/mm3 (4.5-11.0) H 07/01/16 04:30 RBC 2.80 M/mm3 (3.65-5.03) L 07/01/16 04:30 Hgb 8.9 gm/dl (11.8-15.2) L 07/01/16 04:30 Hct 25.9 % (35.5-45.6) L 07/01/16 04:30 MCV 93 fl (84-94) 07/01/16 04:30 MCH 32 pg (28-32) 07/01/16 04:30 MCHC 34 % (32-34) 07/01/16 04:30 RDW 15.2 % (13.2-15.2) 07/01/16 04:30 Plt Count 206 K/mm3 (140-440) 07/01/16 04:30 Lymph # Desktop Publisher 07/01/16 04:30 Add Manual Diff Complete 07/01/16 04:30 Total Counted 100 07/01/16 04:30 Seg Neuts % (Manual) 74.0 % (40.0-70.0) H 07/01/16 04:30 Band Neutrophils % 0 % 07/01/16 04:30 Lymphocytes % (Manual) 22.0 % (13.4-35.0) 07/01/16 04:30 Reactive Lymphs % (Man) 0 % 07/01/16 04:30 Monocytes % (Manual) 3.0 % (0.0-7.3) 07/01/16 04:30 Eosinophils % (Manual) 1.0 % (0.0-4.3) 07/01/16 04:30 Basophils % (Manual) 0 % (0.0-1.8) 07/01/16 04:30 Metamyelocytes % 0 % 07/01/16 04:30 Myelocytes % 0 % 07/01/16 04:30 Promyelocytes % 0 % 07/01/16 04:30 Blast Cells % 0 % 07/01/16 04:30 Nucleated RBC % Not Reportable 07/01/16 04:30 Seg Neutrophils # Man 9.7 K/mm3 (1.8-7.7) H 07/01/16 04:30 Band Neutrophils # 0.0 K/mm3 07/01/16 04:30 Lymphocytes # (Manual) 2.9 K/mm3 (1.2-5.4) 07/01/16 04:30 Abs React Lymphs (Man) 0.0 K/mm3 07/01/16 04:30 Monocytes # (Manual) 0.4 K/mm3 (0.0-0.8) 07/01/16 04:30 Eosinophils # (Manual) 0.1 K/mm3 (0.0-0.4) 07/01/16 04:30 Basophils # (Manual) 0.0 K/mm3 (0.0-0.1) 07/01/16 04:30 Metamyelocytes # 0.0 K/mm3 07/01/16 04:30 Myelocytes # 0.0 K/mm3 07/01/16 04:30 Promyelocytes # 0.0 K/mm3 07/01/16 04:30 Blast Cells # 0.0 K/mm3 07/01/16 04:30 WBC Morphology Not Reportable 07/01/16 04:30 Hypersegmented Neuts Not Reportable 07/01/16 04:30 Hyposegmented Neuts Not Reportable 07/01/16 04:30 Hypogranular Neuts Not Reportable 07/01/16 04:30 Smudge Cells Not Reportable 07/01/16 04:30 Toxic Granulation Not Reportable 07/01/16 04:30 Toxic Vacuolation Not Reportable 07/01/16 04:30 Dohle Bodies Not Reportable 07/01/16 04:30 Pelger-Huet Anomaly Not Reportable 07/01/16 04:30 Zaki Rods Not Reportable 07/01/16 04:30 Platelet Estimate Appears normal 07/01/16 04:30 Clumped Platelets Not Reportable 07/01/16 04:30 Plt Clumps, EDTA Not Reportable 07/01/16 04:30 Large Platelets Not Reportable 07/01/16 04:30 Giant Platelets Not Reportable 07/01/16 04:30 Platelet Satelliting Not Reportable 07/01/16 04:30 Plt Morphology Comment Not Reportable 07/01/16 04:30 RBC Morphology Not Reportable 07/01/16 04:30 Dimorphic RBCs Not Reportable 07/01/16 04:30 Polychromasia Few 07/01/16 04:30 Hypochromasia Not Reportable 07/01/16 04:30 Poikilocytosis Not Reportable 07/01/16 04:30 Anisocytosis Not Reportable 07/01/16 04:30 Microcytosis Not Reportable 07/01/16 04:30 Macrocytosis Not Reportable 07/01/16 04:30 Spherocytes Not Reportable 07/01/16 04:30 Pappenheimer Bodies Not Reportable 07/01/16 04:30 Sickle Cells Not Reportable 07/01/16 04:30 Target Cells Not Reportable 07/01/16 04:30 Tear Drop Cells Not Reportable 07/01/16 04:30 Ovalocytes Not Reportable 07/01/16 04:30 Helmet Cells Not Reportable 07/01/16 04:30 [place] Bodies Not Reportable 07/01/16 04:30 Roslyn Rings Not Reportable 07/01/16 04:30 Tamika Cells Not Reportable 07/01/16 04:30 Bite Cells Not Reportable 07/01/16 04:30 Crenated Cell Not Reportable 07/01/16 04:30 Elliptocytes Not Reportable 07/01/16 04:30 Acanthocytes (Spur) Not Reportable 07/01/16 04:30 Rouleaux Not Reportable 07/01/16 04:30 Hemoglobin C Crystals Not Reportable 07/01/16 04:30 Schistocytes Not Reportable 07/01/16 04:30 Malaria parasites Not Reportable 07/01/16 04:30 Sharif Bodies Not Reportable 07/01/16 04:30 Hem Pathologist Commnt No 07/01/16 04:30 PT 15.9 Sec. (12.2-14.9) H 06/25/16 21:19 INR 1.28 (0.87-1.13) H 06/25/16 21:19 APTT 33.5 Sec. (24.2-36.6) 06/25/16 21:19 Heparin Anti-Xa Level 0.20 U.I./ml (0.3-0.7) L 07/01/16 04:30 Sodium 131 mmol/L (137-145) L 07/01/16 04:30 Potassium 3.9 mmol/L (3.6-5.0) 07/01/16 04:30 Chloride 92.9 mmol/L (98-107) L 07/01/16 04:30 Carbon Dioxide 24 mmol/L (22-30) 07/01/16 04:30 Anion Gap 18 mmol/L 07/01/16 04:30 BUN 14 mg/dL (9-20) 07/01/16 04:30 Creatinine 0.8 mg/dL (0.8-1.5) 07/01/16 04:30 Estimated GFR > 60 ml/min 07/01/16 04:30 BUN/Creatinine Ratio 17.50 % 07/01/16 04:30 Glucose 98 mg/dL (75-100) 07/01/16 04:30 POC Glucose 145 (70-105) H 06/25/16 17:12 Calcium 7.7 mg/dL (8.4-10.2) L 07/01/16 04:30 Magnesium 2.2 mg/dL (1.7-2.3) 06/28/16 06:46 Iron 13 ug/dL (49-181) L 06/28/16 Unknown TIBC 152 mcg/dL (250-450) L 06/28/16 Unknown Ferritin 223.9 ng/mL (13.0-400.0) 06/28/16 Unknown Total Creatine Kinase 54 units/L (55-170) L 06/27/16 05:13 CK-MB (CK-2) 1.2 ng/mL (0.0-4.0) 06/27/16 05:13 CK-MB (CK-2) Rel Index 2.2 (0-4) 06/27/16 05:13 Troponin T 0.174 ng/mL (0.00-0.029) H* 06/26/16 21:19 NT-Pro-B Natriuret Pep 26519 pg/mL (0-900) H 07/01/16 08:00 Triglycerides 94 mg/dL (2-149) 06/26/16 21:19 Cholesterol 112 mg/dL (50-199) 06/26/16 21:19 LDL Cholesterol Direct 61 mg/dL (50-130) 06/26/16 21:19 HDL Cholesterol 33 mg/dL (40-59) L 06/26/16 21:19 Cholesterol/HDL Ratio 3.39 % 06/26/16 21:19 Urine Color Yellow (Yellow) 06/24/16 17:14 Urine Turbidity Clear (Clear) 06/24/16 17:14 Urine pH 5.0 (5.0-7.0) 06/24/16 17:14 Ur Specific [place] 1.021 (1.003-1.030) 06/24/16 17:14 Urine Protein <15 mg/dl mg/dL (Negative) 06/24/16 17:14 Urine Glucose (UA) Neg mg/dL (Negative) 06/24/16 17:14 Urine Ketones Neg mg/dL (Negative) 06/24/16 17:14 Urine Blood Sm (Negative) 06/24/16 17:14 Urine Nitrite Neg (Negative) 06/24/16 17:14 Urine Bilirubin Neg (Negative) 06/24/16 17:14 Urine Urobilinogen < 2.0 mg/dL (<2.0) 06/24/16 17:14 Ur Leukocyte Esterase Neg (Negative) 06/24/16 17:14 Urine WBC (Auto) 0.0 /HPF (0.0-6.0) 06/24/16 17:14 Urine RBC (Auto) 1.0 /HPF (0.0-6.0) 06/24/16 17:14 U Epithel Cells (Auto) < 1.0 /HPF (0-13.0) 06/24/16 17:14 Uric Acid Crystals 1+ 06/24/16 17:14 Urine Mucus Few /HPF 06/24/16 17:14 Vancomycin Trough 7.5 ug/mL (5.0-20.0) 06/27/16 14:00 RPR Nonreactive (Nonreactive) 06/19/16 13:43 Blood Type O POSITIVE 06/28/16 11:50 Antibody Screen Negative 06/28/16 11:50 Crossmatch See Detail 06/28/16 11:50
[2016-07-01] MEDS: HEPARIN/ 0.45% NACL-25,000 UNIT/500 ML 500 ML IV SCH (10:13)
[2016-07-01] MEDS: NORVASC PO SCH (10:14)
--- NOTE | 2016-07-01 10:48 | Progress Note ---
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 s/p patch angioplasty of the right carotid artery per vascular, infectious disease CVA sub arachnoid hemorrhage Acute left upper extremity DVT Coronary artery disease, stable s/p CABG/PCI continue ASA, Plavix, statin Anemia requiring transfusions GI following CKD COPD Hyperlipidemia Of the extensive conversation with son and daughter with vascular DrLawrence concerning condition and which patient anemia and with new acute DVT will as per vascular prior low-dose heparin patient is able tolerate the patient on plavix and elquis twice a day patient, his hypercoagulable states most likely is suspected left lung mass. Patient hemoglobin stable may consider Celso butts for DVT and new onset A. fib and Plavix and hold aspirin okay with vascular Subjective Date of service: 07/01/16 Principal diagnosis: Infected pseudoaneurysm, anemia Interval history: pt is sleeping and coughing Objective Vital Signs Temp Pulse Pulse Pulse Pulse Resp Resp 07/01/16 08:15 84 22 07/01/16 08:04 07/01/16 08:03 74 22 07/01/16 07:30 98.2 F 81 18 07/01/16 04:54 98.6 F 76 20 07/01/16 04:00 78 07/01/16 00:17 98.9 F 77 18 06/30/16 21:05 80 20 06/30/16 20:55 76 20 06/30/16 19:51 100 F H 80 18 06/30/16 16:00 98.8 F 81 24 06/30/16 15:19 78 22 06/30/16 15:05 80 22 06/30/16 12:00 98.8 F 79 16 BP BP Pulse Ox 07/01/16 08:15 07/01/16 08:04 92 07/01/16 08:03 07/01/16 07:30 146/67 93 07/01/16 04:54 149/68 94 07/01/16 04:00 07/01/16 00:17 139/68 94 06/30/16 21:05 06/30/16 20:55 95 06/30/16 19:51 173/82 95 06/30/16 16:00 138/81 96 06/30/16 15:19 06/30/16 15:05 06/30/16 12:00 179/86 96 - Physical Examination General: No Apparent Distress HEENT: Positive: Normocephaly, Mucus Membranes Moist Neck: Positive: neck supple, trachea midline Cardiac: Positive: Irregularly Regular Lungs: Positive: Normal Breath Sounds Neuro: Positive: Other (left arm weakness) Abdomen: Positive: Soft, Active Bowel Sounds. Negative: Tender Skin: Negative: Rash Extremities: Present: normal, edema, +1 Edema (left arm) - Labs and Meds CBC 06/30/16 07/01/16 Range/Units 18:46 04:30 WBC 13.5 H 13.1 H (4.5-11.0) K/mm3 RBC 2.77 L 2.80 L (3.65-5.03) M/mm3 Hgb 8.9 L 8.9 L (11.8-15.2) gm/dl Hct 25.9 L 25.9 L (35.5-45.6) % Plt Count 198 206 (140-440) K/mm3 Lymph # Flooring Helper Comprehensive Metabolic Panel 07/01/16 Range/Units 04:30 Sodium 131 L (137-145) mmol/L Potassium 3.9 (3.6-5.0) mmol/L Chloride 92.9 L (98-107) mmol/L Carbon Dioxide 24 (22-30) mmol/L BUN 14 (9-20) mg/dL Creatinine 0.8 (0.8-1.5) mg/dL Glucose 98 (75-100) mg/dL Calcium 7.7 L (8.4-10.2) mg/dL - Imaging and Cardiology EKG: image reviewed Echo: report reviewed - Telemetry EKG Rhythm: Atrial Fibrillation (changed from nsr to afib at 9:50 am) - EKG Sinus rhythms and dysrhythmias: sinus rhythm Repolarization changes or abnormalities: nonspecific abnormality, ST segment, and/or T wave
--- NOTE | 2016-07-01 11:18 | Progress Note ---
Subjective Principal diagnosis: Infected pseudoaneurysm, anemia Interval history: 06/30/2016 [facility]. Currently no lateral focal deficits. He is weak and sleepy but easily arousable. Answers questions appropriately. He has left-sided upper extremity edema. New finding of DVT on venous duplex around PICC line proximally and axillary vein. His vital signs: Afebrile, blood pressure maintained around 160 most of the time. We'll have extensive family discussion with indications and contraindications of anticoagulation. Patient was guaiac-positive. However he has some thrombus at the previous surgery site and new finding of DVT. He's probably hypercoagulable due to his questionable lung mass with undiagnosed cancer. Family was explained indications and contraindications of anticoagulation and they agreed to try to resume low-dose heparin protocol monitor his H&H closely. 07/01/2016 Patient seen at bedside. Currently lethargic. He is afebrile, has new onset A. fib probably due to fluid overload. O2 sat stable at low 90s. One dose of diuretics given by pulmonary. She responded well. IV fluids stopped. His BNP is involved 12,000. He is tolerating heparin drip so far. His hemoglobin staying stable 3. Speech therapy did not clear him for by mouth intake. We'll hold Seroquel. Femoral is updated, some bedside. Plan to continue heparin drip for now, monitor CBCs, follow-up pulmonary and cardiology. Speech therapy will reassess. Objective - Constitutional Vitals: Vital Signs - 12hr 07/01/16 07/01/16 07/01/16 00:17 04:00 04:54 Temperature 98.9 F 98.6 F Pulse Rate 78 Pulse Rate [ Anterior Bilateral Throughout] Pulse Rate [ 77 76 Right Dorsalis Pedis] Respiratory 18 20 Rate Respiratory Rate [Anterior Bilateral Throughout] Blood Pressure 139/68 149/68 [Left Calf] O2 Sat by Pulse 94 94 Oximetry 07/01/16 07/01/16 07/01/16 07:30 08:03 08:04 Temperature 98.2 F Pulse Rate Pulse Rate [ 74 Anterior Bilateral Throughout] Pulse Rate [ 81 Right Dorsalis Pedis] Respiratory 18 Rate Respiratory 22 Rate [Anterior Bilateral Throughout] Blood Pressure 146/67 [Left Calf] O2 Sat by Pulse 93 92 Oximetry 07/01/16 08:15 Temperature Pulse Rate Pulse Rate [ 84 Anterior Bilateral Throughout] Pulse Rate [ Right Dorsalis Pedis] Respiratory Rate Respiratory 22 Rate [Anterior Bilateral Throughout] Blood Pressure [Left Calf] O2 Sat by Pulse Oximetry - Labs CBC & Chem 7: 07/01/16 04:30 07/01/16 04:30 Labs: Abnormal lab results 06/30/16 06/30/16 07/01/16 Range/Units 18:00 18:46 04:30 WBC 13.5 H 13.1 H (4.5-11.0) K/mm3 RBC 2.77 L 2.80 L (3.65-5.03) M/mm3 Hgb 8.9 L 8.9 L (11.8-15.2) gm/dl Hct 25.9 L 25.9 L (35.5-45.6) % RDW 15.7 H (13.2-15.2) % Seg Neuts % (Manual) 74.0 H (40.0-70.0) % Seg Neutrophils # Man 9.7 H (1.8-7.7) K/mm3 Heparin Anti-Xa Level < 0.10 L (0.3-0.7) U.I./ml Sodium (137-145) mmol/L Chloride (98-107) mmol/L Calcium (8.4-10.2) mg/dL NT-Pro-B Natriuret Pep (0-900) pg/mL 07/01/16 07/01/16 07/01/16 Range/Units 04:30 04:30 08:00 WBC (4.5-11.0) K/mm3 RBC (3.65-5.03) M/mm3 Hgb (11.8-15.2) gm/dl Hct (35.5-45.6) % RDW (13.2-15.2) % Seg Neuts % (Manual) (40.0-70.0) % Seg Neutrophils # Man (1.8-7.7) K/mm3 Heparin Anti-Xa Level 0.20 L (0.3-0.7) U.I./ml Sodium 131 L (137-145) mmol/L Chloride 92.9 L (98-107) mmol/L Calcium 7.7 L (8.4-10.2) mg/dL NT-Pro-B Natriuret Pep 04384 H (0-900) pg/mL
[2016-07-01] MEDS ORDERED: LASIX IV ONE (11:19)
[2016-07-01] MEDS: LOPRESSOR IV SCH ×2 (13:17→18:05)
[2016-07-01] MEDS: APRESOLINE IV SCH ×2 (13:17→14:11)
[2016-07-01] MEDS: K-DUR PO SCH (13:18)
[2016-07-01] MEDS: PLAVIX PO SCH (13:18)
[2016-07-01] MEDS: IMDUR PO SCH (13:19)
[2016-07-01] MEDS: HALFPRIN EC PO SCH (13:19)
[2016-07-01] MEDS ORDERED: APRESOLINE IV PRN (14:14)
[2016-07-01] MEDS: VANCOMYCIN VIAL 1,250 MG in NACL 0.9% 250ML 250 ML IV SCH (16:20)
--- NOTE | 2016-07-01 18:40 | Progress Note ---
Assessment and Plan Imp: 1. RUL lung mass 2. Bilateral pleural effusions, suspect volume overload 3. s/p Infected carotid pseudoaneurysm repair 4. COPD 5. CAD 6. Acute CVA 06/17/2016; ? new CVA on 06/29/16 Rec: 1. Repeat Lasix 2. NPO until mental status improved; ST following 3. Need neurology f/u 4. Hold off on RUL mass biopsy; not stable for this currently Plan of care reviewed w/ patient/son, they understand/agree Subjective Date of service: 07/01/16 Principal diagnosis: Infected pseudoaneurysm, anemia Interval history: No events. Mental status is worse. Somnolent. + SOB. Unable to give history. Active Medications Acetaminophen (Tylenol) 650 mg PO Q4H PRN PRN Reason: Pain MILD(1-3)/Fever >100.5/LIN Last Admin: 06/28/16 23:45 Dose: 650 mg Al Hydrox/Mg Hydrox/Simethicone (Alum-Mag Hydrox-Simeth [phone]/5ml) 30 ml PO Q4H PRN PRN Reason: Indigestion Last Admin: 06/26/16 20:56 Dose: 30 ml Albuterol (Proventil) 2.5 mg IH Q4HRT PRN PRN Reason: Shortness Of Breath Albuterol/Ipratropium (Duoneb 0.5 Mg-3 Mg/3 Ml Soln) 1 ampul IH TIDRT [facility] Last Admin: 07/01/16 14:35 Dose: 1 ampul Amlodipine Besylate (Norvasc) 10 mg PO DAILY [facility] Last Admin: 07/01/16 10:14 Dose: 10 mg Aspirin (Halfprin Ec) 81 mg PO QDAY [facility] Last Admin: 07/01/16 13:19 Dose: Not Given Atorvastatin Calcium (Lipitor) 40 mg PO QHS [facility] Last Admin: 07/01/16 00:23 Dose: Not Given Bisacodyl (Dulcolax) 10 mg PA QDAY PRN PRN Reason: Constipation unrelieved by MOM Clopidogrel Bisulfate (Plavix) 75 mg PO QDAY [facility] Last Admin: 07/01/16 13:18 Dose: Not Given Docusate Sodium (Colace) 100 mg PO BID [facility] Last Admin: 07/01/16 13:19 Dose: Not Given Haloperidol Lactate (Haldol) 5 mg IV Q6H PRN PRN Reason: Agitation Hydralazine HCl (Apresoline) 25 mg PO Q8HR [facility] Last Admin: 07/01/16 14:11 Dose: Not Given Hydralazine HCl (Apresoline) 20 mg IV Q4HR PRN PRN Reason: Hypertension Heparin Sodium/Sodium Chloride (Heparin/ 0.45% Nacl-25,000 Unit/500 Ml) 500 mls @ 23 mls/hr IV TITR DOMINGUEZ; 1,150 UNITS/HR PRN Reason: Protocol Last Admin: 07/01/16 10:13 Dose: 24 mls/hr Vancomycin HCl 1,250 mg/ (Sodium Chloride) 250 mls @ 166.667 mls/hr IV Q24H [facility] Last Admin: 07/01/16 16:20 Dose: 166.667 mls/hr Isosorbide Mononitrate (Imdur) 60 mg PO QDAY [facility] Last Admin: 07/01/16 13:19 Dose: Not Given Magnesium Hydroxide (Milk Of Magnesia) 30 ml PO Q4H PRN PRN Reason: Constipation Last Admin: 06/26/16 22:58 Dose: 30 ml Metoprolol Tartrate (Lopressor) 50 mg PO BID [facility] Metoprolol Tartrate (Lopressor) 5 mg IV Q6HR [facility] Last Admin: 07/01/16 18:05 Dose: 5 mg Naloxone HCl (Narcan 0.4 Mg/1 Ml) 0.1 mg IV Q2MIN PRN PRN Reason: Res Rate </= 8 or 02 SAT < 92% Nitroglycerin (Nitrostat) 0.4 mg SL .Q5MIN PRN PRN Reason: Chest Pain Last Admin: 06/26/16 20:18 Dose: 0.4 mg Ondansetron HCl (Zofran) 4 mg IV Q8H PRN PRN Reason: N/V unrelieved by Reglan Pantoprazole Sodium (Protonix) 40 mg PO BID [facility] Last Admin: 07/01/16 13:18 Dose: Not Given Potassium Chloride (K-Dur) 20 meq PO QDAY [facility] Last Admin: 07/01/16 13:18 Dose: Not Given Sodium Chloride (Sodium Chloride Flush Syringe 10 Ml) 10 ml IV PRN PRN PRN Reason: LINE FLUSH Objective Vital Signs - 12hr 07/01/16 07/01/16 07/01/16 07:30 08:03 08:04 Temperature 98.2 F Pulse Rate [ 74 Anterior Bilateral Throughout] Pulse Rate [ 81 Right Dorsalis Pedis] Respiratory 18 Rate Respiratory 22 Rate [Anterior Bilateral Throughout] Blood Pressure 146/67 [Left Calf] O2 Sat by Pulse 93 92 Oximetry 07/01/16 07/01/16 07/01/16 08:15 12:00 14:35 Temperature 98.2 F Pulse Rate [ 84 82 Anterior Bilateral Throughout] Pulse Rate [ 81 Right Dorsalis Pedis] Respiratory 18 Rate Respiratory 22 20 Rate [Anterior Bilateral Throughout] Blood Pressure 146/67 [Left Calf] O2 Sat by Pulse 93 Oximetry 07/01/16 07/01/16 14:50 17:51 Temperature 98.6 F Pulse Rate [ 89 Anterior Bilateral Throughout] Pulse Rate [ 79 Right Dorsalis Pedis] Respiratory 18 Rate Respiratory 20 Rate [Anterior Bilateral Throughout] Blood Pressure 121/72 [Left Calf] O2 Sat by Pulse 92 Oximetry Constitutional: no acute distress, asleep ENT: oropharynx moist, other (Mallampati 4) Neck: supple, other (right endarterectomy scar) Effort: normal Ascultation: Bilateral: rhonchi (upper airway) Cardiovascular: regular rate and rhythm (no mrg) Gastrointestinal: normoactive bowel sounds, soft, non-tender, non-distended Integumentary: normal Extremities: no cyanosis, no edema Neurologic: other (? L hemiplegia; moves RUE; not conversant) Psychiatric: other (unable to assess) CBC and BMP: 07/01/16 04:30 07/01/16 04:30 ABG, PT/INR, D-dimer: PT/INR, D-dimer PT 15.9 Sec. (12.2-14.9) H 06/25/16 21:19 INR 1.28 (0.87-1.13) H 06/25/16 21:19 Abnormal lab findings: Abnormal Labs 06/15/16 06/15/16 06/15/16 14:05 14:05 14:05 WBC 15.6 H RBC 3.26 L Hgb 10.0 L Hct 29.9 L MCV RDW Seg Neuts % (Manual) Lymphocytes % (Manual) Nucleated RBC % Seg Neutrophils # Man 10.6 H Lymphocytes # (Manual) Monocytes # (Manual) Eosinophils # (Manual) PT INR 1.18 H Heparin Anti-Xa Level Sodium Potassium Chloride 97.2 L BUN 23 H Glucose 120 H POC Glucose Calcium Iron TIBC Total Creatine Kinase Troponin T NT-Pro-B Natriuret Pep HDL Cholesterol Crossmatch 06/18/16 06/18/16 06/18/16 05:27 05:27 05:27 WBC 12.3 H RBC 2.81 L Hgb 8.7 L Hct 25.6 L MCV RDW Seg Neuts % (Manual) 74.0 H Lymphocytes % (Manual) Nucleated RBC % Seg Neutrophils # Man 9.1 H Lymphocytes # (Manual) Monocytes # (Manual) Eosinophils # (Manual) PT INR 1.16 H Heparin Anti-Xa Level Sodium 135 L Potassium Chloride BUN Glucose 110 H POC Glucose Calcium 8.1 L Iron TIBC Total Creatine Kinase Troponin T NT-Pro-B Natriuret Pep HDL Cholesterol Crossmatch 06/18/16 06/22/16 06/24/16 07:15 00:05 08:21 WBC RBC Hgb Hct MCV RDW Seg Neuts % (Manual) Lymphocytes % (Manual) Nucleated RBC % Seg Neutrophils # Man Lymphocytes # (Manual) Monocytes # (Manual) Eosinophils # (Manual) PT INR Heparin Anti-Xa Level Sodium Potassium Chloride BUN Glucose POC Glucose 118 H 115 H Calcium Iron TIBC Total Creatine Kinase Troponin T NT-Pro-B Natriuret Pep HDL Cholesterol Crossmatch See Detail 06/24/16 06/24/16 06/25/16 13:00 14:29 17:12 WBC 14.2 H RBC 2.29 L Hgb 7.1 L Hct 21.4 L MCV RDW Seg Neuts % (Manual) Lymphocytes % (Manual) 42.0 H Nucleated RBC % Seg Neutrophils # Man Lymphocytes # (Manual) 6.0 H Monocytes # (Manual) Eosinophils # (Manual) PT INR Heparin Anti-Xa Level Sodium Potassium Chloride BUN Glucose POC Glucose 145 H Calcium Iron TIBC Total Creatine Kinase Troponin T NT-Pro-B Natriuret Pep HDL Cholesterol Crossmatch See Detail 06/25/16 06/25/16 06/25/16 21:19 21:19 Unknown WBC 16.9 H RBC 2.44 L Hgb 8.9 L 7.5 L Hct 26.7 L 23.1 L MCV 95 H RDW Seg Neuts % (Manual) Lymphocytes % (Manual) 41 H Nucleated RBC % Seg Neutrophils # Man 10.1 H Lymphocytes # (Manual) Monocytes # (Manual) 1.2 H Eosinophils # (Manual) PT 15.9 H INR 1.28 H Heparin Anti-Xa Level Sodium Potassium Chloride BUN Glucose POC Glucose Calcium Iron TIBC Total Creatine Kinase Troponin T NT-Pro-B Natriuret Pep HDL Cholesterol Crossmatch 06/26/16 06/26/16 06/26/16 05:27 05:27 05:27 WBC 16.1 H RBC 2.85 L Hgb 9.0 L Hct 26.9 L MCV 95 H RDW Seg Neuts % (Manual) Lymphocytes % (Manual) Nucleated RBC % Seg Neutrophils # Man 11.3 H Lymphocytes # (Manual) Monocytes # (Manual) Eosinophils # (Manual) 0.5 H PT INR Heparin Anti-Xa Level 0.18 L Sodium 134 L Potassium 2.9 L* Chloride BUN Glucose 110 H POC Glucose Calcium 7.4 L Iron TIBC Total Creatine Kinase Troponin T NT-Pro-B Natriuret Pep HDL Cholesterol Crossmatch 06/26/16 06/26/16 06/27/16 14:41 21:19 05:13 WBC RBC Hgb Hct MCV RDW Seg Neuts % (Manual) Lymphocytes % (Manual) Nucleated RBC % Seg Neutrophils # Man Lymphocytes # (Manual) Monocytes # (Manual) Eosinophils # (Manual) PT INR Heparin Anti-Xa Level Sodium Potassium 3.1 L Chloride BUN Glucose POC Glucose Calcium Iron TIBC Total Creatine Kinase 54 L Troponin T 0.174 H* NT-Pro-B Natriuret Pep HDL Cholesterol 33 L Crossmatch 06/27/16 06/27/16 06/27/16 05:13 05:13 23:00 WBC RBC Hgb 8.6 L Hct 25.5 L MCV RDW Seg Neuts % (Manual) Lymphocytes % (Manual) Nucleated RBC % Seg Neutrophils # Man Lymphocytes # (Manual) Monocytes # (Manual) Eosinophils # (Manual) PT INR Heparin Anti-Xa Level 0.15 L Sodium Potassium 3.1 L Chloride BUN Glucose 118 H POC Glucose Calcium 7.2 L Iron TIBC Total Creatine Kinase Troponin T NT-Pro-B Natriuret Pep HDL Cholesterol Crossmatch 06/28/16 06/28/16 06/28/16 06:46 06:46 11:50 WBC 14.7 H RBC 2.40 L Hgb 7.4 L Hct 22.8 L MCV 95 H RDW 15.6 H Seg Neuts % (Manual) Lymphocytes % (Manual) 54.0 H Nucleated RBC % 1.0 H Seg Neutrophils # Man Lymphocytes # (Manual) 7.9 H Monocytes # (Manual) Eosinophils # (Manual) PT INR Heparin Anti-Xa Level Sodium 135 L Potassium Chloride BUN 21 H Glucose 114 H POC Glucose Calcium 7.1 L Iron TIBC Total Creatine Kinase Troponin T NT-Pro-B Natriuret Pep HDL Cholesterol Crossmatch See Detail 06/28/16 06/28/16 06/29/16 Unknown Unknown 05:06 WBC RBC Hgb 8.8 L Hct 26.1 L MCV RDW Seg Neuts % (Manual) Lymphocytes % (Manual) Nucleated RBC % Seg Neutrophils # Man Lymphocytes # (Manual) Monocytes # (Manual) Eosinophils # (Manual) PT INR Heparin Anti-Xa Level < 0.10 L Sodium Potassium Chloride BUN Glucose POC Glucose Calcium Iron 13 L TIBC 152 L Total Creatine Kinase Troponin T NT-Pro-B Natriuret Pep HDL Cholesterol Crossmatch 06/30/16 06/30/16 07/01/16 18:00 18:46 04:30 WBC 13.5 H 13.1 H RBC 2.77 L 2.80 L Hgb 8.9 L 8.9 L Hct 25.9 L 25.9 L MCV RDW 15.7 H Seg Neuts % (Manual) 74.0 H Lymphocytes % (Manual) Nucleated RBC % Seg Neutrophils # Man 9.7 H Lymphocytes # (Manual) Monocytes # (Manual) Eosinophils # (Manual) PT INR Heparin Anti-Xa Level < 0.10 L Sodium Potassium Chloride BUN Glucose POC Glucose Calcium Iron TIBC Total Creatine Kinase Troponin T NT-Pro-B Natriuret Pep HDL Cholesterol Crossmatch 07/01/16 07/01/16 07/01/16 04:30 04:30 08:00 WBC RBC Hgb Hct MCV RDW Seg Neuts % (Manual) Lymphocytes % (Manual) Nucleated RBC % Seg Neutrophils # Man Lymphocytes # (Manual) Monocytes # (Manual) Eosinophils # (Manual) PT INR Heparin Anti-Xa Level 0.20 L Sodium 131 L Potassium Chloride 92.9 L BUN Glucose POC Glucose Calcium 7.7 L Iron TIBC Total Creatine Kinase Troponin T NT-Pro-B Natriuret Pep 52244 H HDL Cholesterol Crossmatch Chest x-ray: report reviewed, image reviewed CT scan - chest: report reviewed, image reviewed
--- NOTE | 2016-07-01 19:00 | Progress Note ---
Assessment and Plan Current antibiotics: Vancomycin (pulse dosed) IV 06/22 --> Previous Antibiotics: Unasyn 1.5 grams IV q6h 06/19-06/22 Levaquin 500mg po q24h 06/17-06/19 ASSESSMENT: Shyam Stephen is an 86 year old man with CAD, CABG, s/p blilateral endarterectomy in 2014 and 2015 who was admitted to [facility] on 06/16/16 with a right neck pulsatile mass that was found to be pseudoaneurysm complicated by micro-emboli to the brain. Patient became confused overnight. Infectious disease consult was called to assess due to intraoperative suspicion of infection. Problems list: 1. 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 -Surgical cultures growing scant [employer] (significance unclear although it certainly could be a pathogen. -AFB smear negative of pseudoaneurysm tissue 2. Low grade fever -Resolved 3. 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 -Status post repair of right carotid artery pseudoaneurysm with left greater saphenous vein patch 06/18/16 -Pathology showed moderate mixed inflammation and organized thrombus. 4. Leukocytosis -Likley multifactorial -? Trending downward again 4. CAD -Status post CABG 5. 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 Transient loss of consciousness and left sided weakness -Rule out seizure -06/29 repeat head CTA shows right basal ganglion ischemia 7. Pulmonary masses -Suggested on both neck CTA -Rule out neoplastic process 8. LUE DVT PLAN: 1. Course of IV vancomycin X 4 weeks as per previous notes 2. With all that is going on would consider LTAC placement to complete IV antibiotics. Do not feel that he is a good candidate for home IV antibiotics 3. Pulmonary consult reviewed and appreciated 4. Prognosis seems poor at this point Dav Herrera MD [facility] Office: [phone] Subjective Date of service: 07/01/16 Principal diagnosis: Infected pseudoaneurysm, anemia Interval history: Remains very lethargic & still confused when aroused. Objective - Exam Narrative Exam: GENERAL: Well-developed, well-nourished appearing male who is very lethargic but in no acute distress. Confused when aroused. HEAD: Normocephalic. No lesions seen. EYES: Pupils are equal reactive to light and accommodation. There is no scleral icterus. Optic fundi are not examined. EARS: Normal external male. THROAT: Oropharynx is normal with no evidence of oral candidiasis or pharyngitis. NECK: Supple. No enlargement of the thyroid gland. No significant cervical lymphadenopathy. No jugular venous distention at 30. Right neck surgical wound healing with no signs of infection LUNGS: Clear with no adventitious sounds. HEART: Regular rate. S1 and S2 are normal. There are no murmurs, gallops, clicks or rubs heard. ABDOMEN: Soft and nontender. Liver and spleen are not palpably enlarged or tender. No palpable masses. Bowel sounds are normoactive. EXTREMITIES: No rash, peripheral lymphadenopathy or clubbing. LUE edema. Groin wound healing with no signs of infection : Not examined NEUROLOGIC: No focal findings at present. - Constitutional Vitals: Vital Signs Temp Pulse Resp BP Pulse Ox 98.6 F 79 18 121/72 92 07/01/16 17:51 07/01/16 17:51 07/01/16 17:51 07/01/16 17:51 07/01/16 17:51 Temperature -Last 24 Hours Temperature 98.6 F Temperature 98.2 F Temperature 98.2 F Temperature 98.6 F Temperature 98.9 F Temperature 100 F - Labs CBC & Chem 7: 07/01/16 04:30 07/01/16 04:30 Labs: Abnormal lab results Microbiology 06/24/16 Unknown Peripheral/Venous Blood Culture - Preliminary NO GROWTH AFTER 24 HOURS 06/24/16 14:29 Peripheral/Venous Blood Culture - Preliminary Culture in Progress 06/19/16 13:43 Peripheral/Venous Blood Culture - Final NO GROWTH AFTER 5 DAYS 06/19/16 14:01 Peripheral/Venous Blood Culture - Final NO GROWTH AFTER 5 DAYS 06/18/16 Unknown Other (Please Specify:) - Other Surgical Biopsy Culture - Final Staphylococcus Epidermidis 06/19/16 Unknown Neck AFB Smear Concentration - Negative 06/29: CTA head: Right basal ganglion ischemis 06/29 LUE doppler: + DVT around ther PICC
[2016-07-02] MEDS: LOPRESSOR IV SCH ×4 (01:06→19:24)
[2016-07-02 03:37] LABS: Hematocrit 29.1 % (35.5-45.6); Hemoglobin 9.7 gm/dl (11.8-15.2); Mean Corpuscular HGB Conc 33 % (32-34); Mean Corpuscular Hemoglobin 31 pg (28-32); Mean Corpuscular Volume 93 fl (84-94); Platelet Count 263 K/mm3 (140-440); Red Blood Count 3.14 M/mm3 (3.65-5.03); Red Cell Distribution Width 15.1 % (13.2-15.2); White Blood Count 15.1 K/mm3 (4.5-11.0)
[2016-07-02 04:05] LABS: Alanine Aminotransferase 19 units/L (7-56); Albumin 2.8 g/dL (3.9-5); Alkaline Phosphatase 62 units/L (35-129); BUN/Creatinine Ratio 21.11; Bilirubin,Total 0.5 mg/dL (0.1-1.2); Blood Urea Nitrogen 19 mg/dL (9-20); Carbon Dioxide 25 mmol/L (22-30); Chloride 90.5 mmol/L (98-107); Glucose 106 mg/dL (75-100); Sodium 130 mmol/L (137-145); Total Protein 5.6 g/dL (6.3-8.2)
[2016-07-02 04:11] LABS: Anion Gap 19 mmol/L
[2016-07-02 06:06] LABS: Basophils % (Manual) 0 % (0.0-1.8); Blastocytes % (Manual) 0 %
[2016-07-02 06:07] LABS: Anisocytosis 1+; Diff Status Complete; Hypochromasia Few; Large Platelets Rare; Polychromasia Few; Smudge Cells 1+
[2016-07-02] MEDS: APRESOLINE PO SCH ×2 (06:16→15:31)
[2016-07-02] MEDS: DUONEB 0.5 MG-3 MG/3 ML SOLN IH SCH ×3 (07:48→20:13)
--- NOTE | 2016-07-02 07:50 | Vascular Lab Report ---
LEFT UPPER EXTREMITY VENOUS DUPLEX: REASON FOR EXAM: Swelling COMMENTS ON THE LEFT: Deep venous thrombosis is noted in the brachial vein extending into the axillary vein. Superficial phlebitis noted in the distal cephalic and proximal basilic veins.. The remaining veins visualized are freely compressible without evidence of internal echogenicity. Spontaneous and phasic flow is present proximally. COMMENTS ON THE RIGHT: The subclavian and internal jugular veins are free of thrombus. IMPRESSION: Deep and superficial thrombophlebitis in the left upper extremity
--- NOTE | 2016-07-02 10:11 | Progress Note ---
Assessment and Plan - Patient Problems (1) Pseudoaneurysm of carotid artery Current Visit: Yes Status: Acute Plan to address problem: Patient has possible right pseudoaneurysm complicated by microemboli to the brain. Patient had a patch angioplasty of the right carotid artery. AFB smear negative of pseudoaneurysm tissue. Continue IV antibiotics 4 weeks per infectious disease. We'll consider LTAC placement to complete IV antibiotics. . (2) Mass of upper lobe of right lung Current Visit: Yes Status: Acute Plan to address problem: Patient has a right upper lobe mass for which biopsy has been suggested. We will wait for patient to be more clinically stable prior to doing any intervention. Family was informed and agrees with the treatment plan. Pulmonary consult reviewed and appreciated . (3) Guaiac positive stools Current Visit: Yes Status: Acute Plan to address problem: Patient had guaiac positive stools. GI feels that this is a chronic process. GI was consulted and suggested that no endoscopic procedures will be scheduled unless patient had signs of overt GI bleeding continue to follow CBC . (4) Atrial fibrillation Current Visit: Yes Status: Acute Plan to address problem: Atrial fibrillation was diagnosed cardiology recommended continuing beta blockers and IV heparin (5) DVT (deep venous thrombosis) Current Visit: Yes Status: Acute Qualifiers: DVT location: upper extremity Plan to address problem: DVT was found and upper extremity and patient was started on low-dose heparin. Vascular surgery on the case and made recommendations History Interval history: Patient lying in bed sleepy but arousable. Daughter is at bedside Hospitalist Physical - Constitutional Vitals: Temp Pulse Resp BP Pulse Ox 98.3 F 82 18 136/86 90 07/02/16 06:50 07/02/16 07:49 07/02/16 07:49 07/02/16 06:50 07/02/16 07:50 General appearance: Present: mild distress, well-nourished - Respiratory Respiratory: bilateral: rhonchi - Cardiovascular Rhythm: irregularly irregular - Abdominal General gastrointestinal: soft, non-tender, non-distended, normal bowel sounds Results - Labs CBC & Chem 7: 07/02/16 03:10 07/02/16 03:10 Labs: Laboratory Last Values WBC 15.1 K/mm3 (4.5-11.0) H 07/02/16 03:10 RBC 3.14 M/mm3 (3.65-5.03) L 07/02/16 03:10 Hgb 9.7 gm/dl (11.8-15.2) L 07/02/16 03:10 Hct 29.1 % (35.5-45.6) L 07/02/16 03:10 MCV 93 fl (84-94) 07/02/16 03:10 MCH 31 pg (28-32) 07/02/16 03:10 MCHC 33 % (32-34) 07/02/16 03:10 RDW 15.1 % (13.2-15.2) 07/02/16 03:10 Plt Count 263 K/mm3 (140-440) 07/02/16 03:10 Lymph # Hairspring Staker 07/02/16 03:10 Add Manual Diff Complete 07/02/16 03:10 Total Counted 100 07/02/16 03:10 Seg Neuts % (Manual) 38.0 % (40.0-70.0) L 07/02/16 03:10 Band Neutrophils % 20.0 % 07/02/16 03:10 Lymphocytes % (Manual) 30.0 % (13.4-35.0) 07/02/16 03:10 Reactive Lymphs % (Man) 0 % 07/02/16 03:10 Monocytes % (Manual) 5.0 % (0.0-7.3) 07/02/16 03:10 Eosinophils % (Manual) 1.0 % (0.0-4.3) 07/02/16 03:10 Basophils % (Manual) 0 % (0.0-1.8) 07/02/16 03:10 Metamyelocytes % 6.0 % 07/02/16 03:10 Myelocytes % 0 % 07/02/16 03:10 Promyelocytes % 0 % 07/02/16 03:10 Blast Cells % 0 % 07/02/16 03:10 Nucleated RBC % Not Reportable 07/02/16 03:10 Seg Neutrophils # Man 5.7 K/mm3 (1.8-7.7) 07/02/16 03:10 Band Neutrophils # 3.0 K/mm3 07/02/16 03:10 Lymphocytes # (Manual) 4.5 K/mm3 (1.2-5.4) 07/02/16 03:10 Abs React Lymphs (Man) 0.0 K/mm3 07/02/16 03:10 Monocytes # (Manual) 0.8 K/mm3 (0.0-0.8) 07/02/16 03:10 Eosinophils # (Manual) 0.2 K/mm3 (0.0-0.4) 07/02/16 03:10 Basophils # (Manual) 0.0 K/mm3 (0.0-0.1) 07/02/16 03:10 Metamyelocytes # 0.9 K/mm3 07/02/16 03:10 Myelocytes # 0.0 K/mm3 07/02/16 03:10 Promyelocytes # 0.0 K/mm3 07/02/16 03:10 Blast Cells # 0.0 K/mm3 07/02/16 03:10 WBC Morphology Not Reportable 07/02/16 03:10 Hypersegmented Neuts Not Reportable 07/02/16 03:10 Hyposegmented Neuts Not Reportable 07/02/16 03:10 Hypogranular Neuts Not Reportable 07/02/16 03:10 Smudge Cells 1+ 07/02/16 03:10 Toxic Granulation Not Reportable 07/02/16 03:10 Toxic Vacuolation Not Reportable 07/02/16 03:10 Dohle Bodies Not Reportable 07/02/16 03:10 Pelger-Huet Anomaly Not Reportable 07/02/16 03:10 Zaki Rods Not Reportable 07/02/16 03:10 Platelet Estimate Appears normal 07/02/16 03:10 Clumped Platelets Not Reportable 07/02/16 03:10 Plt Clumps, EDTA Not Reportable 07/02/16 03:10 Large Platelets Rare 07/02/16 03:10 Giant Platelets Not Reportable 07/02/16 03:10 Platelet Satelliting Not Reportable 07/02/16 03:10 Plt Morphology Comment Not Reportable 07/02/16 03:10 RBC Morphology Not Reportable 07/02/16 03:10 Dimorphic RBCs Not Reportable 07/02/16 03:10 Polychromasia Few 07/02/16 03:10 Hypochromasia Few 07/02/16 03:10 Poikilocytosis Not Reportable 07/02/16 03:10 Anisocytosis 1+ 07/02/16 03:10 Microcytosis Not Reportable 07/02/16 03:10 Macrocytosis Not Reportable 07/02/16 03:10 Spherocytes Not Reportable 07/02/16 03:10 Pappenheimer Bodies Not Reportable 07/02/16 03:10 Sickle Cells Not Reportable 07/02/16 03:10 Target Cells Not Reportable 07/02/16 03:10 Tear Drop Cells Not Reportable 07/02/16 03:10 Ovalocytes Not Reportable 07/02/16 03:10 Helmet Cells Not Reportable 07/02/16 03:10 [place] Bodies Not Reportable 07/02/16 03:10 [place] Rings Not Reportable 07/02/16 03:10 Tamika Cells Not Reportable 07/02/16 03:10 Bite Cells Not Reportable 07/02/16 03:10 Crenated Cell Not Reportable 07/02/16 03:10 Elliptocytes Not Reportable 07/02/16 03:10 Acanthocytes (Spur) Not Reportable 07/02/16 03:10 Rouleaux Not Reportable 07/02/16 03:10 Hemoglobin C Crystals Not Reportable 07/02/16 03:10 Schistocytes Not Reportable 07/02/16 03:10 Malaria parasites Not Reportable 07/02/16 03:10 Sharif Bodies Not Reportable 07/02/16 03:10 Hem Pathologist Commnt No 07/02/16 03:10 PT 15.9 Sec. (12.2-14.9) H 06/25/16 21:19 INR 1.28 (0.87-1.13) H 06/25/16 21:19 APTT 33.5 Sec. (24.2-36.6) 06/25/16 21:19 Heparin Anti-Xa Level 0.15 U.I./ml (0.3-0.7) L 07/02/16 03:10 Sodium 130 mmol/L (137-145) L 07/02/16 03:10 Potassium 4.0 mmol/L (3.6-5.0) 07/02/16 03:10 Chloride 90.5 mmol/L (98-107) L 07/02/16 03:10 Carbon Dioxide 25 mmol/L (22-30) 07/02/16 03:10 Anion Gap 19 mmol/L 07/02/16 03:10 BUN 19 mg/dL (9-20) 07/02/16 03:10 Creatinine 0.9 mg/dL (0.8-1.5) 07/02/16 03:10 Estimated GFR > 60 ml/min 07/02/16 03:10 BUN/Creatinine Ratio 21.11 % 07/02/16 03:10 Glucose 106 mg/dL (75-100) H 07/02/16 03:10 POC Glucose 145 (70-105) H 06/25/16 17:12 Calcium 8.0 mg/dL (8.4-10.2) L 07/02/16 03:10 Magnesium 2.2 mg/dL (1.7-2.3) 06/28/16 06:46 Iron 13 ug/dL (49-181) L 06/28/16 Unknown TIBC 152 mcg/dL (250-450) L 06/28/16 Unknown Ferritin 223.9 ng/mL (13.0-400.0) 06/28/16 Unknown Total Bilirubin 0.5 mg/dL (0.1-1.2) 07/02/16 03:10 AST 21 units/L (5-40) 07/02/16 03:10 ALT 19 units/L (7-56) 07/02/16 03:10 Alkaline Phosphatase 62 units/L (35-129) 07/02/16 03:10 Total Creatine Kinase 54 units/L (55-170) L 06/27/16 05:13 CK-MB (CK-2) 1.2 ng/mL (0.0-4.0) 06/27/16 05:13 CK-MB (CK-2) Rel Index 2.2 (0-4) 06/27/16 05:13 Troponin T 0.174 ng/mL (0.00-0.029) H* 06/26/16 21:19 NT-Pro-B Natriuret Pep 24968 pg/mL (0-900) H 07/01/16 08:00 Total Protein 5.6 g/dL (6.3-8.2) L 07/02/16 03:10 Albumin 2.8 g/dL (3.9-5) L 07/02/16 03:10 Albumin/Globulin Ratio 1.0 % 07/02/16 03:10 Triglycerides 94 mg/dL (2-149) 06/26/16 21:19 Cholesterol 112 mg/dL (50-199) 06/26/16 21:19 LDL Cholesterol Direct 61 mg/dL (50-130) 06/26/16 21:19 HDL Cholesterol 33 mg/dL (40-59) L 06/26/16 21:19 Cholesterol/HDL Ratio 3.39 % 06/26/16 21:19 Urine Color Yellow (Yellow) 06/24/16 17:14 Urine Turbidity Clear (Clear) 06/24/16 17:14 Urine pH 5.0 (5.0-7.0) 06/24/16 17:14 Ur Specific [employer] 1.021 (1.003-1.030) 06/24/16 17:14 Urine Protein <15 mg/dl mg/dL (Negative) 06/24/16 17:14 Urine Glucose (UA) Neg mg/dL (Negative) 06/24/16 17:14 Urine Ketones Neg mg/dL (Negative) 06/24/16 17:14 Urine Blood Sm (Negative) 06/24/16 17:14 Urine Nitrite Neg (Negative) 06/24/16 17:14 Urine Bilirubin Neg (Negative) 06/24/16 17:14 Urine Urobilinogen < 2.0 mg/dL (<2.0) 06/24/16 17:14 Ur Leukocyte Esterase Neg (Negative) 06/24/16 17:14 Urine WBC (Auto) 0.0 /HPF (0.0-6.0) 06/24/16 17:14 Urine RBC (Auto) 1.0 /HPF (0.0-6.0) 06/24/16 17:14 U Epithel Cells (Auto) < 1.0 /HPF (0-13.0) 06/24/16 17:14 Uric Acid Crystals 1+ 06/24/16 17:14 Urine Mucus Few /HPF 06/24/16 17:14 Vancomycin Trough 7.5 ug/mL (5.0-20.0) 06/27/16 14:00 RPR Nonreactive (Nonreactive) 06/19/16 13:43 Blood Type O POSITIVE 06/28/16 11:50 Antibody Screen Negative 06/28/16 11:50 Crossmatch See Detail 06/28/16 11:50
--- NOTE | 2016-07-02 10:24 | Progress Note ---
Assessment and Plan Current antibiotics: Vancomycin (pulse dosed) IV 06/22 --> Previous Antibiotics: Unasyn 1.5 grams IV q6h 06/19-06/22 Levaquin 500mg po q24h 06/17-06/19 ASSESSMENT: Shyam Stephen is an 86 year old man with CAD, CABG, s/p blilateral endarterectomy in 2014 and 2015 who was admitted to [facility] on 06/16/16 with a right neck pulsatile mass that was found to be pseudoaneurysm complicated by micro-emboli to the brain. Patient became confused overnight. Infectious disease consult was called to assess due to intraoperative suspicion of infection. Problems list: 1. 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 -Surgical cultures growing scant [employer] (significance unclear although it certainly could be a pathogen. -AFB smear negative of pseudoaneurysm tissue 2. Low grade fever -Resolved 3. 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 -Status post repair of right carotid artery pseudoaneurysm with left greater saphenous vein patch 06/18/16 -Pathology showed moderate mixed inflammation and organized thrombus. 4. Leukocytosis -Likley multifactorial -? Trending downward again 4. CAD -Status post CABG 5. 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 Transient loss of consciousness and left sided weakness -Rule out seizure -06/29 repeat head CTA shows right basal ganglion ischemia 7. Pulmonary masses -Suggested on both neck CTA -Rule out neoplastic process 8. LUE DVT PLAN: 1. Course of IV vancomycin X 4 weeks as per previous notes 2. Await further decisions regarding disposition. Subjective Date of service: 07/02/16 Principal diagnosis: Infected pseudoaneurysm, anemia Interval history: Patient unarousable this morning. Discussed poor prognosis with the patient's daughter. Objective - Exam Narrative Exam: Well-developed well-nourished appearing. HEENT: Pupils are equal reactive to light and accommodation. Conjunctiva clear. Oropharynx is normal with no evidence of oral candidiasis or pharyngitis. NECK: Supple. No enlargement of the thyroid gland. No significant cervical lymphadenopathy. No jugular venous distention at 30. Right neck wound site clean. LUNGS: Upper airway noise. HEART: Regular rate. S1 and S2 are normal. There are no murmurs, gallops, clicks or rubs heard. ABDOMEN: Soft and nontender. Liver and spleen are not palpably enlarged or tender. No palpable masses. Bowel sounds are normoactive. EXTREMITIES: No rash, peripheral lymphadenopathy, clubbing or edema. SKIN: No other rash, ulcers or wounds. Right neck wound healed. NEUROLOGIC: Unarousable. - Constitutional Vitals: Vital Signs Temp Pulse Resp BP Pulse Ox 98.3 F 82 18 136/86 90 07/02/16 06:50 07/02/16 07:49 07/02/16 07:49 07/02/16 06:50 07/02/16 07:50 Temperature -Last 24 Hours Temperature 98.3 F Temperature 98.5 F Temperature 98.7 F Temperature 98.6 F Temperature 98.2 F - Labs CBC & Chem 7: 07/02/16 03:10 07/02/16 03:10 Labs: Abnormal lab results 07/02/16 07/02/16 07/02/16 Range/Units 03:10 03:10 03:10 WBC 15.1 H (4.5-11.0) K/mm3 RBC 3.14 L (3.65-5.03) M/mm3 Hgb 9.7 L (11.8-15.2) gm/dl Hct 29.1 L (35.5-45.6) % Seg Neuts % (Manual) 38.0 L (40.0-70.0) % Heparin Anti-Xa Level 0.15 L (0.3-0.7) U.I./ml Sodium 130 L (137-145) mmol/L Chloride 90.5 L (98-107) mmol/L Glucose 106 H (75-100) mg/dL Calcium 8.0 L (8.4-10.2) mg/dL Total Protein 5.6 L (6.3-8.2) g/dL Albumin 2.8 L (3.9-5) g/dL
--- NOTE | 2016-07-02 11:40 | Progress Note ---
Assessment and Plan Hypertension-->stable continue IV lopressor and IV hydralazine as pt. is NPO Paroxysmal afib-->currently SR continue IV lopressor Suspected infected pseudoaneurysm s/p patch angioplasty of the right carotid artery per vascular, infectious disease Coronary artery disease, stable s/p CABG/PCI continue ASA, Plavix, statin CVA-> possible subarachnoid hemorrhage Acute left upper extremity DVT continue heparin gtt, per vascular Anemia requiring transfusions hgb stable today GI following CKD COPD Hyperlipidemia Continue current management and supportive care. The patient has been seen in conjunction with Dr. Smith who agrees with the assessment and plan of care. Subjective Date of service: 07/02/16 Principal diagnosis: Infected pseudoaneurysm, anemia Interval history: The patient is resting in bed. He is lethargic. Sinus rhythm on the monitor. Objective Last Vital Signs Temp 98.3 F 07/02/16 06:50 Pulse 82 07/02/16 07:49 Resp 18 07/02/16 07:49 BP 136/86 07/02/16 06:50 Pulse Ox 90 07/02/16 07:50 - Physical Examination General: No Apparent Distress (lethargic) HEENT: Positive: Normocephaly, Mucus Membranes Moist Neck: Positive: neck supple, trachea midline Cardiac: Positive: Reg Rate and Rhythm, S1/S2 Lungs: Positive: Decreased Breath Sounds Neuro: Positive: Other (left arm weakness) Abdomen: Positive: Soft, Active Bowel Sounds. Negative: Tender Skin: Negative: Rash Extremities: Present: normal, edema, +1 Edema (left arm) - Labs and Meds Cardiac Enzymes 07/02/16 Range/Units 03:10 AST 21 (5-40) units/L CBC 07/02/16 Range/Units 03:10 WBC 15.1 H (4.5-11.0) K/mm3 RBC 3.14 L (3.65-5.03) M/mm3 Hgb 9.7 L (11.8-15.2) gm/dl Hct 29.1 L (35.5-45.6) % Plt Count 263 (140-440) K/mm3 Lymph # Hospice Care Transitions Coordinator Comprehensive Metabolic Panel 07/02/16 Range/Units 03:10 Sodium 130 L (137-145) mmol/L Potassium 4.0 (3.6-5.0) mmol/L Chloride 90.5 L (98-107) mmol/L Carbon Dioxide 25 (22-30) mmol/L BUN 19 (9-20) mg/dL Creatinine 0.9 (0.8-1.5) mg/dL Glucose 106 H (75-100) mg/dL Calcium 8.0 L (8.4-10.2) mg/dL AST 21 (5-40) units/L ALT 19 (7-56) units/L Alkaline Phosphatase 62 (35-129) units/L Total Protein 5.6 L (6.3-8.2) g/dL Albumin 2.8 L (3.9-5) g/dL - Imaging and Cardiology EKG: image reviewed Echo: report reviewed - Telemetry EKG Rhythm: Sinus Rhythm - EKG Sinus rhythms and dysrhythmias: sinus rhythm Repolarization changes or abnormalities: nonspecific abnormality, ST segment, and/or T wave
--- NOTE | 2016-07-02 12:41 | Progress Note ---
Assessment and Plan At a long discussion with the patient's daughter, and son (by telephone). He's been somnolent all weekend. His son stated he has not spoke in a couple of days. He continues to tolerate anticoagulation. Supportive care by medical consultants. Patient is presently nothing by mouth due to concerns of aspiration. Given patient's somnolence he has been unable to eat. Could consider Dobbhoff tube placement for tube feeds, if felt to be beneficial by the other services. I discussed AND/DO NOT RESUSCITATE with the patient's family. Given his present condition, and desire not to be placed on life-support, I recommended that he consider this option. If they agree, then they can notify the nursing staff. - Patient Problems (1) Pseudoaneurysm of carotid artery Current Visit: Yes Status: Acute (2) Carotid stenosis Current Visit: No Status: Chronic Qualifiers: Laterality: right Qualified Code(s): I65.21 - Occlusion and stenosis of right carotid artery (3) Altered mental status Current Visit: Yes Status: Acute (4) Subarachnoid hemorrhage Current Visit: Yes Status: Acute Subjective Date of service: 07/02/16 Principal diagnosis: Infected pseudoaneurysm, anemia Interval history: Patient is sleeping. He does not awaken to verbal or mechanical stimulus. Objective - Constitutional Vitals: Vital Signs - 12hr 07/02/16 07/02/16 07/02/16 01:06 01:16 06:13 Temperature 98.5 F Pulse Rate 83 79 Pulse Rate [ Anterior Bilateral Throughout] Pulse Rate [ 83 Left Radial] Pulse Rate [ Right Dorsalis Pedis] Respiratory 21 Rate Respiratory Rate [Anterior Bilateral Throughout] Blood Pressure 152/67 136/86 Blood Pressure 152/67 [Left Calf] O2 Sat by Pulse 91 Oximetry 07/02/16 07/02/16 07/02/16 06:50 07:49 07:50 Temperature 98.3 F Pulse Rate Pulse Rate [ 82 Anterior Bilateral Throughout] Pulse Rate [ 79 Left Radial] Pulse Rate [ Right Dorsalis Pedis] Respiratory 20 Rate Respiratory 18 Rate [Anterior Bilateral Throughout] Blood Pressure Blood Pressure 136/86 [Left Calf] O2 Sat by Pulse 94 90 Oximetry 07/02/16 12:03 Temperature 98.4 F Pulse Rate Pulse Rate [ Anterior Bilateral Throughout] Pulse Rate [ Left Radial] Pulse Rate [ 78 Right Dorsalis Pedis] Respiratory 22 Rate Respiratory Rate [Anterior Bilateral Throughout] Blood Pressure Blood Pressure 155/67 [Left Calf] O2 Sat by Pulse 90 Oximetry General appearance: Present: no acute distress - Respiratory Respiratory effort: labored (slightly labored with supplemental oxygen by nasal cannula) Extremities: normal temperature Extremity abnormal: edema (left upper extremity) - Psychiatric Psychiatric: no appropriate mood/affect (obtunded and does not arouse to gentle stimulus), no intact judgment & insight, no cooperative - Labs CBC & Chem 7: 07/02/16 03:10 07/02/16 03:10 Labs: Abnormal lab results 07/02/16 07/02/16 07/02/16 Range/Units 03:10 03:10 03:10 WBC 15.1 H (4.5-11.0) K/mm3 RBC 3.14 L (3.65-5.03) M/mm3 Hgb 9.7 L (11.8-15.2) gm/dl Hct 29.1 L (35.5-45.6) % Seg Neuts % (Manual) 38.0 L (40.0-70.0) % Heparin Anti-Xa Level 0.15 L (0.3-0.7) U.I./ml Sodium 130 L (137-145) mmol/L Chloride 90.5 L (98-107) mmol/L Glucose 106 H (75-100) mg/dL Calcium 8.0 L (8.4-10.2) mg/dL Total Protein 5.6 L (6.3-8.2) g/dL Albumin 2.8 L (3.9-5) g/dL
[2016-07-02] MEDS: COLACE PO SCH (15:30)
[2016-07-02] MEDS: HALFPRIN EC PO SCH (15:30)
[2016-07-02] MEDS: LOPRESSOR PO SCH (15:31)
[2016-07-02] MEDS: PLAVIX PO SCH (15:31)
[2016-07-02] MEDS: NORVASC PO SCH (15:31)
[2016-07-02] MEDS: PROTONIX PO SCH (15:31)
[2016-07-02] MEDS: IMDUR PO SCH (15:31)
[2016-07-02] MEDS: K-DUR PO SCH (15:31)
[2016-07-02] MEDS: VANCOMYCIN VIAL 1,250 MG in NACL 0.9% 250ML 250 ML IV SCH (16:09)
[2016-07-02] MEDS ORDERED: ADRENALIN ONE (23:25)
[2016-07-02] MEDS ORDERED: KETALAR ONE (23:25)
[2016-07-02] MEDS ORDERED: ZEMURON IV ONE (23:25)
[2016-07-02] MEDS ORDERED: ATROPINE 0.1% (CARDIAC) ONE (23:25)
[2016-07-02] MEDS ORDERED: INTROPIN DRIP 800 MG/D5W 250 ML IV ONE (23:25)
--- NOTE | 2016-07-03 00:07 | Event Note ---
Date: 07/02/16 I was called to see the patient on the floor secondary to a CODE BLUE being called. It appears that the patient was originally admitted for CVA and had a carotid endarterectomy. When I got to the room, the patient appeared to have a pulse but was bradycardic, hypotensive and having some agonal breathing. No ACLS drugs were necessary but the patient was given IV fluid resuscitation and is already on dopamine, which was titrated upwards. The hospitalist was bedside and able to take over further evaluation. However it appeared necessary to intubate the patient anyways due to his agonal breathing. With the patient's hypotension, he was given 100 mg of ketamine, followed by 100 mg of rocuronium. Once there was appropriate paralysis, the patient was intubated with a 7.5 tube and a 4 Mac blade. The vocal cords were visualized and the tube was placed through them to about 26 cm at the lips. There was good color change on capnography but the breath sounds were uneven, greater on the right. There was concern for a right mainstem intubation so the ET tube was pulled back 2 cm. The breath sounds were rechecked and appeared equal with good chest rise. The patient will have a chest x-ray to confirm tube placement and will be moved to the ICU. There were no obvious complications secondary to this procedure.
[2016-07-03] MEDS: LOPRESSOR IV SCH (00:15)
[2016-07-03] MEDS: APRESOLINE PO SCH ×2 (00:31→07:22)
[2016-07-03] MEDS: PROTONIX PO SCH (00:31)
[2016-07-03] MEDS: LOPRESSOR PO SCH (00:31)
[2016-07-03] MEDS ORDERED: ARTIFICIAL TEARS OPHTH OINT OU PRN (00:31)
[2016-07-03] MEDS: COLACE PO SCH (00:31)
[2016-07-03] MEDS ORDERED: VASELINE LIP THERAPY TP PRN (00:31)
[2016-07-03] MEDS ORDERED: NACL 0.9% 1000 ML 1,000 ML IV ONE (00:34)
--- NOTE | 2016-07-03 00:34 | Event Note ---
Date: 07/03/16 Code blue called Patient bradycardic, with shallow respiration, decreased respiratory rate He was given atropine, his heart rate went up temporarily, he went into PEA ACLS protocol was initiated, refer to the sheet for details Patient was shocked once a V. fib Patient was hypotensive, he was started on dopamine, IV fluids He was transferred to the ICU Patient intubated by Dr. Soriano Check chest x-ray, repeat labs Lab called to say that his hemoglobin was 2, this was repeated, his hemoglobin went to 6.6 Labs stick was done, his hemoglobin was shown to be 10 Case discussed with cardiology Chest x-ray shows pneumothorax, and settings per critical care attending Family was aware, he was made a DO NOT RESUSCITATE, they wanted chest tube Case discussed with Dr. Lewis, surgery Dr. Seth
[2016-07-03 00:44] LABS: INR 3.26 (0.87-1.13)
[2016-07-03] MEDS ORDERED: INTROPIN DRIP 800 MG/D5W 250 ML 250 ML IV SCH (01:00)
[2016-07-03] MEDS ORDERED: NACL 0.9% 500 ML IV SCH (01:00)
[2016-07-03 01:29] LABS: BUN/Creatinine Ratio TNR
[2016-07-03 01:30] LABS: Albumin/Globulin Ratio TNR %; Anion Gap TNR mmol/L; Bilirubin,Total TNR mg/dL (0.1-1.2); Blood Urea Nitrogen TNR mg/dL (9-20); Calcium TNR mg/dL (8.4-10.2); Carbon Dioxide TNR mmol/L (22-30); Chloride TNR mmol/L (98-107); Creatine Kinase MB TNR ng/mL (0.0-4.0); Glucose TNR mg/dL (75-100); Potassium TNR mmol/L (3.6-5.0); Sodium TNR mmol/L (137-145)
[2016-07-03 01:31] LABS: Alanine Aminotransferase TNR units/L (7-56); Albumin TNR g/dL (3.9-5); Alkaline Phosphatase TNR units/L (35-129); Creatine Kinase TNR units/L (55-170); Magnesium TNR mg/dL (1.7-2.3); Phosphorous TNR mg/dL (2.5-4.5); Total Protein TNR g/dL (6.3-8.2)
--- NOTE | 2016-07-03 01:31 | XRay Report ---
FINAL REPORT PROCEDURE: XR CHEST 1V AP TECHNIQUE: Chest radiograph anteroposterior view. CPT 85857 HISTORY: ETT confirmation, post code rescuscitation COMPARISON: No prior studies are available for comparison. FINDINGS: Heart: Normal. Mediastinum/Vessels: Normal. Lungs/Pleural space: There is a new right pneumothorax. There is 50 percent collapse of the right lung. Left lung is expanded. There are fibrotic changes at the lung bases. There are no effusions.. Bony thorax: No acute osseous abnormality. Life support devices: ETT is in proper position. Left-sided PICC line is seen. Tip is in the superior vena cava.. IMPRESSION: Heart size is normal.. There is a new right pneumothorax. There is 50 percent collapse of the right lung. Left lung is expanded. There are fibrotic changes at the lung bases. There are no effusions.. ETT is in proper position. Left-sided PICC line is seen. Tip is in the superior vena cava.. Nurse Celeste Pedro was notified by telephone at 1:26 a.m..
[2016-07-03 01:35] LABS: Hematocrit 21.2 % (35.5-45.6); Hemoglobin 6.6 gm/dl (11.8-15.2)
[2016-07-03] MEDS ORDERED: NACL 0.9% 500 ML 500 ML IV ONE ×3 (01:57→03:08)
[2016-07-03] MEDS ORDERED: LEVOPHED DRIP 4 MG/NS 250 ML 250 ML IV ONE (02:00)
[2016-07-03] MEDS: NACL 0.9% 1000 ML 1,000 ML IV SCH ×2 (02:15→09:38)
[2016-07-03 02:21] LABS: Hematocrit 32.2 % (35.5-45.6); Hemoglobin 10.2 gm/dl (11.8-15.2); Mean Corpuscular HGB Conc 32 % (32-34); Mean Corpuscular Hemoglobin 31 pg (28-32); Mean Corpuscular Volume 97 fl (84-94); Platelet Count 342 K/mm3 (140-440); Red Blood Count 3.33 M/mm3 (3.65-5.03); Red Cell Distribution Width 15.7 % (13.2-15.2)
[2016-07-03 02:30] LABS: INR 1.63 (0.87-1.13)
[2016-07-03 02:32] LABS: White Blood Count 25.8 K/mm3 (4.5-11.0)
[2016-07-03 02:39] LABS: Partial Thromboplastin Time 60.4 Sec. (24.2-36.6)
[2016-07-03 02:41] LABS: Creatine Kinase MB 3.9 ng/mL (0.0-4.0)
[2016-07-03 02:42] LABS: Albumin 2.5 g/dL (3.9-5); Albumin/Globulin Ratio 0.8 %; BUN/Creatinine Ratio 17.69; Bilirubin,Total 0.6 mg/dL (0.1-1.2); Calcium 7.5 mg/dL (8.4-10.2); Chloride 94.2 mmol/L (98-107); Potassium 4.5 mmol/L (3.6-5.0); Total Protein 5.5 g/dL (6.3-8.2)
[2016-07-03 02:44] LABS: Hematocrit TNR % (35.5-45.6); Hemoglobin TNR gm/dl (11.8-15.2); Red Blood Count TNR M/mm3 (3.65-5.03); White Blood Count TNR K/mm3 (4.5-11.0)
[2016-07-03 02:45] LABS: Mean Corpuscular HGB Conc TNR % (32-34); Mean Corpuscular Hemoglobin TNR pg (28-32); Mean Corpuscular Volume TNR fl (84-94); Mean Platelet Volume TNR fl (6-12); Platelet Count TNR K/mm3 (140-440); Red Cell Distribution Width TNR % (13.2-15.2)
[2016-07-03 02:46] LABS: Basophils % (Auto) TNR % (0.0-1.8); Diff Status TNR; Eosinophils % (Auto) TNR % (0.0-4.3)
[2016-07-03 02:47] LABS: Basophils % (Manual) TNR % (0.0-1.8); Blastocytes % (Manual) TNR %; Chediak-Higashi Inclusions TNR; EDTA Platelet Clumps TNR; Eosinophils % (Manual) TNR % (0.0-4.3); Giant Platelets TNR; Hypersegmented Neutrophils TNR; Hypersegmented Polys TNR; Large Platelets TNR; Nucleated Red Blood Cells TNR % (0.0-0.9); Platelet Clumps TNR; Platelet Estimate TNR; Platelet Morphology TNR; Smudge Cells TNR; Total Cells Counted Percent TNR
[2016-07-03 02:48] LABS: Acanthocytes TNR; Alder-Reilly Anomaly TNR; Anisocytosis TNR; Auer Rods TNR; Basophilic Stippling TNR; Burr Cells TNR; Cabot Rings TNR; Crenated RBC TNR; Dohle Bodies TNR; Elliptocytes TNR; Helmet Cells TNR; Howell-Jolly Bodies TNR; Hypochromasia TNR; Macrocytosis TNR; Microcytosis TNR; Ovalocytes TNR; Poikilocytosis TNR; Polychromasia TNR; RBC Morphology TNR; Rouleaux TNR; Schistocytes TNR; Sickle Cells TNR; Spherocytes TNR; Stomatocytes TNR; Target Cells TNR; Tear Drop Cells TNR; Toxic Granulation TNR; Toxic Vacuolation TNR
[2016-07-03] MEDS ORDERED: PITRESSin 20 UNIT in NACL 0.9% 100 ML IV SCH (02:55)
[2016-07-03] MEDS: LEVOPHED DRIP 4 MG/NS 250 ML 250 ML IV SCH ×3 (03:00→09:39)
[2016-07-03 05:13] LABS: INR 1.58 (0.87-1.13)
[2016-07-03 05:14] LABS: Partial Thromboplastin Time 48.4 Sec. (24.2-36.6)
[2016-07-03 06:02] LABS: ISTAT Base Excess -7; ISTAT HCO3 22.9; ISTAT PCO2 82.6 (35-45); ISTAT PH 7.052 (7.35-7.45); ISTAT PO2 70 (80-105); ISTAT SO2 84; ISTAT TCO2 25
[2016-07-03 07:29] LABS: Creatine Kinase MB 5.8 ng/mL (0.0-4.0)
[2016-07-03] MEDS: DUONEB 0.5 MG-3 MG/3 ML SOLN IH SCH (07:46)
[2016-07-03 08:25] LABS: Basophils % (Manual) 0 % (0.0-1.8); Blastocytes % (Manual) 0 %; Eosinophils % (Manual) 0 % (0.0-4.3)
[2016-07-03 08:26] LABS: RBC Morphology Normal
[2016-07-03 08:27] LABS: Diff Status Complete
--- NOTE | 2016-07-03 09:28 | Progress Note ---
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 Patient became confused overnight. Infectious disease consult was called to assess due to intraoperative suspicion of infection. Problems list: 1. 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 -Surgical cultures growing scant RN RADIATION (significance unclear although it certainly could be a pathogen. -AFB smear negative of pseudoaneurysm tissue 2. Status post respiratory arrest. R/O sepsis - Leukocytosis; transaminitis; coagulopathy - R/O MAYRA - R/O extension of CVA 3. 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 -Status post repair of right carotid artery pseudoaneurysm with left greater saphenous vein patch 06/18/16 -Pathology showed moderate mixed inflammation and organized thrombus. 4. Profound anemia - Multi-factorial - PRBCs ordered 5. Right PTX 6. CAD -Status post CABG 7. 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 Transient loss of consciousness and left sided weakness -Rule out seizure -06/29 repeat head CTA shows right basal ganglion ischemia 9. Pulmonary masses -Suggested on both neck CTA -Rule out neoplastic process 10. LUE DVT PLAN: 1. Await family decisions regarding further care plans. 2. "Franklin" cultures now. 3. Await decisions regarding right PTX 4. Suggest initiation of gram-negative coverage with IV cefepime. Patient continues on vancomycin. 5. Prognosis is guarded. Subjective Date of service: 07/03/16 Principal diagnosis: Infected pseudoaneurysm, anemia Interval history: Recent events noted. Patient orally intubated on the ventilator. Now on Levophed and dopamine. CBC with white count 25.8; H&H 6.6 and 21.2 with platelet count 342,000. Elevated AST 336, ALT 204. Chest x-ray with right pneumothorax. Family deciding about possible withdrawal of care. Objective - Exam Narrative Exam: Well-developed well-nourished appearing. On Levophed and dopamine. HEENT: Pupils minimally reactive. Conjunctiva clear. Oral endotracheal tube in place. NECK: Supple. No enlargement of the thyroid gland. No significant cervical lymphadenopathy. No jugular venous distention at 30. Right neck wound site clean. LUNGS: Upper airway noise. HEART: Tachycardic ABDOMEN: Soft and nontender. Liver and spleen are not palpably enlarged or tender. No palpable masses. Bowel sounds are hypoactive EXTREMITIES: No rash, peripheral lymphadenopathy, clubbing or edema. SKIN: No other rash, ulcers or wounds. Right neck wound healed. NEUROLOGIC: Unresponsive - Constitutional Vitals: Vital Signs Temp Pulse Resp BP Pulse Ox 99.2 F 101 H 24 98/38 93 07/03/16 08:00 07/03/16 07:54 07/03/16 07:54 07/03/16 07:00 07/03/16 07:37 Temperature -Last 24 Hours Temperature 99.2 F Temperature 98.9 F Temperature 98.9 F Temperature 98.9 F Temperature 98.9 F Temperature 98.1 F Temperature 97.9 F Temperature 98.4 F Temperature 98.4 F - Labs CBC & Chem 7: 07/03/16 Unknown 07/03/16 Unknown Labs: Abnormal lab results 07/02/16 07/03/16 07/03/16 Range/Units 23:39 01:20 02:07 WBC 25.8 H (4.5-11.0) K/mm3 RBC 3.33 L (3.65-5.03) M/mm3 Hgb 6.6 L D 10.2 L D (11.8-15.2) gm/dl Hct 21.2 L D 32.2 L D (35.5-45.6) % MCV 97 H D (84-94) fl RDW 15.7 H (13.2-15.2) % Seg Neuts % (Manual) 19.0 L (40.0-70.0) % Lymphocytes % (Manual) 64.5 H (13.4-35.0) % Lymphocytes # (Manual) 16.6 H (1.2-5.4) K/mm3 Monocytes # (Manual) 1.4 H (0.0-0.8) K/mm3 PT (12.2-14.9) Sec. INR (0.87-1.13) APTT (24.2-36.6) Sec. Heparin Anti-Xa Level (0.3-0.7) U.I./ml POC ABG pH (7.35-7.45) POC ABG pCO2 (35-45) POC ABG pO2 (80-105) Sodium (137-145) mmol/L Chloride (98-107) mmol/L BUN (9-20) mg/dL POC Glucose 135 H (70-105) Calcium (8.4-10.2) mg/dL Phosphorus (2.5-4.5) mg/dL AST (5-40) units/L ALT (7-56) units/L CK-MB (CK-2) (0.0-4.0) ng/mL CK-MB (CK-2) Rel Index (0-4) Troponin T (0.00-0.029) ng/mL Total Protein (6.3-8.2) g/dL Albumin (3.9-5) g/dL Crossmatch 07/03/16 07/03/16 07/03/16 Range/Units 02:07 02:07 02:07 WBC (4.5-11.0) K/mm3 RBC (3.65-5.03) M/mm3 Hgb (11.8-15.2) gm/dl Hct (35.5-45.6) % MCV (84-94) fl RDW (13.2-15.2) % Seg Neuts % (Manual) (40.0-70.0) % Lymphocytes % (Manual) (13.4-35.0) % Lymphocytes # (Manual) (1.2-5.4) K/mm3 Monocytes # (Manual) (0.0-0.8) K/mm3 PT (12.2-14.9) Sec. INR (0.87-1.13) APTT (24.2-36.6) Sec. Heparin Anti-Xa Level (0.3-0.7) U.I./ml POC ABG pH (7.35-7.45) POC ABG pCO2 (35-45) POC ABG pO2 (80-105) Sodium 134 L (137-145) mmol/L Chloride 94.2 L (98-107) mmol/L BUN 23 H (9-20) mg/dL POC Glucose (70-105) Calcium 7.5 L (8.4-10.2) mg/dL Phosphorus (2.5-4.5) mg/dL AST 336 H (5-40) units/L ALT 204 H (7-56) units/L CK-MB (CK-2) (0.0-4.0) ng/mL CK-MB (CK-2) Rel Index (0-4) Troponin T 0.097 H (0.00-0.029) ng/mL Total Protein 5.5 L (6.3-8.2) g/dL Albumin 2.5 L (3.9-5) g/dL Crossmatch See Detail 07/03/16 07/03/16 07/03/16 Range/Units 02:07 02:07 04:29 WBC (4.5-11.0) K/mm3 RBC (3.65-5.03) M/mm3 Hgb (11.8-15.2) gm/dl Hct (35.5-45.6) % MCV (84-94) fl RDW (13.2-15.2) % Seg Neuts % (Manual) (40.0-70.0) % Lymphocytes % (Manual) (13.4-35.0) % Lymphocytes # (Manual) (1.2-5.4) K/mm3 Monocytes # (Manual) (0.0-0.8) K/mm3 PT 19.3 H 18.8 H (12.2-14.9) Sec. INR 1.63 H 1.58 H (0.87-1.13) APTT 60.4 H* 48.4 H (24.2-36.6) Sec. Heparin Anti-Xa Level < 0.10 L (0.3-0.7) U.I./ml POC ABG pH (7.35-7.45) POC ABG pCO2 (35-45) POC ABG pO2 (80-105) Sodium (137-145) mmol/L Chloride (98-107) mmol/L BUN (9-20) mg/dL POC Glucose (70-105) Calcium (8.4-10.2) mg/dL Phosphorus 6.9 H (2.5-4.5) mg/dL AST (5-40) units/L ALT (7-56) units/L CK-MB (CK-2) (0.0-4.0) ng/mL CK-MB (CK-2) Rel Index (0-4) Troponin T (0.00-0.029) ng/mL Total Protein (6.3-8.2) g/dL Albumin (3.9-5) g/dL Crossmatch 07/03/16 07/03/16 07/03/16 Range/Units 05:29 06:50 Unknown WBC (4.5-11.0) K/mm3 RBC (3.65-5.03) M/mm3 Hgb (11.8-15.2) gm/dl Hct (35.5-45.6) % MCV (84-94) fl RDW (13.2-15.2) % Seg Neuts % (Manual) (40.0-70.0) % Lymphocytes % (Manual) (13.4-35.0) % Lymphocytes # (Manual) (1.2-5.4) K/mm3 Monocytes # (Manual) (0.0-0.8) K/mm3 PT 33.5 H (12.2-14.9) Sec. INR 3.26 H (0.87-1.13) APTT (24.2-36.6) Sec. Heparin Anti-Xa Level (0.3-0.7) U.I./ml POC ABG pH 7.052 L (7.35-7.45) POC ABG pCO2 82.6 H (35-45) POC ABG pO2 70 L (80-105) Sodium (137-145) mmol/L Chloride (98-107) mmol/L BUN (9-20) mg/dL POC Glucose (70-105) Calcium (8.4-10.2) mg/dL Phosphorus (2.5-4.5) mg/dL AST (5-40) units/L ALT (7-56) units/L CK-MB (CK-2) 5.8 H (0.0-4.0) ng/mL CK-MB (CK-2) Rel Index 4.4 H (0-4) Troponin T 0.225 H* D (0.00-0.029) ng/mL Total Protein (6.3-8.2) g/dL Albumin (3.9-5) g/dL Crossmatch
--- NOTE | 2016-07-03 09:59 | Progress Note ---
Subjective Principal diagnosis: Infected pseudoaneurysm, anemia Objective Vital Signs - 12hr 07/02/16 07/03/16 07/03/16 23:55 00:07 00:29 Temperature Pulse Rate 89 139 H 122 H Pulse Rate [ Anterior Bilateral Throughout] Respiratory 16 Rate Respiratory Rate [Anterior Bilateral Throughout] Respiratory Rate [Right Head] Blood Pressure 104/60 O2 Sat by Pulse 100 95 Oximetry 07/03/16 07/03/16 07/03/16 01:00 02:00 03:00 Temperature Pulse Rate 118 H 112 H 140 H Pulse Rate [ Anterior Bilateral Throughout] Respiratory 16 16 17 Rate Respiratory Rate [Anterior Bilateral Throughout] Respiratory 22 Rate [Right Head] Blood Pressure 75/31 89/38 184/76 O2 Sat by Pulse 92 92 91 Oximetry 07/03/16 07/03/16 07/03/16 03:47 04:00 04:34 Temperature 98.1 F 98.9 F Pulse Rate 115 H 122 H Pulse Rate [ Anterior Bilateral Throughout] Respiratory 15 15 Rate Respiratory Rate [Anterior Bilateral Throughout] Respiratory Rate [Right Head] Blood Pressure 85/38 104/60 O2 Sat by Pulse 84 95 Oximetry 07/03/16 07/03/16 07/03/16 04:42 04:51 05:00 Temperature 98.9 F Pulse Rate 122 H 106 H 98 H Pulse Rate [ Anterior Bilateral Throughout] Respiratory 15 16 Rate Respiratory Rate [Anterior Bilateral Throughout] Respiratory Rate [Right Head] Blood Pressure 93/46 105/39 92/23 O2 Sat by Pulse 95 89 89 Oximetry 07/03/16 07/03/16 07/03/16 05:19 05:26 05:32 Temperature 98.9 F 98.9 F Pulse Rate 106 H 99 H 106 H Pulse Rate [ Anterior Bilateral Throughout] Respiratory 15 25 H 15 Rate Respiratory Rate [Anterior Bilateral Throughout] Respiratory Rate [Right Head] Blood Pressure 105/39 99/41 105/39 O2 Sat by Pulse 89 90 89 Oximetry 07/03/16 07/03/16 07/03/16 05:42 05:44 05:47 Temperature Pulse Rate 100 H 101 H 106 H Pulse Rate [ Anterior Bilateral Throughout] Respiratory 25 H 24 Rate Respiratory Rate [Anterior Bilateral Throughout] Respiratory Rate [Right Head] Blood Pressure 97/39 97/39 O2 Sat by Pulse 91 91 Oximetry 07/03/16 07/03/16 07/03/16 06:00 06:37 06:46 Temperature Pulse Rate 100 H 102 H 102 H Pulse Rate [ Anterior Bilateral Throughout] Respiratory 24 24 23 Rate Respiratory Rate [Anterior Bilateral Throughout] Respiratory Rate [Right Head] Blood Pressure 100/37 98/38 98/38 O2 Sat by Pulse 91 92 92 Oximetry 07/03/16 07/03/16 07/03/16 07:00 07:37 07:46 Temperature Pulse Rate 103 H 98 H Pulse Rate [ 101 H Anterior Bilateral Throughout] Respiratory 24 Rate Respiratory 24 Rate [Anterior Bilateral Throughout] Respiratory Rate [Right Head] Blood Pressure 98/38 O2 Sat by Pulse 93 93 Oximetry 07/03/16 07/03/16 07:54 08:00 Temperature 99.2 F Pulse Rate Pulse Rate [ 101 H Anterior Bilateral Throughout] Respiratory Rate Respiratory 24 Rate [Anterior Bilateral Throughout] Respiratory Rate [Right Head] Blood Pressure O2 Sat by Pulse Oximetry Constitutional: no acute distress, asleep ENT: oropharynx moist, other (Mallampati 4) Neck: supple, other (right endarterectomy scar) Effort: normal Ascultation: Bilateral: wheezes, rhonchi (upper airway) Cardiovascular: regular rate and rhythm (no mrg) Gastrointestinal: normoactive bowel sounds, soft, non-tender, non-distended Integumentary: normal Extremities: no cyanosis, no edema Neurologic: other (? L hemiplegia; moves RUE; not conversant) Psychiatric: other (unable to assess) CBC and BMP: 07/03/16 Unknown 07/03/16 Unknown ABG, PT/INR, D-dimer: ABG POC ABG pH 7.052 (7.35-7.45) L 07/03/16 05:29 POC ABG pCO2 82.6 (35-45) H 07/03/16 05:29 POC ABG pO2 70 (80-105) L 07/03/16 05:29 POC ABG HCO3 22.9 07/03/16 05:29 POC ABG Total CO2 25 07/03/16 05:29 POC ABG O2 Sat 84 07/03/16 05:29 PT/INR, D-dimer PT 33.5 Sec. (12.2-14.9) H 07/03/16 Unknown INR 3.26 (0.87-1.13) H 07/03/16 Unknown Abnormal lab findings: Abnormal Labs 06/15/16 06/15/16 06/15/16 14:05 14:05 14:05 WBC 15.6 H RBC 3.26 L Hgb 10.0 L Hct 29.9 L MCV RDW Seg Neuts % (Manual) Lymphocytes % (Manual) Nucleated RBC % Seg Neutrophils # Man 10.6 H Lymphocytes # (Manual) Monocytes # (Manual) Eosinophils # (Manual) PT INR 1.18 H APTT Heparin Anti-Xa Level POC ABG pH POC ABG pCO2 POC ABG pO2 Sodium Potassium Chloride 97.2 L BUN 23 H Glucose 120 H POC Glucose Calcium Phosphorus Iron TIBC AST ALT Total Creatine Kinase CK-MB (CK-2) CK-MB (CK-2) Rel Index Troponin T NT-Pro-B Natriuret Pep Total Protein Albumin HDL Cholesterol Crossmatch 06/18/16 06/18/16 06/18/16 05:27 05:27 05:27 WBC 12.3 H RBC 2.81 L Hgb 8.7 L Hct 25.6 L MCV RDW Seg Neuts % (Manual) 74.0 H Lymphocytes % (Manual) Nucleated RBC % Seg Neutrophils # Man 9.1 H Lymphocytes # (Manual) Monocytes # (Manual) Eosinophils # (Manual) PT INR 1.16 H APTT Heparin Anti-Xa Level POC ABG pH POC ABG pCO2 POC ABG pO2 Sodium 135 L Potassium Chloride BUN Glucose 110 H POC Glucose Calcium 8.1 L Phosphorus Iron TIBC AST ALT Total Creatine Kinase CK-MB (CK-2) CK-MB (CK-2) Rel Index Troponin T NT-Pro-B Natriuret Pep Total Protein Albumin HDL Cholesterol Crossmatch 06/18/16 06/22/16 06/24/16 07:15 00:05 08:21 WBC RBC Hgb Hct MCV RDW Seg Neuts % (Manual) Lymphocytes % (Manual) Nucleated RBC % Seg Neutrophils # Man Lymphocytes # (Manual) Monocytes # (Manual) Eosinophils # (Manual) PT INR APTT Heparin Anti-Xa Level POC ABG pH POC ABG pCO2 POC ABG pO2 Sodium Potassium Chloride BUN Glucose POC Glucose 118 H 115 H Calcium Phosphorus Iron TIBC AST ALT Total Creatine Kinase CK-MB (CK-2) CK-MB (CK-2) Rel Index Troponin T NT-Pro-B Natriuret Pep Total Protein Albumin HDL Cholesterol Crossmatch See Detail 06/24/16 06/24/16 06/25/16 13:00 14:29 17:12 WBC 14.2 H RBC 2.29 L Hgb 7.1 L Hct 21.4 L MCV RDW Seg Neuts % (Manual) Lymphocytes % (Manual) 42.0 H Nucleated RBC % Seg Neutrophils # Man Lymphocytes # (Manual) 6.0 H Monocytes # (Manual) Eosinophils # (Manual) PT INR APTT Heparin Anti-Xa Level POC ABG pH POC ABG pCO2 POC ABG pO2 Sodium Potassium Chloride BUN Glucose POC Glucose 145 H Calcium Phosphorus Iron TIBC AST ALT Total Creatine Kinase CK-MB (CK-2) CK-MB (CK-2) Rel Index Troponin T NT-Pro-B Natriuret Pep Total Protein Albumin HDL Cholesterol Crossmatch See Detail 06/25/16 06/25/16 06/25/16 21:19 21:19 Unknown WBC 16.9 H RBC 2.44 L Hgb 8.9 L 7.5 L Hct 26.7 L 23.1 L MCV 95 H RDW Seg Neuts % (Manual) Lymphocytes % (Manual) 41 H Nucleated RBC % Seg Neutrophils # Man 10.1 H Lymphocytes # (Manual) Monocytes # (Manual) 1.2 H Eosinophils # (Manual) PT 15.9 H INR 1.28 H APTT Heparin Anti-Xa Level POC ABG pH POC ABG pCO2 POC ABG pO2 Sodium Potassium Chloride BUN Glucose POC Glucose Calcium Phosphorus Iron TIBC AST ALT Total Creatine Kinase CK-MB (CK-2) CK-MB (CK-2) Rel Index Troponin T NT-Pro-B Natriuret Pep Total Protein Albumin HDL Cholesterol Crossmatch 06/26/16 06/26/16 06/26/16 05:27 05:27 05:27 WBC 16.1 H RBC 2.85 L Hgb 9.0 L Hct 26.9 L MCV 95 H RDW Seg Neuts % (Manual) Lymphocytes % (Manual) Nucleated RBC % Seg Neutrophils # Man 11.3 H Lymphocytes # (Manual) Monocytes # (Manual) Eosinophils # (Manual) 0.5 H PT INR APTT Heparin Anti-Xa Level 0.18 L POC ABG pH POC ABG pCO2 POC ABG pO2 Sodium 134 L Potassium 2.9 L* Chloride BUN Glucose 110 H POC Glucose Calcium 7.4 L Phosphorus Iron TIBC AST ALT Total Creatine Kinase CK-MB (CK-2) CK-MB (CK-2) Rel Index Troponin T NT-Pro-B Natriuret Pep Total Protein Albumin HDL Cholesterol Crossmatch 06/26/16 06/26/16 06/27/16 14:41 21:19 05:13 WBC RBC Hgb Hct MCV RDW Seg Neuts % (Manual) Lymphocytes % (Manual) Nucleated RBC % Seg Neutrophils # Man Lymphocytes # (Manual) Monocytes # (Manual) Eosinophils # (Manual) PT INR APTT Heparin Anti-Xa Level POC ABG pH POC ABG pCO2 POC ABG pO2 Sodium Potassium 3.1 L Chloride BUN Glucose POC Glucose Calcium Phosphorus Iron TIBC AST ALT Total Creatine Kinase 54 L CK-MB (CK-2) CK-MB (CK-2) Rel Index Troponin T 0.174 H* NT-Pro-B Natriuret Pep Total Protein Albumin HDL Cholesterol 33 L Crossmatch 06/27/16 06/27/16 06/27/16 05:13 05:13 23:00 WBC RBC Hgb 8.6 L Hct 25.5 L MCV RDW Seg Neuts % (Manual) Lymphocytes % (Manual) Nucleated RBC % Seg Neutrophils # Man Lymphocytes # (Manual) Monocytes # (Manual) Eosinophils # (Manual) PT INR APTT Heparin Anti-Xa Level 0.15 L POC ABG pH POC ABG pCO2 POC ABG pO2 Sodium Potassium 3.1 L Chloride BUN Glucose 118 H POC Glucose Calcium 7.2 L Phosphorus Iron TIBC AST ALT Total Creatine Kinase CK-MB (CK-2) CK-MB (CK-2) Rel Index Troponin T NT-Pro-B Natriuret Pep Total Protein Albumin HDL Cholesterol Crossmatch 06/28/16 06/28/16 06/28/16 06:46 06:46 11:50 WBC 14.7 H RBC 2.40 L Hgb 7.4 L Hct 22.8 L MCV 95 H RDW 15.6 H Seg Neuts % (Manual) Lymphocytes % (Manual) 54.0 H Nucleated RBC % 1.0 H Seg Neutrophils # Man Lymphocytes # (Manual) 7.9 H Monocytes # (Manual) Eosinophils # (Manual) PT INR APTT Heparin Anti-Xa Level POC ABG pH POC ABG pCO2 POC ABG pO2 Sodium 135 L Potassium Chloride BUN 21 H Glucose 114 H POC Glucose Calcium 7.1 L Phosphorus Iron TIBC AST ALT Total Creatine Kinase CK-MB (CK-2) CK-MB (CK-2) Rel Index Troponin T NT-Pro-B Natriuret Pep Total Protein Albumin HDL Cholesterol Crossmatch See Detail 06/28/16 06/28/16 06/29/16 Unknown Unknown 05:06 WBC RBC Hgb 8.8 L Hct 26.1 L MCV RDW Seg Neuts % (Manual) Lymphocytes % (Manual) Nucleated RBC % Seg Neutrophils # Man Lymphocytes # (Manual) Monocytes # (Manual) Eosinophils # (Manual) PT INR APTT Heparin Anti-Xa Level < 0.10 L POC ABG pH POC ABG pCO2 POC ABG pO2 Sodium Potassium Chloride BUN Glucose POC Glucose Calcium Phosphorus Iron 13 L TIBC 152 L AST ALT Total Creatine Kinase CK-MB (CK-2) CK-MB (CK-2) Rel Index Troponin T NT-Pro-B Natriuret Pep Total Protein Albumin HDL Cholesterol Crossmatch 06/30/16 06/30/16 07/01/16 18:00 18:46 04:30 WBC 13.5 H 13.1 H RBC 2.77 L 2.80 L Hgb 8.9 L 8.9 L Hct 25.9 L 25.9 L MCV RDW 15.7 H Seg Neuts % (Manual) 74.0 H Lymphocytes % (Manual) Nucleated RBC % Seg Neutrophils # Man 9.7 H Lymphocytes # (Manual) Monocytes # (Manual) Eosinophils # (Manual) PT INR APTT Heparin Anti-Xa Level < 0.10 L POC ABG pH POC ABG pCO2 POC ABG pO2 Sodium Potassium Chloride BUN Glucose POC Glucose Calcium Phosphorus Iron TIBC AST ALT Total Creatine Kinase CK-MB (CK-2) CK-MB (CK-2) Rel Index Troponin T NT-Pro-B Natriuret Pep Total Protein Albumin HDL Cholesterol Crossmatch 07/01/16 07/01/16 07/01/16 04:30 04:30 08:00 WBC RBC Hgb Hct MCV RDW Seg Neuts % (Manual) Lymphocytes % (Manual) Nucleated RBC % Seg Neutrophils # Man Lymphocytes # (Manual) Monocytes # (Manual) Eosinophils # (Manual) PT INR APTT Heparin Anti-Xa Level 0.20 L POC ABG pH POC ABG pCO2 POC ABG pO2 Sodium 131 L Potassium Chloride 92.9 L BUN Glucose POC Glucose Calcium 7.7 L Phosphorus Iron TIBC AST ALT Total Creatine Kinase CK-MB (CK-2) CK-MB (CK-2) Rel Index Troponin T NT-Pro-B Natriuret Pep 52162 H Total Protein Albumin HDL Cholesterol Crossmatch 07/02/16 07/02/16 07/02/16 03:10 03:10 03:10 WBC 15.1 H RBC 3.14 L Hgb 9.7 L Hct 29.1 L MCV RDW Seg Neuts % (Manual) 38.0 L Lymphocytes % (Manual) Nucleated RBC % Seg Neutrophils # Man Lymphocytes # (Manual) Monocytes # (Manual) Eosinophils # (Manual) PT INR APTT Heparin Anti-Xa Level 0.15 L POC ABG pH POC ABG pCO2 POC ABG pO2 Sodium 130 L Potassium Chloride 90.5 L BUN Glucose 106 H POC Glucose Calcium 8.0 L Phosphorus Iron TIBC AST ALT Total Creatine Kinase CK-MB (CK-2) CK-MB (CK-2) Rel Index Troponin T NT-Pro-B Natriuret Pep Total Protein 5.6 L Albumin 2.8 L HDL Cholesterol Crossmatch 07/02/16 07/03/16 07/03/16 23:39 01:20 02:07 WBC 25.8 H RBC 3.33 L Hgb 6.6 L D 10.2 L D Hct 21.2 L D 32.2 L D MCV 97 H D RDW 15.7 H Seg Neuts % (Manual) 19.0 L Lymphocytes % (Manual) 64.5 H Nucleated RBC % Seg Neutrophils # Man Lymphocytes # (Manual) 16.6 H Monocytes # (Manual) 1.4 H Eosinophils # (Manual) PT INR APTT Heparin Anti-Xa Level POC ABG pH POC ABG pCO2 POC ABG pO2 Sodium Potassium Chloride BUN Glucose POC Glucose 135 H Calcium Phosphorus Iron TIBC AST ALT Total Creatine Kinase CK-MB (CK-2) CK-MB (CK-2) Rel Index Troponin T NT-Pro-B Natriuret Pep Total Protein Albumin HDL Cholesterol Crossmatch 07/03/16 07/03/16 07/03/16 02:07 02:07 02:07 WBC RBC Hgb Hct MCV RDW Seg Neuts % (Manual) Lymphocytes % (Manual) Nucleated RBC % Seg Neutrophils # Man Lymphocytes # (Manual) Monocytes # (Manual) Eosinophils # (Manual) PT INR APTT Heparin Anti-Xa Level POC ABG pH POC ABG pCO2 POC ABG pO2 Sodium 134 L Potassium Chloride 94.2 L BUN 23 H Glucose POC Glucose Calcium 7.5 L Phosphorus Iron TIBC AST 336 H ALT 204 H Total Creatine Kinase CK-MB (CK-2) CK-MB (CK-2) Rel Index Troponin T 0.097 H NT-Pro-B Natriuret Pep Total Protein 5.5 L Albumin 2.5 L HDL Cholesterol Crossmatch See Detail 07/03/16 07/03/16 07/03/16 02:07 02:07 04:29 WBC RBC Hgb Hct MCV RDW Seg Neuts % (Manual) Lymphocytes % (Manual) Nucleated RBC % Seg Neutrophils # Man Lymphocytes # (Manual) Monocytes # (Manual) Eosinophils # (Manual) PT 19.3 H 18.8 H INR 1.63 H 1.58 H APTT 60.4 H* 48.4 H Heparin Anti-Xa Level < 0.10 L POC ABG pH POC ABG pCO2 POC ABG pO2 Sodium Potassium Chloride BUN Glucose POC Glucose Calcium Phosphorus 6.9 H Iron TIBC AST ALT Total Creatine Kinase CK-MB (CK-2) CK-MB (CK-2) Rel Index Troponin T NT-Pro-B Natriuret Pep Total Protein Albumin HDL Cholesterol Crossmatch 07/03/16 07/03/16 07/03/16 05:29 06:50 Unknown WBC RBC Hgb Hct MCV RDW Seg Neuts % (Manual) Lymphocytes % (Manual) Nucleated RBC % Seg Neutrophils # Man Lymphocytes # (Manual) Monocytes # (Manual) Eosinophils # (Manual) PT 33.5 H INR 3.26 H APTT Heparin Anti-Xa Level POC ABG pH 7.052 L POC ABG pCO2 82.6 H POC ABG pO2 70 L Sodium Potassium Chloride BUN Glucose POC Glucose Calcium Phosphorus Iron TIBC AST ALT Total Creatine Kinase CK-MB (CK-2) 5.8 H CK-MB (CK-2) Rel Index 4.4 H Troponin T 0.225 H* D NT-Pro-B Natriuret Pep Total Protein Albumin HDL Cholesterol Crossmatch
[2016-07-03] MEDS ORDERED: POTASSIUM CHLORIDE FEEDTUBE SCH (10:00)
[2016-07-03] MEDS ORDERED: MAXIPIME/NS 1 GM/100 ML 100 ML IV SCH (10:00)
[2016-07-03] MEDS ORDERED: PROTONIX IV SCH (10:00)
[2016-07-03] MEDS ORDERED: ROBINUL IV PRN (10:34)
[2016-07-03] MEDS ORDERED: ATIVAN IV PRN (10:34)
[2016-07-03] MEDS ORDERED: MORPHINE IV PRN ×2 (10:34)
--- NOTE | 2016-07-03 10:34 | Event Note ---
Date: 07/03/16 Family has decided to go with comfort measures. AND and withdrawal of care order set has been signed. Will initiate End Of Life order set. CCT 31 minutes.
[2016-07-03] MEDS ORDERED: fentaNYL DRIP Premix 100 ML IV SCH (11:00)
[2016-07-03] MEDS ORDERED: NACL 0.9% 1000 ML ONE (11:05)
[2016-07-03 11:10] VITALS: BP 55/25
--- NOTE | 2016-07-03 11:44 | Event Note ---
Date: 07/03/16 Events of last night reviewed. I had a brief discussion with the family who are at the bedside. The family has elected to proceed with withdrawal of care.
--- NOTE | 2016-07-03 15:50 | Death Summary ---
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 Perkins Notified:: patrick 06/24/16 12:43 Consult to Physician [CONS] Routine Consulting Provider: ROHAN CLARKE Reason For Exam: BP management Place consult to:: BERTIN Notified:: giulia russellive Phone number called:: [phone] Was contact made?: Yes If yes, spoke with:: lyssa Time called:: 14:25 06/25/16 21:06 Consult to Physician [CONS] Routine Consulting Provider: MARK HANSON Reason For Exam: left sided defficit, s/p redu right CEA Place consult to:: Dr. Hanson Notified:: Yeimy RN Phone number called:: Was contact made?: Yes If yes, spoke with:: Lonnie service Time called:: 08:23 06/27/16 10:35 Physical Therapy Evaluation and Treat [CONS] Routine Comment: Reason For Exam: gait training Weight bearing status?: Full wt bearing 06/28/16 11:05 Consult to Physician [CONS] Routine Consulting Provider: ELYSSA LOVING Reason For Exam: anemia, suspect GI bleed on anticoagulation Place consult to:: GI Notified:: OFFICE Phone number called:: [phone] Was contact made?: Yes If yes, spoke with:: DE Time called:: 11:30 06/28/16 16:07 Speech Therapy Evaluation and Treat [CONS] Routine Reason For Exam: coughing with thin liquids. 06/28/16 17:18 Occupational Therapy Evaluate and Treat [CONS] Routine Comment: Reason For Exam: left upper extremity weakness 06/28/16 17:20 Consult to Dietitian/Nutrition [CONS] Routine Physician Instructions: Reason For Exam: not interested in eating Reason for Consult: Poor oral intake 06/29/16 12:22 Consult to Physician [CONS] Routine Consulting Provider: LINDA CISNEROS Reason For Exam: Pulmonary re-evaluation Place consult to:: Dr. Gallegos Notified:: Carly COYLE Was contact made?: Yes If yes, spoke with:: Dr. 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
--- NOTE | 2016-07-03 15:52 | Progress Note ---
Assessment and Plan Assessment and plan: 1. 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 Patient had a patch angioplasty of the right carotid artery. AFB smear negative of pseudoaneurysm tissue. Continue IV antibiotics 4 weeks per infectious disease until family decides on plan of care; defer to primary team 3) Mass of upper lobe of right lung -was not biopsied as he was too unstable; family contemplating withdrawing care 4) Atrial fibrillation -as per cardiology (5) DVT (deep venous thrombosis- as per primary team 6, GI prophylaxis CCT exclusive of all other billable procedures 32 minutes History Interval history: f/u carotid artery pseudoaneurym; respiratory failure Patient seen at the bedside; vented and several family members present; they are thinking about withdrawing care as he remains unresponsive Hospitalist Physical - Constitutional Vitals: Temp Pulse Resp BP Pulse Ox 99.2 F 69 24 55/25 86 07/03/16 08:00 07/03/16 11:00 07/03/16 11:00 07/03/16 11:00 07/03/16 11:16 General appearance: Present: other (vented and unresponsive) - EENT Eyes: Absent: PERRL (unreactive) ENT: other (ETT) - Neck Neck: Present: supple - Respiratory Respiratory effort: other (vented) Respiratory: bilateral: diminished, negative: rales, rhonchi, wheezing - Cardiovascular Rhythm: regular Heart Sounds: Present: S1 & S2. Absent: gallop - Extremities Extremities: no ischemia, pulses intact, pulses symmetrical - Abdominal General gastrointestinal: soft, non-tender, non-distended - Psychiatric Psychiatric: other (unresponsive) - Neurologic Neurologic: other (unresponsive) Results - Labs CBC & Chem 7: 07/03/16 Unknown 07/03/16 Unknown Labs: Laboratory Last Values WBC TNR 07/03/16 Unknown RBC TNR 07/03/16 Unknown Hgb TNR 07/03/16 Unknown Hct TNR 07/03/16 Unknown MCV TNR 07/03/16 Unknown MCH TNR 07/03/16 Unknown MCHC TNR 07/03/16 Unknown RDW TNR 07/03/16 Unknown Plt Count TNR 07/03/16 Unknown Lymph % (Auto) TNR 07/03/16 Unknown [place] % (Auto) TNR 07/03/16 Unknown Eos % (Auto) TNR 07/03/16 Unknown Baso % (Auto) TNR 07/03/16 Unknown Lymph # TNR 07/03/16 Unknown [place] # TNR 07/03/16 Unknown Eos # TNR 07/03/16 Unknown Baso # TNR 07/03/16 Unknown Add Manual Diff TNR 07/03/16 Unknown Total Counted TNR 07/03/16 Unknown Seg Neutrophils % TNR 07/03/16 Unknown Seg Neuts % (Manual) TNR 07/03/16 Unknown Band Neutrophils % TNR 07/03/16 Unknown Lymphocytes % (Manual) TNR 07/03/16 Unknown Reactive Lymphs % (Man) TNR 07/03/16 Unknown Monocytes % (Manual) TNR 07/03/16 Unknown Eosinophils % (Manual) TNR 07/03/16 Unknown Basophils % (Manual) TNR 07/03/16 Unknown Metamyelocytes % TNR 07/03/16 Unknown Myelocytes % TNR 07/03/16 Unknown Promyelocytes % TNR 07/03/16 Unknown Blast Cells % TNR 07/03/16 Unknown Nucleated RBC % TNR 07/03/16 Unknown Seg Neutrophils # TNR 07/03/16 Unknown Seg Neutrophils # Man TNR 07/03/16 Unknown Band Neutrophils # TNR 07/03/16 Unknown Lymphocytes # (Manual) TNR 07/03/16 Unknown Abs React Lymphs (Man) TNR 07/03/16 Unknown Monocytes # (Manual) TNR 07/03/16 Unknown Eosinophils # (Manual) TNR 07/03/16 Unknown Basophils # (Manual) TNR 07/03/16 Unknown Metamyelocytes # TNR 07/03/16 Unknown Myelocytes # TNR 07/03/16 Unknown Promyelocytes # TNR 07/03/16 Unknown Blast Cells # TNR 07/03/16 Unknown WBC Morphology TNR 07/03/16 Unknown Hypersegmented Neuts TNR 07/03/16 Unknown Hyposegmented Neuts TNR 07/03/16 Unknown Hypogranular Neuts TNR 07/03/16 Unknown Hypersegmented Polys TNR 07/03/16 Unknown Smudge Cells TNR 07/03/16 Unknown Toxic Granulation TNR 07/03/16 Unknown Toxic Vacuolation TNR 07/03/16 Unknown Dohle Bodies TNR 07/03/16 Unknown Pelger-Huet Anomaly TNR 07/03/16 Unknown Zaki Rods TNR 07/03/16 Unknown Platelet Estimate TNR 07/03/16 Unknown Clumped Platelets TNR 07/03/16 Unknown Plt Clumps, EDTA TNR 07/03/16 Unknown Large Platelets TNR 07/03/16 Unknown Giant Platelets TNR 07/03/16 Unknown Platelet Satelliting TNR 07/03/16 Unknown Plt Morphology Comment TNR 07/03/16 Unknown RBC Morphology TNR 07/03/16 Unknown Dimorphic RBCs TNR 07/03/16 Unknown Polychromasia TNR 07/03/16 Unknown Hypochromasia TNR 07/03/16 Unknown Poikilocytosis TNR 07/03/16 Unknown Basophilic Stippling TNR 07/03/16 Unknown Anisocytosis TNR 07/03/16 Unknown Microcytosis TNR 07/03/16 Unknown Macrocytosis TNR 07/03/16 Unknown Spherocytes TNR 07/03/16 Unknown Pappenheimer Bodies TNR 07/03/16 Unknown Sickle Cells TNR 07/03/16 Unknown Target Cells TNR 07/03/16 Unknown Tear Drop Cells TNR 07/03/16 Unknown Ovalocytes TNR 07/03/16 Unknown Stomatocytes TNR 07/03/16 Unknown Helmet Cells TNR 07/03/16 Unknown [place] Bodies TNR 07/03/16 Unknown [place] Rings TNR 07/03/16 Unknown [place] Cells TNR 07/03/16 Unknown Bite Cells TNR 07/03/16 Unknown Crenated Cell TNR 07/03/16 Unknown Elliptocytes TNR 07/03/16 Unknown Acanthocytes (Spur) TNR 07/03/16 Unknown Rouleaux TNR 07/03/16 Unknown Hemoglobin C Crystals TNR 07/03/16 Unknown Schistocytes TNR 07/03/16 Unknown Malaria parasites TNR 07/03/16 Unknown Sharif Bodies TNR 07/03/16 Unknown Hem Pathologist Commnt TNR 07/03/16 Unknown PT 33.5 Sec. (12.2-14.9) H 07/03/16 Unknown INR 3.26 (0.87-1.13) H 07/03/16 Unknown APTT 48.4 Sec. (24.2-36.6) H 07/03/16 04:29 Heparin Anti-Xa Level < 0.10 U.I./ml (0.3-0.7) L 07/03/16 04:29 POC ABG pH 7.052 (7.35-7.45) L 07/03/16 05:29 POC ABG pCO2 82.6 (35-45) H 07/03/16 05:29 POC ABG pO2 70 (80-105) L 07/03/16 05:29 POC ABG HCO3 22.9 07/03/16 05:29 POC ABG Total CO2 25 07/03/16 05:29 POC ABG O2 Sat 84 07/03/16 05:29 POC ABG Base Excess -7 07/03/16 05:29 FiO2 100 % 07/03/16 05:29 Sodium TNR 07/03/16 Unknown Potassium TNR 07/03/16 Unknown Chloride TNR 07/03/16 Unknown Carbon Dioxide TNR 07/03/16 Unknown Anion Gap TNR 07/03/16 Unknown BUN TNR 07/03/16 Unknown Creatinine TNR 07/03/16 Unknown Estimated GFR TNR 07/03/16 Unknown BUN/Creatinine Ratio TNR 07/03/16 Unknown Glucose TNR 07/03/16 Unknown POC Glucose 135 (70-105) H 07/02/16 23:39 Calcium TNR 07/03/16 Unknown Phosphorus TNR 07/03/16 Unknown Magnesium TNR 07/03/16 Unknown Iron 13 ug/dL (49-181) L 06/28/16 Unknown TIBC 152 mcg/dL (250-450) L 06/28/16 Unknown Ferritin 223.9 ng/mL (13.0-400.0) 06/28/16 Unknown Total Bilirubin TNR 07/03/16 Unknown AST TNR 07/03/16 Unknown ALT TNR 07/03/16 Unknown Alkaline Phosphatase TNR 07/03/16 Unknown Total Creatine Kinase TNR 07/03/16 Unknown CK-MB (CK-2) TNR 07/03/16 Unknown CK-MB (CK-2) Rel Index TNR 07/03/16 Unknown Troponin T TNR 07/03/16 Unknown NT-Pro-B Natriuret Pep 82517 pg/mL (0-900) H 07/01/16 08:00 Total Protein TNR 07/03/16 Unknown Albumin TNR 07/03/16 Unknown Albumin/Globulin Ratio TNR 07/03/16 Unknown Triglycerides 94 mg/dL (2-149) 06/26/16 21:19 Cholesterol 112 mg/dL (50-199) 06/26/16 21:19 LDL Cholesterol Direct 61 mg/dL (50-130) 06/26/16 21:19 HDL Cholesterol 33 mg/dL (40-59) L 06/26/16 21:19 Cholesterol/HDL Ratio 3.39 % 06/26/16 21:19 Urine Color Yellow (Yellow) 06/24/16 17:14 Urine Turbidity Clear (Clear) 06/24/16 17:14 Urine pH 5.0 (5.0-7.0) 06/24/16 17:14 Ur Specific [place] 1.021 (1.003-1.030) 06/24/16 17:14 Urine Protein <15 mg/dl mg/dL (Negative) 06/24/16 17:14 Urine Glucose (UA) Neg mg/dL (Negative) 06/24/16 17:14 Urine Ketones Neg mg/dL (Negative) 06/24/16 17:14 Urine Blood Sm (Negative) 06/24/16 17:14 Urine Nitrite Neg (Negative) 06/24/16 17:14 Urine Bilirubin Neg (Negative) 06/24/16 17:14 Urine Urobilinogen < 2.0 mg/dL (<2.0) 06/24/16 17:14 Ur Leukocyte Esterase Neg (Negative) 06/24/16 17:14 Urine WBC (Auto) 0.0 /HPF (0.0-6.0) 06/24/16 17:14 Urine RBC (Auto) 1.0 /HPF (0.0-6.0) 06/24/16 17:14 U Epithel Cells (Auto) < 1.0 /HPF (0-13.0) 06/24/16 17:14 Uric Acid Crystals 1+ 06/24/16 17:14 Urine Mucus Few /HPF 06/24/16 17:14 Vancomycin Trough 7.5 ug/mL (5.0-20.0) 06/27/16 14:00 RPR Nonreactive (Nonreactive) 06/19/16 13:43 Blood Type O POSITIVE 07/03/16 02:07 Antibody Screen Negative 07/03/16 02:07 Crossmatch See Detail 07/03/16 02:07 - Imaging and Cardiology Chest x-ray: report reviewed (new RT pneumothorax)
--- NOTE | 2016-07-03 16:04 | Event Note ---
Date: 07/03/16 called to pronounce patient whose life support was withdrawn at the request of the family; Pupils fixed and dilated; no cardiopulmonary activity Pronounced at 11:32 a.m; family present and informed of the time; NOTE - discharge summary to be debated by the primary team - vascular
== END 2016-07-03 11:31 | DRG 856 ==
LOC: 2B-SURG 12:45 → CC1 06-18 18:17 → 4A 06-22 03:21 → CC1 07-03 00:11
PROVIDERS: ADMIT Radiology Diagnostic Radiology; ATTEND Hospitalist
PROC: 03CK0ZZ Extirpation of Matter from Right Internal Carotid Artery, Open Approach (ICD-10-PCS; principal; 2016-06-18)
PROC: 03R Upper Arteries, Replacement (ICD-10-PCS; 2016-06-18)
PROC: 06BQ0ZZ Excision of Left Saphenous Vein, Open Approach (ICD-10-PCS; 2016-06-18)
PROC: 0BH17EZ Insertion of Endotracheal Airway into Trachea, Via Natural or Artificial Opening (ICD-10-PCS; 2016-07-03)
DX: T81.4XXA Infection following a procedure, initial encounter (principal); A41.9 Sepsis, unspecified organism; I60.9 Nontraumatic subarachnoid hemorrhage, unspecified; G93.41 Metabolic encephalopathy; J96.00 Acute respiratory failure, unspecified whether with hypoxia or hypercapnia; I75.89 Atheroembolism of other site; J90 Pleural effusion, not elsewhere classified; J93.9 Pneumothorax, unspecified; D68.9 Coagulation defect, unspecified; I46.9 Cardiac arrest, cause unspecified; I49.01 Ventricular fibrillation; I72.0 Aneurysm of carotid artery; I65.21 Occlusion and stenosis of right carotid artery; I25.10 Atherosclerotic heart disease of native coronary artery without angina pectoris; E78.5 Hyperlipidemia, unspecified; J44.9 Chronic obstructive pulmonary disease, unspecified; I12.9 Hypertensive chronic kidney disease with stage 1 through stage 4 chronic kidney disease, or unspecified chronic kidney disease; N18.3 Chronic kidney disease, stage 3 (moderate); D64.9 Anemia, unspecified; E87.6 Hypokalemia; R91.8 Other nonspecific abnormal finding of lung field; I48.0 Paroxysmal atrial fibrillation; Z66 Do not resuscitate; I25.2 Old myocardial infarction; Z98.890 Other specified postprocedural states; Z79.82 Long term (current) use of aspirin; Z95.5 Presence of coronary angioplasty implant and graft; Z87.891 Personal history of nicotine dependence; Z82.49 Family history of ischemic heart disease and other diseases of the circulatory system; Z95.1 Presence of aortocoronary bypass graft
CPT/HCPCS: 36415; 36600; 36620; 70450; 70496; 70498; 70553; 71010; 71250; 80048; 80053; 80061; 80202; 81001; 82270; 82550; 82553; 82728; 82803; 82962; 83550; 83735; 83880; 84100; 84132; 84484; 85007; 85014; 85018; 85025; 85027; 85049; 85520; 85610; 85730; 86592; 86850; 86900; 86901; 86920; 87040; 87076; 87086; 87102; 87116; 87186; 87205; 87220; 88304; 92950; 93005; 93010; 94002; 94003; 94640; 94760; A4649; A9270-GY; A9577; C9113; G8978-GP; G8979-GP; G8996-GN; G8997-GN; J0171; J0295; J0360; J0461; J0690; J1100; J1170; J1265; J1630; J1644; J1940; J2060; J2250; J2270; J2370; J2405; J2704; J3370; J7030; J7040; J7050; P9016; P9017; Q9967